=== PATIENT | female | born 1930 | race Caucasian/White ===

== ENCOUNTER 2017-08-16 17:51 | Inpatient (IN) | payer OTHER, MEDICARE ==
--- NOTE | 2017-08-16 18:45 | PDOC ---
History of Present Illness <Guilherme Keating - Last Filed: 08/16/17 18:47> - General History Source: Patient Exam Limitations: No Limitations - History of Present Illness Initial Comments: 08/16/17 19:30 The patient is a 87 year old female resident from [address] [place] [address], with a significant past medical history of HLD, Dementia, HLD who presents to the emergency department with s/p witnessed mechanical fall. Patient reports L hip pain radiating to her L thigh. Patient does not recall the event. Patient denies any head trauma, nausea or vomiting. She denies chest pain, headache or dizziness. Allergies: NKA PCP: Kwame <Tammy Bellamy - Last Filed: 08/16/17 22:33> <Godwin Resendiz - Last Filed: 08/20/17 19:31> - General Chief Complaint: Bone Injury Stated Complaint: FAll Time Seen by Provider: 08/16/17 18:38 Past History - Past Medical History Dementia: Yes Hypercholesterolemia: Yes Other medical history: tremmors - Immunization History Immunization Up to Date: Yes - Suicide/Smoking/Psychosocial Hx Smoking History: Former smoker Have you smoked in the past 12 months: No Information on smoking cessation initiated: No Hx Alcohol Use: No Drug/Substance Use Hx: No Substance Use Type: None <Guilherme Keating - Last Filed: 08/16/17 18:47> <Tammy Bellamy - Last Filed: 08/16/17 22:33> <Godwin Resendiz - Last Filed: 08/20/17 19:31> - Past Medical History Allergies/Adverse Reactions: Allergies Allergy/AdvReac Type Severity Reaction Status Date / Time No Known Allergies Allergy Verified 08/17/17 16:49 Home Medications: Ambulatory Orders Cholecalciferol (Vitamin D3) [Vitamin D3] 2,000 unit PO DAILY 10/14/16 Cyanocobalamin [Vitamin B12 -] 1,000 mcg PO DAILY 10/14/16 Escitalopram Oxalate [Lexapro -] 10 mg PO DAILY 10/14/16 Esomeprazole Magnesium [Nexium 24Hr] 20 mg PO DAILY 10/14/16 Folic Acid 1 mg PO DAILY 10/14/16 Primidone 50 mg PO DAILY 10/14/16 Propranolol HCl [Inderal LA -] 120 mg PO DAILY 10/14/16 Simvastatin 20 mg PO DAILY 10/14/16 Docusate Sodium [Colace -] 200 mg PO HS 08/16/17 Sennosides [Senna] 8.6 mg PO HS 08/16/17 Acetaminophen [Tylenol .Regular Strength -] 650 mg PO Q6H #30 tablet 08/20/17 Polyethylene Glycol 3350 [Miralax 119 gm Btl -] 17 gm PO DAILY #1 bottle Review of Systems - Review of Systems Able to Perform ROS?: Yes Comments:: 08/16/17 19:30 GENERAL/CONSTITUTIONAL: No fever or chills. No weakness. HEAD, EYES, EARS, NOSE AND THROAT: No change in vision. No ear pain or discharge. No sore throat. CARDIOVASCULAR: No chest pain or shortness of breath. RESPIRATORY: No cough, wheezing, or hemoptysis. GASTROINTESTINAL: No nausea, vomiting, diarrhea or constipation. GENITOURINARY: No dysuria, frequency, or change in urination. MUSCULOSKELETAL: No joint or muscle swelling or pain. No neck or back pain. + L hip pain. SKIN: No rash NEUROLOGIC: No headache, vertigo, loss of consciousness, or change in strength/ sensation. ENDOCRINE: No increased thirst. No abnormal weight change. HEMATOLOGIC/LYMPHATIC: No anemia, easy bleeding, or history of blood clots. ALLERGIC/IMMUNOLOGIC: No hives or skin allergy. <Tammy Bellamy - Last Filed: 08/16/17 22:33> *Physical Exam - Vital Signs Last Vital Signs Temp Pulse Resp BP Pulse Ox 98.7 F 54 L 20 147/80 97 08/16/17 18:05 08/16/17 18:05 08/16/17 18:05 08/16/17 18:05 08/16/17 18:05 <Guilherme Keating - Last Filed: 08/16/17 18:47> - Vital Signs Last Vital Signs Temp Pulse Resp BP Pulse Ox 98.7 F 54 L 20 147/80 97 08/16/17 18:05 08/16/17 18:05 08/16/17 18:05 08/16/17 18:05 08/16/17 18:05 - Physical Exam Comments: 08/16/17 19:31 GENERAL: Awake, alert, and fully oriented, in no acute distress HEAD: No signs of trauma EYES: PERRLA, EOMI, sclera anicteric, conjunctiva clear ENT: Auricles normal inspection, hearing grossly normal, nares patent, oropharynx clear without exudates. Moist mucosa NECK: Normal ROM, supple, no lymphadenopathy, JVD, or masses LUNGS: Breath sounds equal, clear to auscultation bilaterally. No wheezes, and no crackles HEART: Regular rate and rhythm, normal S1 and S2, no murmurs, rubs or gallops ABDOMEN: Soft, nontender, normoactive bowel sounds. No guarding, no rebound. No masses EXTREMITIES: Normal range of motion, no edema. No clubbing or cyanosis. No cords, erythema, or tenderness NEUROLOGICAL: Cranial nerves II through XII grossly intact. Normal speech, normal gait SKIN: Warm, Dry, normal turgor, no rashes or lesions noted. <Tammy Bellamy - Last Filed: 08/16/17 22:33> - Vital Signs Last Vital Signs Temp Pulse Resp BP Pulse Ox 98.7 F 54 L 20 147/80 97 08/16/17 18:05 08/16/17 18:05 08/16/17 18:05 08/16/17 18:05 08/16/17 18:05 <AstridGodwin - Last Filed: 08/20/17 19:31> ED Treatment Course - LABORATORY CBC & Chemistry Diagram: 08/16/17 21:30 08/16/17 21:30 <Tammy Bellamy - Last Filed: 08/16/17 22:33> - LABORATORY CBC & Chemistry Diagram: 08/20/17 06:10 08/20/17 06:10 - ADDITIONAL ORDERS Additional order review: Laboratory Results 08/17/17 08/16/17 08/16/17 06:14 21:30 21:30 PT with INR INR Sodium 141 Potassium 4.2 Chloride 106 Carbon Dioxide 28 Anion Gap 7 L BUN 25 H Creatinine 0.9 Creat Clearance w eGFR 59.09 Random Glucose 141 H Calcium 8.4 L Total Bilirubin 0.3 AST 25 ALT 26 Alkaline Phosphatase 93 Total Protein 6.5 Albumin 3.6 Urine Color Yellow Urine Appearance Clear Urine pH 6.0 Urine Protein Negative Urine Glucose (UA) Negative Urine Ketones Negative Urine Blood Negative Urine Nitrite Negative Urine Bilirubin Negative Urine Urobilinogen Negative Blood Type O POSITIVE Antibody Screen Negative 08/16/17 21:30 PT with INR 10.90 INR 0.96 Sodium Potassium Chloride Carbon Dioxide Anion Gap BUN Creatinine Creat Clearance w eGFR Random Glucose Calcium Total Bilirubin AST ALT Alkaline Phosphatase Total Protein Albumin Urine Color Urine Appearance Urine pH Urine Protein Urine Glucose (UA) Urine Ketones Urine Blood Urine Nitrite Urine Bilirubin Urine Urobilinogen Blood Type Antibody Screen 08/16/17 21:30 RBC 3.98 MCV 86.8 MCHC 32.8 RDW 15.7 H MPV 7.6 Neutrophils % No Result Required. Lymphocytes % No Result Required. - Medications Given in the ED: ED Medications Discontinued Medications Generic Name Dose Route Start Last Admin Trade Name Aleksandra PRN Reason Stop Dose Admin Acetaminophen 1,000 mg 08/16/17 21:40 08/16/17 22:02 Ofirmev Injection - IVPB 08/16/17 21:41 1,000 mg ONCE ONE Administration <Godwin Resendiz - Last Filed: 08/20/17 19:31> Medical Decision Making - Medical Decision Making 08/16/17 22:06 Dr. Malone paged via phone answering service. Awaiting call back. <Tammy Bellamy - Last Filed: 08/16/17 22:33> - Medical Decision Making 08/20/17 19:27 I did not evaluate this patient. I entered this chart to place admission order as it was not done originally <Godwin Resendiz - Last Filed: 08/20/17 19:31> *DC/Admit/Observation/Transfer - Attestations Physician Attestion: 08/16/17 18:39 I, Dr. Guilherme Keating, attest that this document has been prepared under my direction and personally reviewed by me in its entirety. I further attest, that it accurately reflects all work, treatment, procedures and medical decision -making performed by me. <Guilherme Keating - Last Filed: 08/16/17 18:47> - Attestations Scribe Attestion: 08/16/17 19:31 Documentation prepared by Tammy Bellamy, acting as medical aide for Guilherme Keating DO. <Tammy Bellamy - Last Filed: 08/16/17 22:33> <Godwin Resendiz - Last Filed: 08/20/17 19:31> Diagnosis at time of Disposition: Fall Qualifiers: Encounter type: initial encounter Qualified Code(s): W19.XXXA - Unspecified fall, initial encounter; W19.XXXA - Unspecified fall, initial encounter Pelvic fracture Qualifiers: Encounter type: initial encounter Pelvic bone location: unspecified part of pelvis Fracture type: closed Fracture alignment: displaced Qualified Code(s): S32.9XXA - Fracture of unspecified parts of lumbosacral spine and pelvis, initial encounter for closed fracture; S32.9XXA - Fracture of unspecified parts of lumbosacral spine and pelvis, initial encounter for closed fracture; S32.9XXA - Fracture of unspecified parts of lumbosacral spine and pelvis, initial encounter for closed fracture - Discharge Dispostion Disposition: [facility] - Prescriptions - Referrals
[2017-08-16] MEDS ORDERED: ACETAMINOPHEN 1000 MG/100 ML VIAL (NON FORMULARY) IVPB ONE (21:40)
[2017-08-16] MEDS ORDERED: ACETAMINOPHEN INJECTION 100 ML IVPB ONE (21:46)
[2017-08-16 22:05] LABS: MCH 28.5 pg (25.7-33.7); MCHC 32.8 g/dl (32.0-36.0); MEAN CELL VOLUME 86.8 fl (80-96); MEAN PLT VOLUME 7.6 fl (7.5-11.1); PLATELET COUNT 207 K/MM3 (134-434); RDW 15.7 % (11.6-15.6); WHITE BLOOD COUNT 26.3 K/mm3 (4.0-10.0)
[2017-08-16 22:21] LABS: INR 0.96 (0.82-1.09); PROTHROMBIN TIME (PATIENT) 10.9 SEC (9.98-11.88)
[2017-08-16 22:32] LABS: ALBUMIN 3.6 g/dl (3.4-5.0); ALK PHOS 93 U/L (45-117); ANION GAP 7 (8-16); BILIRUBIN,TOTAL 0.3 mg/dL (0.2-1.0); CALCIUM 8.4 mg/dL (8.5-10.1); CO2 28 mmol/L (21-32); CREATININE 0.9 mg/dL (0.55-1.02); GLUCOSE,RANDOM 141 mg/dL (74-106); SGOT/AST 25 U/L (15-37); SGPT/ALT 26 U/L (12-78); TOT PROT 6.5 g/dl (6.4-8.2)
[2017-08-16 22:47] LABS: PLATELET ESTIMATE ADEQUATE (NORMAL); REACTIVE LYMPHOCYTES 2 % (0-80); SMUDGE CELLS 1; TOTAL CELLS COUNTED 100
--- NOTE | 2017-08-16 23:32 | HP ---
Admitting History and Physical - Admission Chief Complaint: s/p fall - pain to hip History of Present Illness: The patient is a 87 year old female resident from [address] [place] [address], with a significant past medical history of HLD, Dementia, HLD who presents to the emergency department with s/p witnessed mechanical fall. Patient reports L hip pain radiating to her L thigh. Patient does not recall the event. Patient denies any head trauma, nausea or vomiting. She denies chest pain, headache or dizziness. History Source: Patient, Medical Record, Transfer Record - Past Medical History Musculoskeletal: Yes: Osteoarthritis - Smoking History Smoking history: Former smoker Have you smoked in the past 12 months: No - Alcohol/Substance Use Hx Alcohol Use: No - Social History Usual Living Arrangement: Yes: Assisted Living ADL: Support Services Home Medications - Allergies Allergies/Adverse Reactions: Allergies Allergy/AdvReac Type Severity Reaction Status Date / Time No Known Allergies Allergy Verified 08/17/17 16:49 - Home Medications Home Medications: Ambulatory Orders Cholecalciferol (Vitamin D3) [Vitamin D3] 2,000 unit PO DAILY 10/14/16 Chromium Picolinate 200 mcg PO DAILY 10/14/16 Cyanocobalamin [Vitamin B12 -] 1,000 mcg PO DAILY 10/14/16 Escitalopram Oxalate [Lexapro -] 10 mg PO DAILY 10/14/16 Esomeprazole Magnesium [Nexium 24Hr] 20 mg PO DAILY 10/14/16 Folic Acid 1 mg PO DAILY 10/14/16 Folic Acid/Mv,Fe,Min/Lutein [Certa Plus Tablet] 1 each PO DAILY 10/14/16 Primidone 50 mg PO DAILY 10/14/16 Propranolol HCl [Inderal *LA*] 120 mg PO DAILY 10/14/16 Simvastatin 20 mg PO DAILY 10/14/16 Docusate Sodium [Colace -] 200 mg PO HS 08/16/17 Sennosides [Senna] 8.6 mg PO HS 08/16/17 Review of Systems - Review of Systems Constitutional: reports: No Symptoms Eyes: reports: No Symptoms HENT: reports: No Symptoms Neck: reports: No Symptoms Cardiovascular: denies: Chest Pain, Palpitations, Shortness of Breath Respiratory: denies: SOB on Exertion Gastrointestinal: reports: No Symptoms Genitourinary: reports: No Symptoms Breasts: reports: No Symptoms Reported Musculoskeletal: reports: No Symptoms Neurological: reports: Pre-Existing Deficit Endocrine: reports: No Symptoms Psychiatric: reports: No Symptoms Physical Examination Vital Signs: Vital Signs Temperature 98.7 F 08/16/17 18:05 Pulse Rate 54 L 08/16/17 18:05 Respiratory Rate 20 08/16/17 18:05 Blood Pressure 147/80 08/16/17 18:05 O2 Sat by Pulse Oximetry (%) 97 08/16/17 18:05 Findings/Remarks: patient sedated / no history obtained calm / comfortable / + pain with exam Constitutional: Yes: No Distress, Calm Eyes: Yes: Conjunctiva Clear, EOM Intact HENT: Yes: Atraumatic, Normocephalic Neck: Yes: Supple, Trachea Midline Cardiovascular: Yes: Regular Rate and Rhythm Respiratory: Yes: CTA Bilaterally Gastrointestinal: Yes: Normal Bowel Sounds, Soft ...Rectal Exam: Yes: Deferred Musculoskeletal: Yes: WNL, Other (discomfort with pelvis movement /). No: Joint Stiffness, Joint Swelling, Muscle Pain Extremities: Yes: Delayed Capillary Refill. No: Deformity, External Rotation, Shortened Peripheral Pulses WNL: Yes Peripheral Pulses: Left Radial: 2+ Neurological: Yes: Confusion (sedated) Labs: CBC, BMP 08/16/17 21:30 08/16/17 21:30 Problem List - Problems (1) Fall Code(s): W19.XXXA - UNSPECIFIED FALL, INITIAL ENCOUNTER (2) Pelvic fracture Code(s): S32.9XXA - FRACTURE OF UNSP PARTS OF LUMBOSACRAL SPINE AND PELVIS, INIT Qualifiers: Fracture morphology: associated transverse-posterior (3) Contusion, back Code(s): S20.229A - CONTUSION OF UNSPECIFIED BACK WALL OF THORAX, INIT ENCNTR (4) Contusion, hip Code(s): S70.00XA - CONTUSION OF UNSPECIFIED HIP, INITIAL ENCOUNTER (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
[2017-08-17] MEDS ORDERED: ACETAMINOPHEN 325 MG TABLET (FP) ONE ×3 (00:02→11:56)
[2017-08-17] MEDS: ACETAMINOPHEN 325 MG TABLET (FP) PO SCH ×5 (00:02→23:19)
[2017-08-17] MEDS ORDERED: HYDROmorphone HCL CARPU-JECT 1 MG/1 ML DISP.SYRIN ONE (05:52)
[2017-08-17] MEDS: HYDROmorphone HCL CARPU-JECT 1 MG/1 ML DISP.SYRIN IVPUSH PRN ×2 (06:06→20:21)
[2017-08-17 06:30] LABS: URINE APPEARANCE CLEAR; URINE BILIRUBIN NEGATIVE (NEGATIVE); URINE BLOOD NEGATIVE (NEGATIVE); URINE COLOR YELLOW; URINE GLUCOSE (UA) NEGATIVE (NEGATIVE); URINE KETONE NEGATIVE (NEGATIVE); URINE NITRITE NEGATIVE (NEGATIVE); URINE PROTEIN NEGATIVE (NEGATIVE); URINE UROBILINOGEN NEGATIVE mg/dL (0.2-1.0)
[2017-08-17 10:41] LABS: MCHC 33.7 g/dl (32.0-36.0); MEAN CELL VOLUME 86.1 fl (80-96); MEAN PLT VOLUME 7.7 fl (7.5-11.1); PLATELET COUNT 189 K/MM3 (134-434); RDW 15.5 % (11.6-15.6); WHITE BLOOD COUNT 18.1 K/mm3 (4.0-10.0)
[2017-08-17 10:55] LABS: ANION GAP 5 (8-16); CO2 31 mmol/L (21-32); GLUCOSE,RANDOM 114 mg/dL (74-106)
[2017-08-17] MEDS: FOLIC ACID 1 MG TABLET (FP) PO SCH (11:56)
[2017-08-17] MEDS: ESCITALOPRAM OXALATE 10 MG TABLET (FP) PO SCH (11:58)
[2017-08-17] MEDS: PANTOPRAZOLE 20 MG TABLET (FP) PO SCH (11:59)
[2017-08-17] MEDS: CHOLECALCIFEROL (VITAMIN D3) 1,000 UNIT TABLET (FP) PO SCH (11:59)
[2017-08-17 13:45] LABS: BASOPHIL %. 1 % (0-2.0); PLATELET ESTIMATE ADEQUATE (NORMAL); TOTAL CELLS COUNTED 100
--- NOTE | 2017-08-17 14:35 | CON.ORTH ---
Consult Reason for Consultation:: left pelvic fx - Past Medical History Musculoskeletal: Yes: Osteoarthritis - Alcohol/Substance Use Hx Alcohol Use: No - Smoking History Smoking history: Former smoker Have you smoked in the past 12 months: No - Social History ADL: Support Services Home Medications - Allergies Allergies/Adverse Reactions: Allergies Allergy/AdvReac Type Severity Reaction Status Date / Time No Known Allergies Allergy Verified 07/03/16 14:15 - Home Medications Home Medications: Ambulatory Orders Cholecalciferol (Vitamin D3) [Vitamin D3] 2,000 unit PO DAILY 10/14/16 Chromium Picolinate 200 mcg PO DAILY 10/14/16 Cyanocobalamin [Vitamin B12 -] 1,000 mcg PO DAILY 10/14/16 Escitalopram Oxalate [Lexapro -] 10 mg PO DAILY 10/14/16 Esomeprazole Magnesium [Nexium 24Hr] 20 mg PO DAILY 10/14/16 Folic Acid 1 mg PO DAILY 10/14/16 Folic Acid/Mv,Fe,Min/Lutein [Certa Plus Tablet] 1 each PO DAILY 10/14/16 Primidone 50 mg PO DAILY 10/14/16 Propranolol HCl [Inderal *LA*] 120 mg PO DAILY 10/14/16 Simvastatin 20 mg PO DAILY 10/14/16 Docusate Sodium [Colace -] 200 mg PO HS 08/16/17 Sennosides [Senna] 8.6 mg PO HS 08/16/17 Physical Exam for Ortho Vital Signs: Vital Signs Temperature 97.9 F 08/17/17 14:27 Pulse Rate 56 L 08/17/17 14:27 Respiratory Rate 18 08/17/17 14:27 Blood Pressure 138/56 08/17/17 14:27 O2 Sat by Pulse Oximetry (%) 98 08/17/17 14:27 Labs: CBC, BMP 08/17/17 09:50 08/17/17 09:50 INR, PTT INR 0.96 (0.82-1.09) 08/16/17 21:30 - Lower Extremity Hip: Yes: Left, Decreased ROM, Pain, Swelling, Other (nvi) Imaging - Results X-ray: Report Reviewed, Image Reviewed Assessment/Plan 87 year old female resident from [address] [place] [address], with a significant past medical history of HLD, Dementia, HLD who presents to the emergency department with s/p witnessed mechanical fall. Patient reports L hip pain radiating to her L thigh. Patient does not recall the event. Patient denies any head trauma, nausea or vomiting. She denies chest pain, headache or dizziness. a/p- left superior and inferior pubic rami fx, chronic T 11 compression fx PT eval wbat pain control dvt ppx medical f/u for ?lymphoma on CT d/w Dr. Burton
[2017-08-17 16:37] LABS: URINE LEUK ESTERASE Negative (NEGATIVE)
[2017-08-17 18:05] VITALS: BMI 24.8
[2017-08-17] MEDS ORDERED: FLU VACCINE QUAD 60 MCG/0.5 ML (MDV 17-18) IM ONE (19:54)
[2017-08-17] MEDS: POLYETHYLENE GLYCOL 3350 119 GM BTL PO SCH (20:24)
[2017-08-17] MEDS ORDERED: PT OWN MED DRAWER 7, Y5N ONE (21:12)
[2017-08-17] MEDS: ATORVASTATIN CA 40 MG TABLET (FP) PO SCH (21:34)
[2017-08-17] MEDS: DOCUSATE SODIUM 100 MG CAPSULE (FP) PO SCH (21:34)
[2017-08-17] MEDS: PRIMIDONE 50 MG TABLET PO SCH (21:36)
[2017-08-18] MEDS: ACETAMINOPHEN 325 MG TABLET (FP) PO SCH ×5 (01:16→23:47)
[2017-08-18] MEDS ORDERED: PT OWN MED DRAWER 7, Y5N ONE ×2 (10:34→22:00)
[2017-08-18] MEDS: POLYETHYLENE GLYCOL 3350 119 GM BTL PO SCH (10:41)
[2017-08-18] MEDS: FOLIC ACID 1 MG TABLET (FP) PO SCH (10:42)
[2017-08-18] MEDS: ESCITALOPRAM OXALATE 10 MG TABLET (FP) PO SCH (10:42)
[2017-08-18] MEDS: PANTOPRAZOLE 20 MG TABLET (FP) PO SCH (10:42)
[2017-08-18] MEDS: CHOLECALCIFEROL (VITAMIN D3) 1,000 UNIT TABLET (FP) PO SCH (10:42)
--- NOTE | 2017-08-18 15:53 | PN ---
Progress Note (short form) - Note Progress Note: patient seen in ER awaiting room was just sedated with dilaudid appears comfortable except for movement of left LE patient unable to provide hx of event however fall was witness / documented as a mechanical fall Vital Signs Period Temp Pulse Resp BP Sys/Chapman Pulse Ox Last 24 Hr 97.2 F-100.0 F 56-71 18-20 116-147/54-66 97-99 neck supple heart S1/S2 lungs clear bilat abd soft non tender + pain with hip movement Ext no deformity / edema / + pulses CBC, BMP 08/17/17 09:50 08/17/17 09:50 Active Medications Acetaminophen (Tylenol -) 650 mg PO Q6H [facility] Last Admin: 08/18/17 11:58 Dose: 650 mg Atorvastatin Calcium (Lipitor -) 40 mg PO HS [facility] Last Admin: 08/17/17 21:34 Dose: 40 mg Cholecalciferol (Vitamin D3 -) 1,000 unit PO DAILY [facility] Last Admin: 08/18/17 10:42 Dose: 1,000 unit Docusate Sodium (Colace -) 200 mg PO HS [facility] Last Admin: 08/17/17 21:34 Dose: 200 mg Escitalopram Oxalate (Lexapro -) 10 mg PO DAILY [facility] Last Admin: 08/18/17 10:42 Dose: 10 mg Folic Acid (Folic Acid -) 1 mg PO DAILY [facility] Last Admin: 08/18/17 10:42 Dose: 1 mg Hydromorphone HCl (Dilaudid Injection -) 1 mg IVPUSH Q4H PRN PRN Reason: PAIN Last Admin: 08/17/17 20:21 Dose: 1 mg Pantoprazole Sodium (Protonix -) 20 mg PO DAILY [facility] Last Admin: 08/18/17 10:42 Dose: 20 mg Polyethylene Glycol (Miralax (For Daily Use) -) 17 gm PO DAILY [facility] Last Admin: 08/18/17 10:41 Dose: 17 grams Primidone (Mysoline -) 50 mg PO HS [facility] Last Admin: 08/17/17 21:36 Dose: 50 mg Propranolol HCl (Inderal La -) 120 mg PO DAILY [facility] Last Admin: 08/18/17 10:42 Dose: 120 mg assmt # mechanical fall / fx pelvis ortho opinion bedrest while sedated will need STR DVT prophylaxis # 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 [facility] elevated wbc # HLD continue statins # depression continue antidepressant Problem List - Problems (1) Fall Code(s): W19.XXXA - UNSPECIFIED FALL, INITIAL ENCOUNTER (2) Pelvic fracture Code(s): S32.9XXA - FRACTURE OF UNSP PARTS OF LUMBOSACRAL SPINE AND PELVIS, INIT Qualifiers: Fracture morphology: associated transverse-posterior (3) Contusion, back Code(s): S20.229A - CONTUSION OF UNSPECIFIED BACK WALL OF THORAX, INIT ENCNTR (4) Contusion, hip Code(s): S70.00XA - CONTUSION OF UNSPECIFIED HIP, INITIAL ENCOUNTER (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
--- NOTE | 2017-08-18 20:22 | PN ---
Progress Note (short form) - Note Progress Note: ORTHOPEDICALLY STABLE PLAN: ANALGESICS, PT - WBAT, DC PLANNING
[2017-08-18] MEDS: DOCUSATE SODIUM 100 MG CAPSULE (FP) PO SCH (22:04)
[2017-08-18] MEDS: PRIMIDONE 50 MG TABLET PO SCH (22:04)
[2017-08-18] MEDS: ATORVASTATIN CA 40 MG TABLET (FP) PO SCH (22:04)
[2017-08-19] MEDS: HYDROmorphone HCL CARPU-JECT 1 MG/1 ML DISP.SYRIN IVPUSH PRN (00:53)
[2017-08-19] MEDS: ACETAMINOPHEN 325 MG TABLET (FP) PO SCH ×4 (06:16→23:28)
[2017-08-19] MEDS ORDERED: HYDROmorphone HCL CARPU-JECT 1 MG/1 ML DISP.SYRIN IVPB PRN (08:00)
[2017-08-19] MEDS ORDERED: PT OWN MED DRAWER 7, Y5N ONE ×2 (10:23→21:14)
[2017-08-19] MEDS: ESCITALOPRAM OXALATE 10 MG TABLET (FP) PO SCH (10:24)
[2017-08-19] MEDS: CHOLECALCIFEROL (VITAMIN D3) 1,000 UNIT TABLET (FP) PO SCH (10:24)
[2017-08-19] MEDS: FOLIC ACID 1 MG TABLET (FP) PO SCH (10:24)
[2017-08-19] MEDS: PANTOPRAZOLE 20 MG TABLET (FP) PO SCH (10:24)
[2017-08-19] MEDS: POLYETHYLENE GLYCOL 3350 119 GM BTL PO SCH (10:24)
--- NOTE | 2017-08-19 12:18 | PN ---
Progress Note (short form) - Note Progress Note: attending note patient sitting in bed awake alert "I don't want to be here !!" unclear if she actually understands she has sustained Fx discussed STR -- seems to be agreeable Vital Signs Period Temp Pulse Resp BP Sys/Chapman Pulse Ox Last 24 Hr 97.2 F-100.0 F 56-71 18-20 116-147/54-66 97-99 neck supple heart S1/S2 lungs clear bilat abd soft non tender + pain with hip movement Ext no deformity / edema / + pulses CBC, BMP 08/17/17 09:50 08/17/17 09:50 Active Medications Acetaminophen (Tylenol -) 650 mg PO Q6H [facility] Last Admin: 08/19/17 06:16 Dose: 650 mg Atorvastatin Calcium (Lipitor -) 40 mg PO HS [facility] Last Admin: 08/18/17 22:04 Dose: 40 mg Cholecalciferol (Vitamin D3 -) 1,000 unit PO DAILY [facility] Last Admin: 08/19/17 10:24 Dose: 1,000 unit Docusate Sodium (Colace -) 200 mg PO HS [facility] Last Admin: 08/18/17 22:04 Dose: 200 mg Escitalopram Oxalate (Lexapro -) 10 mg PO DAILY [facility] Last Admin: 08/19/17 10:24 Dose: 10 mg Folic Acid (Folic Acid -) 1 mg PO DAILY [facility] Last Admin: 08/19/17 10:24 Dose: 1 mg Hydromorphone HCl (Dilaudid Injection -) 1 mg IVPB Q4H PRN PRN Reason: PAIN Pantoprazole Sodium (Protonix -) 20 mg PO DAILY [facility] Last Admin: 08/19/17 10:24 Dose: 20 mg Polyethylene Glycol (Miralax (For Daily Use) -) 17 gm PO DAILY [facility] Last Admin: 08/19/17 10:24 Dose: 17 grams Primidone (Mysoline -) 50 mg PO HS [facility] Last Admin: 08/18/17 22:04 Dose: 50 mg Propranolol HCl (Inderal La -) 120 mg PO DAILY [facility] Last Admin: 08/19/17 10:24 Dose: 120 mg assmt # mechanical fall / fx pelvis ortho follow up appresicated will need STR -- prefer [facility] she is agreeable DVT prophylaxis # 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 [facility] elevated wbc # HLD continue statins # depression continue antidepressant Problem List - Problems (1) Fall Code(s): W19.XXXA - UNSPECIFIED FALL, INITIAL ENCOUNTER (2) Pelvic fracture Code(s): S32.9XXA - FRACTURE OF UNSP PARTS OF LUMBOSACRAL SPINE AND PELVIS, INIT Qualifiers: Fracture morphology: associated transverse-posterior (3) Contusion, back Code(s): S20.229A - CONTUSION OF UNSPECIFIED BACK WALL OF THORAX, INIT ENCNTR (4) Contusion, hip Code(s): S70.00XA - CONTUSION OF UNSPECIFIED HIP, INITIAL ENCOUNTER (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
--- NOTE | 2017-08-19 12:20 | PN ---
Progress Note (short form) - Note Progress Note: attending note drowsy / recently sedated / comfortable -- ortho consult appreciated Vital Signs Period Temp Pulse Resp BP Sys/Chapman Pulse Ox Last 24 Hr 97.2 F-100.0 F 56-71 18-20 116-147/54-66 97-99 neck supple heart S1/S2 lungs clear bilat abd soft non tender + pain with hip movement Ext no deformity / edema / + pulses CBC, BMP 08/17/17 09:50 08/17/17 09:50 Active Medications Acetaminophen (Tylenol -) 650 mg PO Q6H [facility] Last Admin: 08/19/17 06:16 Dose: 650 mg Atorvastatin Calcium (Lipitor -) 40 mg PO HS [facility] Last Admin: 08/18/17 22:04 Dose: 40 mg Cholecalciferol (Vitamin D3 -) 1,000 unit PO DAILY [facility] Last Admin: 08/19/17 10:24 Dose: 1,000 unit Docusate Sodium (Colace -) 200 mg PO HS [facility] Last Admin: 08/18/17 22:04 Dose: 200 mg Escitalopram Oxalate (Lexapro -) 10 mg PO DAILY [facility] Last Admin: 08/19/17 10:24 Dose: 10 mg Folic Acid (Folic Acid -) 1 mg PO DAILY [facility] Last Admin: 08/19/17 10:24 Dose: 1 mg Hydromorphone HCl (Dilaudid Injection -) 1 mg IVPB Q4H PRN PRN Reason: PAIN Pantoprazole Sodium (Protonix -) 20 mg PO DAILY [facility] Last Admin: 08/19/17 10:24 Dose: 20 mg Polyethylene Glycol (Miralax (For Daily Use) -) 17 gm PO DAILY [facility] Last Admin: 08/19/17 10:24 Dose: 17 grams Primidone (Mysoline -) 50 mg PO HS [facility] Last Admin: 08/18/17 22:04 Dose: 50 mg Propranolol HCl (Inderal La -) 120 mg PO DAILY [facility] Last Admin: 08/19/17 10:24 Dose: 120 mg assmt # mechanical fall / fx pelvis ortho follow up appresicated will need STR - DVT prophylaxis # 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 [facility] elevated wbc # HLD continue statins # depression continue antidepressant Problem List - Problems (1) Fall Code(s): W19.XXXA - UNSPECIFIED FALL, INITIAL ENCOUNTER (2) Pelvic fracture Code(s): S32.9XXA - FRACTURE OF UNSP PARTS OF LUMBOSACRAL SPINE AND PELVIS, INIT Qualifiers: Fracture morphology: associated transverse-posterior (3) Contusion, back Code(s): S20.229A - CONTUSION OF UNSPECIFIED BACK WALL OF THORAX, INIT ENCNTR (4) Contusion, hip Code(s): S70.00XA - CONTUSION OF UNSPECIFIED HIP, INITIAL ENCOUNTER (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
[2017-08-19] MEDS: PRIMIDONE 50 MG TABLET PO SCH (21:16)
[2017-08-19] MEDS: ATORVASTATIN CA 40 MG TABLET (FP) PO SCH (21:16)
[2017-08-19] MEDS: DOCUSATE SODIUM 100 MG CAPSULE (FP) PO SCH (21:16)
[2017-08-20] MEDS: ACETAMINOPHEN 325 MG TABLET (FP) PO SCH ×3 (06:05→17:43)
[2017-08-20 07:09] LABS: MCH 28.9 pg (25.7-33.7); MCHC 33.5 g/dl (32.0-36.0); MEAN CELL VOLUME 86.4 fl (80-96); MEAN PLT VOLUME 7.7 fl (7.5-11.1); PLATELET COUNT 216 K/MM3 (134-434); RDW 15.7 % (11.6-15.6); WHITE BLOOD COUNT 19.1 K/mm3 (4.0-10.0)
[2017-08-20 07:13] LABS: ANION GAP 8 (8-16); CALCIUM 8.6 mg/dL (8.5-10.1); CO2 31 mmol/L (21-32); CREATININE 0.9 mg/dL (0.55-1.02); GLUCOSE,RANDOM 102 mg/dL (74-106)
[2017-08-20] MEDS ORDERED: PT OWN MED DRAWER 7, Y5N ONE (09:51)
--- NOTE | 2017-08-20 09:57 | PN ---
Progress Note (short form) - Note Progress Note: Ortho Pt seen and examined s/p left pelvic fx +ttp, decr rom secondary to pain, calf soft nt, nvi a/p PT wbat oob dvt ppx d/c planning d/w Dr. jiménez
[2017-08-20] MEDS: FOLIC ACID 1 MG TABLET (FP) PO SCH (09:58)
[2017-08-20] MEDS: CHOLECALCIFEROL (VITAMIN D3) 1,000 UNIT TABLET (FP) PO SCH (09:58)
[2017-08-20] MEDS: PANTOPRAZOLE 20 MG TABLET (FP) PO SCH (09:58)
[2017-08-20] MEDS: ESCITALOPRAM OXALATE 10 MG TABLET (FP) PO SCH (09:58)
[2017-08-20] MEDS: POLYETHYLENE GLYCOL 3350 119 GM BTL PO SCH (09:59)
--- NOTE | 2017-08-20 14:02 | PN ---
Progress Note (short form) - Note Progress Note: attending note sitting in chair - ? confised unclear if she understands injury / is able to discuss fall and knows her surrounding was ambulated by rehab this am family requesting [facility] patient will be evaluated today for BR She is comfortable and pain free except with exam / ROM Vital Signs Period Temp Pulse Resp BP Sys/Chapman Pulse Ox Last 24 Hr 97.2 F-100.0 F 56-71 18-20 116-147/54-66 97-99 neck supple heart S1/S2 lungs clear bilat abd soft non tender + pain with hip movement Ext no deformity / edema / + pulses CBC, BMP 08/17/17 09:50 08/17/17 09:50 CBC, BMP 08/20/17 06:10 08/20/17 06:10 Active Medications Acetaminophen (Tylenol -) 650 mg PO Q6H [facility] Last Admin: 08/20/17 11:51 Dose: 650 mg Atorvastatin Calcium (Lipitor -) 40 mg PO [facility] Last Admin: 08/19/17 21:16 Dose: 40 mg Cholecalciferol (Vitamin D3 -) 1,000 unit PO DAILY [facility] Last Admin: 08/20/17 09:58 Dose: 1,000 unit Docusate Sodium (Colace -) 200 mg PO [facility] Last Admin: 08/19/17 21:16 Dose: 200 mg Escitalopram Oxalate (Lexapro -) 10 mg PO DAILY [facility] Last Admin: 08/20/17 09:58 Dose: 10 mg Folic Acid (Folic Acid -) 1 mg PO DAILY [facility] Last Admin: 08/20/17 09:58 Dose: 1 mg Hydromorphone HCl (Dilaudid Injection -) 1 mg IVPB Q4H PRN PRN Reason: PAIN Pantoprazole Sodium (Protonix -) 20 mg PO DAILY [facility] Last Admin: 08/20/17 09:58 Dose: 20 mg Polyethylene Glycol (Miralax (For Daily Use) -) 17 gm PO DAILY [facility] Last Admin: 08/20/17 09:59 Dose: 17 grams Primidone (Mysoline -) 50 mg PO HS [facility] Last Admin: 08/19/17 21:16 Dose: 50 mg Propranolol HCl (Inderal La -) 120 mg PO DAILY [facility] Last Admin: 08/20/17 09:59 Dose: 120 mg assmt # mechanical fall / fx pelvis ortho follow up appresicated will need STR - DVT prophylaxis # 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 [facility] elevated wbc # HLD continue statins # depression continue antidepressant arrangements for D/C per family request appreciate discharge planning assist Problem List - Problems (1) Fall Code(s): W19.XXXA - UNSPECIFIED FALL, INITIAL ENCOUNTER (2) Pelvic fracture Code(s): S32.9XXA - FRACTURE OF UNSP PARTS OF LUMBOSACRAL SPINE AND PELVIS, INIT Qualifiers: Fracture morphology: associated transverse-posterior (3) Contusion, back Code(s): S20.229A - CONTUSION OF UNSPECIFIED BACK WALL OF THORAX, INIT ENCNTR (4) Contusion, hip Code(s): S70.00XA - CONTUSION OF UNSPECIFIED HIP, INITIAL ENCOUNTER (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
[2017-08-20 14:26] VITALS: BP 137/64; PULSE 59; TEMP 98.3
--- NOTE | 2017-08-20 19:15 | DS ---
Physical Examination Vital Signs: Vital Signs Temperature 98.3 F 08/20/17 14:24 Pulse Rate 59 L 08/20/17 14:24 Respiratory Rate 20 08/20/17 09:00 Blood Pressure 137/64 08/20/17 14:24 O2 Sat by Pulse Oximetry (%) 98 08/20/17 09:00 Findings/Remarks: The patient is a 87 year old female resident from [address] [place] [address], with a significant PMH of HLD, Dementia, HLD who presents to the emergency department s/p witnessed mechanical fall. Patient reported L hip pain radiating to her L thigh. Patient did not recall the event details however does remember falling. Patient denied any CP / Palpitation / dizzines / or lightheadedness at time of event. Per witnesses no documented head trauma. Patient was admitted, evaluated by ortho and physical therapy, and cleared for weight bearing. She was initially given dilaudid for pain management but has been comfortable over last 24 hr and has been managed well on tylenol ( standing order ) alone. She has been evaluated and accepted to out patient Short term rehab Constitutional: Yes: Well Nourished, No Distress Eyes: Yes: Conjunctiva Clear, EOM Intact HENT: Yes: Atraumatic, Normocephalic Neck: Yes: Supple, Trachea Midline Cardiovascular: Yes: Regular Rate and Rhythm Respiratory: Yes: Regular, CTA Bilaterally Gastrointestinal: Yes: Normal Bowel Sounds, Soft ...Rectal Exam: Yes: Deferred Renal/: Yes: WNL Extremities: Yes: Delayed Capillary Refill, Other (pain elicited on exam when evaluating ROM). No: Cold, Cyanosis, Deformity, External Rotation, Shortened Edema: No Peripheral Pulses WNL: Yes Peripheral Pulses: Left Radial: 2+, Right Radial: 2+, Left Doralis Pedis: 2+, Right Dorsalis Pedis: 2+, Left Femoral: 2+, Right Femoral: 2+ Integumentary: Yes: WNL Neurological: Yes: Alert, Confusion Psychiatric: Yes: Alert Labs: CBC, BMP 08/20/17 06:10 08/20/17 06:10 Discharge Summary Reason For Visit: FALL/ FX OF PELVIS Condition: Fair - Instructions Diet, Activity, Other Instructions: Fracture of pelvis weight bearing / PT safety in ADLs Referrals: Shyanne Puente [Primary Care Provider] - Disposition: SNF FACILITY - Home Medications Comprehensive Discharge Medication List: Ambulatory Orders Cholecalciferol (Vitamin D3) [Vitamin D3] 2,000 unit PO DAILY 10/14/16 Cyanocobalamin [Vitamin B12 -] 1,000 mcg PO DAILY 10/14/16 Escitalopram Oxalate [Lexapro -] 10 mg PO DAILY 10/14/16 Esomeprazole Magnesium [Nexium 24Hr] 20 mg PO DAILY 10/14/16 Folic Acid 1 mg PO DAILY 10/14/16 Primidone 50 mg PO DAILY 10/14/16 Propranolol HCl [Inderal LA -] 120 mg PO DAILY 10/14/16 Simvastatin 20 mg PO DAILY 10/14/16 Docusate Sodium [Colace -] 200 mg PO HS 08/16/17 Sennosides [Senna] 8.6 mg PO HS 08/16/17 Acetaminophen [Tylenol .Regular Strength -] 650 mg PO Q6H #30 tablet 08/20/17 Polyethylene Glycol 3350 [Miralax 119 gm Btl -] 17 gm PO DAILY #1 bottle
== END 2017-08-20 18:41 | DRG 536 ==
LOC: JER 17:51 → JERBED 23:00 → J6S 08-17 17:27
PROVIDERS: ADMIT Family Medicine; ATTEND Family Medicine
DX: S32.512A Fracture of superior rim of left pubis, initial encounter for closed fracture (principal); C92.11 Chronic myeloid leukemia, BCR/ABL-positive, in remission; F03.90 Unspecified dementia, unspecified severity, without behavioral disturbance, psychotic disturbance, mood disturbance, and anxiety; E78.5 Hyperlipidemia, unspecified; F32.9 Major depressive disorder, single episode, unspecified; W19.XXXA Unspecified fall, initial encounter; Y93.9 Activity, unspecified; Y92.89 Other specified places as the place of occurrence of the external cause
CPT/HCPCS: 36415; 71010-TC; 73523-TC; 74176-TC; 80048; 80053; 81003; 85025; 85027; 85610; 86850; 86900; 86901; 90688; 97116-GP; 97161-GP; 99283-25; G0008

== ENCOUNTER 2017-12-07 19:08 | Inpatient (IN) | payer OTHER, MEDICARE ==
[2017-12-07 19:55] VITALS: BMI 21.9
--- NOTE | 2017-12-07 20:54 | PDOC ---
History of Present Illness <Jerson Marie - Last Filed: 12/08/17 00:32> - General History Source: [facility] Records - History of Present Illness Initial Comments: 12/07/17 20:54 The patient is a 87 year old female resident from [address] [place] [address], with a significant PMH of CLL in remission, HLD, Dementia, and Deep Brain Surgery for her seizure who presents to the emergency department with altered mental status and fever T100.8. Patient has a history of left pelvic fracture back in July. patient left leg is externally rotated. <Cam Valle - Last Filed: 12/08/17 05:29> - General Chief Complaint: Altered Mental Status Stated Complaint: Altered Mental Status Time Seen by Provider: 12/07/17 20:41 Past History <Jerson Marie - Last Filed: 12/08/17 00:32> - Past Medical History Anemia: No Asthma: No Cancer: No Cardiac Disorders: No CVA: No COPD: No CHF: No Dementia: Yes GI Disorders: No HTN: No Hypercholesterolemia: Yes Liver Disease: No Seizures: No Thyroid Disease: No - Surgical History Abdominal Surgery: No Appendectomy: No Cardiac Surgery: No Lung Surgery: No Neurologic Surgery: No Orthopedic Surgery: No - Immunization History Immunization Up to Date: Yes - Suicide/Smoking/Psychosocial Hx Smoking History: Unknown if ever smoked Have you smoked in the past 12 months: No Information on smoking cessation initiated: No Hx Alcohol Use: No Drug/Substance Use Hx: No Substance Use Type: None Hx Substance Use Treatment: No <Cam Valle - Last Filed: 12/08/17 05:29> - Past Medical History Allergies/Adverse Reactions: Allergies Allergy/AdvReac Type Severity Reaction Status Date / Time No Known Allergies Allergy Verified 12/07/17 19:31 Home Medications: Ambulatory Orders Cholecalciferol (Vitamin D3) [Vitamin D3] 2,000 unit PO DAILY 10/14/16 Cyanocobalamin [Vitamin B12 -] 1,000 mcg PO DAILY 10/14/16 Folic Acid 1 mg PO DAILY 10/14/16 Primidone 50 mg PO DAILY 10/14/16 Simvastatin 20 mg PO DAILY 10/14/16 propRANOLol HCL [Inderal LA -] 120 mg PO DAILY 10/14/16 Sennosides [Senna] 8.6 mg PO HS 08/16/17 Acetaminophen [Tylenol .Regular Strength -] 650 mg PO Q6H #30 tablet 08/20/17 Polyethylene Glycol 3350 [Miralax 119 gm Btl -] 17 gm PO DAILY #1 bottle Bupropion HCl [Bupropion Xl] 150 mg PO DAILY 12/08/17 Review of Systems - Review of Systems Able to Perform ROS?: No (ams) <Cam Valle - Last Filed: 12/08/17 05:29> *Physical Exam - Vital Signs Last Vital Signs Temp Pulse Resp BP Pulse Ox 98.0 F 66 14 146/61 92 L 12/07/17 19:31 12/07/17 19:31 12/07/17 19:31 12/07/17 19:31 12/07/17 19:31 <Jerson Marie - Last Filed: 12/08/17 00:32> - Vital Signs Last Vital Signs Temp Pulse Resp BP Pulse Ox 98.0 F 66 14 146/61 92 L 12/07/17 19:31 12/07/17 19:31 12/07/17 19:31 12/07/17 19:31 12/07/17 19:31 - Physical Exam General Appearance: Yes: Nourished, Appropriately Dressed HEENT: positive: EOMI, NICK, Normal ENT Inspection Respiratory/Chest: positive: Lungs Clear, Normal Breath Sounds. negative: Chest Tender, Respiratory Distress Cardiovascular: positive: Regular Rhythm, Regular Rate, S1, S2 Gastrointestinal/Abdominal: positive: Normal Bowel Sounds, Tender (patient glimacing), Flat, Soft <Cam Valle - Last Filed: 12/08/17 05:29> Heart Score/ECG Review #1 12/08/17 00:32 Vent rate 68 bpm Anterior flipped T's Inferior Q's Normal sinus rhythm with sinus arrhythmia Left axis deviation Right bundle branch block Minimal voltage criteria for LVH, may be normal variant Abnormal ECG <Jerson Marie - Last Filed: 12/08/17 00:32> ED Treatment Course - LABORATORY CBC & Chemistry Diagram: 12/07/17 21:48 12/07/17 21:48 - ADDITIONAL ORDERS Additional order review: Laboratory Results 12/07/17 12/07/17 12/07/17 23:15 23:15 23:15 PT with INR INR PTT (Actin FS) Sodium Potassium Chloride Carbon Dioxide Anion Gap BUN Creatinine Creat Clearance w eGFR Random Glucose Lactic Acid 1.0 Calcium Total Bilirubin AST ALT Alkaline Phosphatase Creatine Kinase 11 L Troponin I < 0.02 Total Protein Albumin Blood Type O POSITIVE Antibody Screen Negative 12/07/17 12/07/17 23:15 21:48 PT with INR 13.40 H INR 1.19 H PTT (Actin FS) 23.4 L Sodium 140 Potassium 4.2 Chloride 101 Carbon Dioxide 32 Anion Gap 7 L BUN 24 H Creatinine 1.5 H Creat Clearance w eGFR 32.77 Random Glucose 111 H Lactic Acid Calcium 8.7 Total Bilirubin 0.4 D AST 14 L ALT 20 Alkaline Phosphatase 135 H Creatine Kinase Troponin I Total Protein 6.2 L Albumin 2.8 L Blood Type Antibody Screen 12/07/17 21:48 RBC 3.82 MCV 88.5 MCHC 30.8 L RDW 16.2 H MPV 6.5 L D Neutrophils % No Result Required. Lymphocytes % No Result Required. - Medications Given in the ED: ED Medications Discontinued Medications Generic Name Dose Route Start Last Admin Trade Name Rexq PRN Reason Stop Dose Admin Sodium Chloride 1,000 mls @ 1,000 mls/hr 12/07/17 21:06 12/07/17 21:57 Normal Saline - IV 12/07/17 22:05 1,000 mls/hr ASDIR STA Administration <Jerson Marie - Last Filed: 12/08/17 00:32> - LABORATORY CBC & Chemistry Diagram: 12/07/17 21:48 12/07/17 21:48 - RADIOLOGY Radiology Studies Ordered: Category Date Time Status CHEST X-RAY PORTABLE* [RAD] Stat Radiology 12/07/17 20:46 Ordered <Cam Valle - Last Filed: 12/08/17 05:29> Medical Decision Making - Medical Decision Making 12/08/17 00:21 The leukocytosis on 59 is probably a recurrence of the patient's CML. Ct Head pending, negative. Spoke to Dr. Martin who accepted the patient to be admitted. Spoke to Daughter who doesn't know who the hem/onc doctor was who treated her for CML 12/08/17 04:30 <Cam Valle - Last Filed: 12/08/17 05:29> *DC/Admit/Observation/Transfer <Jerson Marie - Last Filed: 12/08/17 00:32> - Discharge Dispostion Admit: Yes <Cam Valle - Last Filed: 12/08/17 05:29> Diagnosis at time of Disposition: Altered mental status
[2017-12-07] MEDS ORDERED: SODIUM CHLORIDE 1,000 ML IV STA (21:06)
[2017-12-07 21:59] LABS: HEMATOCRIT 33.8 % (32.4-45.2); HEMOGLOBIN 10.4 GM/dL (10.7-15.3); MCH 27.3 pg (25.7-33.7); MCHC 30.8 g/dl (32.0-36.0); MEAN CELL VOLUME 88.5 fl (80-96); MEAN PLT VOLUME 6.5 fl (7.5-11.1); PLATELET COUNT 404 K/MM3 (134-434); RBC 3.82 M/mm3 (3.60-5.2); RDW 16.2 % (11.6-15.6)
[2017-12-07 22:01] LABS: WHITE BLOOD COUNT 58.9 K/mm3 (4.0-10.0)
[2017-12-07 22:27] LABS: ALBUMIN 2.8 g/dl (3.4-5.0); ALK PHOS 135 U/L (45-117); ANION GAP 7 (8-16); BILIRUBIN,TOTAL 0.4 mg/dL (0.2-1.0); BLOOD UREA NITROGEN 24 mg/dL (7-18); CALCIUM 8.7 mg/dL (8.5-10.1); CHLORIDE 101 mmol/L (98-107); CO2 32 mmol/L (21-32); CREATININE 1.5 mg/dL (0.55-1.02); GLUCOSE,RANDOM 111 mg/dL (74-106); POTASSIUM 4.2 mmol/L (3.5-5.1); SGOT/AST 14 U/L (15-37); SGPT/ALT 20 U/L (12-78); SODIUM 140 mmol/L (136-145); TOT PROT 6.2 g/dl (6.4-8.2)
[2017-12-07 22:28] LABS: PLATELET ESTIMATE ADEQUATE
[2017-12-07 22:29] LABS: SMUDGE CELLS FEW
[2017-12-07 23:40] LABS: INR 1.19 (0.82-1.09); PROTHROMBIN TIME (PATIENT) 13.4 SEC (9.98-11.88)
[2017-12-07 23:42] LABS: ACTIVATED PTT 23.4 SECONDS (26.9-34.4)
--- NOTE | 2017-12-08 02:20 | PDOC ---
Attending Attestation - Resident Resident Name: Cam Valle - ED Attending Attestation I have performed the following: I have examined & evaluated the patient, The case was reviewed & discussed with the resident, I agree w/resident's findings & plan - HPI HPI: 12/08/17 04:37 Pt comes from assisted living today with AMS and fever. Pt has baseline dementia and she is unable to add to her history. - Physicial Exam PE: 12/08/17 04:41 Agree with resident exam. - Medical Decision Making 12/08/17 04:42 Admit to PMR[facility] Malone.
[2017-12-08 03:33] LABS: URINE APPEARANCE CLOUDY; URINE BILIRUBIN NEGATIVE (NEGATIVE); URINE BLOOD 1+ (NEGATIVE); URINE COLOR YELLOW; URINE GLUCOSE (UA) NEGATIVE (NEGATIVE); URINE KETONE NEGATIVE (NEGATIVE); URINE NITRITE NEGATIVE (NEGATIVE); URINE UROBILINOGEN NEGATIVE mg/dL (0.2-1.0)
[2017-12-08 03:36] LABS: URINE LEUK ESTERASE 3+ (NEGATIVE); URINE PROTEIN 1+ (NEGATIVE)
[2017-12-08 03:38] LABS: EPI CELLS RARE /HPF (FEW); URINE BACTERIA MANY /hpf (NONE SEEN); URINE MUCUS RARE
[2017-12-08] MEDS ORDERED: PIPERACILLIN/TAZOB 3.375 GM/50 ML PRE-DOCKED IVPB ONE (04:45)
[2017-12-08] MEDS ORDERED: PIPERACILLIN/TAZOB 3.375 GM 3.375 GM/50 ML BAG IVPB ONE (04:52)
[2017-12-08 06:32] LABS: VENOUS PC02 42.7 mmHg (38-52); VENOUS PH 7.43 (7.32-7.42)
[2017-12-08] MEDS: DEXTROSE 5%-0.45% SALINE 1,000 ML IV SCH ×2 (10:55→22:41)
[2017-12-08] MEDS: FOLIC ACID 1 MG TABLET (FP) PO SCH (11:25)
[2017-12-08] MEDS: POLYETHYLENE GLYCOL 3350 119 GM BTL PO SCH (11:25)
[2017-12-08] MEDS ORDERED: PT OWN MED DRAWER 7, Y5N ONE (12:11)
--- NOTE | 2017-12-08 12:13 | EKG ---
Test Reason : Blood Pressure : / mmHG Vent. Rate : 068 BPM Atrial Rate : 068 BPM P-R Int : 166 ms QRS Dur : 124 ms QT Int : 450 ms P-R-T Axes : 064 -38 047 degrees QTc Int : 478 ms NORMAL SINUS RHYTHM WITH SINUS ARRHYTHMIA LEFT AXIS DEVIATION RIGHT BUNDLE BRANCH BLOCK MINIMAL VOLTAGE CRITERIA FOR LVH, MAY BE NORMAL VARIANT ABNORMAL ECG NO PREVIOUS ECGS AVAILABLE Confirmed by GERMANIA FRITZ, LIZETH ([id number]) on 12/08/2017 12:13:07 PM Referred By: Confirmed By:LIZETH SOLO MD
--- NOTE | 2017-12-08 12:31 | CONSULT ---
Consult Consult Specialty:: Hematology/Oncology Reason for Consultation:: Leukocytosis - History of Present Illness Chief Complaint: High WBC count , fever , weakness History of Present Illness: is an 87 y/o [facility] resident with advanced dementia, HLD, Hx of seizure disorder s/p deep brain stimulation, Hx of CLL in the past that was untreated and left pelvic fracture in July 2017 due to which patient has an externally rotated left foot. Primary team would like us to evaluate patient for her leukocytosis in the setting of fever and AMS. On visiting patient, she was lying in bed and completely non-verbal. I was able to speak with her son who was at bedside and get more collateral history from him. Per history obtained from the son, patient has a history of CLL that was diagnosed about 12 years ago. He does not remember the name of the doctor that diagnosed CLL but he does remember that the family at the time went back and forth about treatment/no-treatment for 6 months and finally decision was made not to treat the patient for her CLL. - History Source History Provided By: Family Member, Medical Record Limitations to Obtaining History: Dementia - Past Medical History Musculoskeletal: Yes: Osteoarthritis - Alcohol/Substance Use Hx Alcohol Use: No - Smoking History Smoking history: Unknown if ever smoked Have you smoked in the past 12 months: No - Social History ADL: Support Services Home Medications - Allergies Allergies/Adverse Reactions: Allergies Allergy/AdvReac Type Severity Reaction Status Date / Time No Known Allergies Allergy Verified 12/07/17 19:31 - Home Medications Home Medications: Ambulatory Orders Cholecalciferol (Vitamin D3) [Vitamin D3] 2,000 unit PO DAILY 10/14/16 Cyanocobalamin [Vitamin B12 -] 1,000 mcg PO DAILY 10/14/16 Folic Acid 1 mg PO DAILY 10/14/16 Primidone 50 mg PO DAILY 10/14/16 Simvastatin 20 mg PO DAILY 10/14/16 propRANOLol HCL [Inderal LA -] 120 mg PO DAILY 10/14/16 Sennosides [Senna] 8.6 mg PO HS 08/16/17 Acetaminophen [Tylenol .Regular Strength -] 650 mg PO Q6H #30 tablet 08/20/17 Polyethylene Glycol 3350 [Miralax 119 gm Btl -] 17 gm PO DAILY #1 bottle Bupropion HCl [Bupropion Xl] 150 mg PO DAILY 12/08/17 Review of Systems Unable to obtain ROS, reason: advanced dementia Physical Exam Vital Signs: Vital Signs Temperature 97.4 F L 12/08/17 09:50 Pulse Rate 73 12/08/17 09:50 Respiratory Rate 20 12/08/17 09:50 Blood Pressure 124/60 12/08/17 09:50 O2 Sat by Pulse Oximetry (%) 95 12/08/17 05:11 Constitutional: Yes: No Distress Eyes: Yes: WNL HENT: Yes: WNL Neck: Yes: WNL Cardiovascular: Yes: Tachycardia Respiratory: Yes: WNL Gastrointestinal: Yes: WNL Renal/: Yes: WNL Musculoskeletal: Yes: WNL Extremities: Yes: WNL Neurological: Yes: Weakness, Other (very somnolent and not talkative) Labs: CBC, BMP 12/07/17 21:48 12/07/17 21:48 Assessment/Plan is an 87 y/o [facility] resident with advanced dementia, HLD, Hx of seizure disorder s/p deep brain stimulation, Hx of untreated CLL in the past and left pelvic fracture. She is now admitted after she spiked a fever of 100.8.Pt was shirley-cultured and received broad spectrum antibiotics (Zosyn) and has been admitted to Medicine service. She has a history of CLL diagnosed 12 years ago that was not treated per information obtained from the son. -I reviewed patients peripheral smear which shows several monomorphic lymphocytes with scanty cytoplasm, one smudge cell/hpf , normal appearing neutrophils, platelets and RBCS. This is consistent with a diagnosis of chronic CLL. Her differential count is also consistent with a diagnosis of CLL. She has a total WBC count of 58k which maybe mildly elevated from her baseline due to an infection that she is being worked up for. Awaiting Blood cultures, urine Cx, chest x ray appears wnl. At this time her CLL appears to be stable and treating it will not improve patients quality of life. She has advanced dementia and is bed-bound and is a good candidate for supportive care from Oncology standpoint. This was discussed with her son at bedside who is agreeable with this plan of care.
--- NOTE | 2017-12-08 13:11 | PN ---
Progress Note (short form) - Note Progress Note: ID Consult dictated UTI/ Possible sepsis secondary to UTI CLL OBS Pending c/s empiric ceftriaxone 1gm IVPB daily
--- NOTE | 2017-12-08 13:41 | HP ---
Admitting History and Physical - Admission Chief Complaint: fever / altered MS History of Present Illness: is an 87 y/o [facility] resident with advanced dementia, HLD, Hx of seizure disorder s/p deep brain stimulation, Hx of CLL in the past that was untreated and left pelvic fracture in July 2017 due to which patient has an externally rotated left foot. Presents with leukocytosis in the setting of fever and AMS. Medical information obtained from Dr Puente. recent labs WBC 18 (74% Lymphs) 10/02/17 h/h 10.8 / 32.7 WBC 16.2 (70% Lympph) 11/21/17 h/h Resident was transferred from [facility] facility due to fever and altered mental status , she is non verbal and cannot provide hx. She has had swallow eval recently with video flouroscopy indicating no aspiration, however staff reports she frequently coughs with meals. 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 Reproductive: Yes: Postmenopausal Heme/Onc: Yes: Other (CLL for about 12 ys) Musculoskeletal: Yes: Osteoarthritis - Smoking History Smoking history: Unknown if ever smoked Have you smoked in the past 12 months: No - Alcohol/Substance Use Hx Alcohol Use: No - Social History Usual Living Arrangement: Yes: Assisted Living ADL: Support Services History of Recent Travel: No Home Medications - Allergies Allergies/Adverse Reactions: Allergies Allergy/AdvReac Type Severity Reaction Status Date / Time No Known Allergies Allergy Verified 12/07/17 19:31 - Home Medications Home Medications: Ambulatory Orders Cholecalciferol (Vitamin D3) [Vitamin D3] 2,000 unit PO DAILY 10/14/16 Cyanocobalamin [Vitamin B12 -] 1,000 mcg PO DAILY 10/14/16 Folic Acid 1 mg PO DAILY 10/14/16 Primidone 50 mg PO DAILY 10/14/16 Simvastatin 20 mg PO DAILY 10/14/16 propRANOLol HCL [Inderal LA -] 120 mg PO DAILY 10/14/16 Sennosides [Senna] 8.6 mg PO HS 08/16/17 Acetaminophen [Tylenol .Regular Strength -] 650 mg PO Q6H #30 tablet 08/20/17 Polyethylene Glycol 3350 [Miralax 119 gm Btl -] 17 gm PO DAILY #1 bottle Bupropion HCl [Bupropion Xl] 150 mg PO DAILY 12/08/17 Review of Systems Findings/Remarks: unable to elicit any hx Patient is non verbal with dense dementia - Review of Systems Constitutional: reports: Fever (as per staff 100.8 at time of transfer) Physical Examination Vital Signs: Vital Signs Temperature 97.4 F L 12/08/17 09:50 Pulse Rate 73 12/08/17 09:50 Respiratory Rate 20 12/08/17 09:50 Blood Pressure 124/60 12/08/17 09:50 O2 Sat by Pulse Oximetry (%) 95 12/08/17 05:11 Constitutional: Yes: Well Nourished, No Distress, Calm Eyes: Yes: WNL, Conjunctiva Clear HENT: Yes: Atraumatic, Normocephalic Neck: Yes: Supple, Trachea Midline Cardiovascular: Yes: Regular Rate and Rhythm Respiratory: Yes: CTA Bilaterally, Diminished Gastrointestinal: Yes: Normal Bowel Sounds, Soft ...Rectal Exam: Yes: Deferred Renal/: Yes: WNL Musculoskeletal: Yes: Joint Stiffness Edema: No Peripheral Pulses WNL: Yes Integumentary: Yes: WNL Neurological: Yes: Pre-Existing Deficit, Other (non verbal) Labs: CBC, BMP 12/07/17 21:48 12/07/17 21:48 Problem List - Problems (1) Fever Assessment/Plan: shirley culture U/A with inc WBC +Leuk CXR no evidence of infiltrate blood c/s done urine c/s pending plan emperic tx for UTI ID counsult Code(s): R50.9 - FEVER, UNSPECIFIED (2) UTI (urinary tract infection) Assessment/Plan: c/s pending Code(s): N39.0 - URINARY TRACT INFECTION, SITE NOT SPECIFIED Qualifiers: Encounter type: initial encounter (3) Altered mental status Assessment/Plan: MS deterioration due to infection baseline dementia Code(s): R41.82 - ALTERED MENTAL STATUS, UNSPECIFIED (4) Dementia Code(s): F03.90 - UNSPECIFIED DEMENTIA WITHOUT BEHAVIORAL DISTURBANCE (5) CML in remission Assessment/Plan: review of recent blood work baseline WBC 16-18 with 70%Lymphs today WBC 58 ( 70% Lymph) component of infection and CLL will request Heme /onc opinion has declined treatment in the past and has been in remission for many yrs Code(s): C92.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
[2017-12-08] MEDS: CEFTRIAXONE 1 G/50 ML PREMIX 50 ML IVPB SCH (14:22)
[2017-12-08] MEDS ORDERED: PNEUMOC 13-VAL CONJ-DIP CRM/PF 0.5 ML DISP.SYRIN IM ONE (15:30)
[2017-12-08] MEDS: ACETAMINOPHEN 325 MG TABLET (FP) PO PRN (21:44)
[2017-12-08] MEDS: SENNOSIDES 8.6MG TABLET (FP) PO SCH (21:44)
[2017-12-08] MEDS: ATORVASTATIN CA 20 MG TABLET (FP) PO SCH (21:44)
[2017-12-08] MEDS: PRIMIDONE 50 MG TABLET PO SCH (22:23)
[2017-12-09] MEDS ORDERED: PT OWN MED DRAWER 7, Y5N ONE ×2 (08:57→23:14)
[2017-12-09 09:08] LABS: HEMATOCRIT 25.5 % (32.4-45.2); HEMOGLOBIN 7.9 GM/dL (10.7-15.3); MCH 27.6 pg (25.7-33.7); MCHC 31.1 g/dl (32.0-36.0); MEAN CELL VOLUME 88.6 fl (80-96); MEAN PLT VOLUME 6.6 fl (7.5-11.1); PLATELET COUNT 261 K/MM3 (134-434); RBC 2.88 M/mm3 (3.60-5.2); RDW 16.9 % (11.6-15.6)
[2017-12-09 09:20] LABS: WHITE BLOOD COUNT 42.7 K/mm3 (4.0-10.0)
[2017-12-09] MEDS: CEFTRIAXONE 1 G/50 ML PREMIX 50 ML IVPB SCH (09:23)
[2017-12-09] MEDS: FOLIC ACID 1 MG TABLET (FP) PO SCH (09:23)
[2017-12-09] MEDS: POLYETHYLENE GLYCOL 3350 119 GM BTL PO SCH (09:26)
[2017-12-09 09:34] LABS: ALBUMIN 2.1 g/dl (3.4-5.0); ANION GAP 8 (8-16); BLOOD UREA NITROGEN 18 mg/dL (7-18); CALCIUM 7.9 mg/dL (8.5-10.1); CHLORIDE 102 mmol/L (98-107); CO2 30 mmol/L (21-32); GLUCOSE,RANDOM 126 mg/dL (74-106); MAGNESIUM 2.4 mg/dL (1.8-2.4); PHOSPHOROUS 2.6 mg/dL (2.5-4.9); POTASSIUM 3.6 mmol/L (3.5-5.1); SGOT/AST 12 U/L (15-37); SGPT/ALT 14 U/L (12-78); SODIUM 140 mmol/L (136-145)
[2017-12-09 09:37] LABS: ALK PHOS 107 U/L (45-117); BILIRUBIN,TOTAL 0.5 mg/dL (0.2-1.0); CREATININE 1.4 mg/dL (0.55-1.02)
[2017-12-09 10:58] LABS: ANISOCYTOSIS 1+; PLATELET ESTIMATE NORMAL
--- NOTE | 2017-12-09 13:48 | PN ---
Progress Note (short form) - Note Progress Note: sitting in bed no distress ans questions more alert than yesterday Vital Signs Period Temp Pulse Resp BP Sys/Chapman Pulse Ox Last 24 Hr 97.6 F-103 F 60-70 18-22 114-177/42-65 94-98 neck supple heart S1/S2 Lungs clear bilat abd soft no tenderness elicited ext no edema CBC, BMP 12/09/17 08:06 12/09/17 08:06 Microbiology 12/07/17 23:20 Blood - Peripheral Venous Blood Culture - Preliminary Lactose Fermenting Neg Bacilli 12/08/17 03:20 Urine - Urine - Catheterized Urine Culture - Preliminary Lactose Fermenting Neg Bacilli 12/07/17 23:15 Blood - Peripheral Venous Blood Culture - Preliminary NO GROWTH OBTAINED AFTER 24 HOURS, INCUBATION TO CONTINUE FOR 4 DAYS. Active Medications Acetaminophen (Tylenol -) 650 mg PO Q6H PRN PRN Reason: fever pain Last Admin: 12/08/17 21:44 Dose: 650 mg Atorvastatin Calcium (Lipitor -) 20 mg PO [facility] Last Admin: 12/08/17 21:44 Dose: 20 mg Bupropion HCl (Wellbutrin Xl -) 150 mg PO DAILY [facility] Last Admin: 12/09/17 09:25 Dose: 150 mg Folic Acid (Folic Acid -) 1 mg PO DAILY [facility] Last Admin: 12/09/17 09:23 Dose: 1 mg Dextrose/Sodium Chloride (D5-1/2ns -) 1,000 mls @ 75 mls/hr IV ASDIR [facility] Last Admin: 12/08/17 22:41 Dose: 75 mls/hr CEFTRIAXONE 1 G/50 ML PREMIX (Ceftriaxone 1 Gm-D5w Bag) 50 mls @ 100 mls/hr IVPB DAILY [facility] Last Admin: 12/09/17 09:23 Dose: 100 mls/hr Polyethylene Glycol (Miralax (For Daily Use) -) 17 gm PO DAILY [facility] Last Admin: 12/09/17 09:26 Dose: 17 grams Primidone (Mysoline -) 50 mg PO [facility] Last Admin: 12/08/17 22:23 Dose: 50 mg Propranolol HCl (Inderal La -) 120 mg PO DAILY [facility] Last Admin: 12/09/17 09:25 Dose: 120 mg Senna (Senna -) 1 tab PO [facility] Last Admin: 02/17/18 21:44 Dose: 1 tab # Altered Mental status metabolic encephalopathy 2/2/ to UTI c/s pending ID appreciated # UTI abx --await c/s # CLL Inc WBC 74% Lymph --chronic anemia -- will discuss with Heme # dementia more alert today improved mentation Problem List - Problems (1) Fever Code(s): R50.9 - FEVER, UNSPECIFIED (2) UTI (urinary tract infection) Code(s): N39.0 - URINARY TRACT INFECTION, SITE NOT SPECIFIED Qualifiers: Encounter type: initial encounter (3) Altered mental status Code(s): R41.82 - ALTERED MENTAL STATUS, UNSPECIFIED (4) Dementia Code(s): F03.90 - UNSPECIFIED DEMENTIA WITHOUT BEHAVIORAL DISTURBANCE (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
[2017-12-09] MEDS: DEXTROSE 5%-0.45% SALINE 1,000 ML IV SCH (15:08)
--- NOTE | 2017-12-09 15:31 | PN ---
Progress Note, Physician History of Present Illness: Awake, confused NHo acute distress Non- toxic appearing Febrile overnight - Current Medication List Current Medications: Active Medications Acetaminophen (Tylenol -) 650 mg PO Q6H PRN PRN Reason: fever pain Last Admin: 12/08/17 21:44 Dose: 650 mg Atorvastatin Calcium (Lipitor -) 20 mg PO HS [facility] Last Admin: 12/08/17 21:44 Dose: 20 mg Bupropion HCl (Wellbutrin Xl -) 150 mg PO DAILY [facility] Last Admin: 12/09/17 09:25 Dose: 150 mg Folic Acid (Folic Acid -) 1 mg PO DAILY [facility] Last Admin: 12/09/17 09:23 Dose: 1 mg Dextrose/Sodium Chloride (D5-1/2ns -) 1,000 mls @ 75 mls/hr IV ASDIR [facility] Last Admin: 12/09/17 15:08 Dose: 75 mls/hr CEFTRIAXONE 1 G/50 ML PREMIX (Ceftriaxone 1 Gm-D5w Bag) 50 mls @ 100 mls/hr IVPB DAILY [facility] Last Admin: 12/09/17 09:23 Dose: 100 mls/hr Polyethylene Glycol (Miralax (For Daily Use) -) 17 gm PO DAILY [facility] Last Admin: 12/09/17 09:26 Dose: 17 grams Primidone (Mysoline -) 50 mg PO [facility] Last Admin: 12/08/17 22:23 Dose: 50 mg Propranolol HCl (Inderal La -) 120 mg PO DAILY [facility] Last Admin: 12/09/17 09:25 Dose: 120 mg Senna (Senna -) 1 tab PO HS [facility] Last Admin: 12/08/17 21:44 Dose: 1 tab - Objective Vital Signs: Vital Signs Temperature 98.7 F 12/09/17 09:40 Pulse Rate 60 12/09/17 09:40 Respiratory Rate 18 12/09/17 09:40 Blood Pressure 118/42 12/09/17 09:40 O2 Sat by Pulse Oximetry (%) 98 12/09/17 09:00 Constitutional: Yes: No Distress Eyes: Yes: Conjunctiva Clear Cardiovascular: Yes: Regular Rate and Rhythm, S1, S2 Respiratory: Yes: CTA Bilaterally Gastrointestinal: Yes: Normal Bowel Sounds, Soft. No: Tenderness Edema: No Labs: CBC, BMP 12/09/17 08:06 12/09/17 08:06 INR, PTT INR 1.19 (0.82-1.09) H 12/07/17 23:15 Assessment/Plan UTI Gram Negative bacteremia/ sepsis secondary to UTI CLL OBS Await final blood c/s Continue ceftriaxone
--- NOTE | 2017-12-09 15:51 | CONS ---
DATE OF CONSULTATION: 12/08/2017 The patient is an 87-year-old female evaluated for leukocytosis. History was obtained from the chart, as she suffers from profound dementia. She is a resident of an assisted living complex. She was noted to have worsening confusion and elevated temperature. She was evaluated in the emergency room, where white blood cell count was 58,000, lymphocytes 71%. 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 Her present white count is considerably higher than her baseline white blood cell count elevation. She offers no complaints. No reports of high-grade fever, shaking chills, labored breathing, cough, sputum production, vomiting, diarrhea, grossly purulent urine, or infected decubitus ulcers. Past medical history positive for dementia, CLL, hyperlipidemia, seizure disorder. PAST SURGICAL HISTORY: Status post left pelvic fracture in July 2017. No known allergies. MEDICATIONS: Folic acid, simvastatin, Inderal, Tylenol. SOCIAL HISTORY: She is a resident of an assisted-living complex, is dependent in activities of daily living. No active tobacco or alcohol use. SYSTEMS REVIEW: Neurologic: Positive for dementia. No loss of consciousness, seizure activity, or focal weakness. Cardiac: Negative chest pain or palpitations. Respiratory: Negative labored breathing or cough. Gastrointestinal: Negative vomiting or diarrhea. Genitourinary: Positive for urinary tract infection. LABORATORY DATA: White count 58,000, neutrophils 24, bands 2, lymphocytes 71. Hematocrit 33.8, platelet count 100. BUN 24, creatinine 1.5, total bilirubin 0.4, alkaline phosphatase 135, AST 14. Urinalysis: 485 white cells. Blood and urine cultures are pending. Chest x-ray negative for acute infiltrate. PHYSICAL EXAMINATION: General: She is awake, she is profoundly demented, in no acute distress, not acutely toxic appearing. Vital Signs: Temperature 97.4. Blood pressure 124/60. Pulse 73, regular. Respirations 20 per minute. ENT: Sclerae anicteric. Dry mucous membranes. Heart Sounds: S1, S2. Lungs: Poor inspiratory effort, grossly clear. Abdomen: Distended, soft. No tenderness elicited. No suprapubic or flank tenderness. Extremities: Negative for edema. IMPRESSION: 1. Urinary tract infection/possible sepsis secondary to urinary tract infection. 2. CLL. 3. Dementia. Suspect marked leukocytosis with lymphocyte predominance reflects her CLL. Cannot rule out component of infection. Patient has evidence of urinary tract infection. Await culture results. Empiric antibiotic coverage with ceftriaxone 1 g IV piggyback daily. Treatment of CLL as per hematology. Will follow. Thank you for the kind referral. ZACK MINER M.D. [id number]
[2017-12-09] MEDS: ACETAMINOPHEN 325 MG TABLET (FP) PO PRN (16:28)
[2017-12-09] MEDS: SENNOSIDES 8.6MG TABLET (FP) PO SCH (22:30)
[2017-12-09] MEDS: PRIMIDONE 50 MG TABLET PO SCH (22:30)
[2017-12-09] MEDS: ATORVASTATIN CA 20 MG TABLET (FP) PO SCH (22:30)
[2017-12-10] MEDS: DEXTROSE 5%-0.45% SALINE 1,000 ML IV SCH ×3 (06:28→20:32)
[2017-12-10 07:46] LABS: HEMATOCRIT 24.8 % (32.4-45.2); HEMOGLOBIN 7.8 GM/dL (10.7-15.3); MCH 27.9 pg (25.7-33.7); MCHC 31.6 g/dl (32.0-36.0); MEAN CELL VOLUME 88.3 fl (80-96); PLATELET COUNT 241 K/MM3 (134-434); RBC 2.81 M/mm3 (3.60-5.2); RDW 16.5 % (11.6-15.6)
[2017-12-10 07:55] LABS: ANION GAP 6 (8-16); BLOOD UREA NITROGEN 12 mg/dL (7-18); CALCIUM 7.4 mg/dL (8.5-10.1); CHLORIDE 102 mmol/L (98-107); CO2 29 mmol/L (21-32); CREATININE 1.2 mg/dL (0.55-1.02); GLUCOSE,RANDOM 122 mg/dL (74-106); POTASSIUM 3.5 mmol/L (3.5-5.1); SODIUM 137 mmol/L (136-145)
[2017-12-10 08:34] LABS: WHITE BLOOD COUNT 33.3 K/mm3 (4.0-10.0)
[2017-12-10 10:29] LABS: PLATELET ESTIMATE NORMAL
[2017-12-10] MEDS: FOLIC ACID 1 MG TABLET (FP) PO SCH (11:10)
[2017-12-10] MEDS: CEFTRIAXONE 1 G/50 ML PREMIX 50 ML IVPB SCH (11:11)
[2017-12-10] MEDS: POLYETHYLENE GLYCOL 3350 119 GM BTL PO SCH (11:12)
--- NOTE | 2017-12-10 11:15 | PN ---
Progress Note (short form) - Note Progress Note: Patient seen and examined Pleasantly confused Lying in bed in no distress Last Vital Signs Temp Pulse Resp BP Pulse Ox 99 F 66 18 138/59 98 12/10/17 06:00 12/10/17 06:00 12/10/17 06:00 12/10/17 06:00 12/09/17 09:00 No icterus No significant cervical or axillary adeno;athy Lungs - clear Cor -RSR Abdomen- soft Ext- no significant edema CBC, BMP 12/10/17 07:00 12/10/17 07:00 Current Medications Generic Name Dose Route Start Last Admin Trade Name Freq PRN Reason Stop Dose Admin Acetaminophen 650 mg 12/08/17 09:58 12/09/17 16:28 Tylenol - PO 650 mg Q6H PRN Administration fever pain Atorvastatin Calcium 20 mg 12/08/17 22:00 12/09/17 22:30 Lipitor - PO 20 mg HS [facility] Administration Bupropion HCl 150 mg 12/08/17 10:00 12/09/17 09:25 Wellbutrin Xl - PO 150 mg DAILY [facility] Administration Folic Acid 1 mg 12/08/17 10:00 12/09/17 09:23 Folic Acid - PO 1 mg DAILY [facility] Administration Dextrose/Sodium Chloride 1,000 mls @ 75 mls/hr 12/08/17 10:00 12/10/17 06:28 D5-1/2ns - IV 75 mls/hr ASDIR [facility] Administration CEFTRIAXONE 1 G/50 ML PREMIX 50 mls @ 100 mls/hr 12/08/17 14:15 12/09/17 09: 23 Ceftriaxone 1 Gm-D5w Bag IVPB 100 mls/hr DAILY [facility] Administration Polyethylene Glycol 17 gm 12/08/17 10:00 12/09/17 09:26 Miralax (For Daily Use) - PO 17 grams DAILY [facility] Administration Primidone 50 mg 12/08/17 22:00 12/09/17 22:30 Mysoline - PO 50 mg HS [facility] Administration Propranolol HCl 120 mg 12/08/17 10:00 12/09/17 09:25 Inderal La - PO 120 mg DAILY [facility] Administration Senna 1 tab 12/08/17 22:00 12/09/17 22:30 Senna - PO 1 tab HS [facility] Administration Impression: UTI Gram negative bacteremia CLL Anemia OBS Plan : Check immunoglobulins Screening for anemia
--- NOTE | 2017-12-10 11:45 | PN ---
Progress Note (short form) - Note Progress Note: verbal / does not want to eat some interaction Vital Signs Period Temp Pulse Resp BP Sys/Chapman Pulse Ox Last 24 Hr 97.6 F-103 F 60-70 18-22 114-177/42-65 94-98 neck supple heart S1/S2 Lungs clear bilat abd soft no tenderness elicited ext no edema CBC, BMP 12/10/17 07:00 12/10/17 07:00 12/07/17 23:20 Blood - Peripheral Venous Blood Culture - Final Escherichia Coli 12/08/17 03:20 Urine - Urine - Catheterized Urine Culture - Final Escherichia Coli 12/07/17 23:15 Blood - Peripheral Venous Blood Culture - Preliminary NO GROWTH OBTAINED AFTER 48 HOURS, INCUBATION TO CONTINUE FOR 3 DAYS. Active Medications Acetaminophen (Tylenol -) 650 mg PO Q6H PRN PRN Reason: fever pain Last Admin: 12/09/17 16:28 Dose: 650 mg Atorvastatin Calcium (Lipitor -) 20 mg PO [facility] Last Admin: 12/09/17 22:30 Dose: 20 mg Bupropion HCl (Wellbutrin Xl -) 150 mg PO DAILY [facility] Last Admin: 12/10/17 11:10 Dose: 150 mg Folic Acid (Folic Acid -) 1 mg PO DAILY [facility] Last Admin: 12/10/17 11:10 Dose: 1 mg Dextrose/Sodium Chloride (D5-1/2ns -) 1,000 mls @ 75 mls/hr IV ASDIR [facility] Last Admin: 12/10/17 11:11 Dose: Not Given CEFTRIAXONE 1 G/50 ML PREMIX (Ceftriaxone 1 Gm-D5w Bag) 50 mls @ 100 mls/hr IVPB DAILY [facility] Last Admin: 12/10/17 11:11 Dose: 100 mls/hr Polyethylene Glycol (Miralax (For Daily Use) -) 17 gm PO DAILY [facility] Last Admin: 12/10/17 11:12 Dose: 17 grams Primidone (Mysoline -) 50 mg PO [facility] Last Admin: 12/09/17 22:30 Dose: 50 mg Propranolol HCl (Inderal La -) 120 mg PO DAILY [facility] Last Admin: 12/10/17 11:16 Dose: 120 mg Senna (Senna -) 1 tab PO HS [facility] Last Admin: 12/09/17 22:30 Dose: 1 tab # Altered Mental status metabolic encephalopathy 2/2/ to UTI c/s+ E.Coli ID appreciated # UTI abx - # CLL Inc WBC 74% Lymph --chronic anemia -- appreciate heme follow up will follow up on work up discussed with son agrees to blood transfusion if needed # dementia more alert today improved mentation Problem List - Problems (1) Fever Code(s): R50.9 - FEVER, UNSPECIFIED (2) UTI (urinary tract infection) Code(s): N39.0 - URINARY TRACT INFECTION, SITE NOT SPECIFIED Qualifiers: Encounter type: initial encounter (3) Altered mental status Code(s): R41.82 - ALTERED MENTAL STATUS, UNSPECIFIED (4) Dementia Code(s): F03.90 - UNSPECIFIED DEMENTIA WITHOUT BEHAVIORAL DISTURBANCE (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
--- NOTE | 2017-12-10 12:06 | PN ---
Progress Note, Physician History of Present Illness: Lethargic but arousable No acute distress Non- toxic appearing Low grade temps BC, Urine c/s E. coli WBC down 33K - Current Medication List Current Medications: Active Medications Acetaminophen (Tylenol -) 650 mg PO Q6H PRN PRN Reason: fever pain Last Admin: 12/09/17 16:28 Dose: 650 mg Atorvastatin Calcium (Lipitor -) 20 mg PO HS [facility] Last Admin: 12/09/17 22:30 Dose: 20 mg Bupropion HCl (Wellbutrin Xl -) 150 mg PO DAILY [facility] Last Admin: 12/10/17 11:10 Dose: 150 mg Folic Acid (Folic Acid -) 1 mg PO DAILY [facility] Last Admin: 12/10/17 11:10 Dose: 1 mg Dextrose/Sodium Chloride (D5-1/2ns -) 1,000 mls @ 75 mls/hr IV ASDIR [facility] Last Admin: 12/10/17 11:11 Dose: Not Given CEFTRIAXONE 1 G/50 ML PREMIX (Ceftriaxone 1 Gm-D5w Bag) 50 mls @ 100 mls/hr IVPB DAILY [facility] Last Admin: 12/10/17 11:11 Dose: 100 mls/hr Polyethylene Glycol (Miralax (For Daily Use) -) 17 gm PO DAILY [facility] Last Admin: 12/10/17 11:12 Dose: 17 grams Primidone (Mysoline -) 50 mg PO [facility] Last Admin: 12/09/17 22:30 Dose: 50 mg Propranolol HCl (Inderal La -) 120 mg PO DAILY [facility] Last Admin: 12/10/17 11:16 Dose: 120 mg Senna (Senna -) 1 tab PO [facility] Last Admin: 12/09/17 22:30 Dose: 1 tab - Objective Vital Signs: Vital Signs Temperature 99 F 12/10/17 06:00 Pulse Rate 66 12/10/17 06:00 Respiratory Rate 18 12/10/17 06:00 Blood Pressure 138/59 12/10/17 06:00 O2 Sat by Pulse Oximetry (%) 98 12/09/17 09:00 Constitutional: Yes: No Distress Eyes: Yes: Conjunctiva Clear Cardiovascular: Yes: Regular Rate and Rhythm, S1, S2 Respiratory: Yes: CTA Bilaterally Gastrointestinal: Yes: Normal Bowel Sounds, Soft. No: Tenderness Edema: No Labs: CBC, BMP 12/10/17 07:00 12/10/17 07:00 INR, PTT INR 1.19 (0.82-1.09) H 12/07/17 23:15 Assessment/Plan UTI E coli Gram Negative bacteremia/ sepsis secondary to UTI CLL OBS Substitute cefazolin 1gn q8h Renal sonogram R/O hydronephrosis/ perinephric abscess
[2017-12-10] MEDS: CEFAZOLIN 1 GM PUSH 1 GM/10 ML DISP.SYRIN IVPUSH SCH (17:27)
[2017-12-10] MEDS ORDERED: CEFAZOLIN 1 GM in DEXTROSE 5%-WATER - 50 ML IVPB SCH (18:00)
[2017-12-10] MEDS: PRIMIDONE 50 MG TABLET PO SCH (21:09)
[2017-12-10] MEDS: SENNOSIDES 8.6MG TABLET (FP) PO SCH (21:09)
[2017-12-10] MEDS: ATORVASTATIN CA 20 MG TABLET (FP) PO SCH (21:09)
[2017-12-11] MEDS: CEFAZOLIN 1 GM PUSH 1 GM/10 ML DISP.SYRIN IVPUSH SCH ×3 (01:59→17:35)
[2017-12-11 08:15] LABS: ALBUMIN 2.2 g/dl (3.4-5.0); ANION GAP 9 (8-16); BLOOD UREA NITROGEN 8 mg/dL (7-18); CHLORIDE 101 mmol/L (98-107); CO2 30 mmol/L (21-32); GLUCOSE,RANDOM 111 mg/dL (74-106); SGOT/AST 36 U/L (15-37); SODIUM 140 mmol/L (136-145)
[2017-12-11 08:28] LABS: ALK PHOS 147 U/L (45-117); BILIRUBIN,TOTAL 0.3 mg/dL (0.2-1.0); CREATININE 1.1 mg/dL (0.55-1.02); LDH 167 U/L (84-246); SGPT/ALT 42 U/L (12-78); TOT PROT 5.2 g/dl (6.4-8.2)
[2017-12-11 09:34] LABS: ADD RBC MORPHOLOGY YES
[2017-12-11 10:31] LABS: HEMATOCRIT 26.6 % (32.4-45.2); HEMOGLOBIN 8.4 GM/dL (10.7-15.3); MCH 27.5 pg (25.7-33.7); MCHC 31.5 g/dl (32.0-36.0); MEAN CELL VOLUME 87.4 fl (80-96); MEAN PLT VOLUME 7.3 fl (7.5-11.1); PLATELET COUNT 262 K/MM3 (134-434); RBC 3.04 M/mm3 (3.60-5.2); RDW 16.2 % (11.6-15.6); WHITE BLOOD COUNT 28.9 K/mm3 (4.0-10.0)
[2017-12-11] MEDS: DEXTROSE 5%-0.45% SALINE 1,000 ML IV SCH (10:33)
[2017-12-11] MEDS: FOLIC ACID 1 MG TABLET (FP) PO SCH (10:34)
[2017-12-11] MEDS: POLYETHYLENE GLYCOL 3350 119 GM BTL PO SCH (10:35)
[2017-12-11 10:37] LABS: HEMOGLOBIN 10.8 GM/dL (10.7-15.3); RBC 4.06 M/mm3 (3.60-5.2); WHITE BLOOD COUNT 9.1 K/mm3 (4.0-10.0)
[2017-12-11 10:38] LABS: HEMATOCRIT 33.9 % (32.4-45.2); MCH 26.5 pg (25.7-33.7); MCHC 31.8 g/dl (32.0-36.0); MEAN CELL VOLUME 83.5 fl (80-96); RDW 20.9 % (11.6-15.6)
[2017-12-11 10:39] LABS: LYMPH % 19.1 % (8-40); MEAN PLT VOLUME 9.6 fl (7.5-11.1); NEUT % 66.7 % (42.8-82.8); PLATELET COUNT 105 K/MM3 (134-434)
[2017-12-11 10:40] LABS: BASO % 0.5 % (0-2.0); EOS % 1.2 % (0-4.5); MONO % 12.5 % (3.8-10.2)
--- NOTE | 2017-12-11 10:45 | PN ---
Progress Note (short form) - Note Progress Note: verbal / does not want to eat some interaction Vital Signs Period Temp Pulse Resp BP Sys/Chapman Pulse Ox Last 24 Hr 97.6 F-103 F 60-70 18-22 114-177/42-65 94-98 neck supple heart S1/S2 Lungs clear bilat abd soft no tenderness elicited ext no edema CBC, BMP 12/11/17 09:15 12/11/17 06:00 THESE LABS ARE INCORRECT -- REPEAT ORDERED Microbiology 12/07/17 23:15 Blood - Peripheral Venous Blood Culture - Preliminary NO GROWTH OBTAINED AFTER 72 HOURS, INCUBATION TO CONTINUE FOR 2 DAYS. 12/07/17 23:20 Blood - Peripheral Venous Blood Culture - Final Escherichia Coli 12/08/17 03:20 Urine - Urine - Catheterized Urine Culture - Final Escherichia Coli Active Medications Acetaminophen (Tylenol -) 650 mg PO Q6H PRN PRN Reason: fever pain Last Admin: 12/09/17 16:28 Dose: 650 mg Atorvastatin Calcium (Lipitor -) 20 mg PO HS [facility] Last Admin: 12/10/17 21:09 Dose: 20 mg Bupropion HCl (Wellbutrin Xl -) 150 mg PO DAILY [facility] Last Admin: 12/11/17 10:35 Dose: 150 mg Folic Acid (Folic Acid -) 1 mg PO DAILY [facility] Last Admin: 12/11/17 10:34 Dose: 1 mg Dextrose/Sodium Chloride (D5-1/2ns -) 1,000 mls @ 75 mls/hr IV ASDIR [facility] Last Admin: 12/11/17 10:33 Dose: 75 mls/hr Cefazolin Sodium (Ancef -) 1 gm in 10 mls @ 120 mls/hr IVPUSH Q8H-IV [facility] Last Admin: 12/11/17 10:34 Dose: 120 mls/hr Polyethylene Glycol (Miralax (For Daily Use) -) 17 gm PO DAILY [facility] Last Admin: 12/11/17 10:35 Dose: 17 grams Primidone (Mysoline -) 50 mg PO HS [facility] Last Admin: 12/10/17 21:09 Dose: 50 mg Propranolol HCl (Inderal La -) 120 mg PO DAILY [facility] Last Admin: 12/11/17 10:35 Dose: 120 mg Senna (Senna -) 1 tab PO HS [facility] Last Admin: 12/10/17 21:09 Dose: 1 tab # Altered Mental status metabolic encephalopathy 2// to UTI c/s+ E.Coli ID appreciated # UTI abx - # CLL Inc WBC 74% Lymph --chronic anemia -- appreciate heme follow up will follow up on work up discussed with son agrees to blood transfusion if needed # dementia more alert today improved mentation poor appetite REPEAT LABS PENDING Problem List - Problems (1) Fever Code(s): R50.9 - FEVER, UNSPECIFIED (2) UTI (urinary tract infection) Code(s): N39.0 - URINARY TRACT INFECTION, SITE NOT SPECIFIED Qualifiers: Encounter type: initial encounter (3) Altered mental status Code(s): R41.82 - ALTERED MENTAL STATUS, UNSPECIFIED (4) Dementia Code(s): F03.90 - UNSPECIFIED DEMENTIA WITHOUT BEHAVIORAL DISTURBANCE (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
[2017-12-11 11:39] LABS: HEMATOCRIT 29.4 % (32.4-45.2); HEMOGLOBIN 9.3 GM/dL (10.7-15.3); MCH 27.7 pg (25.7-33.7); MCHC 31.6 g/dl (32.0-36.0); MEAN CELL VOLUME 87.7 fl (80-96); MEAN PLT VOLUME 6.7 fl (7.5-11.1); PLATELET COUNT 283 K/MM3 (134-434); RBC 3.35 M/mm3 (3.60-5.2); RDW 16.6 % (11.6-15.6); WHITE BLOOD COUNT 33.3 K/mm3 (4.0-10.0)
[2017-12-11 12:02] LABS: ANION GAP 8 (8-16); BLOOD UREA NITROGEN 8 mg/dL (7-18); CHLORIDE 102 mmol/L (98-107); CO2 30 mmol/L (21-32); CREATININE 1.1 mg/dL (0.55-1.02); GLUCOSE,RANDOM 106 mg/dL (74-106); SODIUM 140 mmol/L (136-145)
--- NOTE | 2017-12-11 12:38 | PN ---
Progress Note, Physician History of Present Illness: More awake and responsive Pleasantly confused No acute distress Temps down Afebrile BC, Urine c/s E. coli WBC down 33K Renal sonogram no hydronephrosis - Current Medication List Current Medications: Active Medications Acetaminophen (Tylenol -) 650 mg PO Q6H PRN PRN Reason: fever pain Last Admin: 12/09/17 16:28 Dose: 650 mg Atorvastatin Calcium (Lipitor -) 20 mg PO HS [facility] Last Admin: 12/10/17 21:09 Dose: 20 mg Bupropion HCl (Wellbutrin Xl -) 150 mg PO DAILY [facility] Last Admin: 12/11/17 10:35 Dose: 150 mg Folic Acid (Folic Acid -) 1 mg PO DAILY [facility] Last Admin: 12/11/17 10:34 Dose: 1 mg Dextrose/Sodium Chloride (D5-1/2ns -) 1,000 mls @ 75 mls/hr IV ASDIR [facility] Last Admin: 12/11/17 10:33 Dose: 75 mls/hr Cefazolin Sodium (Ancef -) 1 gm in 10 mls @ 120 mls/hr IVPUSH Q8H-IV [facility] Last Admin: 12/11/17 10:34 Dose: 120 mls/hr Polyethylene Glycol (Miralax (For Daily Use) -) 17 gm PO DAILY [facility] Last Admin: 12/11/17 10:35 Dose: 17 grams Primidone (Mysoline -) 50 mg PO HS [facility] Last Admin: 12/10/17 21:09 Dose: 50 mg Propranolol HCl (Inderal La -) 120 mg PO DAILY [facility] Last Admin: 12/11/17 10:35 Dose: 120 mg Senna (Senna -) 1 tab PO HS [facility] Last Admin: 12/10/17 21:09 Dose: 1 tab - Objective Vital Signs: Vital Signs Temperature 97.9 F 12/11/17 08:56 Pulse Rate 65 12/11/17 08:56 Respiratory Rate 18 12/11/17 10:00 Blood Pressure 143/59 12/11/17 08:56 O2 Sat by Pulse Oximetry (%) 98 12/11/17 10:00 Constitutional: Yes: No Distress Eyes: Yes: Conjunctiva Clear Cardiovascular: Yes: Regular Rate and Rhythm, S1, S2 Respiratory: Yes: CTA Bilaterally Gastrointestinal: Yes: Normal Bowel Sounds, Soft. No: Tenderness Edema: No Labs: CBC, BMP 12/11/17 11:16 12/11/17 11:16 INR, PTT INR 1.19 (0.82-1.09) H 12/07/17 23:15 Assessment/Plan UTI E coli Gram Negative bacteremia/ sepsis secondary to UTI CLL OBS Continue cefazolin 1gn q8h
[2017-12-11 16:05] LABS: EOS % 0.6 % (0-4.5); MONO % 2.7 % (3.8-10.2); NEUT % 18.6 % (42.8-82.8)
[2017-12-11 16:06] LABS: BASO % 0.1 % (0-2.0)
[2017-12-11] MEDS ORDERED: POTASSIUM CHLORIDE TABS 20 MEQ TABLET.ER (FP) PO ONE ×2 (16:30→20:30)
--- NOTE | 2017-12-11 21:20 | PN ---
Progress Note (short form) - Note Progress Note: Last Vital Signs Temp Pulse Resp BP Pulse Ox 99.8 F H 67 18 154/71 98 12/11/17 20:38 12/11/17 20:38 12/11/17 20:38 12/11/17 20:38 12/11/17 10:00 CBC, BMP 12/11/17 11:16 12/11/17 11:16 Current Medications Generic Name Dose Route Start Last Admin Trade Name Freq PRN Reason Stop Dose Admin Acetaminophen 650 mg 12/08/17 09:58 12/09/17 16:28 Tylenol - PO 650 mg Q6H PRN Administration fever pain Atorvastatin Calcium 20 mg 12/08/17 22:00 12/10/17 21:09 Lipitor - PO 20 mg HS [facility] Administration Bupropion HCl 150 mg 12/08/17 10:00 12/11/17 10:35 Wellbutrin Xl - PO 150 mg DAILY [facility] Administration Folic Acid 1 mg 12/08/17 10:00 12/11/17 10:34 Folic Acid - PO 1 mg DAILY [facility] Administration Dextrose/Sodium Chloride 1,000 mls @ 75 mls/hr 12/08/17 10:00 12/11/17 10:33 D5-1/2ns - IV 75 mls/hr ASDIR [facility] Administration Cefazolin Sodium 1 gm in 10 mls @ 120 mls/hr 12/10/17 18:00 12/11/17 17:35 Ancef - IVPUSH 120 mls/hr Q8H-IV [facility] Administration Polyethylene Glycol 17 gm 12/08/17 10:00 12/11/17 10:35 Miralax (For Daily Use) - PO 17 grams DAILY [facility] Administration Primidone 50 mg 12/08/17 22:00 12/10/17 21:09 Mysoline - PO 50 mg HS [facility] Administration Propranolol HCl 120 mg 12/08/17 10:00 12/11/17 10:35 Inderal La - PO 120 mg DAILY [facility] Administration Senna 1 tab 12/08/17 22:00 12/10/17 21:09 Senna - PO 1 tab HS [facility] Administration Patient seen and examined Pleasantly confused Lying in bed in no distress No icterus No significant cervical or axillary adeno;athy Lungs - clear Cor -RSR Abdomen- soft Ext- no significant edema Impression: UTI Gram negative bacteremia CLL Anemia Plan : f/u immunoglobulins likely ACD/ACI, for monitoring
[2017-12-11] MEDS: SENNOSIDES 8.6MG TABLET (FP) PO SCH (21:29)
[2017-12-11] MEDS: ATORVASTATIN CA 20 MG TABLET (FP) PO SCH (21:29)
[2017-12-11] MEDS: PRIMIDONE 50 MG TABLET PO SCH (21:29)
[2017-12-12] MEDS: CEFAZOLIN 1 GM PUSH 1 GM/10 ML DISP.SYRIN IVPUSH SCH ×2 (01:21→10:05)
[2017-12-12 06:08] LABS: IGA IMMUNOGLOBULIN 66 mg/dL (64-422); IGM IMMUNOGLOBULIN 15 mg/dL (26-217); SERUM IRON SATURATION 12 (15-55); TOTAL IRON BINDING CAPACITY 171 (250-450); UIBC 151 ug/dL (118-369)
[2017-12-12] MEDS ORDERED: PT OWN MED DRAWER 7, Y5N ONE (10:01)
[2017-12-12] MEDS: FOLIC ACID 1 MG TABLET (FP) PO SCH (10:04)
[2017-12-12] MEDS: POLYETHYLENE GLYCOL 3350 119 GM BTL PO SCH (10:05)
--- NOTE | 2017-12-12 12:00 | PN ---
Progress Note, Physician History of Present Illness: Pleasantly confused No acute distress Temps down Afebrile BC, Urine c/s E. coli WBC down 33K Renal sonogram no hydronephrosis - Current Medication List Current Medications: Active Medications Acetaminophen (Tylenol -) 650 mg PO Q6H PRN PRN Reason: fever pain Last Admin: 12/09/17 16:28 Dose: 650 mg Atorvastatin Calcium (Lipitor -) 20 mg PO HS [facility] Last Admin: 12/11/17 21:29 Dose: 20 mg Bupropion HCl (Wellbutrin Xl -) 150 mg PO DAILY [facility] Last Admin: 12/12/17 10:05 Dose: 150 mg Folic Acid (Folic Acid -) 1 mg PO DAILY [facility] Last Admin: 12/12/17 10:04 Dose: 1 mg Cefazolin Sodium (Ancef -) 1 gm in 10 mls @ 120 mls/hr IVPUSH Q8H-IV [facility] Last Admin: 12/12/17 10:05 Dose: 120 mls/hr Polyethylene Glycol (Miralax (For Daily Use) -) 17 gm PO DAILY [facility] Last Admin: 12/12/17 10:05 Dose: 17 grams Primidone (Mysoline -) 50 mg PO [facility] Last Admin: 12/11/17 21:29 Dose: 50 mg Propranolol HCl (Inderal La -) 120 mg PO DAILY [facility] Last Admin: 12/12/17 10:08 Dose: 120 mg Senna (Senna -) 1 tab PO [facility] Last Admin: 12/11/17 21:29 Dose: 1 tab - Objective Vital Signs: Vital Signs Temperature 98.8 F 12/12/17 10:00 Pulse Rate 60 12/12/17 10:00 Respiratory Rate 19 12/12/17 10:00 Blood Pressure 114/60 12/12/17 10:00 O2 Sat by Pulse Oximetry (%) 98 12/11/17 21:00 Constitutional: Yes: No Distress Eyes: Yes: Conjunctiva Clear Cardiovascular: Yes: Regular Rate and Rhythm, S1, S2 Respiratory: Yes: CTA Bilaterally Gastrointestinal: Yes: Normal Bowel Sounds, Soft. No: Tenderness Edema: No Labs: CBC, BMP 12/11/17 11:16 12/11/17 11:16 INR, PTT INR 1.19 (0.82-1.09) H 12/07/17 23:15 Assessment/Plan UTI E coli E. coli bacteremia/ sepsis secondary to UTI CLL OBS May substitute Keflex 500g po q8h x 9 days
--- NOTE | 2017-12-12 13:53 | DS ---
Physical Examination Vital Signs: Vital Signs Temperature 98.8 F 12/12/17 10:00 Pulse Rate 60 12/12/17 10:00 Respiratory Rate 19 12/12/17 10:00 Blood Pressure 114/60 12/12/17 10:00 O2 Sat by Pulse Oximetry (%) 98 12/11/17 21:00 Findings/Remarks: is an 87 y/[facility] resident with advanced dementia, HLD, Hx of seizure disorder s/p deep brain stimulation, Hx of CLL in the past that was untreated and left pelvic fracture in July 2017 due to which patient has an externally rotated left foot. Presents with leukocytosis in the setting of fever and AMS. Medical information obtained from Dr Puente. recent labs WBC 18 (74% Lymphs) 10/02/17 h/h 10.8 / 32.7 WBC 16.2 (70% Lympph) 11/21/17 h/h Resident was transferred from [facility] facility due to fever and altered mental status , she is non verbal and cannot provide hx. She has had swallow eval recently with video flouroscopy indicating no aspiration, however staff reports she frequently coughs with meals. No Urinary Sx as per staff at time of transfer to ER History Source: Medical Record, Caregiver Limitations to Obtaining History: Dementia hospital stay on admission patient non verbal / combative - panculture + e.coli blood and urine IV abx and IV fluids began with marked improvement in mental status 5 days of ABX completed -- will d/c home with keflex 500 TID for 9 days patient has dementia and is back to baseline Son Addy has been contacted and aware of POC Constitutional: Yes: Well Nourished, No Distress Eyes: Yes: Conjunctiva Clear HENT: Yes: Atraumatic, Normocephalic Neck: Yes: Supple Cardiovascular: Yes: Regular Rate and Rhythm Respiratory: Yes: Regular Gastrointestinal: Yes: Normal Bowel Sounds, Soft ...Rectal Exam: Yes: Deferred Renal/: Yes: WNL Breast(s): Yes: WNL Musculoskeletal: Yes: WNL Extremities: Yes: WNL Edema: No Peripheral Pulses WNL: Yes Integumentary: Yes: WNL Neurological: Yes: Pre-Existing Deficit Psychiatric: Yes: Alert Labs: CBC, BMP 12/11/17 11:16 12/11/17 11:16 Discharge Summary Reason For Visit: Altered Mental Status Current Active Problems Altered mental status (Acute) Dementia (Acute) Fever (Acute) Seizure (Acute) UTI (urinary tract infection) (Acute) E Coli bacteremia E.Coli Condition: Improved - Instructions Referrals: Shyanne Puente [Non Staff, Medical] - Tony Ralph [Primary Care Provider] - - Home Medications Comprehensive Discharge Medication List: Ambulatory Orders Cholecalciferol (Vitamin D3) [Vitamin D3] 2,000 unit PO DAILY 10/14/16 Cyanocobalamin [Vitamin B12 -] 1,000 mcg PO DAILY 10/14/16 Folic Acid 1 mg PO DAILY 10/14/16 Primidone 50 mg PO DAILY 10/14/16 Simvastatin 20 mg PO DAILY 10/14/16 propRANOLol HCL [Inderal LA -] 120 mg PO DAILY 10/14/16 Sennosides [Senna] 8.6 mg PO HS 08/16/17 Acetaminophen [Tylenol .Regular Strength -] 650 mg PO Q6H #30 tablet 08/20/17 Polyethylene Glycol 3350 [Miralax 119 gm Btl -] 17 gm PO DAILY #1 bottle Bupropion HCl [Bupropion Xl] 150 mg PO DAILY 12/08/17
[2017-12-12] MEDS ORDERED: CEPHALEXIN MONOHYDRATE 500 MG CAPSULE (UD) PO SCH (14:00)
[2017-12-12 14:51] VITALS: BP 159/56; PULSE 66; TEMP 98.3
== END 2017-12-12 17:23 | disposition home or self-care (01) | DRG 871 ==
LOC: JER 19:08 → JERBED 12-08 00:20 → J5S 12-08 07:07
PROVIDERS: ADMIT Family Medicine; ATTEND Family Medicine
DX: A41.9 Sepsis, unspecified organism (principal); G93.41 Metabolic encephalopathy; N39.0 Urinary tract infection, site not specified; B96.29 Other Escherichia coli [E. coli] as the cause of diseases classified elsewhere; C91.11 Chronic lymphocytic leukemia of B-cell type in remission; G40.89 Other seizures; F03.90 Unspecified dementia, unspecified severity, without behavioral disturbance, psychotic disturbance, mood disturbance, and anxiety; E78.5 Hyperlipidemia, unspecified; I45.10 Unspecified right bundle-branch block; M84.454D Pathological fracture, pelvis, subsequent encounter for fracture with routine healing; Z74.01 Bed confinement status; D64.9 Anemia, unspecified
CPT/HCPCS: 36415; 70450-TC; 71045-TC-FY; 73523-TC-FY; 73552-TC-LT-FY; 73552-TC-RT-FY; 76775-TC; 80048; 80053; 81003; 81015; 82272; 82550; 82607; 82728; 82784; 82803; 83540; 83550; 83605; 83615; 83735; 84100; 84443; 84484; 85025; 85044; 85610; 85730; 86850; 86900; 86901; 87040; 87086; 87186; 90670; 93005; 93010; 97116-GP; 97161-GP; 99282-25

== ENCOUNTER 2018-03-20 06:04 | Emergency (ER) | payer OTHER, MEDICARE ==
[2018-03-20 06:33] VITALS: TEMP 98.2; BMI 25.7
--- NOTE | 2018-03-20 07:53 | PDOC ---
History of Present Illness <Humaira Nguyen - Last Filed: 03/20/18 10:51> - History of Present Illness Initial Comments: 03/20/18 08:41 The patient is a 88 year old female, with a significant past medical history of dementia and hyperlipidemia, who presents to the emergency department from [address] [place] [address] s/p mechanical fall earlier this morning. Per EMS, nursing staff sent the patient for evaluation s/p fall. Per Liam, patients nurse today at [address] [place] [address], patient was left in her bed at approximately 04:00 this morning. Nurse reports several minutes later, patient attempted to get out of her bed on her own, and they heard her fall. Staff ran in quickly and noted patient had slid of the bed, but did not lose consciousness. Unclear whether patient hit her head. Patient ambulates with a wheelchair at baseline and occasionally uses a walker, but needs assistance to get to her walker. She reports some tremors, but denies any headache, dizziness, lightheadedness, changes in vision, nausea, vomiting, neck/back/hip/leg pain, CP/SOB. Patient has no other complaints at this time. Allergies: NKDA Surgical History: None reported Social History: Non smoker. No ETOH or recreational drug use. PCP: Dr. Puente <Irineo Coronado - Last Filed: 03/20/18 12:49> - General Chief Complaint: Injury Stated Complaint: FALL/DEMENTIA Time Seen by Provider: 03/20/18 07:40 Past History <Humaira Nguyen - Last Filed: 03/20/18 10:51> - Past Medical History Anemia: No Asthma: No Cancer: No Cardiac Disorders: No CVA: No COPD: No CHF: No Dementia: Yes GI Disorders: No HTN: No Hypercholesterolemia: Yes Liver Disease: No Seizures: No Thyroid Disease: No - Surgical History Abdominal Surgery: No Appendectomy: No Cardiac Surgery: No Lung Surgery: No Neurologic Surgery: No Orthopedic Surgery: No - Immunization History Immunization Up to Date: Yes - Suicide/Smoking/Psychosocial Hx Smoking History: Never smoked Have you smoked in the past 12 months: No Information on smoking cessation initiated: No Hx Alcohol Use: No Drug/Substance Use Hx: No Substance Use Type: None Hx Substance Use Treatment: No <Irineo Coronado - Last Filed: 03/20/18 12:49> - Past Medical History Allergies/Adverse Reactions: Allergies Allergy/AdvReac Type Severity Reaction Status Date / Time No Known Allergies Allergy Verified 03/20/18 06:32 Home Medications: Ambulatory Orders Cholecalciferol (Vitamin D3) [Vitamin D3] 2,000 unit PO DAILY 10/14/16 Cyanocobalamin [Vitamin B12 -] 1,000 mcg PO DAILY 10/14/16 Folic Acid 1 mg PO DAILY 10/14/16 Primidone 50 mg PO DAILY 10/14/16 Simvastatin 20 mg PO DAILY 10/14/16 propRANOLol HCL [Inderal LA -] 120 mg PO DAILY 10/14/16 Sennosides [Senna] 8.6 mg PO HS 08/16/17 Acetaminophen [Tylenol .Regular Strength -] 650 mg PO Q6H #30 tablet 08/20/17 Polyethylene Glycol 3350 [Miralax 119 gm Btl -] 17 gm PO DAILY #1 bottle Bupropion HCl [Bupropion Xl] 150 mg PO DAILY 12/08/17 Acetaminophen [Tylenol .Regular Strength -] 650 mg PO Q6H PRN tablet 12/12/17 Atorvastatin Ca [Lipitor] 20 mg PO HS tablet 12/12/17 Bupropion HCl [Wellbutrin Xl -] 150 mg PO DAILY tab.sr.24h 12/12/17 Cephalexin Monohydrate [Keflex -] 500 mg PO Q8H 9 Days #27 capsule 12/12/17 Folic Acid - 1 mg PO DAILY tablet 12/12/17 Polyethylene Glycol 3350 [Miralax 119 gm Btl -] 17 gm PO DAILY bottle 12/12/17 Primidone [Mysoline -] 50 mg PO HS tablet 12/12/17 Sennosides [Senna -] 1 tab PO HS tablet 12/12/17 propRANOLol HCL [Inderal LA -] 120 mg PO DAILY capsule.er 12/12/17 Review of Systems - Review of Systems Comments:: 03/20/18 08:42 GENERAL/CONSTITUTIONAL: No fever or chills. No weakness. HEAD, EYES, EARS, NOSE AND THROAT: No change in vision. No ear pain or discharge. No sore throat. GASTROINTESTINAL: No nausea, vomiting, diarrhea or constipation. GENITOURINARY: No dysuria, frequency, or change in urination. CARDIOVASCULAR: No chest pain or shortness of breath. RESPIRATORY: No cough, wheezing, or hemoptysis. MUSCULOSKELETAL: No joint or muscle swelling or pain. No neck or back pain. SKIN: No rash NEUROLOGIC: +Tremors. No headache, vertigo, loss of consciousness, or change in strength/sensation. ENDOCRINE: No increased thirst. No abnormal weight change. HEMATOLOGIC/LYMPHATIC: No anemia, easy bleeding, or history of blood clots. ALLERGIC/IMMUNOLOGIC: No hives or skin allergy. <Nassef,Yomna - Last Filed: 03/20/18 12:49> *Physical Exam - Vital Signs Last Vital Signs Temp Pulse Resp BP Pulse Ox 98.2 F 51 L 18 172/58 96 03/20/18 06:28 03/20/18 06:28 03/20/18 06:28 03/20/18 06:28 03/20/18 06:28 <Nguyen,Giomilsy - Last Filed: 03/20/18 10:51> - Vital Signs Last Vital Signs Temp Pulse Resp BP Pulse Ox 98.2 F 51 L 18 172/58 96 03/20/18 06:28 03/20/18 06:28 03/20/18 06:28 03/20/18 06:28 03/20/18 06:28 - Physical Exam Comments: 03/20/18 08:42 GENERAL: Awake, alert, oriented to name and place, in no acute distress HEAD: No signs of trauma EYES: PERRLA, EOMI, sclera anicteric, conjunctiva clear ENT: Auricles normal inspection, hearing grossly normal, nares patent, oropharynx clear without exudates. Moist mucosa NECK: Normal ROM, supple, no lymphadenopathy, JVD, or masses LUNGS: Breath sounds equal, clear to auscultation bilaterally. No wheezes, and no crackles HEART: Regular rate and rhythm, normal S1 and S2, no murmurs, rubs or gallops ABDOMEN: Soft, nontender, normoactive bowel sounds. No guarding, no rebound. No masses EXTREMITIES: Normal range of motion, no edema. No clubbing or cyanosis. No cords, erythema, or tenderness BACK: No midline spinal tenderness in cervical/thoracic/lumbar region NEUROLOGICAL: Normal speech, cranial nerves intact, negative pronator drift, 5/ 5 strength in all 4 extremities, normal sensation to light touch in all 4 extremities, normal cerebellar exam, normal reflexes and tone. SKIN: Warm, Dry, normal turgor, no rashes or lesions noted. <Irineo Coronado - Last Filed: 03/20/18 12:49> Heart Score/ECG Review #1 03/20/18 10:56 Twelve-lead EKG was performed and reviewed by me. Normal sinus rhythm, rate 65. Left axis deviation with right bundle branch block. No significant change compared to EKG from 12/07/2017. <Irineo Coronado - Last Filed: 03/20/18 12:49> ED Treatment Course - LABORATORY CBC & Chemistry Diagram: 03/20/18 09:00 03/20/18 09:00 - ADDITIONAL ORDERS Additional order review: Laboratory Results 03/20/18 03/20/18 03/20/18 09:00 09:00 09:00 PT with INR INR PTT (Actin FS) Sodium 142 Potassium 3.9 Chloride 104 Carbon Dioxide 31 Anion Gap 7 L BUN 20 H Creatinine 1.1 H Creat Clearance w eGFR 46.77 POC Glucometer Random Glucose 89 Calcium 9.0 Total Bilirubin 0.3 AST 25 ALT 23 Alkaline Phosphatase 146 H Troponin I Cancelled 0.02 Total Protein 6.9 Albumin 3.7 Blood Type O POSITIVE Antibody Screen Negative 03/20/18 03/20/18 09:00 07:09 PT with INR 11.30 INR 1.00 PTT (Actin FS) 25.4 L Sodium Potassium Chloride Carbon Dioxide Anion Gap BUN Creatinine Creat Clearance w eGFR POC Glucometer 91.52526 Random Glucose Calcium Total Bilirubin AST ALT Alkaline Phosphatase Troponin I Total Protein Albumin Blood Type Antibody Screen 03/20/18 03/20/18 09:00 07:09 RBC 3.96 MCV 89.2 MCHC 33.2 RDW 15.9 H MPV 7.2 L Neutrophils % 29.4 L D Lymphocytes % 63.3 H Monocytes % 5.5 D Eosinophils % 1.7 D Basophils % 0.1 POC Glucometer 91.41309 - RADIOLOGY Radiograph Interpretation: 03/20/18 10:51 EXAM: Head CT/ CT Cervical Spine INTERPRETED BY: Dr. Andrade REVIEWED BY: Dr. Coronado IMPRESSION: No significant interval change A metallic wire/lead is extending from the left anterior frontal high convexity down to the left thalamus likely a nerve stimulating lead. Moderate atrophy and chronic microvascular no gross acute intracranial pathology is identified. CT scan of the cervical spine without intravenous contrast Coronal and sagittal reconstruction images were obtained. There is straightening of the cervical spine No gross fracture, subluxation or prevertebral soft tissue swelling is seen. No jumped facets are identified. C4-C5 mild mainly central disc bulge and bilateral uncovertebral hypertrophy slightly narrowing the right foramen. C5-C6 mild degenerative disc disease and mild posterior spur formation with mild uncovertebral hypertrophy slightly narrowing the right foramen. Moderate to marked right facet hypertrophy at C3-C4 and moderate bilateral facet hypertrophy at C4- C5 and C5- C6 level. Note is made of a bridging osteophyte/of fusion of the left paramedian aspect of C2 and C3 posterior arch. Visualized portion of the airway appears unremarkable. No gross enlarged lymph nodes are identified. Lung windows at the thoracic inlet appear unremarkable. IMPRESSION: See discussion above. The alignment is satisfactory. No gross acute fracture or subluxation are identified. <Humaira Nguyen - Last Filed: 03/20/18 10:51> - LABORATORY CBC & Chemistry Diagram: 03/20/18 09:00 03/20/18 09:00 <Irineo Coronado - Last Filed: 03/20/18 12:49> Medical Decision Making - Medical Decision Making 03/20/18 08:42 88-year-old female with a history of hyperlipidemia and dementia presents emergency Department with a fall out of bed. Vitals are unremarkable. At baseline, patient requires assistance to get to wheelchair or walker. The staff denies any loss of consciousness. They state the patient was found sitting by her bed. Likely a fall from attempting to get out of bed unassisted, however we will check labs, EKG, urinalysis to evaluate for any other causes. Will also get CTH/c-spine, and cxr/pelvis xr 03/20/18 12:45 Labs at baseline. UA, XR, CT all wnl. Pt remains asymptomatic. Will DC to [place]. I discussed the physical exam findings, ancillary test results and final diagnoses with the patient. I answered all of the patient's questions. The patient was satisfied with the care received and felt comfortable with the discharge plan and treatment plan. The patient will call their primary care physician within 24 hours to arrange follow-up and will return to the Emergency Department with any new, persistent or worsening symptoms. <Irineo Coronado - Last Filed: 03/20/18 12:49> *DC/Admit/Observation/Transfer - Attestations Scribe Attestion: 03/20/18 10:53 Documentation prepared by Humaira Nguyen, acting as medical practice manager for Irineo Coronado MD. <Humaira Nguyen - Last Filed: 03/20/18 10:51> - Discharge Dispostion Decision to Admit order: No - Attestations Physician Attestion: 03/20/18 12:49 I, Dr. Irineo oCronado MD, attest that this document has been prepared under my direction and personally reviewed by me in its entirety. I further attest, that it accurately reflects all work, treatment, procedures and medical decision -making performed by me. <Irineo Coronado - Last Filed: 03/20/18 12:49> Diagnosis at time of Disposition: Fall - Discharge Dispostion Disposition: HOME Condition at time of disposition: Fair - Referrals Referrals: Shyanne Puente [Primary Care Provider] - - Patient Instructions Printed Discharge Instructions: How to Prevent Falls Additional Instructions: Follow up with your doctor in the residential within 1-2 days. Return to the emergency department if you have any new, worsening or concerning symptoms. - Post Discharge Activity
[2018-03-20 09:28] LABS: BASO % 0.1 % (0-2.0); EOS % 1.7 % (0-4.5); HEMATOCRIT 35.3 % (32.4-45.2); HEMOGLOBIN 11.7 GM/dL (10.7-15.3); LYMPH % 63.3 % (8-40); MCH 29.6 pg (25.7-33.7); MCHC 33.2 g/dl (32.0-36.0); MEAN CELL VOLUME 89.2 fl (80-96); MEAN PLT VOLUME 7.2 fl (7.5-11.1); MONO % 5.5 % (3.8-10.2); NEUT % 29.4 % (42.8-82.8); PLATELET COUNT 222 K/MM3 (134-434); RBC 3.96 M/mm3 (3.60-5.2); RDW 15.9 % (11.6-15.6); WHITE BLOOD COUNT 13.6 K/mm3 (4.0-10.0)
[2018-03-20 09:35] LABS: ALBUMIN 3.7 g/dl (3.4-5.0); ANION GAP 7 (8-16); BLOOD UREA NITROGEN 20 mg/dL (7-18); CHLORIDE 104 mmol/L (98-107); CO2 31 mmol/L (21-32); GLUCOSE,RANDOM 89 mg/dL (74-106); POTASSIUM 3.9 mmol/L (3.5-5.1); SODIUM 142 mmol/L (136-145)
[2018-03-20 09:42] LABS: ALK PHOS 146 U/L (45-117); BILIRUBIN,TOTAL 0.3 mg/dL (0.2-1.0); CREATININE 1.1 mg/dL (0.55-1.02); PROTHROMBIN TIME (PATIENT) 11.3 SEC (9.7-13.0); SGOT/AST 25 U/L (15-37); SGPT/ALT 23 U/L (12-78); TOT PROT 6.9 g/dl (6.4-8.2)
[2018-03-20 09:45] LABS: ACTIVATED PTT 25.4 SECONDS (26.9-34.4)
[2018-03-20 12:05] LABS: URINE APPEARANCE CLEAR; URINE BILIRUBIN NEGATIVE (<2.0 mg/dL); URINE COLOR STRAW; URINE GLUCOSE (UA) NEGATIVE (NEGATIVE); URINE KETONE NEGATIVE (NEGATIVE); URINE LEUK ESTERASE NEGATIVE (NEGATIVE); URINE NITRITE NEGATIVE (NEGATIVE); URINE PROTEIN NEGATIVE (NEGATIVE); URINE UROBILINOGEN NEGATIVE mg/dL (0.2-1.0)
[2018-03-20 12:54] LABS: PLATELET ESTIMATE ADEQUATE; SMUDGE CELLS FEW
--- NOTE | 2018-03-20 13:23 | EKG ---
Test Reason : Blood Pressure : / mmHG Vent. Rate : 065 BPM Atrial Rate : 065 BPM P-R Int : 156 ms QRS Dur : 122 ms QT Int : 468 ms P-R-T Axes : 053 -41 073 degrees QTc Int : 486 ms NORMAL SINUS RHYTHM LEFT AXIS DEVIATION RIGHT BUNDLE BRANCH BLOCK MINIMAL VOLTAGE CRITERIA FOR LVH, MAY BE NORMAL VARIANT ABNORMAL ECG WHEN COMPARED WITH ECG OF 07-DEC-2017 22:38, NO SIGNIFICANT CHANGE WAS FOUND Confirmed by ARNOLDO ESTRADA MD ([id number]) on 03/20/2018 1:22:47 PM Referred By: Confirmed By:ARNOLDO ESTRADA MD
[2018-03-20 14:22] VITALS: BP 153/90; PULSE 63
== END 2018-03-20 14:26 | disposition home or self-care (01) ==
LOC: JER 06:04 → SUPCPDRO 06:04 → JER 14:26
DX: Z04.3 Encounter for examination and observation following other accident (principal); W18.39XA Other fall on same level, initial encounter; Y93.9 Activity, unspecified; Y92.129 Unspecified place in nursing home as the place of occurrence of the external cause; E78.5 Hyperlipidemia, unspecified; F03.90 Unspecified dementia, unspecified severity, without behavioral disturbance, psychotic disturbance, mood disturbance, and anxiety; Z99.89 Dependence on other enabling machines and devices
CPT/HCPCS: 36415; 70450-TC; 71045-TC-FY; 72125-TC; 72170-TC-FY; 80053; 81003; 82962; 84484; 85025; 85610; 85730; 86850; 86900; 86901; 87086; 93005; 93010; 99282-25

== ENCOUNTER 2018-09-28 09:47 | Inpatient (IN) | payer OTHER, MEDICARE ==
[2018-09-28] MEDS ORDERED: ACETAMINOPHEN 1000 MG/100 ML VIAL (NON FORMULARY) IVPB ONE (10:08)
--- NOTE | 2018-09-28 10:13 | PDOC ---
History of Present Illness - General Chief Complaint: Blood Pressure Problem Stated Complaint: HYPERTENSION Time Seen by Provider: 09/28/18 10:00 - History of Present Illness Initial Comments: Hx from chart review, patient's son, and some from [facility] Per the son, the patient was sent over this morning for being hypertensive to SBP in the 170s and being febrile to 102F. Per [facility], patient was not at her baseline mentation. They state that she is generally oriented x1 and will respond to yes/no questions intermittently. This morning they report that they she was a-verbal. They also report that the patient was febrile to 102 and ' spitting up white mucous-like material.' 09/28/18 10:05 [facility] Attending Physician: Dr. Shyanne Puente [phone] Neurologist: Dr. Tony Ralph [phone] 09/28/18 10:13 Past History - Past Medical History Allergies/Adverse Reactions: Allergies Allergy/AdvReac Type Severity Reaction Status Date / Time No Known Allergies Allergy Verified 09/28/18 10:00 Home Medications: Ambulatory Orders Acetaminophen 500 mg PO TID 09/28/18 Bupropion HCl [Wellbutrin -] 75 mg PO BID 09/28/18 Cholecalciferol (Vitamin D3) [Vitamin D] 2,000 unit PO DAILY 09/28/18 Cyanocobalamin [Vitamin B12 -] 1,000 mcg PO DAILY 09/28/18 Folic Acid 1 mg PO DAILY 09/28/18 Folic Acid/Mv,Iron,Min/Lutein [Certa Plus Tablet] 1 each PO DAILY 09/28/18 Gabapentin 600 mg PO HS 09/28/18 Mirtazapine 3.75 mg PO HS 09/28/18 Mupirocin Calcium [Mupirocin] 30 gm TP PRN PRN 09/28/18 Primidone [Mysoline -] 100 mg PO BID 09/28/18 Simvastatin 20 mg PO HS 09/28/18 propRANOLol HCL [Inderal LA -] 120 mg PO DAILY 09/28/18 Anemia: No Asthma: No Cancer: No Cardiac Disorders: No CVA: No COPD: No CHF: No Dementia: Yes GI Disorders: No HTN: No Hypercholesterolemia: Yes Liver Disease: No Seizures: No Thyroid Disease: No - Surgical History Abdominal Surgery: No Appendectomy: No Cardiac Surgery: No Lung Surgery: No Neurologic Surgery: No Orthopedic Surgery: No - Immunization History Immunization Up to Date: Yes - Suicide/Smoking/Psychosocial Hx Smoking History: Never smoked Have you smoked in the past 12 months: No Information on smoking cessation initiated: No Hx Alcohol Use: No Drug/Substance Use Hx: No Substance Use Type: None Hx Substance Use Treatment: No Review of Systems - Review of Systems Able to Perform ROS?: No (medical condition) *Physical Exam - Vital Signs Last Vital Signs Temp Pulse Resp BP Pulse Ox 98 F 77 16 149/47 L 96 09/28/18 09:47 09/28/18 09:47 09/28/18 09:47 09/28/18 09:47 09/28/18 09:47 - Physical Exam Comments: GENERAL: Awake, not oriented or verbal, in no acute distress HEAD: No signs of trauma, normocephalic, atraumatic EYES: PERRLA, EOMI, sclera anicteric, conjunctiva clear ENT: Hearing grossly normal, nares patent, oropharynx clear without exudates. Moist mucosa LUNGS: No distress, speaks full sentences, clear to auscultation bilaterally HEART: Regular rate and rhythm, normal S1 and S2, no murmurs appreciated, peripheral pulses normal and equal bilaterally ABDOMEN: Soft, nontender, normoactive bowel sounds. No guarding, no rebound EXTREMITIES : No open wounds, no edema. No clubbing or cyanosis NEUROLOGICAL: No oriented, withdraws to pain; GCS 8 SKIN: Warm, Dry, normal turgor, no rashes or lesions noted 09/28/18 10:05 Moderate Sedation - Procedure Monitoring Vital Signs: Procedure Monitoring Vital Signs Temperature 98 F 09/28/18 09:47 Pulse Rate 77 09/28/18 09:47 Respiratory Rate 16 09/28/18 09:47 Blood Pressure 149/47 L 09/28/18 09:47 O2 Sat by Pulse Oximetry (%) 96 09/28/18 09:47 ED Treatment Course - LABORATORY CBC & Chemistry Diagram: 09/28/18 10:36 09/28/18 10:36 Medical Decision Making - Medical Decision Making Patient is an 88F w/ a history of advanced dementia, CLL, and tremor who presents from [facility] with fever and AMS concerning for sepsis ED Course ED Sepsis w/u Ofirmev 1g IV once Straight cath for urine 1L NS 09/28/18 10:21 UA w/ evidence of UTI Leukocytosis to 19.2, in setting of hx of CLL Mild anemia to 10.4, no need for transfusion at this time Lytes wnl Cr 1.7, baseline 1.1 Lactate 1.3 Trop I neg LFTs wnl Plan for admission for UTI 09/28/18 12:09 Plan to give second L of fluid if patient does not have clinical signs of fluid overload Dispo: Admit 09/28/18 12:30 *DC/Admit/Observation/Transfer Diagnosis at time of Disposition: Sepsis Qualifiers: Sepsis type: sepsis due to unspecified organism Qualified Code(s): A41.9 - Sepsis, unspecified organism - Discharge Dispostion Condition at time of disposition: Guarded Decision to Admit order: Yes - Referrals Referrals: Shyanne Puente [Primary Care Provider] - - Patient Instructions - Post Discharge Activity
[2018-09-28] MEDS ORDERED: ACETAMINOPHEN INJECTION 100 ML IVPB ONE (10:30)
[2018-09-28] MEDS ORDERED: SODIUM CHLORIDE 0.9% 500 ML INFUS.BAG IV ONE (10:32)
[2018-09-28] MEDS ORDERED: PIPERACILLIN/TAZOB 3.375 GM 3.375 GM in DEXTROSE 5%-WATER - 50 ML IVPB ONE (10:33)
[2018-09-28] MEDS ORDERED: VANCOMYCIN 1,250 MG in DEXTROSE 5%-WATER - 250 ML IVPB ONE (10:34)
[2018-09-28] MEDS ORDERED: PIPERACILLIN/TAZOB 3.375 GM 3.375 GM/50 ML BAG IVPB ONE (10:34)
[2018-09-28 11:13] LABS: VENOUS PC02 48.1 mmHg (38-52); VENOUS PH 7.39 (7.32-7.42); VENOUS PO2 37.2 mmHg (28-48)
[2018-09-28 11:20] LABS: BASO % 0.3 % (0-2.0); EOS % 0.1 % (0-4.5); HEMATOCRIT 32.1 % (32.4-45.2); HEMOGLOBIN 10.4 GM/dL (10.7-15.3); LYMPH % 52.6 % (8-40); MCH 29.8 pg (25.7-33.7); MCHC 32.5 g/dl (32.0-36.0); MEAN CELL VOLUME 91.7 fl (80-96); MEAN PLT VOLUME 7.9 fl (7.5-11.1); MONO % 6.6 % (3.8-10.2); NEUT % 40.4 % (42.8-82.8); PLATELET COUNT 187 K/MM3 (134-434); RDW 14.7 % (11.6-15.6); WHITE BLOOD COUNT 19.2 K/mm3 (4.0-10.0)
[2018-09-28 11:26] LABS: URINE APPEARANCE CLOUDY; URINE BILIRUBIN NEGATIVE (<2.0 mg/dL); URINE COLOR YELLOW; URINE GLUCOSE (UA) NEGATIVE (NEGATIVE); URINE KETONE TRACE (NEGATIVE); URINE LEUK ESTERASE 3+ (NEGATIVE); URINE NITRITE NEGATIVE (NEGATIVE); URINE PROTEIN 2+ (NEGATIVE); URINE UROBILINOGEN NEGATIVE mg/dL (0.2-1.0)
[2018-09-28 11:33] LABS: INR 1.15 (0.83-1.09); PROTHROMBIN TIME (PATIENT) 13.6 SEC (9.7-13.0)
[2018-09-28 11:33] LABS: URINE BACTERIA MANY /hpf (NONE SEEN); URINE MUCUS RARE; YEAST MANY
[2018-09-28 11:35] LABS: ACTIVATED PTT 22.1 SECONDS (25.2-36.5)
[2018-09-28 11:57] LABS: ALBUMIN 3.3 g/dl (3.4-5.0); ALK PHOS 95 U/L (45-117); ANION GAP 10 MMOL/L (8-16); BILIRUBIN,TOTAL 0.7 mg/dL (0.2-1); BLOOD UREA NITROGEN 30 mg/dL (7-18); CALCIUM 8.3 mg/dL (8.5-10.1); CHLORIDE 105 mmol/L (98-107); CO2 28 mmol/L (21-32); CREATININE 1.7 mg/dL (0.55-1.3); GLUCOSE,RANDOM 147 mg/dL (74-106); POTASSIUM 3.9 mmol/L (3.5-5.1); SGOT/AST 22 U/L (15-37); SGPT/ALT 21 U/L (13-61); SODIUM 143 mmol/L (136-145); TOT PROT 6.2 g/dl (6.4-8.2)
--- NOTE | 2018-09-28 12:13 | PDOC ---
Attending Attestation - Resident Resident Name: Eber Maldonado - ED Attending Attestation I have performed the following: I have examined & evaluated the patient, The case was reviewed & discussed with the resident, I agree w/resident's findings & plan, Exceptions are as noted - HPI HPI: 09/28/18 11:56 88yo F hx dementia (AOx1 at baseline, mostly non verbal but can say yest or no) , seizure disorder s/p deep brain stimulation, HL, untreated CLL, left pelvic fracture in July 2017 due to which patient has an externally rotated left foot presents to the ED with AMS. Pt has been increasingly lethargic per [facility] staff, no longer answering yes or no to questions. Pt also febrile to 102. History limited due to patients clinical condition. - Physicial Exam PE: 09/28/18 11:57 agree with resident exam - Medical Decision Making 09/28/18 12:00 88yo F hx dementia, seizure d/o, CLL presents to the ED with AMS, fever. Found to be febrile here to 103.5. Septic w/u initiated, pt found to have UTI. Was already covered with Zosyn, then Vanc empirically. Previous UCx sensitivities reviewed, pt pansensitive. BP was reported high in NH, found to be 140/50 initially here, now down trending to 100/43 with wide pulse pressure. Concern for sepsis. 1L NS going at this time, will reassess. Anticipate admission. Heart Score/ECG Review #1 09/28/18 12:13 Twelve-lead EKG was performed and reviewed by me. Normal sinus rhythm, rate 79. Left axis deviation. Left axis deviation. Right bundle block. When compared to EKG from 03/20/2018, no significant change.
[2018-09-28 13:02] LABS: MACROCYTOSIS 0; OVALOCYTE 1+; PLATELET ESTIMATE NORMAL
[2018-09-28] MEDS ORDERED: SODIUM CHLORIDE 1,000 ML IV STA (14:26)
--- NOTE | 2018-09-28 14:59 | CON.NEURO ---
Consult Consult Specialty:: NEUROLOGY-RODRICK FRITZ Reason for Consultation:: Encephalopathy - History of Present Illness History of Present Illness: 88yo F hx dementia (AOx1 at baseline, mostly non verbal but can say yest or no) , seizure disorder s/p deep brain stimulation, HL, untreated CLL, left pelvic fracture in July 2017 due to which patient has an externally rotated left foot presents to the ED with AMS. Pt has been increasingly lethargic per [facility] staff, no longer answering yes or no to questions. Pt also febrile to 102. History limited due to patients clinical condition. 09/28/18 12:00 88yo F hx dementia, seizure d/o, CLL presents to the ED with AMS, fever. Found to be febrile here to 103.5. Septic w/u initiated, pt found to have UTI. Was already covered with Zosyn, then Vanc empirically. Previous UCx sensitivities reviewed, pt pansensitive. BP was reported high in NH, found to be 140/50 initially here, now down trending to 100/43 with wide pulse pressure. 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 Musculoskeletal: Yes: Osteoarthritis - Alcohol/Substance Use Hx Alcohol Use: No - Smoking History Smoking history: Never smoked Have you smoked in the past 12 months: No - Social History ADL: Support Services History of Recent Travel: No Home Medications - Allergies Allergies/Adverse Reactions: Allergies Allergy/AdvReac Type Severity Reaction Status Date / Time No Known Allergies Allergy Verified 09/28/18 10:00 - Home Medications Home Medications: Ambulatory Orders Acetaminophen 500 mg PO TID 09/28/18 Bupropion HCl [Wellbutrin -] 75 mg PO BID 09/28/18 Cholecalciferol (Vitamin D3) [Vitamin D] 2,000 unit PO DAILY 09/28/18 Cyanocobalamin [Vitamin B12 -] 1,000 mcg PO DAILY 09/28/18 Folic Acid 1 mg PO DAILY 09/28/18 Folic Acid/Mv,Iron,Min/Lutein [Certa Plus Tablet] 1 each PO DAILY 09/28/18 Gabapentin 600 mg PO HS 09/28/18 Mirtazapine 3.75 mg PO HS 09/28/18 Mupirocin Calcium [Mupirocin] 30 gm TP PRN PRN 09/28/18 Primidone [Mysoline -] 100 mg PO BID 09/28/18 Simvastatin 20 mg PO HS 09/28/18 propRANOLol HCL [Inderal LA -] 120 mg PO DAILY 09/28/18 Physical Exam-Neuro Vital Signs: Vital Signs Temperature 99.7 F H 09/28/18 12:40 Pulse Rate 78 09/28/18 13:04 Respiratory Rate 20 09/28/18 13:04 Blood Pressure 107/39 L 09/28/18 13:04 O2 Sat by Pulse Oximetry (%) 99 09/28/18 13:04 Labs: CBC, BMP 09/28/18 10:36 09/28/18 10:36 INR, PTT INR 1.15 (0.83-1.09) H 09/28/18 10:36 - Neuro Exam Level Of Consciousness: Yes: Stuporous (Nods"yes/no" answers only, moans to pain , does not converse, only says her name to [facility].) Eyes: Yes: PERRL Speech: Incomprehensible Mini Mental Exam: As above. Eyes closed, opens eyes to command, DTR's: 0 Left Achilles, 0 Right Achilles, 1+ Left Bicep, 1+ Right Bicep, 1+ Left Tricep, 1+ Right Tricep, 1+ Left Brachioradialis, 1+ Right Brachioradialis Babinski: Present (bilat upgoing toes) Response to pain prick: Normal (withdraws all 4 ext. to pain) Coordination: Normal: Finger to Nose (unable to test) Motor Strength: 2/5: Left Arm, Right Arm, Left Leg, Right Leg (withdrawl to pain only) Gait: Other (unable to test) Imaging - Results Cat Scan: Report Reviewed (Mod. volume loss, microvasc. isch. changes) Assessment/Plan Pt. with dementia, now with altered ms likely secondary to sepsis?/ from UTI. No evid of focality except ?? 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 Rx. for sepsis/ hydration at this time, if does not improve by Sunday would image brain with MRI. Thank you, Brooke Palomo MD
[2018-09-28] MEDS: FOLIC ACID 1 MG TABLET (FP) PO SCH (15:51)
[2018-09-28] MEDS: ACETAMINOPHEN 500 MG TABLET (FP) PO SCH (15:52)
[2018-09-28] MEDS ORDERED: PT OWN MED DRAWER 7, Y5N ONE ×2 (16:00→21:23)
[2018-09-28] MEDS: buPROPion HCL 75 MG TABLET PO SCH (17:17)
[2018-09-28] MEDS: PRIMIDONE 50 MG TABLET PO SCH (17:18)
--- NOTE | 2018-09-28 20:09 | PN ---
Progress Note (short form) - Note Progress Note: ID consult dictated UTI/ possible sepsis secondary to UTI CLL OBS Await c/s Empiric ceftriaxone + stat dose vancomycin
[2018-09-28] MEDS ORDERED: VANCOMYCIN 1,000 MG in DEXTROSE 5%-WATER - 250 ML IVPB ONE (20:10)
[2018-09-28] MEDS ORDERED: VANCOMYCIN 1 GRAM (PRE-DOCKED) 1,000 MG/250 ML BAG IVPB ONE (20:15)
--- NOTE | 2018-09-28 20:48 | HP ---
Admitting History and Physical - Admission History of Present Illness: 88 y/o female with hx of dementia / CLL/ seizure disorder s/p deep brain stimulation, HLD / untreated CLL/ left pelvic fracture 07/2017 Pt has been increasingly lethargic per [facility] staff, no longer answering yes or no to questions. Pt also febrile to 102. History limited due to patients clinical condition. 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: Dementia Reproductive: Yes: Postmenopausal Heme/Onc: Yes: Other (CLL for about 12 ys) Musculoskeletal: Yes: Osteoarthritis - Advance Directives Advance Directives: Yes: Living Will, Health Care Proxy - Smoking History Smoking history: Never smoked Have you smoked in the past 12 months: No - Alcohol/Substance Use Hx Alcohol Use: No - Social History ADL: Support Services History of Recent Travel: No Home Medications - Allergies Allergies/Adverse Reactions: Allergies Allergy/AdvReac Type Severity Reaction Status Date / Time No Known Allergies Allergy Verified 09/28/18 10:00 - Home Medications Home Medications: Ambulatory Orders Acetaminophen 500 mg PO TID 09/28/18 Bupropion HCl [Wellbutrin -] 75 mg PO BID 09/28/18 Cholecalciferol (Vitamin D3) [Vitamin D] 2,000 unit PO DAILY 09/28/18 Cyanocobalamin [Vitamin B12 -] 1,000 mcg PO DAILY 09/28/18 Folic Acid 1 mg PO DAILY 09/28/18 Folic Acid/Mv,Iron,Min/Lutein [Certa Plus Tablet] 1 each PO DAILY 09/28/18 Gabapentin 600 mg PO HS 09/28/18 Mirtazapine 3.75 mg PO HS 09/28/18 Mupirocin Calcium [Mupirocin] 30 gm TP PRN PRN 09/28/18 Primidone [Mysoline -] 100 mg PO BID 09/28/18 Simvastatin 20 mg PO HS 09/28/18 propRANOLol HCL [Inderal LA -] 120 mg PO DAILY 09/28/18 Review of Systems Unable to obtain ROS, reason: dementia Physical Examination Vital Signs: Vital Signs Temperature 103.0 F H 09/28/18 18:30 Pulse Rate 72 09/28/18 18:30 Respiratory Rate 18 09/28/18 18:30 Blood Pressure 150/52 L 09/28/18 18:30 O2 Sat by Pulse Oximetry (%) 100 09/28/18 15:15 Constitutional: Yes: Well Nourished, No Distress, Calm, Other (patient withdrawn / not interactive) Eyes: Yes: EOM Intact HENT: Yes: Atraumatic, Normocephalic Neck: Yes: Supple, Trachea Midline Cardiovascular: Yes: Regular Rate and Rhythm Respiratory: Yes: CTA Bilaterally Gastrointestinal: Yes: Normal Bowel Sounds, Soft ...Rectal Exam: Yes: Deferred Breast(s): Yes: WNL Musculoskeletal: Yes: WNL Edema: Yes Edema: LLE: Trace, RLE: Trace Peripheral Pulses WNL: Yes Integumentary: Yes: WNL Neurological: Yes: Pre-Existing Deficit Labs: CBC, BMP 09/28/18 10:36 09/28/18 10:36 Problem List - Problems (1) Altered mental status Code(s): R41.82 - ALTERED MENTAL STATUS, UNSPECIFIED (2) UTI (urinary tract infection) Code(s): N39.0 - URINARY TRACT INFECTION, SITE NOT SPECIFIED Qualifiers: Encounter type: initial encounter (3) Fever Code(s): R50.9 - FEVER, UNSPECIFIED (4) Dementia Code(s): F03.90 - UNSPECIFIED DEMENTIA WITHOUT BEHAVIORAL DISTURBANCE (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 Assessment/Plan assment / plan # dementia with alteration to baseline treat infection neuro eval PT eval aspiration precautions for feeding # UTI empiric tx pending c/s ID appreciated # Lactic acidosis trend LA IV fluids labs in am # CLL untreated / in remission
--- NOTE | 2018-09-28 21:18 | EKG ---
Test Reason : Blood Pressure : / mmHG Vent. Rate : 079 BPM Atrial Rate : 079 BPM P-R Int : 160 ms QRS Dur : 124 ms QT Int : 398 ms P-R-T Axes : 093 -34 038 degrees QTc Int : 456 ms POOR DATA QUALITY, INTERPRETATION MAY BE ADVERSELY AFFECTED NORMAL SINUS RHYTHM LEFT AXIS DEVIATION RIGHT BUNDLE BRANCH BLOCK ABNORMAL ECG WHEN COMPARED WITH ECG OF 20-MAR-2018 06:17, NO SIGNIFICANT CHANGE WAS FOUND Confirmed by ARNOLDO ESTRADA MD ([id number]) on 09/28/2018 9:17:48 PM Referred By: Confirmed By:ARNOLDO ESTRADA MD
[2018-09-28] MEDS ORDERED: cefTRIAXone SODIUM 1 GM VIAL ONE (21:23)
[2018-09-28] MEDS ORDERED: DEXTROSE 5%-WATER - 50 ML IVPB ONE (21:24)
[2018-09-28] MEDS: CEFTRIAXONE 1 GM in DEXTROSE 5%-WATER - 50 ML IVPB SCH (21:34)
[2018-09-28] MEDS: DEXTROSE 5%-0.45% SALINE 1,000 ML IV SCH (21:35)
[2018-09-29] MEDS: PRIMIDONE 50 MG TABLET PO SCH ×3 (02:18→23:28)
[2018-09-29] MEDS: MIRTAZAPINE 15 MG TABLET (FP) PO SCH ×2 (02:18→23:28)
[2018-09-29] MEDS: GABAPENTIN 300 MG CAPSULE (FP) PO SCH ×2 (02:18→23:28)
[2018-09-29] MEDS: ATORVASTATIN CA 40 MG TABLET (FP) PO SCH ×2 (02:18→23:27)
[2018-09-29] MEDS: buPROPion HCL 75 MG TABLET PO SCH ×4 (02:18→23:28)
[2018-09-29] MEDS: ACETAMINOPHEN 500 MG TABLET (FP) PO SCH ×4 (02:19→23:28)
[2018-09-29] MEDS: ACETAMINOPHEN 1000 MG/100 ML VIAL (NON FORMULARY) IVPB PRN ×2 (06:28→14:40)
[2018-09-29 07:57] LABS: BASO % 0.1 % (0-2.0); HEMATOCRIT 31.5 % (32.4-45.2); HEMOGLOBIN 10.7 GM/dL (10.7-15.3); LYMPH % 58.1 % (8-40); MCH 31.1 pg (25.7-33.7); MCHC 33.8 g/dl (32.0-36.0); MEAN CELL VOLUME 92.1 fl (80-96); MEAN PLT VOLUME 8.6 fl (7.5-11.1); MONO % 4.7 % (3.8-10.2); NEUT % 37.1 % (42.8-82.8); PLATELET COUNT 191 K/MM3 (134-434); RBC 3.42 M/mm3 (3.60-5.2); RDW 14.8 % (11.6-15.6); WHITE BLOOD COUNT 25.7 K/mm3 (4.0-10.0)
[2018-09-29 08:30] LABS: ANION GAP 11 MMOL/L (8-16); BLOOD UREA NITROGEN 30 mg/dL (7-18); CALCIUM 7.7 mg/dL (8.5-10.1); CHLORIDE 108 mmol/L (98-107); CO2 26 mmol/L (21-32); CREATININE 1.6 mg/dL (0.55-1.3); GLUCOSE,RANDOM 122 mg/dL (74-106); POTASSIUM 3.6 mmol/L (3.5-5.1); SODIUM 144 mmol/L (136-145)
--- NOTE | 2018-09-29 09:08 | CONS ---
DATE OF CONSULTATION: 09/28/2018 The patient is an 88-year-old female who is evaluated for sepsis. She was admitted to the hospital on September 28, 2018, from her assisted living facility with altered mental status, fever, and hypertension. She was noted to have altered mentation with decreased responsiveness and nonverbal state for the past 1 day. She was noted to be febrile to 102 and have elevated blood pressure. According to the notes, she was also spitting up phlegm. She was evaluated in the emergency room, where she was given IV fluids. She was noted to have fever to 103 and elevated white blood cell count in the setting of CLL. Cultures were obtained and she was empirically treated with Zosyn and vancomycin. At the present time, she is awake; however, she is not conversant. She denies any pain when questioned. No reports or labored breathing, cough, vomiting, diarrhea, or grossly purulent urine. PAST MEDICAL HISTORY: Positive for dementia, CLL, seizure disorder, hyperlipidemia. PAST SURGICAL HISTORY: Status post pelvic fracture. No known allergies. MEDICATIONS: Tylenol; Wellbutrin; folic acid; Neurontin; simvastatin; propranolol. SOCIAL HISTORY: She resides in an assisted living complex. Nonsmoker, nondrinker. SYSTEM REVIEW: Neurologic: Positive for dementia and seizure disorder. Cardiac: Negative chest pain or palpitations. Respiratory: As per HPI. Gastrointestinal: Negative vomiting or diarrhea. Genitourinary: Positive for urinary tract infection. LABORATORY DATA: White count 19.2 with 19 neutrophils, 52 lymphocytes, 6 bands; hematocrit 32.1; platelet count 187. Creatinine 1.7. Urinalysis with 286 white cells. Urine and blood cultures are pending. Chest x-ray negative for acute infiltrate. PHYSICAL EXAMINATION: General: She is awake; however, she is lethargic. She answers simple yes or no questions. Vital Signs: Temperature maximum 103, blood pressure 150/52, pulse 72 and regular, respirations 18/min. HEENT: Sclerae anicteric. Heart Sounds: S1, S2. Lungs: Grossly clear, poor inspiratory effort. Abdomen: Soft and nontender. No suprapubic or flank tenderness. Extremities: One-plus edema. IMPRESSION: 1. Urinary tract infection/possible sepsis secondary to urinary tract infection. 2. High-grade fever. 3. Chronic lymphocytic leukemia. 4. Dementia. Await cultures, empiric antibiotic coverage with ceftriaxone plus STAT dose of vancomycin, influenza swab, supportive measures. Will follow. Thank you for the kind referral. ZACK MINER M.D. DAVID/[id number]
[2018-09-29] MEDS ORDERED: PT OWN MED DRAWER 7, Y5N ONE (10:32)
[2018-09-29] MEDS ORDERED: cefTRIAXone SODIUM 1 GM VIAL ONE (10:32)
[2018-09-29] MEDS ORDERED: DEXTROSE 5%-WATER - 50 ML IVPB ONE ×3 (10:33→17:25)
[2018-09-29] MEDS: CEFTRIAXONE 1 GM in DEXTROSE 5%-WATER - 50 ML IVPB SCH (10:54)
[2018-09-29] MEDS: FOLIC ACID 1 MG TABLET (FP) PO SCH ×2 (10:55→11:06)
[2018-09-29] MEDS: MULTIVITAMINS (DAILY MVI) TABLET (FP) PO SCH ×2 (10:55→11:07)
[2018-09-29] MEDS ORDERED: PIPERACILLIN/TAZOBACTAM 3.375 GM VIAL IVPB ONE ×2 (11:11→17:25)
[2018-09-29] MEDS: PIPERACILLIN/TAZOB 3.375 GM 3.375 GM in DEXTROSE 5%-WATER - 50 ML IVPB SCH ×2 (11:20→17:26)
[2018-09-29 13:06] LABS: ANISOCYTOSIS 0; MACROCYTOSIS 0; PLATELET ESTIMATE NORMAL
--- NOTE | 2018-09-29 15:53 | PN ---
Progress Note (short form) - Note Progress Note: More alert than yesterday responds to verbal stimuli patient verbal - ans with one or 2 words follow only simple commands intermittently No in distress Vital Signs Period Temp Pulse Resp BP Sys/Chapman Pulse Ox Last 24 Hr 98.1 F-103.0 F 64-86 18-20 106-154/47-61 98 moves all extremities neck supple heart s1/s2 lungs clear bilat abd soft non tender ext no mike a CBC, BMP 09/29/18 05:30 09/29/18 05:30 Microbiology 09/28/18 10:20 Blood - Peripheral Venous Blood Culture - Preliminary Lactose Fermenting Neg Bacilli 09/28/18 10:36 Blood - Peripheral Venous Blood Culture - Preliminary Lactose Fermenting Neg Bacilli 09/28/18 10:48 Urine - Urine - Catheterized Urine Culture - Preliminary Lactose Fermenting Neg Bacilli Active Medications Acetaminophen (Tylenol -) 500 mg PO TID [facility] Last Admin: 09/29/18 13:50 Dose: Not Given Acetaminophen (Ofirmev Injection -) 1,000 mg IVPB Q6H PRN PRN Reason: FEVER Last Admin: 09/29/18 14:40 Dose: 1,000 mg Atorvastatin Calcium (Lipitor -) 40 mg PO HS [facility] Last Admin: 09/29/18 02:18 Dose: Not Given Bupropion HCl (Wellbutrin -) 75 mg PO BID [facility] Last Admin: 09/29/18 02:18 Dose: Not Given Folic Acid (Folic Acid -) 1 mg PO DAILY [facility] Last Admin: 09/28/18 15:51 Dose: Not Given Gabapentin (Neurontin -) 600 mg PO HS [facility] Last Admin: 09/29/18 02:18 Dose: Not Given Dextrose/Sodium Chloride (D5-1/2ns -) 1,000 mls @ 100 mls/hr IV ASDIR [facility] Last Admin: 09/28/18 21:35 Dose: 100 mls/hr Piperacillin Sod/Tazobactam (Sod 3.375 gm/ Dextrose) 50 mls @ 100 mls/hr IVPB Q8H-IV [facility]; Protocol Last Admin: 09/29/18 11:20 Dose: 100 mls/hr Mirtazapine (Remeron -) 7.5 mg PO HS [facility] Last Admin: 09/29/18 02:18 Dose: Not Given Multivitamins/Minerals/Vitamin C (Tab-A-Vit -) 1 tab PO DAILY [facility] Primidone (Mysoline -) 100 mg PO BID [facility] Last Admin: 09/29/18 02:18 Dose: Not Given Propranolol HCl (Inderal La -) 120 mg PO DAILY [facility] Last Admin: 09/28/18 17:17 Dose: Not Given assment / plan # dementia with alteration to baseline treat infection neuro eval PT eval aspiration precautions for feeding # UTI empiric tx pending c/s ID appreciated # Lactic acidosis trend LA IV fluids labs in am # CLL untreated / in remission Problem List - Problems (1) Altered mental status Code(s): R41.82 - ALTERED MENTAL STATUS, UNSPECIFIED (2) UTI (urinary tract infection) Code(s): N39.0 - URINARY TRACT INFECTION, SITE NOT SPECIFIED Qualifiers: Encounter type: initial encounter (3) Fever Code(s): R50.9 - FEVER, UNSPECIFIED (4) Dementia Code(s): F03.90 - UNSPECIFIED DEMENTIA WITHOUT BEHAVIORAL DISTURBANCE (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
[2018-09-29] MEDS: DEXTROSE 5%-0.45% SALINE 1,000 ML IV SCH (17:22)
[2018-09-30] MEDS ORDERED: PIPERACILLIN/TAZOBACTAM 3.375 GM VIAL IVPB ONE ×2 (00:12→10:27)
[2018-09-30] MEDS ORDERED: DEXTROSE 5%-WATER - 50 ML IVPB ONE ×2 (00:13→10:27)
[2018-09-30] MEDS: ACETAMINOPHEN 1000 MG/100 ML VIAL (NON FORMULARY) IVPB PRN ×2 (02:02→15:06)
[2018-09-30] MEDS: PIPERACILLIN/TAZOB 3.375 GM 3.375 GM in DEXTROSE 5%-WATER - 50 ML IVPB SCH ×2 (02:03→11:16)
[2018-09-30] MEDS: DEXTROSE 5%-0.45% SALINE 1,000 ML IV SCH ×3 (03:38→22:25)
[2018-09-30] MEDS: ACETAMINOPHEN 500 MG TABLET (FP) PO SCH ×3 (05:13→22:25)
[2018-09-30] MEDS ORDERED: PT OWN MED DRAWER 7, Y5N ONE ×2 (05:58→12:28)
[2018-09-30 07:42] LABS: BASO % 0.1 % (0-2.0); EOS % 0.3 % (0-4.5); HEMATOCRIT 29.1 % (32.4-45.2); HEMOGLOBIN 9.9 GM/dL (10.7-15.3); MCHC 33.9 g/dl (32.0-36.0); MEAN CELL VOLUME 91.4 fl (80-96); MEAN PLT VOLUME 8.5 fl (7.5-11.1); MONO % 4.2 % (3.8-10.2); NEUT % 34.4 % (42.8-82.8); PLATELET COUNT 203 K/MM3 (134-434); RBC 3.18 M/mm3 (3.60-5.2); RDW 14.7 % (11.6-15.6); WHITE BLOOD COUNT 28.7 K/mm3 (4.0-10.0)
[2018-09-30 08:17] LABS: ANION GAP 9 MMOL/L (8-16); BLOOD UREA NITROGEN 26 mg/dL (7-18); CALCIUM 7.5 mg/dL (8.5-10.1); CHLORIDE 105 mmol/L (98-107); CO2 25 mmol/L (21-32); CREATININE 1.7 mg/dL (0.55-1.3); GLUCOSE,RANDOM 141 mg/dL (74-106); SODIUM 140 mmol/L (136-145)
--- NOTE | 2018-09-30 10:11 | PN ---
Progress Note, Physician History of Present Illness: More awake and responsive No focal complaint Denies pain Low grade temp BC, Urine c/s GNR WBC remains elevated in setting of CLL - Current Medication List Current Medications: Active Medications Acetaminophen (Tylenol -) 500 mg PO TID [facility] Last Admin: 09/30/18 05:13 Dose: Not Given Acetaminophen (Ofirmev Injection -) 1,000 mg IVPB Q6H PRN PRN Reason: FEVER Last Admin: 09/30/18 02:02 Dose: 1,000 mg Atorvastatin Calcium (Lipitor -) 40 mg PO HS [facility] Last Admin: 09/29/18 23:27 Dose: Not Given Bupropion HCl (Wellbutrin -) 75 mg PO BID [facility] Last Admin: 09/29/18 23:28 Dose: Not Given Folic Acid (Folic Acid -) 1 mg PO DAILY [facility] Last Admin: 09/28/18 15:51 Dose: Not Given Gabapentin (Neurontin -) 600 mg PO HS [facility] Last Admin: 09/29/18 23:28 Dose: Not Given Dextrose/Sodium Chloride (D5-1/2ns -) 1,000 mls @ 100 mls/hr IV ASDIR [facility] Last Admin: 09/30/18 03:38 Dose: 100 mls/hr Piperacillin Sod/Tazobactam (Sod 3.375 gm/ Dextrose) 50 mls @ 100 mls/hr IVPB Q8H-IV [facility]; Protocol Last Admin: 09/30/18 02:03 Dose: 100 mls/hr Mirtazapine (Remeron -) 7.5 mg PO HS [facility] Last Admin: 09/29/18 23:28 Dose: Not Given Multivitamins/Minerals/Vitamin C (Tab-A-Vit -) 1 tab PO DAILY [facility] Primidone (Mysoline -) 100 mg PO BID [facility] Last Admin: 09/29/18 23:28 Dose: Not Given Propranolol HCl (Inderal La -) 120 mg PO DAILY [facility] Last Admin: 09/28/18 17:17 Dose: Not Given - Objective Vital Signs: Vital Signs Temperature 98.9 F 09/30/18 05:00 Pulse Rate 78 09/30/18 05:00 Respiratory Rate 18 09/30/18 05:00 Blood Pressure 146/67 09/30/18 05:00 O2 Sat by Pulse Oximetry (%) 98 09/29/18 00:05 Constitutional: Yes: No Distress Eyes: Yes: Conjunctiva Clear Cardiovascular: Yes: Regular Rate and Rhythm, S1, S2 Respiratory: Yes: Other (+ crepitations, bases bilaterally) Gastrointestinal: Yes: Normal Bowel Sounds, Soft. No: Tenderness Edema: Yes Labs: CBC, BMP 09/30/18 06:30 09/30/18 06:30 INR, PTT INR 1.15 (0.83-1.09) H 09/28/18 10:36 Assessment/Plan Gram Negative bacteremia/ sepsis secondary to source Toxic metabolic encephalopathy CLL Await c/s Continue zosyn
--- NOTE | 2018-09-30 11:43 | PN ---
Progress Note (short form) - Note Progress Note: More alert than yesterday responds to verbal stimuli patient verbal - follow only simple commands intermittently No in distress Vital Signs Period Temp Pulse Resp BP Sys/Chapman Pulse Ox Last 24 Hr 98.6 F-100.7 F 74-78 18-20 115-163/51-67 moves all extremities neck supple heart s1/s2 lungs clear bilat abd soft non tender ext no edema CBC, BMP 09/30/18 06:30 09/30/18 06:30 Microbiology 09/28/18 10:36 Blood - Peripheral Venous Blood Culture - Final Escherichia Coli Esbl Rehabilitation Tech 09/28/18 10:48 Urine - Urine - Catheterized Urine Culture - Final Escherichia Coli Esbl Rehabilitation Tech 09/28/18 10:20 Blood - Peripheral Venous Blood Culture - Preliminary Lactose Fermenting Neg Bacilli Active Medications Acetaminophen (Tylenol -) 500 mg PO TID [facility] Last Admin: 09/30/18 05:13 Dose: Not Given Acetaminophen (Ofirmev Injection -) 1,000 mg IVPB Q6H PRN PRN Reason: FEVER Last Admin: 09/30/18 02:02 Dose: 1,000 mg Atorvastatin Calcium (Lipitor -) 40 mg PO [facility] Last Admin: 09/29/18 23:27 Dose: Not Given Bupropion HCl (Wellbutrin -) 75 mg PO BID [facility] Last Admin: 09/29/18 23:28 Dose: Not Given Folic Acid (Folic Acid -) 1 mg PO DAILY [facility] Last Admin: 09/28/18 15:51 Dose: Not Given Gabapentin (Neurontin -) 600 mg PO [facility] Last Admin: 09/29/18 23:28 Dose: Not Given Dextrose/Sodium Chloride (D5-1/2ns -) 1,000 mls @ 100 mls/hr IV ASDIR [facility] Last Admin: 09/30/18 03:38 Dose: 100 mls/hr Meropenem 500 mg/ Dextrose 100 mls @ 200 mls/hr IVPB BID [facility] Mirtazapine (Remeron -) 7.5 mg PO [facility] Last Admin: 09/29/18 23:28 Dose: Not Given Multivitamins/Minerals/Vitamin C (Tab-A-Vit -) 1 tab PO DAILY [facility] Primidone (Mysoline -) 100 mg PO BID [facility] Last Admin: 09/29/18 23:28 Dose: Not Given Propranolol HCl (Inderal La -) 120 mg PO DAILY [facility] Last Admin: 09/28/18 17:17 Dose: Not Given assment / plan # dementia with alteration to baseline closer to baseline at this point treat infection neuro eval PT eval -- will need STR aspiration precautions for feeding # UTI ID appreciated # Lactic acidosis resolved # CLL untreated / in remission Problem List - Problems (1) Altered mental status Code(s): R41.82 - ALTERED MENTAL STATUS, UNSPECIFIED (2) UTI (urinary tract infection) Code(s): N39.0 - URINARY TRACT INFECTION, SITE NOT SPECIFIED Qualifiers: Encounter type: initial encounter (3) Fever Code(s): R50.9 - FEVER, UNSPECIFIED (4) Dementia Code(s): F03.90 - UNSPECIFIED DEMENTIA WITHOUT BEHAVIORAL DISTURBANCE (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
[2018-09-30] MEDS: FOLIC ACID 1 MG TABLET (FP) PO SCH (11:44)
[2018-09-30] MEDS: buPROPion HCL 75 MG TABLET PO SCH ×2 (11:44→22:49)
[2018-09-30] MEDS: MULTIVITAMINS (DAILY MVI) TABLET (FP) PO SCH (11:44)
[2018-09-30] MEDS: PRIMIDONE 50 MG TABLET PO SCH ×2 (11:44→22:49)
[2018-09-30 12:26] LABS: ANISOCYTOSIS 0; MACROCYTOSIS 0; PLATELET ESTIMATE NORMAL
[2018-09-30] MEDS: MEROPENEM 500 MG in DEXTROSE 5%-WATER 100 ML IVPB SCH ×2 (12:45→22:49)
[2018-09-30] MEDS ORDERED: POTASSIUM CHLORIDE TABS 20 MEQ TABLET.ER (FP) PO ONE (16:18)
[2018-09-30] MEDS: GABAPENTIN 300 MG CAPSULE (FP) PO SCH (22:23)
[2018-09-30] MEDS: ATORVASTATIN CA 40 MG TABLET (FP) PO SCH (22:23)
[2018-09-30] MEDS: MIRTAZAPINE 15 MG TABLET (FP) PO SCH (22:24)
[2018-10-01] MEDS: DEXTROSE 5%-0.45% SALINE 1,000 ML IV SCH (02:19)
[2018-10-01] MEDS: ACETAMINOPHEN 500 MG TABLET (FP) PO SCH ×2 (06:53→14:02)
[2018-10-01 07:00] LABS: BASO % 0.2 % (0-2.0); EOS % 0.8 % (0-4.5); HEMATOCRIT 27.7 % (32.4-45.2); HEMOGLOBIN 8.8 GM/dL (10.7-15.3); LYMPH % 67.7 % (8-40); MCH 29.4 pg (25.7-33.7); MCHC 31.7 g/dl (32.0-36.0); MEAN CELL VOLUME 92.7 fl (80-96); MONO % 3.3 % (3.8-10.2); PLATELET COUNT 182 K/MM3 (134-434); RBC 2.99 M/mm3 (3.60-5.2); RDW 15.1 % (11.6-15.6); WHITE BLOOD COUNT 25.5 K/mm3 (4.0-10.0)
[2018-10-01 07:31] LABS: ANION GAP 8 MMOL/L (8-16); BLOOD UREA NITROGEN 20 mg/dL (7-18); CALCIUM 7.3 mg/dL (8.5-10.1); CHLORIDE 106 mmol/L (98-107); CO2 26 mmol/L (21-32); CREATININE 1.4 mg/dL (0.55-1.3); GLUCOSE,RANDOM 105 mg/dL (74-106); MAGNESIUM 2.2 mg/dL (1.8-2.4); SODIUM 140 mmol/L (136-145)
[2018-10-01 07:43] LABS: POTASSIUM 2.8 mmol/L (3.5-5.1)
[2018-10-01] MEDS ORDERED: PT OWN MED DRAWER 7, Y5N ONE ×2 (10:00→21:19)
[2018-10-01 10:25] LABS: ANISOCYTOSIS 1+; MACROCYTOSIS 1+; OVALOCYTE 1+; PLATELET ESTIMATE NORMAL
[2018-10-01] MEDS: POTASSIUM CHLORIDE TABS 20 MEQ TABLET.ER (FP) PO SCH ×2 (10:46→21:48)
[2018-10-01] MEDS: buPROPion HCL 75 MG TABLET PO SCH ×2 (10:47→21:50)
[2018-10-01] MEDS: MULTIVITAMINS (DAILY MVI) TABLET (FP) PO SCH (10:47)
[2018-10-01] MEDS: PRIMIDONE 50 MG TABLET PO SCH ×2 (10:47→21:49)
[2018-10-01] MEDS: FOLIC ACID 1 MG TABLET (FP) PO SCH (10:47)
--- NOTE | 2018-10-01 11:08 | PN ---
Progress Note, Physician History of Present Illness: More awake and responsive No complaints Denies pain Low grade temp noted BC, Urine ESBL WBC remains elevated in setting of CLL - Current Medication List Current Medications: Active Medications Acetaminophen (Tylenol -) 500 mg PO TID [facility] Last Admin: 10/01/18 06:53 Dose: 500 mg Atorvastatin Calcium (Lipitor -) 40 mg PO HS [facility] Last Admin: 09/30/18 22:23 Dose: 40 mg Bupropion HCl (Wellbutrin -) 75 mg PO BID [facility] Last Admin: 10/01/18 10:47 Dose: 75 mg Folic Acid (Folic Acid -) 1 mg PO DAILY [facility] Last Admin: 10/01/18 10:47 Dose: 1 mg Gabapentin (Neurontin -) 600 mg PO HS [facility] Last Admin: 09/30/18 22:23 Dose: 600 mg Dextrose/Sodium Chloride (D5-1/2ns -) 1,000 mls @ 100 mls/hr IV ASDIR [facility] Last Admin: 10/01/18 02:19 Dose: 100 mls/hr Meropenem 500 mg/ Dextrose 100 mls @ 200 mls/hr IVPB BID [facility] Last Admin: 09/30/18 22:49 Dose: 200 mls/hr Mirtazapine (Remeron -) 7.5 mg PO HS [facility] Last Admin: 09/30/18 22:24 Dose: 7.5 mg Multivitamins/Minerals/Vitamin C (Tab-A-Vit -) 1 tab PO DAILY [facility] Last Admin: 10/01/18 10:47 Dose: 1 tab Potassium Chloride (K-Dur -) 40 meq PO BID [facility] Stop: 10/01/18 22:01 Last Admin: 10/01/18 10:46 Dose: 40 meq Primidone (Mysoline -) 100 mg PO BID [facility] Last Admin: 10/01/18 10:47 Dose: 100 mg Propranolol HCl (Inderal La -) 120 mg PO DAILY [facility] Last Admin: 10/01/18 10:48 Dose: 120 mg - Objective Vital Signs: Vital Signs Temperature 97.5 F L 10/01/18 06:00 Pulse Rate 61 10/01/18 06:00 Respiratory Rate 18 10/01/18 06:00 Blood Pressure 139/59 L 10/01/18 06:00 O2 Sat by Pulse Oximetry (%) 97 09/30/18 20:00 Constitutional: Yes: No Distress Eyes: Yes: Conjunctiva Clear Cardiovascular: Yes: Regular Rate and Rhythm, S1, S2 Respiratory: Yes: CTA Bilaterally Gastrointestinal: Yes: Normal Bowel Sounds, Soft. No: Tenderness Labs: CBC, BMP 10/01/18 06:00 10/01/18 06:00 INR, PTT INR 1.15 (0.83-1.09) H 09/28/18 10:36 Assessment/Plan Gram Negative bacteremia/ sepsis secondary to source ESBL Toxic metabolic encephalopathy CLL Continue meropenem
[2018-10-01] MEDS: MEROPENEM 500 MG in DEXTROSE 5%-WATER 100 ML IVPB SCH ×2 (11:22→21:49)
[2018-10-01 21:36] LABS: ANION GAP 8 MMOL/L (8-16); BLOOD UREA NITROGEN 19 mg/dL (7-18); CALCIUM 7.8 mg/dL (8.5-10.1); CHLORIDE 105 mmol/L (98-107); CO2 26 mmol/L (21-32); CREATININE 1.4 mg/dL (0.55-1.3); GLUCOSE,RANDOM 129 mg/dL (74-106); POTASSIUM 3.5 mmol/L (3.5-5.1); SODIUM 139 mmol/L (136-145)
[2018-10-01] MEDS: ATORVASTATIN CA 40 MG TABLET (FP) PO SCH (21:48)
[2018-10-01] MEDS: GABAPENTIN 300 MG CAPSULE (FP) PO SCH (21:48)
[2018-10-01] MEDS: ACETAMINOPHEN 650 MG/20.3 ML ORAL SOLUTION (CUPS) PO SCH (21:49)
[2018-10-01] MEDS: MIRTAZAPINE 15 MG TABLET (FP) PO SCH (21:49)
--- NOTE | 2018-10-01 21:49 | PN ---
Progress Note (short form) - Note Progress Note: More alert than yesterday responds to verbal stimuli patient verbal - follow only simple commands intermittently No in distress Vital Signs Period Temp Pulse Resp BP Sys/Chapman Pulse Ox Last 24 Hr 98.6 F-100.7 F 74-78 18-20 115-163/51-67 moves all extremities neck supple heart s1/s2 lungs clear bilat abd soft non tender ext no edema CBC, BMP 10/01/18 06:00 10/01/18 20:15 CBC, BMP 09/30/18 06:30 09/30/18 06:30 Microbiology Microbiology 09/28/18 10:20 Blood - Peripheral Venous Blood Culture - Final Lactose Fermenting Neg Bacilli 09/28/18 10:36 Blood - Peripheral Venous Blood Culture - Final Escherichia Coli Esbl [employer] Crew Chief 09/28/18 10:48 Urine - Urine - Catheterized Urine Culture - Final Escherichia Coli Esbl [employer] Crew Chief Active Medications Acetaminophen (Tylenol Oral Solution -) 500 mg PO TID [facility] Atorvastatin Calcium (Lipitor -) 40 mg PO [facility] Last Admin: 09/30/18 22:23 Dose: 40 mg Bupropion HCl (Wellbutrin -) 75 mg PO BID [facility] Last Admin: 10/01/18 10:47 Dose: 75 mg Folic Acid (Folic Acid -) 1 mg PO DAILY [facility] Last Admin: 10/01/18 10:47 Dose: 1 mg Gabapentin (Neurontin -) 600 mg PO [facility] Last Admin: 09/30/18 22:23 Dose: 600 mg Meropenem 500 mg/ Dextrose 100 mls @ 200 mls/hr IVPB BID [facility] Last Admin: 10/01/18 11:22 Dose: 200 mls/hr Mirtazapine (Remeron -) 7.5 mg PO [facility] Last Admin: 09/30/18 22:24 Dose: 7.5 mg Multivitamins/Minerals/Vitamin C (Tab-A-Vit -) 1 tab PO DAILY [facility] Last Admin: 10/01/18 10:47 Dose: 1 tab Potassium Chloride (K-Dur -) 40 meq PO BID [facility] Stop: 10/01/18 22:01 Last Admin: 10/01/18 10:46 Dose: 40 meq Primidone (Mysoline -) 100 mg PO BID [facility] Last Admin: 10/01/18 10:47 Dose: 100 mg Propranolol HCl (Inderal La -) 120 mg PO DAILY [facility] Last Admin: 10/01/18 10:48 Dose: 120 mg assment / plan # dementia with alteration to baseline closer to baseline at this point treat infection neuro eval PT eval -- will need STR aspiration precautions for feeding # ESBL in b/c and urine continue meropenem ID follow up appreciated # Lactic acidosis resolved # CLL untreated / in remission Problem List - Problems (1) Altered mental status Code(s): R41.82 - ALTERED MENTAL STATUS, UNSPECIFIED (2) UTI (urinary tract infection) Code(s): N39.0 - URINARY TRACT INFECTION, SITE NOT SPECIFIED Qualifiers: Encounter type: initial encounter (3) Fever Code(s): R50.9 - FEVER, UNSPECIFIED (4) Dementia Code(s): F03.90 - UNSPECIFIED DEMENTIA WITHOUT BEHAVIORAL DISTURBANCE (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
[2018-10-02] MEDS: ACETAMINOPHEN 650 MG/20.3 ML ORAL SOLUTION (CUPS) PO SCH ×3 (05:52→22:23)
[2018-10-02 07:33] LABS: BASO % 0.1 % (0-2.0); EOS % 0.9 % (0-4.5); HEMATOCRIT 28.4 % (32.4-45.2); HEMOGLOBIN 9.5 GM/dL (10.7-15.3); LYMPH % 69.1 % (8-40); MCH 30.8 pg (25.7-33.7); MCHC 33.5 g/dl (32.0-36.0); MEAN CELL VOLUME 91.9 fl (80-96); MEAN PLT VOLUME 8.1 fl (7.5-11.1); MONO % 3.5 % (3.8-10.2); NEUT % 26.4 % (42.8-82.8); PLATELET COUNT 242 K/MM3 (134-434); RBC 3.09 M/mm3 (3.60-5.2); RDW 15.3 % (11.6-15.6)
[2018-10-02 07:38] LABS: WHITE BLOOD COUNT 40.6 K/mm3 (4.0-10.0)
[2018-10-02 08:07] LABS: ANION GAP 7 MMOL/L (8-16); BLOOD UREA NITROGEN 19 mg/dL (7-18); CALCIUM 7.4 mg/dL (8.5-10.1); CHLORIDE 109 mmol/L (98-107); CO2 25 mmol/L (21-32); CREATININE 1.3 mg/dL (0.55-1.3); GLUCOSE,RANDOM 120 mg/dL (74-106); POTASSIUM 3.8 mmol/L (3.5-5.1); SODIUM 142 mmol/L (136-145)
[2018-10-02 09:14] LABS: ACANTHOCYTES 0; ANISOCYTOSIS 0; HELMET CELLS 0; HOWELL-JOLLY BODIES 0; MACROCYTOSIS 0; OVALOCYTE 0; PLATELET ESTIMATE NORMAL; ROULEAU 0; SICKELED CELLS 0; TARGET CELLS 0; TEAR DROP CELLS 0; TOXIC GRANULATION 0
[2018-10-02] MEDS ORDERED: PT OWN MED DRAWER 7, Y5N ONE (09:32)
[2018-10-02] MEDS: MULTIVITAMINS (DAILY MVI) TABLET (FP) PO SCH (09:35)
[2018-10-02] MEDS: PRIMIDONE 50 MG TABLET PO SCH ×2 (09:35→22:24)
[2018-10-02] MEDS: buPROPion HCL 75 MG TABLET PO SCH ×2 (09:35→22:25)
[2018-10-02] MEDS: FOLIC ACID 1 MG TABLET (FP) PO SCH (09:35)
[2018-10-02] MEDS: MEROPENEM 500 MG in DEXTROSE 5%-WATER 100 ML IVPB SCH ×2 (09:49→22:25)
--- NOTE | 2018-10-02 11:33 | PN ---
Progress Note, Physician History of Present Illness: Awake but confused No complaints offerred Denies pain Low grade temp noted BC, Urine ESBL WBC more elevated in setting of CLL 40K - Current Medication List Current Medications: Active Medications Acetaminophen (Tylenol Oral Solution -) 500 mg PO TID [facility] Last Admin: 10/02/18 05:52 Dose: 500 mg Atorvastatin Calcium (Lipitor -) 40 mg PO HS [facility] Last Admin: 10/01/18 21:48 Dose: 40 mg Bupropion HCl (Wellbutrin -) 75 mg PO BID [facility] Last Admin: 10/02/18 09:35 Dose: 75 mg Folic Acid (Folic Acid -) 1 mg PO DAILY [facility] Last Admin: 10/02/18 09:35 Dose: 1 mg Gabapentin (Neurontin -) 600 mg PO HS [facility] Last Admin: 10/01/18 21:48 Dose: 600 mg Meropenem 500 mg/ Dextrose 100 mls @ 200 mls/hr IVPB BID [facility] Last Admin: 10/02/18 09:49 Dose: 200 mls/hr Mirtazapine (Remeron -) 7.5 mg PO HS [facility] Last Admin: 10/01/18 21:49 Dose: 7.5 mg Multivitamins/Minerals/Vitamin C (Tab-A-Vit -) 1 tab PO DAILY [facility] Last Admin: 10/02/18 09:35 Dose: 1 tab Primidone (Mysoline -) 100 mg PO BID [facility] Last Admin: 10/02/18 09:35 Dose: 100 mg Propranolol HCl (Inderal La -) 120 mg PO DAILY [facility] Last Admin: 10/02/18 09:36 Dose: 120 mg - Objective Vital Signs: Vital Signs Temperature 98.4 F 10/02/18 09:00 Pulse Rate 64 10/02/18 09:00 Respiratory Rate 18 10/02/18 09:00 Blood Pressure 150/59 L 10/02/18 09:00 O2 Sat by Pulse Oximetry (%) 96 10/02/18 09:00 Constitutional: Yes: No Distress Cardiovascular: Yes: Regular Rate and Rhythm, S1, S2 Respiratory: Yes: CTA Bilaterally Gastrointestinal: Yes: Normal Bowel Sounds, Soft. No: Tenderness Edema: No Labs: CBC, BMP 10/02/18 06:15 10/02/18 06:15 INR, PTT INR 1.15 (0.83-1.09) H 09/28/18 10:36 Assessment/Plan Gram Negative bacteremia/ sepsis secondary to source ESBL Toxic metabolic encephalopathy CLL Continue meropenem Repeat BC, CBC am
--- NOTE | 2018-10-02 13:57 | PN ---
Progress Note (short form) - Note Progress Note: More alert than yesterday responds to verbal stimuli patient verbal - audible wheezing / sitting up in bed Vital Signs Period Temp Pulse Resp BP Sys/Chapman Pulse Ox Last 24 Hr 98.3 F-100.2 F 64-71 18-20 121-162/50-68 96-96 moves all extremities neck supple heart s1/s2 lungs BS / exp wheezing / shallow breathing abd soft mildly distended / ? tender ext no edema CBC, BMP 10/02/18 06:15 10/02/18 06:15 Microbiology 09/28/18 10:20 Blood - Peripheral Venous Blood Culture - Final Lactose Fermenting Neg Bacilli 09/28/18 10:36 Blood - Peripheral Venous Blood Culture - Final Escherichia Coli Esbl Back Joiner 09/28/18 10:48 Urine - Urine - Catheterized Urine Culture - Final Escherichia Coli Esbl Back Joiner Active Medications Acetaminophen (Tylenol Oral Solution -) 500 mg PO TID [facility] Last Admin: 10/02/18 05:52 Dose: 500 mg Albuterol/Ipratropium (Duoneb -) 1 amp NEB RQID [facility] Atorvastatin Calcium (Lipitor -) 40 mg PO [facility] Last Admin: 10/01/18 21:48 Dose: 40 mg Bupropion HCl (Wellbutrin -) 75 mg PO BID [facility] Last Admin: 10/02/18 09:35 Dose: 75 mg Folic Acid (Folic Acid -) 1 mg PO DAILY [facility] Last Admin: 10/02/18 09:35 Dose: 1 mg Furosemide (Lasix Injection -) 20 mg IVPUSH ONCE ONE Stop: 10/02/18 14:06 Gabapentin (Neurontin -) 600 mg PO [facility] Last Admin: 10/01/18 21:48 Dose: 600 mg Meropenem 500 mg/ Dextrose 100 mls @ 200 mls/hr IVPB BID [facility] Last Admin: 10/02/18 09:49 Dose: 200 mls/hr Mirtazapine (Remeron -) 7.5 mg PO [facility] Last Admin: 10/01/18 21:49 Dose: 7.5 mg Multivitamins/Minerals/Vitamin C (Tab-A-Vit -) 1 tab PO DAILY [facility] Last Admin: 10/02/18 09:35 Dose: 1 tab Primidone (Mysoline -) 100 mg PO BID [facility] Last Admin: 10/02/18 09:35 Dose: 100 mg Propranolol HCl (Inderal La -) 120 mg PO DAILY [facility] Last Admin: 10/02/18 09:36 Dose: 120 mg assment / plan # wheezing r/o fluid overload - as patient was treated for sepsis with IV fluid bolus and may not have mobilzed fluids -- trial of Lasix IV nebulizer tx # dementia with alteration to baseline closer to baseline at this point treat infection neuro eval PT eval -- will need STR aspiration precautions for feeding # ESBL in b/c and urine continue meropenem ID follow up appreciated # Lactic acidosis resolved # CLL untreated / in remission Problem List - Problems (1) Altered mental status Code(s): R41.82 - ALTERED MENTAL STATUS, UNSPECIFIED (2) UTI (urinary tract infection) Code(s): N39.0 - URINARY TRACT INFECTION, SITE NOT SPECIFIED Qualifiers: Encounter type: initial encounter (3) Fever Code(s): R50.9 - FEVER, UNSPECIFIED (4) Dementia Code(s): F03.90 - UNSPECIFIED DEMENTIA WITHOUT BEHAVIORAL DISTURBANCE (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
[2018-10-02] MEDS ORDERED: FUROSEMIDE 40 MG/4 ML INJECTABLE VIAL IVPUSH ONE (14:15)
[2018-10-02] MEDS: ALBUTEROL SO4 2.5/IPRATROPIUM 0.5 INH SOL 3 ML VIAL.NEB. NEB SCH ×2 (14:29→20:43)
[2018-10-02] MEDS: GABAPENTIN 300 MG CAPSULE (FP) PO SCH (22:24)
[2018-10-02] MEDS: MIRTAZAPINE 15 MG TABLET (FP) PO SCH (22:24)
[2018-10-02] MEDS: ATORVASTATIN CA 40 MG TABLET (FP) PO SCH (22:25)
[2018-10-03] MEDS: ACETAMINOPHEN 650 MG/20.3 ML ORAL SOLUTION (CUPS) PO SCH ×3 (06:40→21:12)
[2018-10-03 07:44] LABS: BASO % 0.1 % (0-2.0); EOS % 1.5 % (0-4.5); HEMATOCRIT 29.5 % (32.4-45.2); HEMOGLOBIN 9.2 GM/dL (10.7-15.3); LYMPH % 68.9 % (8-40); MCH 29.2 pg (25.7-33.7); MCHC 31.3 g/dl (32.0-36.0); MEAN CELL VOLUME 93.4 fl (80-96); MEAN PLT VOLUME 7.9 fl (7.5-11.1); MONO % 3.5 % (3.8-10.2); PLATELET COUNT 272 K/MM3 (134-434); RBC 3.16 M/mm3 (3.60-5.2); RDW 14.8 % (11.6-15.6)
[2018-10-03 07:59] LABS: WHITE BLOOD COUNT 40.2 K/mm3 (4.0-10.0)
[2018-10-03] MEDS: ALBUTEROL SO4 2.5/IPRATROPIUM 0.5 INH SOL 3 ML VIAL.NEB. NEB SCH ×4 (08:38→19:53)
[2018-10-03 08:55] LABS: ANION GAP 13 MMOL/L (8-16); BLOOD UREA NITROGEN 22 mg/dL (7-18); CHLORIDE 109 mmol/L (98-107); CO2 23 mmol/L (21-32); CREATININE 1.3 mg/dL (0.55-1.3); GLUCOSE,RANDOM 73 mg/dL (74-106); POTASSIUM 3.5 mmol/L (3.5-5.1); SODIUM 145 mmol/L (136-145)
--- NOTE | 2018-10-03 09:40 | PN ---
Progress Note (short form) - Note Progress Note: 88 y/o old female in bed, O2 in place. Arousable and opened eyes. No reports of pain. Vital Signs Period Temp Pulse Resp BP Sys/Chapman Pulse Ox Last 24 Hr 97.2 F-99.4 F 67-75 18-22 132-155/54-62 96 CBC, BMP 10/03/18 06:15 10/03/18 06:15 HEENT-Normocephalic Neck-supple Lungs-CTAB Heart-S1/S2 Abd-soft, nt Ext-No LE edema Active Medications Acetaminophen (Tylenol Oral Solution -) 500 mg PO TID [facility] Last Admin: 10/03/18 06:40 Dose: 500 mg Albuterol/Ipratropium (Duoneb -) 1 amp NEB RQID [facility] Last Admin: 10/03/18 08:38 Dose: 1 amp Atorvastatin Calcium (Lipitor -) 40 mg PO HS [facility] Last Admin: 10/02/18 22:25 Dose: 40 mg Bupropion HCl (Wellbutrin -) 75 mg PO BID [facility] Last Admin: 10/02/18 22:25 Dose: 75 mg Folic Acid (Folic Acid -) 1 mg PO DAILY [facility] Last Admin: 10/02/18 09:35 Dose: 1 mg Gabapentin (Neurontin -) 600 mg PO [facility] Last Admin: 10/02/18 22:24 Dose: 600 mg Meropenem 500 mg/ Dextrose 100 mls @ 200 mls/hr IVPB BID [facility] Last Admin: 10/02/18 22:25 Dose: 200 mls/hr Mirtazapine (Remeron -) 7.5 mg PO [facility] Last Admin: 10/02/18 22:24 Dose: 7.5 mg Multivitamins/Minerals/Vitamin C (Tab-A-Vit -) 1 tab PO DAILY [facility] Last Admin: 10/02/18 09:35 Dose: 1 tab Primidone (Mysoline -) 100 mg PO BID [facility] Last Admin: 10/02/18 22:24 Dose: 100 mg Propranolol HCl (Inderal La -) 120 mg PO DAILY [facility] Last Admin: 10/02/18 09:36 Dose: 120 mg assessment / plan # dementia with alteration to baseline due to infection neuro eval pending PT eval -- will need STR maintain aspiration precautions for feeding # ESBL in b/c and urine continue meropenem, per ID # CLL untreated / in remission #Sz D/O continue Primidone Problem List - Problems (1) Altered mental status Code(s): R41.82 - ALTERED MENTAL STATUS, UNSPECIFIED (2) UTI (urinary tract infection) Code(s): N39.0 - URINARY TRACT INFECTION, SITE NOT SPECIFIED Qualifiers: Encounter type: initial encounter (3) Fever Code(s): R50.9 - FEVER, UNSPECIFIED (4) Dementia Code(s): F03.90 - UNSPECIFIED DEMENTIA WITHOUT BEHAVIORAL DISTURBANCE (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
[2018-10-03] MEDS ORDERED: PT OWN MED DRAWER 7, Y5N ONE ×3 (11:19→20:50)
[2018-10-03 11:45] LABS: ACANTHOCYTES 0; ANISOCYTOSIS 0; HELMET CELLS 0; HOWELL-JOLLY BODIES 0; MACROCYTOSIS 0; OVALOCYTE 0; PLATELET ESTIMATE NORMAL; ROULEAU 0; SICKELED CELLS 0; TARGET CELLS 0; TEAR DROP CELLS 0; TOXIC GRANULATION 0
--- NOTE | 2018-10-03 12:18 | PN ---
Progress Note, Physician History of Present Illness: Lethargic today Afebrile BC, Urine ESBL WBC more elevated in setting of CLL 40K - Current Medication List Current Medications: Active Medications Acetaminophen (Tylenol Oral Solution -) 500 mg PO TID [facility] Last Admin: 10/03/18 06:40 Dose: 500 mg Albuterol/Ipratropium (Duoneb -) 1 amp NEB RQID [facility] Last Admin: 10/03/18 08:38 Dose: 1 amp Atorvastatin Calcium (Lipitor -) 40 mg PO HS [facility] Last Admin: 10/02/18 22:25 Dose: 40 mg Bupropion HCl (Wellbutrin -) 75 mg PO BID [facility] Last Admin: 10/02/18 22:25 Dose: 75 mg Folic Acid (Folic Acid -) 1 mg PO DAILY [facility] Last Admin: 10/02/18 09:35 Dose: 1 mg Gabapentin (Neurontin -) 600 mg PO HS [facility] Last Admin: 10/02/18 22:24 Dose: 600 mg Meropenem 500 mg/ Dextrose 100 mls @ 200 mls/hr IVPB BID [facility] Last Admin: 10/02/18 22:25 Dose: 200 mls/hr Mirtazapine (Remeron -) 7.5 mg PO HS [facility] Last Admin: 10/02/18 22:24 Dose: 7.5 mg Multivitamins/Minerals/Vitamin C (Tab-A-Vit -) 1 tab PO DAILY [facility] Last Admin: 10/02/18 09:35 Dose: 1 tab Primidone (Mysoline -) 100 mg PO BID [facility] Last Admin: 10/02/18 22:24 Dose: 100 mg Propranolol HCl (Inderal La -) 120 mg PO DAILY [facility] Last Admin: 10/02/18 09:36 Dose: 120 mg - Objective Vital Signs: Vital Signs Temperature 97.2 F L 10/03/18 05:00 Pulse Rate 69 10/03/18 08:37 Respiratory Rate 22 H 10/03/18 08:37 Blood Pressure 143/54 L 10/03/18 08:37 O2 Sat by Pulse Oximetry (%) 96 10/02/18 21:00 Constitutional: Yes: No Distress Eyes: Yes: Conjunctiva Clear Cardiovascular: Yes: Regular Rate and Rhythm, S1, S2 Respiratory: Yes: Diminished Gastrointestinal: Yes: Normal Bowel Sounds, Other (distended, non tender). No: Tenderness Labs: CBC, BMP 10/03/18 06:15 10/03/18 06:15 INR, PTT INR 1.15 (0.83-1.09) H 09/28/18 10:36 Assessment/Plan Gram Negative bacteremia/ sepsis secondary to source ESBL Toxic metabolic encephalopathy CLL Continue meropenem Repeat BC pending
[2018-10-03] MEDS: MULTIVITAMINS (DAILY MVI) TABLET (FP) PO SCH (12:31)
[2018-10-03] MEDS: FOLIC ACID 1 MG TABLET (FP) PO SCH (12:31)
[2018-10-03] MEDS: PRIMIDONE 50 MG TABLET PO SCH ×2 (12:33→21:27)
[2018-10-03] MEDS: buPROPion HCL 75 MG TABLET PO SCH ×2 (12:33→21:17)
[2018-10-03] MEDS: MEROPENEM 500 MG in DEXTROSE 5%-WATER 100 ML IVPB SCH ×2 (13:05→21:16)
[2018-10-03] MEDS ORDERED: ACETAMINOPHEN 1000 MG/100 ML VIAL (NON FORMULARY) IVPB ONE (16:15)
[2018-10-03 16:23] LABS: BASO % 0.1 % (0-2.0); EOS % 1.4 % (0-4.5); HEMATOCRIT 26.3 % (32.4-45.2); HEMOGLOBIN 8.8 GM/dL (10.7-15.3); LYMPH % 67.9 % (8-40); MCH 30.7 pg (25.7-33.7); MCHC 33.6 g/dl (32.0-36.0); MEAN CELL VOLUME 91.4 fl (80-96); MEAN PLT VOLUME 7.8 fl (7.5-11.1); MONO % 3.8 % (3.8-10.2); NEUT % 26.8 % (42.8-82.8); PLATELET COUNT 290 K/MM3 (134-434); RBC 2.88 M/mm3 (3.60-5.2); RDW 15.1 % (11.6-15.6)
[2018-10-03 16:28] LABS: WHITE BLOOD COUNT 34.9 K/mm3 (4.0-10.0)
[2018-10-03 16:50] LABS: ANION GAP 9 MMOL/L (8-16); BLOOD UREA NITROGEN 21 mg/dL (7-18); CHLORIDE 106 mmol/L (98-107); CO2 28 mmol/L (21-32); CREATININE 1.3 mg/dL (0.55-1.3); GLUCOSE,RANDOM 88 mg/dL (74-106); POTASSIUM 3.7 mmol/L (3.5-5.1); SODIUM 143 mmol/L (136-145)
[2018-10-03 17:44] LABS: PLATELET ESTIMATE ADEQUATE
[2018-10-03] MEDS ORDERED: SODIUM CHLORIDE 1,000 ML IV ONE (18:00)
[2018-10-03 18:40] LABS: ARTERIAL BLOOD GAS PO2 85.6 mmHg (68-100); ARTERIAL BLOOD GAS pH 7.44 (7.35-7.45)
[2018-10-03 18:41] LABS: ALLENS TEST POSITIVE
[2018-10-03] MEDS: ATORVASTATIN CA 40 MG TABLET (FP) PO SCH (21:13)
[2018-10-03] MEDS: GABAPENTIN 300 MG CAPSULE (FP) PO SCH (21:14)
[2018-10-03] MEDS: MIRTAZAPINE 15 MG TABLET (FP) PO SCH (21:17)
[2018-10-04] MEDS: ACETAMINOPHEN 650 MG/20.3 ML ORAL SOLUTION (CUPS) PO SCH ×3 (05:08→21:44)
[2018-10-04 07:07] LABS: BASO % 0.2 % (0-2.0); EOS % 1.6 % (0-4.5); HEMATOCRIT 27.3 % (32.4-45.2); HEMOGLOBIN 8.5 GM/dL (10.7-15.3); LYMPH % 71.1 % (8-40); MCH 28.9 pg (25.7-33.7); MCHC 31.2 g/dl (32.0-36.0); MEAN CELL VOLUME 92.5 fl (80-96); MEAN PLT VOLUME 7.6 fl (7.5-11.1); MONO % 2.9 % (3.8-10.2); NEUT % 24.2 % (42.8-82.8); PLATELET COUNT 316 K/MM3 (134-434); RBC 2.95 M/mm3 (3.60-5.2); RDW 14.6 % (11.6-15.6)
[2018-10-04 07:30] LABS: WHITE BLOOD COUNT 37.1 K/mm3 (4.0-10.0)
[2018-10-04 07:48] LABS: ALBUMIN 2.2 g/dl (3.4-5.0); ALK PHOS 152 U/L (45-117); ANION GAP 9 MMOL/L (8-16); BILIRUBIN,TOTAL 0.3 mg/dL (0.2-1); BLOOD UREA NITROGEN 20 mg/dL (7-18); CALCIUM 7.8 mg/dL (8.5-10.1); CHLORIDE 108 mmol/L (98-107); CO2 26 mmol/L (21-32); CREATININE 1.2 mg/dL (0.55-1.3); GLUCOSE,RANDOM 96 mg/dL (74-106); POTASSIUM 3.5 mmol/L (3.5-5.1); SGOT/AST 27 U/L (15-37); SGPT/ALT 47 U/L (13-61); SODIUM 142 mmol/L (136-145); TOT PROT 4.9 g/dl (6.4-8.2)
[2018-10-04] MEDS: ALBUTEROL SO4 2.5/IPRATROPIUM 0.5 INH SOL 3 ML VIAL.NEB. NEB SCH ×4 (08:01→19:40)
[2018-10-04 10:04] LABS: ACANTHOCYTES 0; ANISOCYTOSIS 0; HELMET CELLS 0; HOWELL-JOLLY BODIES 0; MACROCYTOSIS 0; OVALOCYTE 0; PLATELET ESTIMATE NORMAL; ROULEAU 0; SICKELED CELLS 0; TARGET CELLS 0; TEAR DROP CELLS 0; TOXIC GRANULATION 0
[2018-10-04] MEDS: FOLIC ACID 1 MG TABLET (FP) PO SCH (10:36)
[2018-10-04] MEDS: MULTIVITAMINS (DAILY MVI) TABLET (FP) PO SCH (10:36)
[2018-10-04] MEDS: buPROPion HCL 75 MG TABLET PO SCH ×2 (10:36→21:43)
[2018-10-04] MEDS ORDERED: PT OWN MED DRAWER 7, Y5N ONE (10:56)
[2018-10-04] MEDS: MEROPENEM 500 MG in DEXTROSE 5%-WATER 100 ML IVPB SCH ×2 (11:01→21:42)
[2018-10-04] MEDS: PRIMIDONE 50 MG TABLET PO SCH ×2 (11:01→21:43)
--- NOTE | 2018-10-04 12:03 | PN ---
Progress Note (short form) - Note Progress Note: 88 y/o female found lying in bed. Alert and talkative today. Nurse reports BM this am. Vital Signs Period Temp Pulse Resp BP Sys/Chapman Pulse Ox Last 24 Hr 97.8 F-101 F 68-71 18-18 116-154/48-85 98 CBC, BMP 10/04/18 06:15 10/04/18 06:15 HEENT- Normocephalic Neck- Supple Lungs- CTAB Heart- S1/S2 Abd- soft, NT Ext- No LE edema Active Medications Acetaminophen (Tylenol Oral Solution -) 500 mg PO TID [facility] Last Admin: 10/04/18 05:08 Dose: 500 mg Albuterol/Ipratropium (Duoneb -) 1 amp NEB RQID [facility] Last Admin: 10/04/18 11:31 Dose: 1 amp Atorvastatin Calcium (Lipitor -) 40 mg PO HS [facility] Last Admin: 10/03/18 21:13 Dose: 40 mg Bupropion HCl (Wellbutrin -) 75 mg PO BID [facility] Last Admin: 10/04/18 10:36 Dose: Not Given Folic Acid (Folic Acid -) 1 mg PO DAILY [facility] Last Admin: 10/04/18 10:36 Dose: Not Given Gabapentin (Neurontin -) 600 mg PO HS [facility] Last Admin: 10/03/18 21:14 Dose: 600 mg Meropenem 500 mg/ Dextrose 100 mls @ 200 mls/hr IVPB BID [facility] Last Admin: 10/04/18 11:01 Dose: 200 mls/hr Mirtazapine (Remeron -) 7.5 mg PO HS [facility] Last Admin: 10/03/18 21:17 Dose: 7.5 mg Multivitamins/Minerals/Vitamin C (Tab-A-Vit -) 1 tab PO DAILY [facility] Last Admin: 10/04/18 10:36 Dose: Not Given Primidone (Mysoline -) 100 mg PO BID [facility] Last Admin: 10/04/18 11:01 Dose: 100 mg Propranolol HCl (Inderal La -) 120 mg PO DAILY [facility] Last Admin: 10/04/18 11:01 Dose: 120 mg assessment/ plan # dementia- returned to baseline PT eval -- will need STR maintain aspiration precautions # ESBL in b/c and urine continue meropenem, per ID # CLL untreated / in remission WBC decreased to 37.1 #Sz D/O continue Primidone Problem List - Problems (1) Altered mental status Code(s): R41.82 - ALTERED MENTAL STATUS, UNSPECIFIED (2) UTI (urinary tract infection) Code(s): N39.0 - URINARY TRACT INFECTION, SITE NOT SPECIFIED Qualifiers: Encounter type: initial encounter (3) Fever Code(s): R50.9 - FEVER, UNSPECIFIED (4) Dementia Code(s): F03.90 - UNSPECIFIED DEMENTIA WITHOUT BEHAVIORAL DISTURBANCE (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
[2018-10-04 14:32] VITALS: BMI 25.9
--- NOTE | 2018-10-04 14:55 | PN ---
Progress Note, Physician History of Present Illness: Lethargic but arousable Temp elevation noted BC, Urine ESBL - Current Medication List Current Medications: Active Medications Acetaminophen (Tylenol Oral Solution -) 500 mg PO TID [facility] Last Admin: 10/04/18 14:00 Dose: Not Given Albuterol/Ipratropium (Duoneb -) 1 amp NEB RQID [facility] Last Admin: 10/04/18 11:31 Dose: 1 amp Atorvastatin Calcium (Lipitor -) 40 mg PO HS [facility] Last Admin: 10/03/18 21:13 Dose: 40 mg Bupropion HCl (Wellbutrin -) 75 mg PO BID [facility] Last Admin: 10/04/18 10:36 Dose: Not Given Folic Acid (Folic Acid -) 1 mg PO DAILY [facility] Last Admin: 10/04/18 10:36 Dose: Not Given Gabapentin (Neurontin -) 600 mg PO HS [facility] Last Admin: 10/03/18 21:14 Dose: 600 mg Meropenem 500 mg/ Dextrose 100 mls @ 200 mls/hr IVPB BID [facility] Last Admin: 10/04/18 11:01 Dose: 200 mls/hr Mirtazapine (Remeron -) 7.5 mg PO [facility] Last Admin: 10/03/18 21:17 Dose: 7.5 mg Multivitamins/Minerals/Vitamin C (Tab-A-Vit -) 1 tab PO DAILY [facility] Last Admin: 10/04/18 10:36 Dose: Not Given Primidone (Mysoline -) 100 mg PO BID [facility] Last Admin: 10/04/18 11:01 Dose: 100 mg Propranolol HCl (Inderal La -) 120 mg PO DAILY [facility] Last Admin: 10/04/18 12:21 Dose: Not Given - Objective Vital Signs: Vital Signs Temperature 98 F 10/04/18 10:00 Pulse Rate 71 10/04/18 10:00 Respiratory Rate 18 10/04/18 10:00 Blood Pressure 140/98 10/04/18 10:00 O2 Sat by Pulse Oximetry (%) 98 10/03/18 21:00 Constitutional: Yes: No Distress Eyes: Yes: Conjunctiva Clear Cardiovascular: Yes: Regular Rate and Rhythm, S1, S2 Respiratory: Yes: Diminished Gastrointestinal: Yes: Normal Bowel Sounds, Soft, Other (distended). No: Tenderness Labs: CBC, BMP 10/04/18 06:15 10/04/18 06:15 INR, PTT INR 1.15 (0.83-1.09) H 09/28/18 10:36 Assessment/Plan Gram Negative bacteremia/ sepsis secondary to source ESBL Toxic metabolic encephalopathy CLL Continue meropenem day #5 Repeat BC no growth
[2018-10-04] MEDS: ATORVASTATIN CA 40 MG TABLET (FP) PO SCH (21:44)
[2018-10-04] MEDS: GABAPENTIN 300 MG CAPSULE (FP) PO SCH (21:44)
[2018-10-04] MEDS: MIRTAZAPINE 15 MG TABLET (FP) PO SCH (22:04)
[2018-10-05] MEDS: ACETAMINOPHEN 650 MG/20.3 ML ORAL SOLUTION (CUPS) PO SCH ×3 (05:35→21:30)
[2018-10-05 07:05] LABS: BASO % 0.3 % (0-2.0); EOS % 1.3 % (0-4.5); HEMATOCRIT 27.9 % (32.4-45.2); HEMOGLOBIN 9.1 GM/dL (10.7-15.3); LYMPH % 76.1 % (8-40); MCH 29.8 pg (25.7-33.7); MCHC 32.6 g/dl (32.0-36.0); MEAN CELL VOLUME 91.4 fl (80-96); MEAN PLT VOLUME 7.8 fl (7.5-11.1); MONO % 2.5 % (3.8-10.2); NEUT % 19.8 % (42.8-82.8); PLATELET COUNT 425 K/MM3 (134-434); RBC 3.05 M/mm3 (3.60-5.2); RDW 14.6 % (11.6-15.6)
[2018-10-05 07:30] LABS: WHITE BLOOD COUNT 36.6 K/mm3 (4.0-10.0)
[2018-10-05 08:08] LABS: ALBUMIN 2.2 g/dl (3.4-5.0); ALK PHOS 140 U/L (45-117); ANION GAP 7 MMOL/L (8-16); BILIRUBIN,TOTAL 0.4 mg/dL (0.2-1); BLOOD UREA NITROGEN 19 mg/dL (7-18); CALCIUM 8.2 mg/dL (8.5-10.1); CHLORIDE 105 mmol/L (98-107); CO2 30 mmol/L (21-32); CREATININE 1.1 mg/dL (0.55-1.3); GLUCOSE,RANDOM 81 mg/dL (74-106); POTASSIUM 3.5 mmol/L (3.5-5.1); SGOT/AST 23 U/L (15-37); SGPT/ALT 38 U/L (13-61); SODIUM 142 mmol/L (136-145); TOT PROT 5.2 g/dl (6.4-8.2)
[2018-10-05] MEDS: ALBUTEROL SO4 2.5/IPRATROPIUM 0.5 INH SOL 3 ML VIAL.NEB. NEB SCH ×4 (08:21→19:50)
[2018-10-05] MEDS: MEROPENEM 500 MG in DEXTROSE 5%-WATER 100 ML IVPB SCH (10:15)
[2018-10-05] MEDS: PRIMIDONE 50 MG TABLET PO SCH ×2 (10:16→21:29)
[2018-10-05] MEDS: FOLIC ACID 1 MG TABLET (FP) PO SCH (10:16)
[2018-10-05] MEDS: buPROPion HCL 75 MG TABLET PO SCH ×2 (10:16→21:29)
[2018-10-05] MEDS: MULTIVITAMINS (DAILY MVI) TABLET (FP) PO SCH (10:16)
--- NOTE | 2018-10-05 11:44 | PN ---
Progress Note (short form) - Note Progress Note: NAD Vital Signs Period Temp Pulse Resp BP Sys/Chapman Pulse Ox Last 24 Hr 98.3 F-99.7 F 66-81 18-20 143-174/57-94 98 cor-rrr lungs clear, decresed bs at bases abd soft,nt ext no edema CBC, BMP 10/05/18 06:00 10/05/18 06:00 Microbiology 10/03/18 06:30 Blood - Peripheral Venous Blood Culture - Preliminary NO GROWTH OBTAINED AFTER 48 HOURS, INCUBATION TO CONTINUE FOR 3 DAYS. 10/03/18 06:15 Blood - Peripheral Venous Blood Culture - Preliminary NO GROWTH OBTAINED AFTER 48 HOURS, INCUBATION TO CONTINUE FOR 3 DAYS. 09/28/18 10:20 Blood - Peripheral Venous Blood Culture - Final Lactose Fermenting Neg Bacilli 09/28/18 10:36 Blood - Peripheral Venous Blood Culture - Final Escherichia Coli Esbl Time Cycle Operator 09/28/18 10:48 Urine - Urine - Catheterized Urine Culture - Final Escherichia Coli Esbl Time Cycle Operator Current Medications Acetaminophen (Tylenol Oral Solution -) 500 mg PO TID [facility] Last Admin: 10/05/18 05:35 Dose: Not Given Albuterol/Ipratropium (Duoneb -) 1 amp NEB RQID [facility] Last Admin: 10/05/18 08:21 Dose: 1 amp Atorvastatin Calcium (Lipitor -) 40 mg PO [facility] Last Admin: 10/04/18 21:44 Dose: 40 mg Bupropion HCl (Wellbutrin -) 75 mg PO BID [facility] Last Admin: 10/05/18 10:16 Dose: 75 mg Folic Acid (Folic Acid -) 1 mg PO DAILY [facility] Last Admin: 10/05/18 10:16 Dose: 1 mg Gabapentin (Neurontin -) 600 mg PO [facility] Last Admin: 10/04/18 21:44 Dose: 600 mg Meropenem 500 mg/ Dextrose 100 mls @ 200 mls/hr IVPB BID [facility] Last Admin: 10/05/18 10:15 Dose: 200 mls/hr Mirtazapine (Remeron -) 7.5 mg PO HS [facility] Last Admin: 10/04/18 22:04 Dose: 7.5 mg Multivitamins/Minerals/Vitamin C (Tab-A-Vit -) 1 tab PO DAILY [facility] Last Admin: 10/05/18 10:16 Dose: 1 tab Primidone (Mysoline -) 100 mg PO BID [facility] Last Admin: 10/05/18 10:16 Dose: 100 mg Propranolol HCl (Inderal La -) 120 mg PO DAILY [facility] Last Admin: 10/05/18 10:17 Dose: 120 mg a/p ecoli esbl bacteremia/uti can switch to ertapenem daily day #6 antibiotics history of CLL
[2018-10-05 12:19] LABS: ACANTHOCYTES 0; ANISOCYTOSIS 0; HELMET CELLS 0; HOWELL-JOLLY BODIES 0; MACROCYTOSIS 0; OVALOCYTE 0; PLATELET ESTIMATE NORMAL; ROULEAU 0; SICKELED CELLS 0; TARGET CELLS 0; TEAR DROP CELLS 0; TOXIC GRANULATION 0
[2018-10-05] MEDS: ERTAPENEM SODIUM 1 GM in SODIUM CHLORIDE 50 ML IVPB SCH (13:00)
[2018-10-05] MEDS ORDERED: PT OWN MED DRAWER 7, Y5N ONE ×2 (13:05→20:58)
--- NOTE | 2018-10-05 15:12 | PN ---
Progress Note (short form) - Note Progress Note: More lethargic responds to verbal stimuli does not follow commands Not in distress Vital Signs Period Temp Pulse Resp BP Sys/Chapman Pulse Ox Last 24 Hr 98.3 F-99.2 F 66-81 18-20 143-174/57-80 98 neck supple heart s1/s2 lungs clear bilat abd soft non tender ext no edema CBC, BMP 10/05/18 06:00 10/05/18 06:00 CBC, BMP 10/01/18 06:00 10/01/18 20:15 Microbiology 10/03/18 06:30 Blood - Peripheral Venous Blood Culture - Preliminary NO GROWTH OBTAINED AFTER 48 HOURS, INCUBATION TO CONTINUE FOR 3 DAYS. 10/03/18 06:15 Blood - Peripheral Venous Blood Culture - Preliminary NO GROWTH OBTAINED AFTER 48 HOURS, INCUBATION TO CONTINUE FOR 3 DAYS. 09/28/18 10:20 Blood - Peripheral Venous Blood Culture - Final Lactose Fermenting Neg Bacilli 09/28/18 10:36 Blood - Peripheral Venous Blood Culture - Final Escherichia Coli Esbl Outside Production Inspector 09/28/18 10:48 Urine - Urine - Catheterized Urine Culture - Final Escherichia Coli Esbl Outside Production Inspector Active Medications Acetaminophen (Tylenol Oral Solution -) 500 mg PO TID [facility] Last Admin: 10/05/18 13:51 Dose: 500 mg Albuterol/Ipratropium (Duoneb -) 1 amp NEB RQID [facility] Last Admin: 10/05/18 12:57 Dose: 1 amp Atorvastatin Calcium (Lipitor -) 40 mg PO HS [facility] Last Admin: 10/04/18 21:44 Dose: 40 mg Bupropion HCl (Wellbutrin -) 75 mg PO BID [facility] Last Admin: 10/05/18 10:16 Dose: 75 mg Folic Acid (Folic Acid -) 1 mg PO DAILY [facility] Last Admin: 10/05/18 10:16 Dose: 1 mg Gabapentin (Neurontin -) 600 mg PO [facility] Last Admin: 10/04/18 21:44 Dose: 600 mg Ertapenem 1 gm/ Sodium (Chloride) 50 mls @ 100 mls/hr IVPB DAILY [facility] Last Admin: 10/05/18 13:00 Dose: 100 mls/hr Mirtazapine (Remeron -) 7.5 mg PO HS [facility] Last Admin: 10/04/18 22:04 Dose: 7.5 mg Multivitamins/Minerals/Vitamin C (Tab-A-Vit -) 1 tab PO DAILY [facility] Last Admin: 10/05/18 10:16 Dose: 1 tab Primidone (Mysoline -) 100 mg PO BID [facility] Last Admin: 10/05/18 10:16 Dose: 100 mg Propranolol HCl (Inderal La -) 120 mg PO DAILY [facility] Last Admin: 10/05/18 10:17 Dose: 120 mg assment / plan # dementia with alteration to baseline treat infection neuro eval PT eval -- will need STR aspiration precautions for feeding # ESBL in b/c and urine continue meropenem ID follow up appreciated # Lactic acidosis resolved # CLL untreated / in remission Problem List - Problems (1) Altered mental status Code(s): R41.82 - ALTERED MENTAL STATUS, UNSPECIFIED (2) UTI (urinary tract infection) Code(s): N39.0 - URINARY TRACT INFECTION, SITE NOT SPECIFIED Qualifiers: Encounter type: initial encounter (3) Fever Code(s): R50.9 - FEVER, UNSPECIFIED (4) Dementia Code(s): F03.90 - UNSPECIFIED DEMENTIA WITHOUT BEHAVIORAL DISTURBANCE (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
[2018-10-05] MEDS ORDERED: ERTAPENEM SODIUM 1 GM/50 ML PRE-DOCKED IVPB SCH (18:00)
[2018-10-05] MEDS: ATORVASTATIN CA 40 MG TABLET (FP) PO SCH (21:28)
[2018-10-05] MEDS: GABAPENTIN 300 MG CAPSULE (FP) PO SCH (21:29)
[2018-10-05] MEDS: MIRTAZAPINE 15 MG TABLET (FP) PO SCH (21:29)
[2018-10-06] MEDS: ACETAMINOPHEN 650 MG/20.3 ML ORAL SOLUTION (CUPS) PO SCH ×3 (06:17→22:56)
[2018-10-06] MEDS ORDERED: PT OWN MED DRAWER 7, Y5N ONE (06:54)
[2018-10-06 07:33] LABS: BASO % 0.5 % (0-2.0); EOS % 0.7 % (0-4.5); HEMATOCRIT 31.3 % (32.4-45.2); HEMOGLOBIN 9.7 GM/dL (10.7-15.3); LYMPH % 72.8 % (8-40); MCH 28.5 pg (25.7-33.7); MCHC 30.9 g/dl (32.0-36.0); MEAN CELL VOLUME 92.1 fl (80-96); MEAN PLT VOLUME 7.5 fl (7.5-11.1); MONO % 1.9 % (3.8-10.2); NEUT % 24.1 % (42.8-82.8); PLATELET COUNT 464 K/MM3 (134-434); RBC 3.39 M/mm3 (3.60-5.2); RDW 14.4 % (11.6-15.6)
[2018-10-06 07:54] LABS: WHITE BLOOD COUNT 43.6 K/mm3 (4.0-10.0)
[2018-10-06] MEDS: ALBUTEROL SO4 2.5/IPRATROPIUM 0.5 INH SOL 3 ML VIAL.NEB. NEB SCH ×4 (08:00→20:33)
[2018-10-06 08:02] LABS: ANION GAP 7 MMOL/L (8-16); BLOOD UREA NITROGEN 20 mg/dL (7-18); CALCIUM 8.1 mg/dL (8.5-10.1); CHLORIDE 104 mmol/L (98-107); CO2 31 mmol/L (21-32); CREATININE 1.2 mg/dL (0.55-1.3); GLUCOSE,RANDOM 82 mg/dL (74-106); MAGNESIUM 2.1 mg/dL (1.8-2.4); SODIUM 141 mmol/L (136-145)
[2018-10-06] MEDS: buPROPion HCL 75 MG TABLET PO SCH ×2 (09:35→22:55)
[2018-10-06] MEDS: PRIMIDONE 50 MG TABLET PO SCH ×2 (09:35→22:55)
[2018-10-06] MEDS: FOLIC ACID 1 MG TABLET (FP) PO SCH (09:36)
[2018-10-06] MEDS: MULTIVITAMINS (DAILY MVI) TABLET (FP) PO SCH (09:36)
[2018-10-06 10:00] LABS: ACANTHOCYTES 0; ANISOCYTOSIS 0; HELMET CELLS 0; HOWELL-JOLLY BODIES 0; MACROCYTOSIS 0; OVALOCYTE 0; PLATELET ESTIMATE NORMAL; ROULEAU 0; SICKELED CELLS 0; TARGET CELLS 0; TEAR DROP CELLS 0; TOXIC GRANULATION 0
[2018-10-06] MEDS: ERTAPENEM SODIUM 1 GM in SODIUM CHLORIDE 50 ML IVPB SCH (10:15)
--- NOTE | 2018-10-06 13:15 | PN ---
Progress Note (short form) - Note Progress Note: More alert than yesterday responds to verbal stimuli patient non verbal Not in distress Vital Signs Period Temp Pulse Resp BP Sys/Chapman Pulse Ox Last 24 Hr 98.3 F-100.1 F 64-85 20-20 122-161/47-66 96 neck supple heart s1/s2 lungs clear bilat / poor ins effort / does not follow commands abd soft / mildly distended / non tender ext no edema CBC, BMP 10/06/18 06:15 10/06/18 06:15 CBC, BMP 10/05/18 06:00 10/05/18 06:00 Microbiology 10/03/18 06:30 Blood - Peripheral Venous Blood Culture - Preliminary NO GROWTH OBTAINED AFTER 72 HOURS, INCUBATION TO CONTINUE FOR 2 DAYS. 10/03/18 06:15 Blood - Peripheral Venous Blood Culture - Preliminary NO GROWTH OBTAINED AFTER 72 HOURS, INCUBATION TO CONTINUE FOR 2 DAYS. 09/28/18 10:20 Blood - Peripheral Venous Blood Culture - Final Lactose Fermenting Neg Bacilli 09/28/18 10:36 Blood - Peripheral Venous Blood Culture - Final Escherichia Coli Esbl Concrete Mixer Loader Truck Mounted 09/28/18 10:48 Urine - Urine - Catheterized Urine Culture - Final Escherichia Coli Esbl Concrete Mixer Loader Truck Mounted Active Medications Acetaminophen (Tylenol Oral Solution -) 500 mg PO TID [facility] Last Admin: 10/06/18 06:17 Dose: 500 mg Albuterol/Ipratropium (Duoneb -) 1 amp NEB RQID [facility] Last Admin: 10/06/18 11:36 Dose: 1 amp Atorvastatin Calcium (Lipitor -) 40 mg PO HS [facility] Last Admin: 10/05/18 21:28 Dose: 40 mg Bupropion HCl (Wellbutrin -) 75 mg PO BID [facility] Last Admin: 10/06/18 09:35 Dose: 75 mg Folic Acid (Folic Acid -) 1 mg PO DAILY [facility] Last Admin: 10/06/18 09:36 Dose: 1 mg Gabapentin (Neurontin -) 600 mg PO HS [facility] Last Admin: 10/05/18 21:29 Dose: 600 mg Ertapenem 1 gm/ Sodium (Chloride) 50 mls @ 100 mls/hr IVPB DAILY [facility] Last Admin: 10/06/18 10:15 Dose: 100 mls/hr Mirtazapine (Remeron -) 7.5 mg PO HS [facility] Last Admin: 10/05/18 21:29 Dose: 7.5 mg Multivitamins/Minerals/Vitamin C (Tab-A-Vit -) 1 tab PO DAILY [facility] Last Admin: 10/06/18 09:36 Dose: 1 tab Primidone (Mysoline -) 100 mg PO BID [facility] Last Admin: 10/06/18 09:35 Dose: 100 mg Propranolol HCl (Inderal La -) 120 mg PO DAILY [facility] Last Admin: 10/06/18 09:36 Dose: 120 mg assment / plan # dementia with alteration to baseline treat infection neuro eval PT eval -- will need STR aspiration precautions for feeding # ESBL in b/c and urine continue meropenem as per ID ID follow up appreciated # Lactic acidosis resolved # CLL untreated / in remission elevated WBC is her baseline Problem List - Problems (1) Altered mental status Code(s): R41.82 - ALTERED MENTAL STATUS, UNSPECIFIED (2) UTI (urinary tract infection) Code(s): N39.0 - URINARY TRACT INFECTION, SITE NOT SPECIFIED Qualifiers: Encounter type: initial encounter (3) Fever Code(s): R50.9 - FEVER, UNSPECIFIED (4) Dementia Code(s): F03.90 - UNSPECIFIED DEMENTIA WITHOUT BEHAVIORAL DISTURBANCE (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
[2018-10-06] MEDS: MIRTAZAPINE 15 MG TABLET (FP) PO SCH (22:55)
[2018-10-06] MEDS: GABAPENTIN 300 MG CAPSULE (FP) PO SCH (22:56)
[2018-10-06] MEDS: ATORVASTATIN CA 40 MG TABLET (FP) PO SCH (22:58)
[2018-10-07] MEDS: ACETAMINOPHEN 650 MG/20.3 ML ORAL SOLUTION (CUPS) PO SCH ×3 (06:16→22:38)
[2018-10-07 07:15] LABS: BASO % 0.1 % (0-2.0); EOS % 0.9 % (0-4.5); HEMATOCRIT 26.2 % (32.4-45.2); HEMOGLOBIN 8.3 GM/dL (10.7-15.3); LYMPH % 74.1 % (8-40); MCHC 31.7 g/dl (32.0-36.0); MEAN CELL VOLUME 91.5 fl (80-96); MEAN PLT VOLUME 6.9 fl (7.5-11.1); MONO % 2.6 % (3.8-10.2); NEUT % 22.3 % (42.8-82.8); PLATELET COUNT 455 K/MM3 (134-434); RBC 2.86 M/mm3 (3.60-5.2); RDW 14.5 % (11.6-15.6)
[2018-10-07] MEDS: ALBUTEROL SO4 2.5/IPRATROPIUM 0.5 INH SOL 3 ML VIAL.NEB. NEB SCH ×2 (07:25→20:10)
[2018-10-07 07:46] LABS: ALBUMIN 2.1 g/dl (3.4-5.0); ALK PHOS 116 U/L (45-117); ANION GAP 6 MMOL/L (8-16); BILIRUBIN,TOTAL 0.3 mg/dL (0.2-1); BLOOD UREA NITROGEN 19 mg/dL (7-18); CALCIUM 8.2 mg/dL (8.5-10.1); CHLORIDE 103 mmol/L (98-107); CO2 32 mmol/L (21-32); CREATININE 1.1 mg/dL (0.55-1.3); GLUCOSE,RANDOM 79 mg/dL (74-106); POTASSIUM 3.8 mmol/L (3.5-5.1); SGOT/AST 19 U/L (15-37); SGPT/ALT 30 U/L (13-61); SODIUM 142 mmol/L (136-145); TOT PROT 4.9 g/dl (6.4-8.2)
[2018-10-07 08:03] LABS: WHITE BLOOD COUNT 36.4 K/mm3 (4.0-10.0)
[2018-10-07] MEDS ORDERED: PT OWN MED DRAWER 7, Y5N ONE (09:05)
[2018-10-07] MEDS: FOLIC ACID 1 MG TABLET (FP) PO SCH (09:51)
[2018-10-07] MEDS: buPROPion HCL 75 MG TABLET PO SCH ×2 (09:51→22:40)
[2018-10-07] MEDS: MULTIVITAMINS (DAILY MVI) TABLET (FP) PO SCH (09:51)
[2018-10-07] MEDS: PRIMIDONE 50 MG TABLET PO SCH (09:51)
[2018-10-07] MEDS: ERTAPENEM SODIUM 1 GM in SODIUM CHLORIDE 50 ML IVPB SCH (11:22)
--- NOTE | 2018-10-07 11:33 | PN ---
Progress Note, Physician History of Present Illness: Lethargic Offers no complaints Afebrile BC, Urine ESBL - Current Medication List Current Medications: Active Medications Acetaminophen (Tylenol Oral Solution -) 500 mg PO TID [facility] Last Admin: 10/07/18 06:16 Dose: 500 mg Albuterol/Ipratropium (Duoneb -) 1 amp NEB RQID [facility] Last Admin: 10/07/18 07:25 Dose: 1 amp Atorvastatin Calcium (Lipitor -) 40 mg PO HS [facility] Last Admin: 10/06/18 22:58 Dose: 40 mg Bupropion HCl (Wellbutrin -) 75 mg PO BID [facility] Last Admin: 10/07/18 09:51 Dose: 75 mg Folic Acid (Folic Acid -) 1 mg PO DAILY [facility] Last Admin: 10/07/18 09:51 Dose: 1 mg Gabapentin (Neurontin -) 600 mg PO HS [facility] Last Admin: 10/06/18 22:56 Dose: 600 mg Ertapenem 1 gm/ Sodium (Chloride) 50 mls @ 100 mls/hr IVPB DAILY [facility] Last Admin: 10/07/18 11:22 Dose: 100 mls/hr Mirtazapine (Remeron -) 7.5 mg PO HS [facility] Last Admin: 10/06/18 22:55 Dose: 7.5 mg Multivitamins/Minerals/Vitamin C (Tab-A-Vit -) 1 tab PO DAILY [facility] Last Admin: 10/07/18 09:51 Dose: 1 tab Primidone (Mysoline -) 100 mg PO BID [facility] Last Admin: 10/07/18 09:51 Dose: 100 mg Propranolol HCl (Inderal La -) 120 mg PO DAILY [facility] Last Admin: 10/07/18 09:51 Dose: 120 mg - Objective Vital Signs: Vital Signs Temperature 99 F 10/07/18 09:00 Pulse Rate 65 10/07/18 09:00 Respiratory Rate 20 10/07/18 09:00 Blood Pressure 125/50 L 10/07/18 09:00 O2 Sat by Pulse Oximetry (%) 98 10/07/18 09:00 Constitutional: Yes: No Distress Eyes: Yes: Conjunctiva Clear Cardiovascular: Yes: Regular Rate and Rhythm, S1, S2 Respiratory: Yes: Diminished Gastrointestinal: Yes: Normal Bowel Sounds, Soft. No: Tenderness Labs: CBC, BMP 10/07/18 06:00 10/07/18 06:00 INR, PTT INR 1.15 (0.83-1.09) H 09/28/18 10:36 Assessment/Plan Gram Negative bacteremia/ sepsis secondary to source ESBL Toxic metabolic encephalopathy CLL Continue meropenem day #8 Repeat BC no growth Needs additional 6d IV ertapenem ?PICC for outpatient therapy
[2018-10-07 12:37] LABS: ANISOCYTOSIS 1+; MACROCYTOSIS 1+; PLATELET ESTIMATE NORMAL
--- NOTE | 2018-10-07 12:43 | CONSULT ---
Admitting History and Physical - Primary Care Physician PCP: Keri Malone I - Admission History of Present Illness: 88 y/o female with hx of dementia / CLL/ seizure disorder s/p deep brain stimulation, HLD / untreated CLL/ left pelvic fracture 07/2017 admitted with increasing lethargy febrile . ID IMP:Gram Negative bacteremia/ sepsis secondary to source ESBL Toxic metabolic encephalopathy CLL Pt on Puree/honey thick liquid, inconsistent upper airway gurgly sounds reported by nursing. Known to me from November 2017 out pt MBS, with normal swallowing function. Pt was at risk of aspiration sec to Dementia and distractibility. Selected Entries 10/06/18 10/06/18 10/06/18 01:00 05:00 09:54 Breakfast 75% Lunch Temperature 99 F 98.3 F 10/06/18 10/06/18 10/06/18 13:22 17:08 21:00 Breakfast Lunch 50% Temperature 98.1 F 99.7 F H 98.4 F 10/07/18 10/07/18 10/07/18 01:00 05:00 09:00 Breakfast Lunch Temperature 98.5 F 98.4 F 99 F 10/07/18 10/07/18 09:33 13:30 Breakfast 50% Lunch 25% Temperature 97.9 F Laboratory Tests 10/07/18 06:00 WBC 36.4 H* - Past Medical History SUPPORT SPECIALIST: Yes: Dementia Heme/Onc: Yes: Other (CLL for about 12 ys) Musculoskeletal: Yes: Osteoarthritis - Advance Directives Advance Directives: Yes: Living Will, Health Care Proxy - Smoking History Smoking history: Never smoked Have you smoked in the past 12 months: No - Alcohol/Substance Use Hx Alcohol Use: No - Social History ADL: Support Services History of Recent Travel: No History - Admission Reason For Visit: SEPSIS - Diagnostics X-ray: Report Reviewed CT Scan: Report Reviewed - General Mental Status: Forgetful, Vague, Confused, Lethargic Attention: Moderate Impairment Ability to Follow Directions: Fair (simple whole body commands) Head/Neck Control: Needs Assist - Hearing Hearing: Functional Speech Evaluation - Communication Primary Language: SPANISH Communication: Yes: Simple Responses, Dysarthria Oral Expression Ability: Yes: Mild Impairment, Moderate Impairment - Speech Production Able to Make Needs Known: Yes: Mildly Impaired, Moderately Impaired Intelligibility: Yes: Mildly Impaired, Moderately Impaired - Speech Characteristics Voice Loudness: Mildly Soft/Quiet Voice Pitch: Yes: Normal Voice Phonatory-based Quality: Yes: Dysphonia Speech Pattern: Impaired Speech Clarity: < 75% Articulation: Yes: Imprecise Rate of Speech: Too Slow Voice, Other Observations: Yes: Inadequate Breath Support - Language/Auditory Comprehension Observation: Able to respond to yes/no queries: No, Comprehends Conversational Speech: Yes (simple social speech), Benefits from Slow Speech: Yes, Benefits from Repetiton: Yes - Language/Verbal Expression Able to Communicate Wants and Needs: Yes: Moderately Impaired Functional Communication Status: Yes: Moderately Impaired - Swallow Evaluation/Bedside Assessment Facial Symmetry at Rest: Symmetrical Against Resistance Opening: Weak Against Resistance Closing: Weak Pucker Lips: Weak Smile: Weak Lingual Movement: Symmetric Lingual Speed of Movement: Reduced Lingual Movement Strgth Against Opposition: Reduced Laryngeal Elevation: Impaired Laryngeal Movement: Labored,delay initiation, Reduced Velocity Needs Assistance: Yes Rate of Intake: Slow/Holding Bolus Size: Small Labial Seal: WFL Oral Prep Time: Increased A-P Transit: Impaired Timing of Swallow: Delayed Coughing/Throat Clear: No (puree/honey thick on tsp only) Change in Voice: No Recommendations - Speech Evaluation, Impression/Plan Impression: Pt lethargic but arousable. Slow to respond, confused, dysarthric, Dysphagia. Swallow onset is quite delayed, with reduced laryngeal excursion and rate. Overtly pt seems to be tolerating puree/and honey thick liquid on a tsp, when fully alert, chin tucked down to better protect her airway. - Disposition Discharge to: To be Determined - Dysphagia Impressions/Plan Swallowing Skills: Impaired Dysphagia Impressions: Moderate Impairment, Risk of Aspiration *Silent aspiration: cannot be R/O at bedside Dysphagia Treatment Plan: Small Bites, Chin Tuck/Down, Safe Rate, 1/2 tsp. at a time, Elevate HOB during feed, Other (Tell pt to swallow and watch for reflex with each trial) Recommendations: Modified Barium Swallow (if cough, congestion, fever) - Recommendations Diet Consistency: Dysphagia Pureed Medication Administration: Crushed with applesauce Liquids: Honey Thick (on tsp only) Supplement: Magic Cup (L and Dinner), Ensure Pudding
--- NOTE | 2018-10-07 20:51 | PN ---
Progress Note (short form) - Note Progress Note: lethargic responds to verbal stimuli follow simple commands Not in distress Vital Signs Period Temp Pulse Resp BP Sys/Chapman Pulse Ox Last 24 Hr 97.8 F-99 F 65-73 18-20 103-149/38-88 98-98 neck supple heart s1/s2 lungs clear bilat abd soft non tender ext no edema CBC, BMP 10/07/18 06:00 10/07/18 06:00 CBC, BMP 10/05/18 06:00 10/05/18 06:00 Microbiology 10/03/18 06:30 Blood - Peripheral Venous Blood Culture - Preliminary NO GROWTH OBTAINED AFTER 96 HOURS, INCUBATION TO CONTINUE FOR 1 DAYS. 10/03/18 06:15 Blood - Peripheral Venous Blood Culture - Preliminary NO GROWTH OBTAINED AFTER 96 HOURS, INCUBATION TO CONTINUE FOR 1 DAYS. 09/28/18 10:20 Blood - Peripheral Venous Blood Culture - Final Lactose Fermenting Neg Bacilli 09/28/18 10:36 Blood - Peripheral Venous Blood Culture - Final Escherichia Coli Esbl Consulting Application Engineer 09/28/18 10:48 Urine - Urine - Catheterized Urine Culture - Final Escherichia Coli Esbl Consulting Application Engineer Active Medications Acetaminophen (Tylenol Oral Solution -) 500 mg PO TID [facility] Last Admin: 10/07/18 15:23 Dose: Not Given Albuterol/Ipratropium (Duoneb -) 1 amp NEB RQID [facility] Last Admin: 10/07/18 20:10 Dose: 1 amp Atorvastatin Calcium (Lipitor -) 40 mg PO HS [facility] Last Admin: 10/06/18 22:58 Dose: 40 mg Bupropion HCl (Wellbutrin -) 75 mg PO BID [facility] Last Admin: 10/07/18 09:51 Dose: 75 mg Folic Acid (Folic Acid -) 1 mg PO DAILY [facility] Last Admin: 10/07/18 09:51 Dose: 1 mg Gabapentin (Neurontin -) 600 mg PO [facility] Last Admin: 10/06/18 22:56 Dose: 600 mg Ertapenem 1 gm/ Sodium (Chloride) 50 mls @ 100 mls/hr IVPB DAILY [facility] Last Admin: 10/07/18 11:22 Dose: 100 mls/hr Mirtazapine (Remeron -) 7.5 mg PO [facility] Last Admin: 10/06/18 22:55 Dose: 7.5 mg Multivitamins/Minerals/Vitamin C (Tab-A-Vit -) 1 tab PO DAILY [facility] Last Admin: 10/07/18 09:51 Dose: 1 tab Primidone (Mysoline -) 100 mg PO BID [facility] Last Admin: 10/07/18 09:51 Dose: 100 mg Propranolol HCl (Inderal La -) 120 mg PO DAILY [facility] Last Admin: 10/07/18 09:51 Dose: 120 mg assment / plan # dementia with alteration to baseline treat infection neuro eval PT eval -- will need STR aspiration precautions for feeding swallow eval reviewed # ESBL in b/c and urine continue Abx per ID ID follow up appreciated # Lactic acidosis resolved # CLL untreated / in remission Problem List - Problems (1) Altered mental status Code(s): R41.82 - ALTERED MENTAL STATUS, UNSPECIFIED (2) UTI (urinary tract infection) Code(s): N39.0 - URINARY TRACT INFECTION, SITE NOT SPECIFIED Qualifiers: Encounter type: initial encounter (3) Fever Code(s): R50.9 - FEVER, UNSPECIFIED (4) Dementia Code(s): F03.90 - UNSPECIFIED DEMENTIA WITHOUT BEHAVIORAL DISTURBANCE (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
[2018-10-07] MEDS: GABAPENTIN 300 MG CAPSULE (FP) PO SCH (22:39)
[2018-10-07] MEDS: MIRTAZAPINE 15 MG TABLET (FP) PO SCH (22:39)
[2018-10-07] MEDS: ATORVASTATIN CA 40 MG TABLET (FP) PO SCH (22:40)
[2018-10-08] MEDS: PRIMIDONE 50 MG TABLET PO SCH ×3 (00:04→22:25)
[2018-10-08] MEDS: ACETAMINOPHEN 650 MG/20.3 ML ORAL SOLUTION (CUPS) PO SCH ×3 (06:51→22:26)
[2018-10-08] MEDS: ALBUTEROL SO4 2.5/IPRATROPIUM 0.5 INH SOL 3 ML VIAL.NEB. NEB SCH ×4 (08:24→20:00)
[2018-10-08] MEDS ORDERED: PT OWN MED DRAWER 7, Y5N ONE ×3 (08:48→17:52)
[2018-10-08] MEDS: buPROPion HCL 75 MG TABLET PO SCH ×2 (10:24→22:26)
[2018-10-08] MEDS: FOLIC ACID 1 MG TABLET (FP) PO SCH (10:24)
[2018-10-08] MEDS: MULTIVITAMINS (DAILY MVI) TABLET (FP) PO SCH (10:24)
[2018-10-08] MEDS: ERTAPENEM SODIUM 1 GM in SODIUM CHLORIDE 50 ML IVPB SCH (10:25)
[2018-10-08] MEDS: SODIUM CHLORIDE 1,000 ML IV SCH (13:50)
--- NOTE | 2018-10-08 14:21 | PN ---
Progress Note, ROAD MIXER OPERATOR - Note Progress Note: Selected Entries 10/07/18 10/07/18 10/07/18 01:00 05:00 09:00 Breakfast Lunch Supper Temperature 98.5 F 98.4 F 99 F 10/07/18 10/07/18 10/07/18 09:33 13:30 13:47 Breakfast 50% Lunch 25% Supper Temperature 97.9 F 97.8 F 10/07/18 10/07/18 10/07/18 17:00 22:00 23:00 Breakfast Lunch Supper 25% Temperature 97.2 F L 101.9 F H 99.6 F 10/08/18 10/08/18 10/08/18 01:00 05:00 09:00 Breakfast Lunch Supper Temperature 98.5 F 98.4 F 98.2 F Performance unchanged. Sleepy, tolerating small amounts when arousable.
--- NOTE | 2018-10-08 17:33 | PN ---
Progress Note (short form) - Note Progress Note: fever to 102 today alert occasional cough no diarrhea Vital Signs Period Temp Pulse Resp BP Sys/Chapman Pulse Ox Last 24 Hr 98.2 F-102 F 68-75 18-20 114-157/48-61 99-99 cor-rrr lungs decreased bs at bases abd soft, +pallpable bladder ext no edema no skin breakdown CBC, BMP 10/07/18 06:00 10/07/18 06:00 Microbiology 10/03/18 06:30 Blood - Peripheral Venous Blood Culture - Final NO GROWTH AFTER 5 DAYS INCUBATION 10/03/18 06:15 Blood - Peripheral Venous Blood Culture - Final NO GROWTH AFTER 5 DAYS INCUBATION 09/28/18 10:20 Blood - Peripheral Venous Blood Culture - Final Lactose Fermenting Neg Bacilli 09/28/18 10:36 Blood - Peripheral Venous Blood Culture - Final Escherichia Coli Esbl Operations Architect 09/28/18 10:48 Urine - Urine - Catheterized Urine Culture - Final Escherichia Coli Esbl Operations Architect a/p fevers-repeat cultures, blood and urine check bladder scan, if retaining place emery check cxray if no pneumonia, will get ct scan abd/pelvis ecoli esbl bacteremia/uti day #8 antibiotics currently ertapenem history of CLL d/w daughterin law at bedside d/w son via phone will d/w PMD as well
[2018-10-08] MEDS: ZINC OXIDE 20% TOPICAL OINTMENT 30 GM TUBE TP SCH ×2 (19:32→23:07)
[2018-10-08] MEDS: ATORVASTATIN CA 40 MG TABLET (FP) PO SCH (22:25)
[2018-10-08] MEDS: MIRTAZAPINE 15 MG TABLET (FP) PO SCH (22:26)
[2018-10-08] MEDS: GABAPENTIN 300 MG CAPSULE (FP) PO SCH (22:26)
[2018-10-08] MEDS: ACETAMINOPHEN 650 MG SUPP.RECT PR PRN (23:08)
--- NOTE | 2018-10-09 00:18 | PN ---
Progress Note (short form) - Note Progress Note: lethargic / febrile responds to verbal stimuli daughter at bed side / findings discussed / POC discussed all questions answered CT of abd / pelvis to be done tonight remains febrile Vital Signs Period Temp Pulse Resp BP Sys/Chapman Pulse Ox Last 24 Hr 97.6 F-102.9 F 68-84 18-24 123-155/43-58 98-98 neck supple heart s1/s2 lungs clear bilat abd soft / mildly distended /non tender ext no edema CBC, BMP 10/07/18 06:00 10/07/18 06:00 CBC, BMP 10/05/18 06:00 10/05/18 06:00 Microbiology 10/08/18 18:30 Blood - Peripheral Venous Blood Culture - Preliminary NO GROWTH OBTAINED AFTER 24 HOURS, INCUBATION TO CONTINUE FOR 4 DAYS. 10/08/18 16:20 Blood - Peripheral Venous Blood Culture - Preliminary NO GROWTH OBTAINED AFTER 24 HOURS, INCUBATION TO CONTINUE FOR 4 DAYS. 10/03/18 06:30 Blood - Peripheral Venous Blood Culture - Final NO GROWTH AFTER 5 DAYS INCUBATION 10/03/18 06:15 Blood - Peripheral Venous Blood Culture - Final NO GROWTH AFTER 5 DAYS INCUBATION 09/28/18 10:20 Blood - Peripheral Venous Blood Culture - Final Lactose Fermenting Neg Bacilli 09/28/18 10:36 Blood - Peripheral Venous Blood Culture - Final Escherichia Coli Esbl Art Therapy Specialist 09/28/18 10:48 Urine - Urine - Catheterized Urine Culture - Final Escherichia Coli Esbl Art Therapy Specialist assment / plan # febrile CT abd / pelvis - to be done today reculture discuss with ID # dementia with alteration to baseline treat infection neuro eval PT eval -- will need STR aspiration precautions for feeding swallow eval reviewed # ESBL in b/c and urine continue Abx per ID ID follow up appreciated # Lactic acidosis resolved # CLL untreated decreasing H/H Heme /onc consult Problem List - Problems (1) Altered mental status Code(s): R41.82 - ALTERED MENTAL STATUS, UNSPECIFIED (2) UTI (urinary tract infection) Code(s): N39.0 - URINARY TRACT INFECTION, SITE NOT SPECIFIED Qualifiers: Encounter type: initial encounter (3) Fever Code(s): R50.9 - FEVER, UNSPECIFIED (4) Dementia Code(s): F03.90 - UNSPECIFIED DEMENTIA WITHOUT BEHAVIORAL DISTURBANCE (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
[2018-10-09] MEDS: SODIUM CHLORIDE 1,000 ML IV SCH (06:42)
[2018-10-09 06:48] LABS: BASO % 0.1 % (0-2.0); EOS % 0.4 % (0-4.5); HEMATOCRIT 24.8 % (32.4-45.2); HEMOGLOBIN 7.9 GM/dL (10.7-15.3); LYMPH % 73.4 % (8-40); MCHC 31.8 g/dl (32.0-36.0); MEAN CELL VOLUME 91.1 fl (80-96); MEAN PLT VOLUME 7.2 fl (7.5-11.1); MONO % 3.1 % (3.8-10.2); PLATELET COUNT 502 K/MM3 (134-434); RBC 2.73 M/mm3 (3.60-5.2); RDW 14.8 % (11.6-15.6)
[2018-10-09 06:50] LABS: ANION GAP 6 MMOL/L (8-16); BLOOD UREA NITROGEN 22 mg/dL (7-18); CHLORIDE 104 mmol/L (98-107); CO2 33 mmol/L (21-32); CREATININE 1.1 mg/dL (0.55-1.3); GLUCOSE,RANDOM 80 mg/dL (74-106); SODIUM 143 mmol/L (136-145)
[2018-10-09] MEDS: ALBUTEROL SO4 2.5/IPRATROPIUM 0.5 INH SOL 3 ML VIAL.NEB. NEB SCH ×5 (07:30→20:18)
[2018-10-09 07:49] LABS: WHITE BLOOD COUNT 31.7 K/mm3 (4.0-10.0)
[2018-10-09] MEDS ORDERED: PT OWN MED DRAWER 7, Y5N ONE ×2 (08:56→20:55)
[2018-10-09] MEDS: ERTAPENEM SODIUM 1 GM in SODIUM CHLORIDE 50 ML IVPB SCH (10:23)
[2018-10-09] MEDS: FOLIC ACID 1 MG TABLET (FP) PO SCH (10:24)
[2018-10-09] MEDS: PRIMIDONE 50 MG TABLET PO SCH ×2 (10:24→23:08)
[2018-10-09] MEDS: ZINC OXIDE 20% TOPICAL OINTMENT 30 GM TUBE TP SCH ×2 (10:25→22:42)
[2018-10-09] MEDS: buPROPion HCL 75 MG TABLET PO SCH ×2 (10:25→23:07)
[2018-10-09] MEDS: MULTIVITAMINS (DAILY MVI) TABLET (FP) PO SCH (10:25)
[2018-10-09 12:18] LABS: ACANTHOCYTES 0; ANISOCYTOSIS 0; HELMET CELLS 0; HOWELL-JOLLY BODIES 0; MACROCYTOSIS 0; OVALOCYTE 0; PLATELET ESTIMATE INCREASED; ROULEAU 0; SICKELED CELLS 0; TARGET CELLS 0; TEAR DROP CELLS 0; TOXIC GRANULATION 0
[2018-10-09] MEDS: ACETAMINOPHEN 650 MG SUPP.RECT PR PRN (18:09)
--- NOTE | 2018-10-09 19:36 | PN ---
Progress Note, Physician History of Present Illness: Lethargic Offers no complaints Afebrile BC, Urine ESBL - Current Medication List Current Medications: Active Medications Acetaminophen (Tylenol Suppository -) 650 mg [place] Q4H PRN PRN Reason: TEMP. OVER 101.5 Last Admin: 10/09/18 18:09 Dose: 650 mg Albuterol/Ipratropium (Duoneb -) 1 amp NEB RQID [facility] Last Admin: 10/09/18 16:36 Dose: 1 amp Atorvastatin Calcium (Lipitor -) 40 mg PO HS [facility] Last Admin: 10/08/18 22:25 Dose: Not Given Bupropion HCl (Wellbutrin -) 75 mg PO BID [facility] Last Admin: 10/09/18 10:25 Dose: 75 mg Folic Acid (Folic Acid -) 1 mg PO DAILY [facility] Last Admin: 10/09/18 10:24 Dose: 1 mg Gabapentin (Neurontin -) 600 mg PO HS [facility] Last Admin: 10/08/18 22:26 Dose: Not Given Ertapenem 1 gm/ Sodium (Chloride) 50 mls @ 100 mls/hr IVPB DAILY [facility] Last Admin: 10/09/18 10:23 Dose: 100 mls/hr Sodium Chloride (Normal Saline -) 1,000 mls @ 50 mls/hr IV ASDIR [facility] Last Admin: 10/09/18 06:42 Dose: 50 mls/hr Mirtazapine (Remeron -) 7.5 mg PO HS [facility] Last Admin: 10/08/18 22:26 Dose: Not Given Multi-Ingredient Ointment (Zinc Oxide) 1 applic TP BID [facility] Last Admin: 10/09/18 10:25 Dose: 1 applic Multivitamins/Minerals/Vitamin C (Tab-A-Vit -) 1 tab PO DAILY [facility] Last Admin: 10/09/18 10:25 Dose: 1 tab Primidone (Mysoline -) 100 mg PO BID [facility] Last Admin: 10/09/18 10:24 Dose: 100 mg Propranolol HCl (Inderal La -) 120 mg PO DAILY [facility] Last Admin: 10/09/18 10:24 Dose: 120 mg - Objective Vital Signs: Vital Signs Temperature 102.9 F H 10/09/18 18:54 Pulse Rate 68 10/09/18 18:54 Respiratory Rate 20 10/09/18 18:54 Blood Pressure 144/52 L 10/09/18 18:54 O2 Sat by Pulse Oximetry (%) 98 10/09/18 09:00 Constitutional: Yes: No Distress Cardiovascular: Yes: Regular Rate and Rhythm, S1, S2 Respiratory: Yes: Diminished Gastrointestinal: Yes: Normal Bowel Sounds, Soft Edema: No Labs: CBC, BMP 10/09/18 06:00 10/09/18 06:00 INR, PTT INR 1.15 (0.83-1.09) H 09/28/18 10:36 Assessment/Plan Gram Negative bacteremia/ sepsis secondary to source ESBL Toxic metabolic encephalopathy CLL CT, sonogram noted Continue ertapenem Repeat BC no growth Discussed with family at bedside
--- NOTE | 2018-10-09 20:03 | PN ---
Progress Note (short form) - Note Progress Note: lethargic / febrile responds to verbal stimuli CT of abd / pelvis done remains febrile Vital Signs Period Temp Pulse Resp BP Sys/Chapman Pulse Ox Last 24 Hr 97.6 F-102.9 F 68-84 18-24 123-155/43-58 98-98 neck supple heart s1/s2 lungs clear bilat abd soft / mildly distended /non tender ext no edema CBC, BMP 10/09/18 06:00 10/09/18 06:00 CBC, BMP 10/07/18 06:00 10/07/18 06:00 CBC, BMP 10/05/18 06:00 10/05/18 06:00 Microbiology 10/08/18 18:30 Blood - Peripheral Venous Blood Culture - Preliminary NO GROWTH OBTAINED AFTER 24 HOURS, INCUBATION TO CONTINUE FOR 4 DAYS. 10/08/18 16:20 Blood - Peripheral Venous Blood Culture - Preliminary NO GROWTH OBTAINED AFTER 24 HOURS, INCUBATION TO CONTINUE FOR 4 DAYS. 10/03/18 06:30 Blood - Peripheral Venous Blood Culture - Final NO GROWTH AFTER 5 DAYS INCUBATION 10/03/18 06:15 Blood - Peripheral Venous Blood Culture - Final NO GROWTH AFTER 5 DAYS INCUBATION 09/28/18 10:20 Blood - Peripheral Venous Blood Culture - Final Lactose Fermenting Neg Bacilli 09/28/18 10:36 Blood - Peripheral Venous Blood Culture - Final Escherichia Coli Esbl Glost Placer 09/28/18 10:48 Urine - Urine - Catheterized Urine Culture - Final Escherichia Coli Esbl Glost Placer Active Medications Acetaminophen (Tylenol Suppository -) 650 mg [place] Q4H PRN PRN Reason: TEMP. OVER 101.5 Last Admin: 10/09/18 18:09 Dose: 650 mg Albuterol/Ipratropium (Duoneb -) 1 amp NEB RQID [facility] Last Admin: 10/09/18 16:36 Dose: 1 amp Atorvastatin Calcium (Lipitor -) 40 mg PO HS [facility] Last Admin: 10/08/18 22:25 Dose: Not Given Bupropion HCl (Wellbutrin -) 75 mg PO BID [facility] Last Admin: 10/09/18 10:25 Dose: 75 mg Folic Acid (Folic Acid -) 1 mg PO DAILY [facility] Last Admin: 10/09/18 10:24 Dose: 1 mg Gabapentin (Neurontin -) 600 mg PO HS [facility] Last Admin: 12/18/18 22:26 Dose: Not Given Ertapenem 1 gm/ Sodium (Chloride) 50 mls @ 100 mls/hr IVPB DAILY [facility] Last Admin: 10/09/18 10:23 Dose: 100 mls/hr Sodium Chloride (Normal Saline -) 1,000 mls @ 50 mls/hr IV ASDIR [facility] Last Admin: 10/09/18 06:42 Dose: 50 mls/hr Mirtazapine (Remeron -) 7.5 mg PO HS [facility] Last Admin: 10/08/18 22:26 Dose: Not Given Multi-Ingredient Ointment (Zinc Oxide) 1 applic TP BID [facility] Last Admin: 10/09/18 10:25 Dose: 1 applic Multivitamins/Minerals/Vitamin C (Tab-A-Vit -) 1 tab PO DAILY [facility] Last Admin: 10/09/18 10:25 Dose: 1 tab Primidone (Mysoline -) 100 mg PO BID [facility] Last Admin: 10/09/18 10:24 Dose: 100 mg Propranolol HCl (Inderal La -) 120 mg PO DAILY [facility] Last Admin: 10/09/18 10:24 Dose: 120 mg assment / plan # febrile CT abd / pelvis - + lymphadenopathy unchanged since previous CT reculture discuss with ID # dementia with alteration to baseline treat infection neuro eval PT eval -- will need STR aspiration precautions for feeding swallow eval reviewed # ESBL in b/c and urine continue Abx per ID ID follow up appreciated # Lactic acidosis resolved # CLL untreated decreasing H/H Heme /onc consult Problem List - Problems (1) Altered mental status Code(s): R41.82 - ALTERED MENTAL STATUS, UNSPECIFIED (2) UTI (urinary tract infection) Code(s): N39.0 - URINARY TRACT INFECTION, SITE NOT SPECIFIED Qualifiers: Encounter type: initial encounter (3) Fever Code(s): R50.9 - FEVER, UNSPECIFIED (4) Dementia Code(s): F03.90 - UNSPECIFIED DEMENTIA WITHOUT BEHAVIORAL DISTURBANCE (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
[2018-10-09] MEDS: GABAPENTIN 300 MG CAPSULE (FP) PO SCH (22:42)
[2018-10-09] MEDS: VANCOMYCIN 1 GRAM (PRE-DOCKED) 1,000 MG/250 ML BAG IVPB SCH (22:50)
[2018-10-09] MEDS: MEROPENEM 500 MG in DEXTROSE 5%-WATER 100 ML IVPB SCH (22:50)
[2018-10-09] MEDS: MIRTAZAPINE 15 MG TABLET (FP) PO SCH (23:08)
[2018-10-09] MEDS: ATORVASTATIN CA 40 MG TABLET (FP) PO SCH (23:08)
[2018-10-10] MEDS: SODIUM CHLORIDE 1,000 ML IV SCH ×2 (04:59→15:30)
[2018-10-10] MEDS: MEROPENEM 500 MG in DEXTROSE 5%-WATER 100 ML IVPB SCH ×3 (05:04→23:13)
[2018-10-10] MEDS ORDERED: PT OWN MED DRAWER 7, Y5N ONE ×2 (06:57→22:05)
[2018-10-10 07:07] LABS: BASO % 0.5 % (0-2.0); EOS % 0.8 % (0-4.5); HEMATOCRIT 24.2 % (32.4-45.2); HEMOGLOBIN 8.1 GM/dL (10.7-15.3); LYMPH % 69.4 % (8-40); MCHC 33.3 g/dl (32.0-36.0); MEAN CELL VOLUME 90.1 fl (80-96); MEAN PLT VOLUME 7.5 fl (7.5-11.1); MONO % 3.5 % (3.8-10.2); NEUT % 25.8 % (42.8-82.8); PLATELET COUNT 576 K/MM3 (134-434); RBC 2.69 M/mm3 (3.60-5.2); RDW 14.4 % (11.6-15.6)
[2018-10-10 07:20] LABS: ANION GAP 4 MMOL/L (8-16); BLOOD UREA NITROGEN 20 mg/dL (7-18); CALCIUM 7.8 mg/dL (8.5-10.1); CHLORIDE 107 mmol/L (98-107); CO2 32 mmol/L (21-32); GLUCOSE,RANDOM 120 mg/dL (74-106); SODIUM 143 mmol/L (136-145)
[2018-10-10] MEDS: ALBUTEROL SO4 2.5/IPRATROPIUM 0.5 INH SOL 3 ML VIAL.NEB. NEB SCH ×4 (07:30→20:08)
[2018-10-10] MEDS: ACETAMINOPHEN 650 MG SUPP.RECT PR PRN (08:40)
[2018-10-10 08:59] LABS: WHITE BLOOD COUNT 33.7 K/mm3 (4.0-10.0)
[2018-10-10] MEDS: VANCOMYCIN 1 GRAM (PRE-DOCKED) 1,000 MG/250 ML BAG IVPB SCH ×2 (10:27→21:45)
[2018-10-10] MEDS: FOLIC ACID 1 MG TABLET (FP) PO SCH (10:31)
[2018-10-10] MEDS: PRIMIDONE 50 MG TABLET PO SCH ×2 (10:32→23:12)
[2018-10-10] MEDS: MULTIVITAMINS (DAILY MVI) TABLET (FP) PO SCH (10:33)
[2018-10-10] MEDS: buPROPion HCL 75 MG TABLET PO SCH ×2 (10:33→23:13)
[2018-10-10] MEDS: ZINC OXIDE 20% TOPICAL OINTMENT 30 GM TUBE TP SCH ×2 (10:35→23:14)
[2018-10-10 11:47] LABS: ACANTHOCYTES 0; ANISOCYTOSIS 0; HELMET CELLS 0; HOWELL-JOLLY BODIES 0; MACROCYTOSIS 0; OVALOCYTE 0; PLATELET ESTIMATE INCREASED; ROULEAU 0; SICKELED CELLS 0; TARGET CELLS 0; TEAR DROP CELLS 0; TOXIC GRANULATION 0
--- NOTE | 2018-10-10 12:15 | PN ---
Progress Note, Physician History of Present Illness: Awake and responsive today Offers no complaints No acute distress Febrile overnight 102.9 Repeat cultures obtained CXR no new infiltrate - Current Medication List Current Medications: Active Medications Acetaminophen (Tylenol Suppository -) 650 mg [place] Q4H PRN PRN Reason: TEMP. OVER 101.5 Last Admin: 10/10/18 08:40 Dose: 650 mg Albuterol/Ipratropium (Duoneb -) 1 amp NEB RQID [facility] Last Admin: 10/10/18 11:24 Dose: 1 amp Atorvastatin Calcium (Lipitor -) 40 mg PO HS [facility] Last Admin: 10/09/18 23:08 Dose: Not Given Bupropion HCl (Wellbutrin -) 75 mg PO BID [facility] Last Admin: 10/10/18 10:33 Dose: 75 mg Folic Acid (Folic Acid -) 1 mg PO DAILY [facility] Last Admin: 10/10/18 10:31 Dose: 1 mg Gabapentin (Neurontin -) 600 mg PO HS [facility] Last Admin: 10/09/18 22:42 Dose: Not Given Sodium Chloride (Normal Saline -) 1,000 mls @ 50 mls/hr IV ASDIR [facility] Last Admin: 10/10/18 04:59 Dose: 50 mls/hr Meropenem 500 mg/ Dextrose 100 mls @ 200 mls/hr IVPB TID [facility] Last Admin: 10/10/18 05:04 Dose: 200 mls/hr Vancomycin HCl (Vancomycin (Pre-Docked)) 1,000 mg in 250 mls @ 166.667 mls/hr IVPB BID [facility]; Protocol Last Admin: 10/10/18 10:27 Dose: 166.667 mls/hr Mirtazapine (Remeron -) 7.5 mg PO HS [facility] Last Admin: 10/09/18 23:08 Dose: Not Given Multi-Ingredient Ointment (Zinc Oxide) 1 applic TP BID [facility] Last Admin: 10/10/18 10:35 Dose: 1 applic Multivitamins/Minerals/Vitamin C (Tab-A-Vit -) 1 tab PO DAILY [facility] Last Admin: 10/10/18 10:33 Dose: 1 tab Primidone (Mysoline -) 100 mg PO BID [facility] Last Admin: 10/10/18 10:32 Dose: 100 mg Propranolol HCl (Inderal La -) 120 mg PO DAILY [facility] Last Admin: 10/10/18 10:32 Dose: 120 mg - Objective Vital Signs: Vital Signs Temperature 99.8 F H 10/10/18 10:26 Pulse Rate 66 10/10/18 08:41 Respiratory Rate 20 10/10/18 08:41 Blood Pressure 124/42 L 10/10/18 08:41 O2 Sat by Pulse Oximetry (%) 97 10/09/18 21:00 Constitutional: Yes: No Distress Eyes: Yes: Conjunctiva Clear Cardiovascular: Yes: Regular Rate and Rhythm, S1 Respiratory: Yes: Diminished Gastrointestinal: Yes: Normal Bowel Sounds, Soft. No: Tenderness Edema: No Labs: CBC, BMP 10/10/18 06:00 10/10/18 06:00 INR, PTT INR 1.15 (0.83-1.09) H 09/28/18 10:36 Assessment/Plan Gram Negative bacteremia/ sepsis secondary to source ESBL Recurrent fever ? aspiration Toxic metabolic encephalopathy improved CLL Repeat BC, urine c/s ordered Will obtain CT chest R/O infiltrate Continue meropenem/ vancomycin
--- NOTE | 2018-10-10 12:53 | PN ---
Progress Note (short form) - Note Progress Note: lethargic / febrile responds to verbal stimuli CT of abd / pelvis done -- no significant new findings remains febrile, Source ? Vital Signs Period Temp Pulse Resp BP Sys/Chapman Pulse Ox Last 24 Hr 97.6 F-102.9 F 59-73 18-20 124-144/42-57 96-97 neck supple heart s1/s2 lungs clear bilat abd soft / mildly distended /non tender ext no edema CBC, BMP 10/10/18 06:00 10/10/18 06:00 CBC, BMP 10/09/18 06:00 10/09/18 06:00 CBC, BMP 10/07/18 06:00 10/07/18 06:00 CBC, BMP 10/05/18 06:00 10/05/18 06:00 Microbiology 10/08/18 18:30 Blood - Peripheral Venous Blood Culture - Preliminary NO GROWTH OBTAINED AFTER 24 HOURS, INCUBATION TO CONTINUE FOR 4 DAYS. 10/08/18 16:20 Blood - Peripheral Venous Blood Culture - Preliminary NO GROWTH OBTAINED AFTER 24 HOURS, INCUBATION TO CONTINUE FOR 4 DAYS. 10/03/18 06:30 Blood - Peripheral Venous Blood Culture - Final NO GROWTH AFTER 5 DAYS INCUBATION 10/03/18 06:15 Blood - Peripheral Venous Blood Culture - Final NO GROWTH AFTER 5 DAYS INCUBATION 09/28/18 10:20 Blood - Peripheral Venous Blood Culture - Final Lactose Fermenting Neg Bacilli 09/28/18 10:36 Blood - Peripheral Venous Blood Culture - Final Escherichia Coli Esbl Archeologist Classical 09/28/18 10:48 Urine - Urine - Catheterized Urine Culture - Final Escherichia Coli Esbl Archeologist Classical Active Medications Acetaminophen (Tylenol Suppository -) 650 mg MT Q4H PRN PRN Reason: TEMP. OVER 101.5 Last Admin: 10/10/18 08:40 Dose: 650 mg Albuterol/Ipratropium (Duoneb -) 1 amp NEB RQID [facility] Last Admin: 10/10/18 11:24 Dose: 1 amp Atorvastatin Calcium (Lipitor -) 40 mg PO HS [facility] Last Admin: 10/09/18 23:08 Dose: Not Given Bupropion HCl (Wellbutrin -) 75 mg PO BID [facility] Last Admin: 10/10/18 10:33 Dose: 75 mg Folic Acid (Folic Acid -) 1 mg PO DAILY [facility] Last Admin: 10/10/18 10:31 Dose: 1 mg Gabapentin (Neurontin -) 600 mg PO HS [facility] Last Admin: 10/09/18 22:42 Dose: Not Given Sodium Chloride (Normal Saline -) 1,000 mls @ 50 mls/hr IV ASDIR [facility] Last Admin: 10/10/18 04:59 Dose: 50 mls/hr Meropenem 500 mg/ Dextrose 100 mls @ 200 mls/hr IVPB TID [facility] Last Admin: 10/10/18 05:04 Dose: 200 mls/hr Vancomycin HCl (Vancomycin (Pre-Docked)) 1,000 mg in 250 mls @ 166.667 mls/hr IVPB BID [facility]; Protocol Last Admin: 10/10/18 10:27 Dose: 166.667 mls/hr Mirtazapine (Remeron -) 7.5 mg PO HS [facility] Last Admin: 10/09/18 23:08 Dose: Not Given Multi-Ingredient Ointment (Zinc Oxide) 1 applic TP BID [facility] Last Admin: 10/10/18 10:35 Dose: 1 applic Multivitamins/Minerals/Vitamin C (Tab-A-Vit -) 1 tab PO DAILY [facility] Last Admin: 10/10/18 10:33 Dose: 1 tab Primidone (Mysoline -) 100 mg PO BID [facility] Last Admin: 10/10/18 10:32 Dose: 100 mg Propranolol HCl (Inderal La -) 120 mg PO DAILY [facility] Last Admin: 10/10/18 10:32 Dose: 120 mg assment / plan # febrile CT abd / pelvis - + lymphadenopathy unchanged since previous CT fever origin -- CLL ?vs Infection reculture as needed discuss with ID -- complete tx for ESBL # dementia with alteration to baseline treat infection neuro eval PT eval -- will need STR aspiration precautions for feeding swallow eval reviewed # ESBL in b/c and urine continue Abx per ID ID follow up appreciated # Lactic acidosis resolved # CLL untreated decreasing H/H / lymphadenopathy /fever Heme /onc consult son Addy called left voice message at [phone] Problem List - Problems (1) Altered mental status Code(s): R41.82 - ALTERED MENTAL STATUS, UNSPECIFIED (2) UTI (urinary tract infection) Code(s): N39.0 - URINARY TRACT INFECTION, SITE NOT SPECIFIED Qualifiers: Encounter type: initial encounter (3) Fever Code(s): R50.9 - FEVER, UNSPECIFIED (4) Dementia Code(s): F03.90 - UNSPECIFIED DEMENTIA WITHOUT BEHAVIORAL DISTURBANCE (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
--- NOTE | 2018-10-10 15:05 | CONSULT ---
Consult Consult Specialty:: Hematology-Oncology Referred by:: Dr. Malone Reason for Consultation:: CLL, continuous fevers - History of Present Illness Chief Complaint: Fever History of Present Illness: History obtained from chart review as pt nonverbal. 88 yr non-communicative [facility] resident with hx of untreated CLL(dx'd 2005 ), advanced dementia, seizure disorder s/p deep brain stimulation, HLD and hx of left pelvic fracture 07/2017 admitted for AMS from baseline and fever. She is being treated for gram negative bacteremia, sepsis secondary to ESBL source with ertapenem and vancomycin. Imaging and repeat BC culture unrevealing as source of continued fevers. 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 Musculoskeletal: Yes: Osteoarthritis - Alcohol/Substance Use Hx Alcohol Use: No - Smoking History Smoking history: Never smoked Have you smoked in the past 12 months: No - Social History ADL: Support Services History of Recent Travel: No Home Medications - Allergies Allergies/Adverse Reactions: Allergies Allergy/AdvReac Type Severity Reaction Status Date / Time No Known Allergies Allergy Verified 09/28/18 10:00 - Home Medications Home Medications: Ambulatory Orders Acetaminophen 500 mg PO TID 09/28/18 Bupropion HCl [Wellbutrin -] 75 mg PO BID 09/28/18 Cholecalciferol (Vitamin D3) [Vitamin D] 2,000 unit PO DAILY 09/28/18 Cyanocobalamin [Vitamin B12 -] 1,000 mcg PO DAILY 09/28/18 Folic Acid 1 mg PO DAILY 09/28/18 Folic Acid/Mv,Iron,Min/Lutein [Certa Plus Tablet] 1 each PO DAILY 09/28/18 Gabapentin 600 mg PO HS 09/28/18 Mirtazapine 3.75 mg PO HS 09/28/18 Mupirocin Calcium [Mupirocin] 30 gm TP PRN PRN 09/28/18 Primidone [Mysoline -] 100 mg PO BID 09/28/18 Simvastatin 20 mg PO HS 09/28/18 propRANOLol HCL [Inderal LA -] 120 mg PO DAILY 09/28/18 Review of Systems Unable to obtain ROS, reason: advanced dementia Physical Exam Vital Signs: Vital Signs Temperature 99.8 F H 10/10/18 10:26 Pulse Rate 66 10/10/18 08:41 Respiratory Rate 20 10/10/18 09:00 Blood Pressure 124/42 L 10/10/18 08:41 O2 Sat by Pulse Oximetry (%) 96 10/10/18 09:00 Constitutional: Yes: No Distress, Calm Eyes: Yes: Conjunctiva Clear HENT: Yes: Other (dry mucous membranes(pt breaths with her mouth open)) Neck: Yes: Supple, Trachea Midline Cardiovascular: Yes: Regular Rate and Rhythm Respiratory: Yes: Poor Air Entry Gastrointestinal: Yes: Normal Bowel Sounds, Soft Musculoskeletal: No: Joint Stiffness Edema: No Peripheral Pulses WNL: Yes Neurological: Yes: Pre-Existing Deficit. No: Alert, Oriented Labs: CBC, BMP 10/10/18 06:00 10/10/18 06:00 Assessment/Plan 88 yr old woman noncommunicative woman bedbound with advanced dementia and untreated CLL admitted for AMS from baseline and fevers. Problem List: untreated CLL fevers Gram negative bacteremia/ESBL advanced dementia A/P: chest ct with possible aspiration pna as cause of fevers continue abx as per ID As per chart review, CLL appears to be stable and treatment would not improve QOL
--- NOTE | 2018-10-10 18:35 | PN ---
Teaching Attending Note Name of Resident: Kavon Fowler ATTENDING PHYSICIAN STATEMENT I saw and evaluated the patient. I reviewed the resident's note and discussed the case with the resident. I agree with the resident's findings and plan as documented. ASSESSMENT AND PLAN: PAtient seen and examined with resident Kavon Fowler 88 yr old woman noncommunicative woman bed bound with advanced dementia and untreated CLL admitted for AMS from baseline and fevers. Now with ESBL bacteremia ? aspiration pneumonia continue supportive care /goals of care discussions CLL --stable
[2018-10-10] MEDS: ATORVASTATIN CA 40 MG TABLET (FP) PO SCH (23:12)
[2018-10-10] MEDS: MIRTAZAPINE 15 MG TABLET (FP) PO SCH (23:12)
[2018-10-10] MEDS: GABAPENTIN 300 MG CAPSULE (FP) PO SCH (23:12)
[2018-10-11] MEDS: ACETAMINOPHEN 650 MG SUPP.RECT PR PRN (01:49)
[2018-10-11] MEDS: MEROPENEM 500 MG in DEXTROSE 5%-WATER 100 ML IVPB SCH (05:37)
[2018-10-11] MEDS: SODIUM CHLORIDE 1,000 ML IV SCH ×2 (05:38→14:56)
[2018-10-11] MEDS: ALBUTEROL SO4 2.5/IPRATROPIUM 0.5 INH SOL 3 ML VIAL.NEB. NEB SCH ×4 (07:27→20:22)
[2018-10-11] MEDS: FOLIC ACID 1 MG TABLET (FP) PO SCH (09:30)
[2018-10-11] MEDS: MULTIVITAMINS (DAILY MVI) TABLET (FP) PO SCH (09:30)
[2018-10-11] MEDS: VANCOMYCIN 1 GRAM (PRE-DOCKED) 1,000 MG/250 ML BAG IVPB SCH ×2 (09:30→22:48)
[2018-10-11] MEDS: buPROPion HCL 75 MG TABLET PO SCH ×2 (09:32→22:49)
[2018-10-11] MEDS: PRIMIDONE 50 MG TABLET PO SCH ×2 (09:32→22:47)
[2018-10-11] MEDS: ZINC OXIDE 20% TOPICAL OINTMENT 30 GM TUBE TP SCH ×2 (09:34→22:49)
--- NOTE | 2018-10-11 12:08 | PN ---
Progress Note (short form) - Note Progress Note: 88 y/o female found sleeping comfortably. Had difficulty taking meds. Vital Signs Period Temp Pulse Resp BP Sys/Chapman Pulse Ox Last 24 Hr 97.9 F-102.6 F 58-66 20-20 114-142/42-53 96 CBC, BMP 10/10/18 06:00 10/10/18 06:00 HEENT- Normocephalic Neck-Supple Lungs- CTAB Heart- S1/S2 Abd- soft, NT Ext- No LE edema Active Medications Acetaminophen (Tylenol Suppository -) 650 mg [place] Q4H PRN PRN Reason: TEMP. OVER 101.5 Last Admin: 10/11/18 01:49 Dose: 650 mg Albuterol/Ipratropium (Duoneb -) 1 amp NEB RQID [facility] Last Admin: 10/11/18 07:27 Dose: Not Given Atorvastatin Calcium (Lipitor -) 40 mg PO HS [facility] Last Admin: 10/10/18 23:12 Dose: 40 mg Bupropion HCl (Wellbutrin -) 75 mg PO BID [facility] Last Admin: 10/11/18 09:32 Dose: 75 mg Folic Acid (Folic Acid -) 1 mg PO DAILY [facility] Last Admin: 10/11/18 09:30 Dose: 1 mg Gabapentin (Neurontin -) 600 mg PO HS [facility] Last Admin: 10/10/18 23:12 Dose: 600 mg Sodium Chloride (Normal Saline -) 1,000 mls @ 50 mls/hr IV ASDIR [facility] Last Admin: 10/11/18 05:38 Dose: 50 mls/hr Meropenem 500 mg/ Dextrose 100 mls @ 200 mls/hr IVPB TID [facility] Last Admin: 10/11/18 05:37 Dose: 200 mls/hr Vancomycin HCl (Vancomycin (Pre-Docked)) 1,000 mg in 250 mls @ 166.667 mls/hr IVPB BID [facility]; Protocol Last Admin: 10/11/18 09:30 Dose: 166.667 mls/hr Mirtazapine (Remeron -) 7.5 mg PO HS [facility] Last Admin: 10/10/18 23:12 Dose: 7.5 mg Multi-Ingredient Ointment (Zinc Oxide) 1 applic TP BID [facility] Last Admin: 10/11/18 09:34 Dose: 1 applic Multivitamins/Minerals/Vitamin C (Tab-A-Vit -) 1 tab PO DAILY [facility] Last Admin: 10/11/18 09:30 Dose: 1 tab Primidone (Mysoline -) 100 mg PO BID [facility] Last Admin: 10/11/18 09:32 Dose: 100 mg Propranolol HCl (Inderal La -) 120 mg PO DAILY [facility] Last Admin: 10/11/18 09:32 Dose: 120 mg assment / plan # febrile Continue Tylenol suppository CT abd / pelvis - + lymphadenopathy unchanged since previous CT fever origin -- CLL ?vs Infection complete tx for ESBL # dementia with alteration to baseline treat infection will need STR aspiration precautions for feeding Req speech re-assess due to diff swallowing meds # ESBL in b/c and urine continue Abx per ID # CLL untreated decreasing H/H / lymphadenopathy /fever Heme /onc consult appreciated Problem List - Problems (1) Altered mental status Code(s): R41.82 - ALTERED MENTAL STATUS, UNSPECIFIED (2) UTI (urinary tract infection) Code(s): N39.0 - URINARY TRACT INFECTION, SITE NOT SPECIFIED Qualifiers: Encounter type: initial encounter (3) Fever Code(s): R50.9 - FEVER, UNSPECIFIED (4) Dementia Code(s): F03.90 - UNSPECIFIED DEMENTIA WITHOUT BEHAVIORAL DISTURBANCE (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
--- NOTE | 2018-10-11 14:34 | PN ---
Progress Note, Physician History of Present Illness: Awake, eyes open. Answers no when asked about pain No acute distress Braething non labored on nasal cannula Febrile overnight 102.6 Repeat cultures no growth CT chest +pleural effusions, compressive atelectasis - Current Medication List Current Medications: Active Medications Acetaminophen (Tylenol Suppository -) 650 mg [place] Q4H PRN PRN Reason: TEMP. OVER 101.5 Last Admin: 10/11/18 01:49 Dose: 650 mg Albuterol/Ipratropium (Duoneb -) 1 amp NEB RQID [facility] Last Admin: 10/11/18 12:09 Dose: 1 amp Atorvastatin Calcium (Lipitor -) 40 mg PO HS [facility] Last Admin: 10/10/18 23:12 Dose: 40 mg Bupropion HCl (Wellbutrin -) 75 mg PO BID [facility] Last Admin: 10/11/18 09:32 Dose: 75 mg Folic Acid (Folic Acid -) 1 mg PO DAILY [facility] Last Admin: 10/11/18 09:30 Dose: 1 mg Gabapentin (Neurontin -) 600 mg PO HS [facility] Last Admin: 10/10/18 23:12 Dose: 600 mg Sodium Chloride (Normal Saline -) 1,000 mls @ 50 mls/hr IV ASDIR [facility] Last Admin: 10/11/18 05:38 Dose: 50 mls/hr Meropenem 500 mg/ Dextrose 100 mls @ 200 mls/hr IVPB TID [facility] Last Admin: 10/11/18 05:37 Dose: 200 mls/hr Vancomycin HCl (Vancomycin (Pre-Docked)) 1,000 mg in 250 mls @ 166.667 mls/hr IVPB BID [facility]; Protocol Last Admin: 10/11/18 09:30 Dose: 166.667 mls/hr Mirtazapine (Remeron -) 7.5 mg PO HS [facility] Last Admin: 10/10/18 23:12 Dose: 7.5 mg Multi-Ingredient Ointment (Zinc Oxide) 1 applic TP BID [facility] Last Admin: 10/11/18 09:34 Dose: 1 applic Multivitamins/Minerals/Vitamin C (Tab-A-Vit -) 1 tab PO DAILY [facility] Last Admin: 10/11/18 09:30 Dose: 1 tab Primidone (Mysoline -) 100 mg PO BID [facility] Last Admin: 10/11/18 09:32 Dose: 100 mg Propranolol HCl (Inderal La -) 120 mg PO DAILY [facility] Last Admin: 10/11/18 09:32 Dose: 120 mg - Objective Vital Signs: Vital Signs Temperature 98.9 F 10/11/18 09:00 Pulse Rate 56 L 10/11/18 09:00 Respiratory Rate 20 10/11/18 09:00 Blood Pressure 104/50 L 10/11/18 09:00 O2 Sat by Pulse Oximetry (%) 98 10/11/18 09:00 Constitutional: Yes: No Distress, Obese Cardiovascular: Yes: Regular Rate and Rhythm, S2, S3 Respiratory: Yes: Diminished Gastrointestinal: Yes: Normal Bowel Sounds, Soft. No: Tenderness Edema: No Labs: CBC, BMP 10/10/18 06:00 10/10/18 06:00 INR, PTT INR 1.15 (0.83-1.09) H 09/28/18 10:36 Assessment/Plan Gram Negative bacteremia/ sepsis secondary to source ESBL S/P course of meropenem/ ertapenem Recurrent fever ? aspiration ? atelectasis ? Drug fever Toxic metabolic encephalopathy CLL Repeat BC pending D/C meropenem Substitute zosyn for possible aspiration If continued fever reculture off antibiotics Discussed with family member Dr [place] by phone - updated
--- NOTE | 2018-10-11 14:46 | PN ---
Progress Note, MANAGER LAW - Note Progress Note: Selected Entries 10/07/18 10/07/18 10/07/18 01:00 05:00 09:00 Breakfast Lunch Supper Temperature 98.5 F 98.4 F 99 F 10/07/18 10/07/18 10/07/18 09:33 13:30 13:47 Breakfast 50% Lunch 25% Supper Temperature 97.9 F 97.8 F 10/07/18 10/07/18 10/07/18 17:00 22:00 23:00 Breakfast Lunch Supper 25% Temperature 97.2 F L 101.9 F H 99.6 F 10/08/18 10/08/18 10/08/18 01:00 05:00 09:00 Breakfast Lunch Supper Temperature 98.5 F 98.4 F 98.2 F Selected Entries 10/08/18 10/08/18 10/08/18 01:00 05:00 09:00 Breakfast Lunch Temperature 98.5 F 98.4 F 98.2 F Pulse Rate 10/08/18 10/08/18 10/08/18 14:26 15:15 17:34 Breakfast Lunch Temperature 102 F H 100.1 F H 99.7 F H Pulse Rate 10/08/18 10/09/18 10/09/18 22:00 01:33 06:00 Breakfast Lunch Temperature 101.4 F H 100.7 F H 99.2 F Pulse Rate 10/09/18 10/09/18 10/09/18 09:31 10:00 14:04 Breakfast 25% Lunch 25% Temperature 99.6 F 97.6 F Pulse Rate 10/09/18 10/09/18 10/09/18 18:54 21:00 22:00 Breakfast Lunch Temperature 102.9 F H 98.9 F 98.6 F Pulse Rate 10/10/18 10/10/18 10/10/18 02:00 06:00 08:41 Breakfast Lunch Temperature 97.8 F 98.3 F 101.6 F H Pulse Rate 10/10/18 10/10/18 10/10/18 10:12 10:26 15:06 Breakfast 0 Lunch 0 Temperature 99.8 F H 98.4 F Pulse Rate 10/10/18 10/10/18 10/11/18 17:28 21:00 01:00 Breakfast Lunch Temperature 97.9 F 98 F Pulse Rate 64 10/11/18 10/11/18 05:00 09:00 Breakfast Lunch Temperature Pulse Rate 60 56 L Laboratory Tests 10/07/18 10/09/18 10/10/18 06:00 06:00 06:00 WBC 36.4 H* 31.7 H* 33.7 H* [address] noted. Performance unchanged. Lethargic, tolerating very small amounts mainly when taking medication. Pt is a full code. Palliative care regarding pt's end of life wishes. TF?
[2018-10-11] MEDS ORDERED: PIPERACILLIN/TAZOBACTAM 3.375 GM VIAL IVPB ONE (14:57)
[2018-10-11] MEDS ORDERED: DEXTROSE 5%-WATER - 50 ML IVPB ONE (14:58)
[2018-10-11] MEDS: PIPERACILLIN/TAZOB 3.375 GM 3.375 GM in DEXTROSE 5%-WATER - 50 ML IVPB SCH (15:00)
[2018-10-11] MEDS ORDERED: AMINO ACIDS 4.25%/D5W 1,000 ML IV SCH (18:45)
[2018-10-11] MEDS: ATORVASTATIN CA 40 MG TABLET (FP) PO SCH (22:47)
[2018-10-11] MEDS: MIRTAZAPINE 15 MG TABLET (FP) PO SCH (22:48)
[2018-10-11] MEDS: GABAPENTIN 300 MG CAPSULE (FP) PO SCH (22:48)
[2018-10-12] MEDS ORDERED: DEXTROSE 5%-WATER - 50 ML IVPB ONE ×3 (00:45→18:06)
[2018-10-12] MEDS ORDERED: PIPERACILLIN/TAZOBACTAM 3.375 GM VIAL IVPB ONE ×3 (00:45→18:05)
[2018-10-12] MEDS: PIPERACILLIN/TAZOB 3.375 GM 3.375 GM in DEXTROSE 5%-WATER - 50 ML IVPB SCH ×3 (01:16→18:16)
[2018-10-12 07:50] LABS: BASO % 0.6 % (0-2.0); EOS % 0.9 % (0-4.5); HEMATOCRIT 23.3 % (32.4-45.2); HEMOGLOBIN 7.3 GM/dL (10.7-15.3); LYMPH % 75.6 % (8-40); MCH 28.6 pg (25.7-33.7); MCHC 31.5 g/dl (32.0-36.0); MEAN CELL VOLUME 90.7 fl (80-96); MEAN PLT VOLUME 7.8 fl (7.5-11.1); MONO % 2.9 % (3.8-10.2); PLATELET COUNT 496 K/MM3 (134-434); RBC 2.56 M/mm3 (3.60-5.2); RDW 14.3 % (11.6-15.6)
[2018-10-12 08:05] LABS: WHITE BLOOD COUNT 31.2 K/mm3 (4.0-10.0)
[2018-10-12 08:15] LABS: ANION GAP 7 MMOL/L (8-16); BLOOD UREA NITROGEN 21 mg/dL (7-18); CALCIUM 7.7 mg/dL (8.5-10.1); CHLORIDE 104 mmol/L (98-107); CO2 29 mmol/L (21-32); CREATININE 1.1 mg/dL (0.55-1.3); GLUCOSE,RANDOM 92 mg/dL (74-106); POTASSIUM 3.5 mmol/L (3.5-5.1); SODIUM 140 mmol/L (136-145)
[2018-10-12] MEDS: ALBUTEROL SO4 2.5/IPRATROPIUM 0.5 INH SOL 3 ML VIAL.NEB. NEB SCH ×4 (08:58→20:45)
[2018-10-12] MEDS: MULTIVITAMINS (DAILY MVI) TABLET (FP) PO SCH (11:18)
[2018-10-12] MEDS: FOLIC ACID 1 MG TABLET (FP) PO SCH (11:18)
[2018-10-12] MEDS: PRIMIDONE 50 MG TABLET PO SCH ×2 (11:19→23:38)
[2018-10-12] MEDS: buPROPion HCL 75 MG TABLET PO SCH ×2 (11:20→23:39)
[2018-10-12] MEDS: VANCOMYCIN 1 GRAM (PRE-DOCKED) 1,000 MG/250 ML BAG IVPB SCH ×2 (11:22→23:39)
[2018-10-12] MEDS: ZINC OXIDE 20% TOPICAL OINTMENT 30 GM TUBE TP SCH ×2 (11:43→23:39)
[2018-10-12 12:20] LABS: ANISOCYTOSIS 1+; MACROCYTOSIS 0; PLATELET ESTIMATE INCREASED
--- NOTE | 2018-10-12 13:14 | PN ---
Progress Note, Physician History of Present Illness: Awake, eyes open. Smiles Indicates no when asked about pain No acute distress Braething non labored on nasal cannula Febrile overnight 101 Repeat cultures no growth CT chest +pleural effusions, compressive atelectasis - Current Medication List Current Medications: Active Medications Acetaminophen (Tylenol Suppository -) 650 mg VT Q4H PRN PRN Reason: TEMP. OVER 101.5 Last Admin: 10/11/18 01:49 Dose: 650 mg Albuterol/Ipratropium (Duoneb -) 1 amp NEB RQID [facility] Last Admin: 10/12/18 12:29 Dose: 1 amp Atorvastatin Calcium (Lipitor -) 40 mg PO HS [facility] Last Admin: 10/11/18 22:47 Dose: Not Given Bupropion HCl (Wellbutrin -) 75 mg PO BID [facility] Last Admin: 10/12/18 11:20 Dose: 75 mg Folic Acid (Folic Acid -) 1 mg PO DAILY [facility] Last Admin: 10/12/18 11:18 Dose: 1 mg Gabapentin (Neurontin -) 600 mg PO HS [facility] Last Admin: 10/11/18 22:48 Dose: Not Given Vancomycin HCl (Vancomycin (Pre-Docked)) 1,000 mg in 250 mls @ 166.667 mls/hr IVPB BID [facility]; Protocol Last Admin: 10/12/18 11:22 Dose: 166.667 mls/hr Piperacillin Sod/Tazobactam (Sod 3.375 gm/ Dextrose) 50 mls @ 100 mls/hr IVPB Q8H-IV [facility]; Protocol Last Admin: 10/12/18 11:21 Dose: 100 mls/hr Amino Acids (Clinimix -) 1,000 mls @ 42 mls/hr IV Q24H [facility] Mirtazapine (Remeron -) 7.5 mg PO HS [facility] Last Admin: 10/11/18 22:48 Dose: Not Given Multi-Ingredient Ointment (Zinc Oxide) 1 applic TP BID [facility] Last Admin: 10/11/18 22:49 Dose: 1 applic Multivitamins/Minerals/Vitamin C (Tab-A-Vit -) 1 tab PO DAILY [facility] Last Admin: 10/12/18 11:18 Dose: 1 tab Primidone (Mysoline -) 100 mg PO BID [facility] Last Admin: 10/12/18 11:19 Dose: 100 mg Propranolol HCl (Inderal La -) 120 mg PO DAILY [facility] Last Admin: 10/12/18 11:19 Dose: 120 mg - Objective Vital Signs: Vital Signs Temperature 98.9 F 10/12/18 07:00 Pulse Rate 62 10/12/18 07:00 Respiratory Rate 20 10/12/18 07:00 Blood Pressure 107/44 L 10/12/18 07:00 O2 Sat by Pulse Oximetry (%) 98 10/11/18 09:00 Constitutional: Yes: No Distress Eyes: Yes: Conjunctiva Clear Cardiovascular: Yes: Regular Rate and Rhythm Respiratory: Yes: Other (few crepitations at bases) Gastrointestinal: Yes: Normal Bowel Sounds, Soft. No: Tenderness Edema: Yes Labs: CBC, BMP 10/12/18 06:15 10/12/18 06:15 INR, PTT INR 1.15 (0.83-1.09) H 09/28/18 10:36 Assessment/Plan Gram Negative bacteremia/ sepsis secondary to source ESBL S/P course of meropenem/ ertapenem Recurrent fever ? aspiration ? atelectasis ? Drug fever Toxic metabolic encephalopathy CLL Repeat BC no growth Continue zosyn for possible aspiration If continued fever reculture off antibiotics Discussed with family member Dr Montana by phone - updated yesterday
[2018-10-12] MEDS: ACETAMINOPHEN 650 MG SUPP.RECT PR PRN (17:43)
[2018-10-12] MEDS: GABAPENTIN 300 MG CAPSULE (FP) PO SCH (23:38)
[2018-10-12] MEDS: MIRTAZAPINE 15 MG TABLET (FP) PO SCH (23:38)
[2018-10-12] MEDS: ATORVASTATIN CA 40 MG TABLET (FP) PO SCH (23:39)
[2018-10-12] MEDS: NYSTATIN 100000 UNIT/GM TOPICAL OINTMENT 15 GM TUBE TP SCH (23:39)
[2018-10-13] MEDS ORDERED: PIPERACILLIN/TAZOBACTAM 3.375 GM VIAL IVPB ONE ×2 (01:03→08:42)
[2018-10-13] MEDS ORDERED: DEXTROSE 5%-WATER - 50 ML IVPB ONE ×2 (01:04→08:42)
--- NOTE | 2018-10-13 01:08 | PN ---
Progress Note (short form) - Note Progress Note: lethargic / febrile responds to verbal stimuli more alert today now on IV nutrition CT of abd / pelvis done -- no significant new findings remains febrile, Source ? Vital Signs Period Temp Pulse Resp BP Sys/Chapman Pulse Ox Last 24 Hr 97.6 F-102.9 F 59-73 18-20 124-144/42-57 96-97 neck supple heart s1/s2 lungs clear bilat abd soft / mildly distended /non tender ext no edema CBC, BMP 10/10/18 06:00 10/10/18 06:00 CBC, BMP 10/09/18 06:00 10/09/18 06:00 CBC, BMP 10/07/18 06:00 10/07/18 06:00 CBC, BMP 10/05/18 06:00 10/05/18 06:00 Microbiology 10/08/18 18:30 Blood - Peripheral Venous Blood Culture - Preliminary NO GROWTH OBTAINED AFTER 24 HOURS, INCUBATION TO CONTINUE FOR 4 DAYS. 10/08/18 16:20 Blood - Peripheral Venous Blood Culture - Preliminary NO GROWTH OBTAINED AFTER 24 HOURS, INCUBATION TO CONTINUE FOR 4 DAYS. 10/03/18 06:30 Blood - Peripheral Venous Blood Culture - Final NO GROWTH AFTER 5 DAYS INCUBATION 10/03/18 06:15 Blood - Peripheral Venous Blood Culture - Final NO GROWTH AFTER 5 DAYS INCUBATION 09/28/18 10:20 Blood - Peripheral Venous Blood Culture - Final Lactose Fermenting Neg Bacilli 09/28/18 10:36 Blood - Peripheral Venous Blood Culture - Final Escherichia Coli Esbl Electrification Adviser 09/28/18 10:48 Urine - Urine - Catheterized Urine Culture - Final Escherichia Coli Esbl Electrification Adviser Active Medications Acetaminophen (Tylenol Suppository -) 650 mg SC Q4H PRN PRN Reason: TEMP. OVER 101.5 Last Admin: 10/10/18 08:40 Dose: 650 mg Albuterol/Ipratropium (Duoneb -) 1 amp NEB RQID [facility] Last Admin: 10/10/18 11:24 Dose: 1 amp Atorvastatin Calcium (Lipitor -) 40 mg PO HS [facility] Last Admin: 10/09/18 23:08 Dose: Not Given Bupropion HCl (Wellbutrin -) 75 mg PO BID [facility] Last Admin: 10/10/18 10:33 Dose: 75 mg Folic Acid (Folic Acid -) 1 mg PO DAILY [facility] Last Admin: 10/10/18 10:31 Dose: 1 mg Gabapentin (Neurontin -) 600 mg PO HS [facility] Last Admin: 10/09/18 22:42 Dose: Not Given Sodium Chloride (Normal Saline -) 1,000 mls @ 50 mls/hr IV ASDIR [facility] Last Admin: 10/10/18 04:59 Dose: 50 mls/hr Meropenem 500 mg/ Dextrose 100 mls @ 200 mls/hr IVPB TID [facility] Last Admin: 10/10/18 05:04 Dose: 200 mls/hr Vancomycin HCl (Vancomycin (Pre-Docked)) 1,000 mg in 250 mls @ 166.667 mls/hr IVPB BID [facility]; Protocol Last Admin: 10/10/18 10:27 Dose: 166.667 mls/hr Mirtazapine (Remeron -) 7.5 mg PO HS [facility] Last Admin: 10/09/18 23:08 Dose: Not Given Multi-Ingredient Ointment (Zinc Oxide) 1 applic TP BID [facility] Last Admin: 10/10/18 10:35 Dose: 1 applic Multivitamins/Minerals/Vitamin C (Tab-A-Vit -) 1 tab PO DAILY [facility] Last Admin: 10/10/18 10:33 Dose: 1 tab Primidone (Mysoline -) 100 mg PO BID [facility] Last Admin: 10/10/18 10:32 Dose: 100 mg Propranolol HCl (Inderal La -) 120 mg PO DAILY [facility] Last Admin: 10/10/18 10:32 Dose: 120 mg assment / plan # febrile CT abd / pelvis - + lymphadenopathy unchanged since previous CT fever origin -- CLL ?vs Infection reculture as needed discuss with ID -- complete tx for ESBL # dementia with alteration to baseline treat infection neuro eval PT eval -- will need STR aspiration precautions for feeding swallow eval reviewed # ESBL in b/c and urine continue Abx per ID ID follow up appreciated # Lactic acidosis resolved # CLL untreated decreasing H/H / lymphadenopathy /fever Heme /onc consult son Addy called left voice message at [phone] case discussed with son considerations for DNR DNI status Problem List - Problems (1) Altered mental status Code(s): R41.82 - ALTERED MENTAL STATUS, UNSPECIFIED (2) UTI (urinary tract infection) Code(s): N39.0 - URINARY TRACT INFECTION, SITE NOT SPECIFIED Qualifiers: Encounter type: initial encounter (3) Fever Code(s): R50.9 - FEVER, UNSPECIFIED (4) Dementia Code(s): F03.90 - UNSPECIFIED DEMENTIA WITHOUT BEHAVIORAL DISTURBANCE (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
[2018-10-13] MEDS: PIPERACILLIN/TAZOB 3.375 GM 3.375 GM in DEXTROSE 5%-WATER - 50 ML IVPB SCH ×2 (02:18→10:33)
[2018-10-13] MEDS: AMINO ACIDS 4.25%/D5W 1,000 ML IV SCH (02:49)
[2018-10-13] MEDS: ACETAMINOPHEN 650 MG SUPP.RECT PR PRN ×2 (06:56→18:00)
[2018-10-13] MEDS: ALBUTEROL SO4 2.5/IPRATROPIUM 0.5 INH SOL 3 ML VIAL.NEB. NEB SCH ×4 (08:14→19:42)
[2018-10-13] MEDS: VANCOMYCIN 1 GRAM (PRE-DOCKED) 1,000 MG/250 ML BAG IVPB SCH ×2 (10:35→22:45)
[2018-10-13] MEDS: PRIMIDONE 50 MG TABLET PO SCH ×2 (10:37→22:54)
[2018-10-13] MEDS: NYSTATIN 100000 UNIT/GM TOPICAL OINTMENT 15 GM TUBE TP SCH (10:38)
[2018-10-13] MEDS: buPROPion HCL 75 MG TABLET PO SCH ×2 (10:38→22:54)
[2018-10-13] MEDS: MULTIVITAMINS (DAILY MVI) TABLET (FP) PO SCH (10:38)
[2018-10-13] MEDS: FOLIC ACID 1 MG TABLET (FP) PO SCH (10:38)
[2018-10-13] MEDS: ZINC OXIDE 20% TOPICAL OINTMENT 30 GM TUBE TP SCH ×2 (10:39→22:54)
--- NOTE | 2018-10-13 14:18 | PN ---
Progress Note, Physician History of Present Illness: Recurrent high grade fever More lethargic today Indicates no when asked about pain No acute distress Breathing non labored Repeat cultures no growth CT chest +pleural effusions, compressive atelectasis/ consolidations - Current Medication List Current Medications: Active Medications Acetaminophen (Tylenol Suppository -) 650 mg SD Q4H PRN PRN Reason: TEMP. OVER 101.5 Last Admin: 10/13/18 06:56 Dose: 650 mg Albuterol/Ipratropium (Duoneb -) 1 amp NEB RQID [facility] Last Admin: 10/13/18 12:24 Dose: 1 amp Atorvastatin Calcium (Lipitor -) 40 mg PO HS [facility] Last Admin: 10/12/18 23:39 Dose: Not Given Bupropion HCl (Wellbutrin -) 75 mg PO BID [facility] Last Admin: 10/13/18 10:38 Dose: 75 mg Folic Acid (Folic Acid -) 1 mg PO DAILY [facility] Last Admin: 10/13/18 10:38 Dose: 1 mg Gabapentin (Neurontin -) 600 mg PO HS [facility] Last Admin: 10/12/18 23:38 Dose: Not Given Vancomycin HCl (Vancomycin (Pre-Docked)) 1,000 mg in 250 mls @ 166.667 mls/hr IVPB BID [facility]; Protocol Last Admin: 10/13/18 10:35 Dose: 166.667 mls/hr Piperacillin Sod/Tazobactam (Sod 3.375 gm/ Dextrose) 50 mls @ 100 mls/hr IVPB Q8H-IV [facility]; Protocol Last Admin: 10/13/18 10:33 Dose: 100 mls/hr Amino Acids (Clinimix -) 1,000 mls @ 42 mls/hr IV Q24H [facility] Last Admin: 10/13/18 02:49 Dose: 42 mls/hr Mirtazapine (Remeron -) 7.5 mg PO HS [facility] Last Admin: 10/12/18 23:38 Dose: Not Given Multi-Ingredient Ointment (Zinc Oxide) 1 applic TP BID [facility] Last Admin: 10/13/18 10:39 Dose: Not Given Multivitamins/Minerals/Vitamin C (Tab-A-Vit -) 1 tab PO DAILY [facility] Last Admin: 10/13/18 10:38 Dose: 1 tab Nystatin (Mycostatin Ointment -) 1 applic TP DAILY [facility] Last Admin: 10/13/18 10:38 Dose: 1 applic Primidone (Mysoline -) 100 mg PO BID [facility] Last Admin: 10/13/18 10:37 Dose: 100 mg Propranolol HCl (Inderal La -) 120 mg PO DAILY [facility] Last Admin: 10/13/18 10:43 Dose: 120 mg - Objective Vital Signs: Vital Signs Temperature 99.8 F H 10/12/18 22:00 Pulse Rate 56 L 10/13/18 06:00 Respiratory Rate 20 10/13/18 06:00 Blood Pressure 141/49 L 10/13/18 06:00 O2 Sat by Pulse Oximetry (%) 96 10/12/18 21:00 Constitutional: Yes: No Distress, Obese Eyes: Yes: Conjunctiva Clear Cardiovascular: Yes: Regular Rate and Rhythm, S1, S2 Respiratory: Yes: Diminished Gastrointestinal: Yes: Normal Bowel Sounds, Soft, Abdomen, Obese. No: Tenderness Edema: Yes Labs: CBC, BMP 10/12/18 06:15 10/12/18 06:15 INR, PTT INR 1.15 (0.83-1.09) H 09/28/18 10:36 Assessment/Plan Gram Negative bacteremia/ sepsis secondary to source ESBL S/P course of meropenem/ ertapenem Recurrent fever ? aspiration ? atelectasis ? Drug fever Toxic metabolic encephalopathy CLL Repeat BC no growth In light of persistant fever will D/C antibiotics reculture off Obtain ESR CRP
--- NOTE | 2018-10-13 15:55 | PN ---
Progress Note (short form) - Note Progress Note: awake / interactive / febrile responds to verbal stimuli more alert today now on IV nutrition Vital Signs Period Temp Pulse Resp BP Sys/Chapman Pulse Ox Last 24 Hr 99.8 F-103 F 56-66 20-20 121-141/44-59 96 Vital Signs Period Temp Pulse Resp BP Sys/Chapman Pulse Ox Last 24 Hr 97.6 F-102.9 F 59-73 18-20 124-144/42-57 96-97 neck supple heart s1/s2 lungs clear bilat abd soft / mildly distended /non tender ext no edema CBC, BMP 10/12/18 06:15 10/12/18 06:15 CBC, BMP 10/10/18 06:00 10/10/18 06:00 CBC, BMP 10/09/18 06:00 10/09/18 06:00 Microbiology 10/09/18 06:00 Blood - Peripheral Venous Blood Culture - Preliminary NO GROWTH OBTAINED AFTER 72 HOURS, INCUBATION TO CONTINUE FOR 2 DAYS. 10/09/18 06:15 Blood - Peripheral Venous Blood Culture - Preliminary NO GROWTH OBTAINED AFTER 72 HOURS, INCUBATION TO CONTINUE FOR 2 DAYS. 10/08/18 18:30 Blood - Peripheral Venous Blood Culture - Preliminary NO GROWTH OBTAINED AFTER 96 HOURS, INCUBATION TO CONTINUE FOR 1 DAYS. 10/08/18 16:20 Blood - Peripheral Venous Blood Culture - Preliminary NO GROWTH OBTAINED AFTER 96 HOURS, INCUBATION TO CONTINUE FOR 1 DAYS. 10/03/18 06:30 Blood - Peripheral Venous Blood Culture - Final NO GROWTH AFTER 5 DAYS INCUBATION 10/03/18 06:15 Blood - Peripheral Venous Blood Culture - Final NO GROWTH AFTER 5 DAYS INCUBATION 09/28/18 10:20 Blood - Peripheral Venous Blood Culture - Final Lactose Fermenting Neg Bacilli 09/28/18 10:36 Blood - Peripheral Venous Blood Culture - Final Escherichia Coli Esbl [employer] 09/28/18 10:48 Urine - Urine - Catheterized Urine Culture - Final Escherichia Coli Esbl [employer] Active Medications Acetaminophen (Tylenol Suppository -) 650 mg VT Q4H PRN PRN Reason: TEMP. OVER 101.5 Last Admin: 10/13/18 06:56 Dose: 650 mg Albuterol/Ipratropium (Duoneb -) 1 amp NEB RQID [facility] Last Admin: 10/13/18 12:24 Dose: 1 amp Atorvastatin Calcium (Lipitor -) 40 mg PO HS [facility] Last Admin: 10/12/18 23:39 Dose: Not Given Bupropion HCl (Wellbutrin -) 75 mg PO BID [facility] Last Admin: 10/13/18 10:38 Dose: 75 mg Folic Acid (Folic Acid -) 1 mg PO DAILY [facility] Last Admin: 10/13/18 10:38 Dose: 1 mg Gabapentin (Neurontin -) 600 mg PO [facility] Last Admin: 10/12/18 23:38 Dose: Not Given Vancomycin HCl (Vancomycin (Pre-Docked)) 1,000 mg in 250 mls @ 166.667 mls/hr IVPB BID [facility]; Protocol Last Admin: 10/13/18 10:35 Dose: 166.667 mls/hr Amino Acids (Clinimix -) 1,000 mls @ 42 mls/hr IV Q24H [facility] Last Admin: 10/13/18 02:49 Dose: 42 mls/hr Mirtazapine (Remeron -) 7.5 mg PO [facility] Last Admin: 10/12/18 23:38 Dose: Not Given Multi-Ingredient Ointment (Zinc Oxide) 1 applic TP BID [facility] Last Admin: 10/13/18 10:39 Dose: Not Given Multivitamins/Minerals/Vitamin C (Tab-A-Vit -) 1 tab PO DAILY [facility] Last Admin: 10/13/18 10:38 Dose: 1 tab Nystatin (Mycostatin Ointment -) 1 applic TP DAILY [facility] Last Admin: 10/13/18 10:38 Dose: 1 applic Primidone (Mysoline -) 100 mg PO BID [facility] Last Admin: 10/13/18 10:37 Dose: 100 mg Propranolol HCl (Inderal La -) 120 mg PO DAILY [facility] Last Admin: 10/13/18 10:43 Dose: 120 mg assment / plan # febrile CT abd / pelvis - + lymphadenopathy unchanged since previous CT fever origin -- CLL ?vs Infection reculture as needed discuss with ID -- will d/c all abx drug fever # dementia with alteration to baseline neuro eval PT eval -- will need STR aspiration precautions for feeding swallow eval reviewed # ESBL in b/c and urine continue Abx per ID ID follow up appreciated # CLL untreated decreasing H/H / lymphadenopathy /fever Heme /onc consult family informed nursing staff request for Do Not resuscitate and DO not intubate orders signed and placed on EMR Problem List - Problems (1) Altered mental status Code(s): R41.82 - ALTERED MENTAL STATUS, UNSPECIFIED (2) UTI (urinary tract infection) Code(s): N39.0 - URINARY TRACT INFECTION, SITE NOT SPECIFIED Qualifiers: Encounter type: initial encounter (3) Fever Code(s): R50.9 - FEVER, UNSPECIFIED (4) Dementia Code(s): F03.90 - UNSPECIFIED DEMENTIA WITHOUT BEHAVIORAL DISTURBANCE (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
[2018-10-13] MEDS: NYSTATIN POWDER 100,000 UNITS/GM - 15 GM TOPICAL POWDER TP SCH ×2 (22:52→22:58)
[2018-10-13] MEDS: GABAPENTIN 300 MG CAPSULE (FP) PO SCH (22:54)
[2018-10-13] MEDS: MIRTAZAPINE 15 MG TABLET (FP) PO SCH (22:54)
[2018-10-13] MEDS: ATORVASTATIN CA 40 MG TABLET (FP) PO SCH (22:55)
[2018-10-14] MEDS: AMINO ACIDS 4.25%/D5W 1,000 ML IV SCH ×2 (02:49→22:56)
[2018-10-14 08:32] LABS: BASO % 0.4 % (0-2.0); EOS % 1.3 % (0-4.5); HEMATOCRIT 28.5 % (32.4-45.2); LYMPH % 76.3 % (8-40); MCH 28.3 pg (25.7-33.7); MCHC 31.6 g/dl (32.0-36.0); MEAN CELL VOLUME 89.6 fl (80-96); MEAN PLT VOLUME 7.6 fl (7.5-11.1); MONO % 2.8 % (3.8-10.2); NEUT % 19.2 % (42.8-82.8); PLATELET COUNT 566 K/MM3 (134-434); RBC 3.18 M/mm3 (3.60-5.2); RDW 14.8 % (11.6-15.6)
[2018-10-14 08:43] LABS: WHITE BLOOD COUNT 38.8 K/mm3 (4.0-10.0)
[2018-10-14 09:13] LABS: ANION GAP 9 MMOL/L (8-16); BLOOD UREA NITROGEN 27 mg/dL (7-18); CALCIUM 8.2 mg/dL (8.5-10.1); CHLORIDE 103 mmol/L (98-107); CO2 27 mmol/L (21-32); CREATININE 1.2 mg/dL (0.55-1.3); GLUCOSE,RANDOM 109 mg/dL (74-106); POTASSIUM 3.3 mmol/L (3.5-5.1); SODIUM 139 mmol/L (136-145)
[2018-10-14] MEDS: MULTIVITAMINS (DAILY MVI) TABLET (FP) PO SCH (10:04)
[2018-10-14] MEDS: FOLIC ACID 1 MG TABLET (FP) PO SCH (10:04)
[2018-10-14] MEDS: PRIMIDONE 50 MG TABLET PO SCH ×2 (10:04→22:55)
[2018-10-14] MEDS: buPROPion HCL 75 MG TABLET PO SCH ×2 (10:05→22:56)
[2018-10-14] MEDS: VANCOMYCIN 1 GRAM (PRE-DOCKED) 1,000 MG/250 ML BAG IVPB SCH (10:05)
[2018-10-14] MEDS: ZINC OXIDE 20% TOPICAL OINTMENT 30 GM TUBE TP SCH ×2 (10:05→23:04)
[2018-10-14] MEDS: NYSTATIN POWDER 100,000 UNITS/GM - 15 GM TOPICAL POWDER TP SCH ×2 (10:05→23:00)
--- NOTE | 2018-10-14 10:05 | PN ---
Progress Note (short form) - Note Progress Note: awake / interactive / afebrile this am last fever last night T max 102 responding to verbal stimuli and following simple commands more alert today now on IV nutrition Vital Signs Period Temp Pulse Resp BP Sys/Chapman Pulse Ox Last 24 Hr 98.8 F-101.9 F 60-68 20-24 121-143/44-58 96 Vital Signs Period Temp Pulse Resp BP Sys/Chapman Pulse Ox Last 24 Hr 99.8 F-103 F 56-66 20-20 121-141/44-59 96 2 Vital Signs Period Temp Pulse Resp BP Sys/Chapman Pulse Ox Last 24 Hr 97.6 F-102.9 F 59-73 18-20 124-144/42-57 96-97 neck supple heart s1/s2 lungs clear bilat abd soft / mildly distended /non tender excoriation gluteal area ext no edema CBC, BMP 10/14/18 07:00 10/14/18 07:00 CBC, BMP 10/12/18 06:15 10/12/18 06:15 Microbiology 10/09/18 06:00 Blood - Peripheral Venous Blood Culture - Preliminary NO GROWTH OBTAINED AFTER 96 HOURS, INCUBATION TO CONTINUE FOR 1 DAYS. 10/09/18 06:15 Blood - Peripheral Venous Blood Culture - Preliminary NO GROWTH OBTAINED AFTER 96 HOURS, INCUBATION TO CONTINUE FOR 1 DAYS. 10/08/18 18:30 Blood - Peripheral Venous Blood Culture - Final NO GROWTH AFTER 5 DAYS INCUBATION 10/08/18 16:20 Blood - Peripheral Venous Blood Culture - Final NO GROWTH AFTER 5 DAYS INCUBATION 10/03/18 06:30 Blood - Peripheral Venous Blood Culture - Final NO GROWTH AFTER 5 DAYS INCUBATION 10/03/18 06:15 Blood - Peripheral Venous Blood Culture - Final NO GROWTH AFTER 5 DAYS INCUBATION 09/28/18 10:20 Blood - Peripheral Venous Blood Culture - Final Lactose Fermenting Neg Bacilli 09/28/18 10:36 Blood - Peripheral Venous Blood Culture - Final Escherichia Coli Esbl [employer] 09/28/18 10:48 Urine - Urine - Catheterized Urine Culture - Final Escherichia Coli Esbl [employer] Active Medications Acetaminophen (Tylenol Suppository -) 650 mg SD Q4H PRN PRN Reason: TEMP. OVER 101.5 Last Admin: 10/13/18 18:00 Dose: 650 mg Atorvastatin Calcium (Lipitor -) 40 mg PO HS [facility] Last Admin: 10/13/18 22:55 Dose: 40 mg Bupropion HCl (Wellbutrin -) 75 mg PO BID [facility] Last Admin: 10/13/18 22:54 Dose: 75 mg Folic Acid (Folic Acid -) 1 mg PO DAILY [facility] Last Admin: 10/13/18 10:38 Dose: 1 mg Gabapentin (Neurontin -) 600 mg PO HS [facility] Last Admin: 10/13/18 22:54 Dose: 600 mg Vancomycin HCl (Vancomycin (Pre-Docked)) 1,000 mg in 250 mls @ 166.667 mls/hr IVPB BID [facility]; Protocol Last Admin: 10/13/18 22:45 Dose: Not Given Amino Acids (Clinimix -) 1,000 mls @ 42 mls/hr IV Q24H [facility] Last Admin: 10/14/18 02:49 Dose: 42 mls/hr Mirtazapine (Remeron -) 7.5 mg PO [facility] Last Admin: 10/13/18 22:54 Dose: 7.5 mg Multi-Ingredient Ointment (Zinc Oxide) 1 applic TP BID [facility] Last Admin: 10/13/18 22:54 Dose: 1 applic Multivitamins/Minerals/Vitamin C (Tab-A-Vit -) 1 tab PO DAILY [facility] Last Admin: 10/13/18 10:38 Dose: 1 tab Nystatin (Mycostatin Ointment -) 1 applic TP DAILY [facility] Last Admin: 10/13/18 10:38 Dose: 1 applic Nystatin (Nystop Powder -) 1 applic TP BID [facility] Last Admin: 10/13/18 22:58 Dose: Not Given Primidone (Mysoline -) 100 mg PO BID [facility] Last Admin: 10/13/18 22:54 Dose: 100 mg Propranolol HCl (Inderal La -) 120 mg PO DAILY [facility] Last Admin: 10/13/18 10:43 Dose: 120 mg assment / plan # febrile CT abd / pelvis - + lymphadenopathy unchanged since previous CT fever origin -- CLL ?vs Infection reculture as needed discuss with ID -- will d/c all abx drug fever afebrile this morning -- only on vanco 120 bid per ID # dementia with alteration to baseline PT eval -- will need STR aspiration precautions for feeding swallow eval reviewed # ESBL in b/c and urine continue Abx per ID ID follow up appreciated # CLL untreated decreasing H/H / lymphadenopathy /fever Heme /onc consult appreciated remains stable per family request Do Not resuscitate and DO not intubate orders signed and placed on EMR continue supportive care Problem List - Problems (1) Altered mental status Code(s): R41.82 - ALTERED MENTAL STATUS, UNSPECIFIED (2) UTI (urinary tract infection) Code(s): N39.0 - URINARY TRACT INFECTION, SITE NOT SPECIFIED Qualifiers: Encounter type: initial encounter (3) Fever Code(s): R50.9 - FEVER, UNSPECIFIED (4) Dementia Code(s): F03.90 - UNSPECIFIED DEMENTIA WITHOUT BEHAVIORAL DISTURBANCE (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
[2018-10-14] MEDS: NYSTATIN 100000 UNIT/GM TOPICAL OINTMENT 15 GM TUBE TP SCH (10:06)
--- NOTE | 2018-10-14 11:31 | PN ---
Progress Note (short form) - Note Progress Note: no fevers apparently alert earlier this am ate some breakfast now fast asleep Vital Signs Period Temp Pulse Resp BP Sys/Chapman Pulse Ox Last 24 Hr 98.8 F-101.9 F 60-68 20-24 121-143/44-58 96 cor-rrr lungs decreased breath sounds at bases abd soft,nt ext no edema CBC, BMP 10/14/18 07:00 10/14/18 07:00 Microbiology 10/09/18 06:00 Blood Culture - Preliminary Blood - Peripheral Venous NO GROWTH OBTAINED AFTER 96 HOURS, INCUBATION TO CONTINUE FOR 1 DAYS. 10/09/18 06:15 Blood Culture - Preliminary Blood - Peripheral Venous NO GROWTH OBTAINED AFTER 96 HOURS, INCUBATION TO CONTINUE FOR 1 DAYS. 10/08/18 18:30 Blood Culture - Final Blood - Peripheral Venous NO GROWTH AFTER 5 DAYS INCUBATION 10/08/18 16:20 Blood Culture - Final Blood - Peripheral Venous NO GROWTH AFTER 5 DAYS INCUBATION a/p FUO- antibiotics d/baljeet yesterday now afebrile reculture for fever s/p treatment of ecoli esbl uti history of CLL
[2018-10-14 11:59] LABS: ACANTHOCYTES 1+; ANISOCYTOSIS 2+; MACROCYTOSIS 0; OVALOCYTE 1+; PLATELET ESTIMATE INCREASED
[2018-10-14] MEDS ORDERED: methylPREDNISolone NA SUCC 40 MG/1 ML VIAL IVPUSH ONE (18:00)
[2018-10-14] MEDS: diphenhydrAMINE HCL 25 MG CAPSULE (FP) PO ONE ×2 (18:15→18:33)
[2018-10-14] MEDS: GABAPENTIN 300 MG CAPSULE (FP) PO SCH (22:56)
[2018-10-14] MEDS: MIRTAZAPINE 15 MG TABLET (FP) PO SCH (22:56)
[2018-10-14] MEDS: ATORVASTATIN CA 40 MG TABLET (FP) PO SCH (22:56)
[2018-10-15] MEDS: AMINO ACIDS 4.25%/D5W 1,000 ML IV SCH (03:17)
[2018-10-15] MEDS ORDERED: PT OWN MED DRAWER 7, Y5N ONE (09:13)
[2018-10-15] MEDS: MULTIVITAMINS (DAILY MVI) TABLET (FP) PO SCH (10:36)
[2018-10-15] MEDS: FOLIC ACID 1 MG TABLET (FP) PO SCH (10:36)
[2018-10-15] MEDS: PRIMIDONE 50 MG TABLET PO SCH ×2 (10:37→22:06)
[2018-10-15] MEDS: NYSTATIN POWDER 100,000 UNITS/GM - 15 GM TOPICAL POWDER TP SCH ×2 (10:38→22:08)
[2018-10-15] MEDS: buPROPion HCL 75 MG TABLET PO SCH ×2 (10:38→22:06)
[2018-10-15] MEDS: NYSTATIN 100000 UNIT/GM TOPICAL OINTMENT 15 GM TUBE TP SCH (10:39)
[2018-10-15] MEDS: ZINC OXIDE 20% TOPICAL OINTMENT 30 GM TUBE TP SCH ×2 (10:39→22:09)
--- NOTE | 2018-10-15 12:02 | PN ---
Progress Note (short form) - Note Progress Note: more alert Has developed diffuse rash abd / back /thighs flat morbiliforme rash flat drug reaction ?? responds to verbal stimuli follow simple commands low grade temp Not in distress Vital Signs Period Temp Pulse Resp BP Sys/Chapman Pulse Ox Last 24 Hr 97.4 F-100.0 F 61-67 20-22 116-148/48-88 95 neck supple heart s1/s2 lungs clear bilat abd soft non tender excoriation gluteal area ext no edema skin rash to back / sacral to thighs abdomen CBC, BMP 10/14/18 07:00 10/14/18 07:00 CBC, BMP 10/07/18 06:00 10/07/18 06:00 Microbiology 10/14/18 07:00 Blood - Peripheral Venous Blood Culture - Preliminary NO GROWTH OBTAINED AFTER 24 HOURS, INCUBATION TO CONTINUE FOR 4 DAYS. 10/14/18 07:00 Blood - Peripheral Venous Blood Culture - Preliminary NO GROWTH OBTAINED AFTER 24 HOURS, INCUBATION TO CONTINUE FOR 4 DAYS. 10/09/18 06:00 Blood - Peripheral Venous Blood Culture - Final NO GROWTH AFTER 5 DAYS INCUBATION 10/09/18 06:15 Blood - Peripheral Venous Blood Culture - Final NO GROWTH AFTER 5 DAYS INCUBATION 10/08/18 18:30 Blood - Peripheral Venous Blood Culture - Final NO GROWTH AFTER 5 DAYS INCUBATION 10/08/18 16:20 Blood - Peripheral Venous Blood Culture - Final NO GROWTH AFTER 5 DAYS INCUBATION 10/03/18 06:30 Blood - Peripheral Venous Blood Culture - Final NO GROWTH AFTER 5 DAYS INCUBATION 10/03/18 06:15 Blood - Peripheral Venous Blood Culture - Final NO GROWTH AFTER 5 DAYS INCUBATION 09/28/18 10:20 Blood - Peripheral Venous Blood Culture - Final Lactose Fermenting Neg Bacilli 09/28/18 10:36 Blood - Peripheral Venous Blood Culture - Final Escherichia Coli Esbl [employer] 09/28/18 10:48 Urine - Urine - Catheterized Urine Culture - Final Escherichia Coli Esbl [employer] Active Medications Acetaminophen (Tylenol Suppository -) 650 mg NE Q4H PRN PRN Reason: TEMP. OVER 101.5 Last Admin: 10/13/18 18:00 Dose: 650 mg Atorvastatin Calcium (Lipitor -) 40 mg PO HS [facility] Last Admin: 10/14/18 22:56 Dose: 40 mg Bupropion HCl (Wellbutrin -) 75 mg PO BID [facility] Last Admin: 10/15/18 10:38 Dose: 75 mg Folic Acid (Folic Acid -) 1 mg PO DAILY [facility] Last Admin: 10/15/18 10:36 Dose: 1 mg Gabapentin (Neurontin -) 600 mg PO HS [facility] Last Admin: 10/14/18 22:56 Dose: 600 mg Amino Acids (Clinimix -) 1,000 mls @ 42 mls/hr IV Q24H [facility] Last Admin: 10/15/18 03:17 Dose: 42 mls/hr Mirtazapine (Remeron -) 7.5 mg PO HS [facility] Last Admin: 10/14/18 22:56 Dose: 7.5 mg Multi-Ingredient Ointment (Zinc Oxide) 1 applic TP BID [facility] Last Admin: 10/15/18 10:39 Dose: 1 applic Multivitamins/Minerals/Vitamin C (Tab-A-Vit -) 1 tab PO DAILY [facility] Last Admin: 10/15/18 10:36 Dose: 1 tab Nystatin (Mycostatin Ointment -) 1 applic TP DAILY [facility] Last Admin: 10/15/18 10:39 Dose: 1 applic Nystatin (Nystop Powder -) 1 applic TP BID [facility] Last Admin: 10/15/18 10:38 Dose: 1 applic Primidone (Mysoline -) 100 mg PO BID [facility] Last Admin: 10/15/18 10:37 Dose: 100 mg Propranolol HCl (Inderal La -) 120 mg PO DAILY [facility] Last Admin: 10/15/18 10:37 Dose: 120 mg assment / plan # rash morbiliforme ? drug reaction treat steroids / benadryl discuss with heme - will prophylax start NS and allopurinol d/c clinimix # dementia with alteration to baseline treat infection PT eval -- will need STR aspiration precautions for feeding swallow eval reviewed # ESBL in b/c and urine continue Abx per ID ID follow up appreciated # CLL untreated / in remission Problem List - Problems (1) Altered mental status Code(s): R41.82 - ALTERED MENTAL STATUS, UNSPECIFIED (2) UTI (urinary tract infection) Code(s): N39.0 - URINARY TRACT INFECTION, SITE NOT SPECIFIED Qualifiers: Encounter type: initial encounter (3) Fever Code(s): R50.9 - FEVER, UNSPECIFIED (4) Dementia Code(s): F03.90 - UNSPECIFIED DEMENTIA WITHOUT BEHAVIORAL DISTURBANCE (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
[2018-10-15] MEDS ORDERED: methylPREDNISolone NA SUCC 40 MG/1 ML VIAL IVPUSH ONE (14:00)
[2018-10-15] MEDS ORDERED: SODIUM CHLORIDE 1,000 ML IV SCH (14:15)
[2018-10-15] MEDS ORDERED: diphenhydrAMINE HCL 25 MG CAPSULE (FP) PO PRN (14:21)
[2018-10-15] MEDS: ALLOPURINOL 300 MG TABLET (FP) PO SCH (14:24)
[2018-10-15] MEDS: methylPREDNISolone NA SUCC 40 MG/1 ML VIAL IVPUSH SCH ×2 (14:43→21:05)
[2018-10-15 19:50] LABS: URINE APPEARANCE SLCLOUDY; URINE BILIRUBIN NEGATIVE (<2.0 mg/dL); URINE COLOR LTYELLOW; URINE GLUCOSE (UA) NEGATIVE (NEGATIVE); URINE KETONE NEGATIVE (NEGATIVE); URINE LEUK ESTERASE NEGATIVE (NEGATIVE); URINE NITRITE NEGATIVE (NEGATIVE); URINE PROTEIN NEGATIVE (NEGATIVE); URINE UROBILINOGEN NEGATIVE mg/dL (0.2-1.0)
--- NOTE | 2018-10-15 21:33 | PN ---
Teaching Attending Note Name of Resident: Kavon Fowler ATTENDING PHYSICIAN STATEMENT I saw and evaluated the patient. I reviewed the resident's note and discussed the case with the resident. I agree with the resident's findings and plan as documented. ASSESSMENT AND PLAN: 88 yr old woman noncommunicative woman bed bound with advanced dementia and untreated CLL admitted for AMS from baseline and fevers. Now with ESBL bacteremia ? aspiration pneumonia CLL --stable HAs morbiliform rash On steroids tumor lysis prophylaxis check quantitative immunoglobulins
[2018-10-15] MEDS: MIRTAZAPINE 15 MG TABLET (FP) PO SCH (22:06)
[2018-10-15] MEDS: ATORVASTATIN CA 40 MG TABLET (FP) PO SCH (22:06)
[2018-10-15] MEDS: GABAPENTIN 300 MG CAPSULE (FP) PO SCH (22:11)
[2018-10-16] MEDS: methylPREDNISolone NA SUCC 40 MG/1 ML VIAL IVPUSH SCH ×4 (03:04→21:11)
[2018-10-16 07:43] LABS: BASO % 0.4 % (0-2.0); EOS % 0.1 % (0-4.5); HEMATOCRIT 27.1 % (32.4-45.2); HEMOGLOBIN 8.6 GM/dL (10.7-15.3); LYMPH % 76.4 % (8-40); MCH 28.6 pg (25.7-33.7); MCHC 31.8 g/dl (32.0-36.0); MEAN CELL VOLUME 90.2 fl (80-96); MEAN PLT VOLUME 8.1 fl (7.5-11.1); MONO % 1.3 % (3.8-10.2); NEUT % 21.8 % (42.8-82.8); PLATELET COUNT 519 K/MM3 (134-434); RDW 15.1 % (11.6-15.6)
[2018-10-16 07:45] LABS: WHITE BLOOD COUNT 32.7 K/mm3 (4.0-10.0)
[2018-10-16 08:36] LABS: ANION GAP 8 MMOL/L (8-16); BLOOD UREA NITROGEN 35 mg/dL (7-18); CALCIUM 8.4 mg/dL (8.5-10.1); CHLORIDE 110 mmol/L (98-107); CO2 25 mmol/L (21-32); CREATININE 1.3 mg/dL (0.55-1.3); GLUCOSE,RANDOM 117 mg/dL (74-106); LDH 214 U/L (84-246); POTASSIUM 3.9 mmol/L (3.5-5.1); SODIUM 143 mmol/L (136-145); URIC ACID 3.6 mg/dL (2.6-7.2)
[2018-10-16] MEDS ORDERED: SODIUM CHLORIDE 1,000 ML IV SCH (09:52)
[2018-10-16] MEDS: FOLIC ACID 1 MG TABLET (FP) PO SCH (10:24)
[2018-10-16] MEDS: MULTIVITAMINS (DAILY MVI) TABLET (FP) PO SCH (10:24)
[2018-10-16] MEDS: PRIMIDONE 50 MG TABLET PO SCH ×2 (10:24→21:43)
[2018-10-16] MEDS: buPROPion HCL 75 MG TABLET PO SCH ×2 (10:24→21:44)
[2018-10-16] MEDS: ALLOPURINOL 300 MG TABLET (FP) PO SCH (10:24)
[2018-10-16] MEDS: ZINC OXIDE 20% TOPICAL OINTMENT 30 GM TUBE TP SCH ×2 (10:26→21:36)
[2018-10-16] MEDS: NYSTATIN POWDER 100,000 UNITS/GM - 15 GM TOPICAL POWDER TP SCH ×2 (10:26→21:44)
[2018-10-16] MEDS: NYSTATIN 100000 UNIT/GM TOPICAL OINTMENT 15 GM TUBE TP SCH (10:26)
[2018-10-16 10:55] LABS: ANISOCYTOSIS 1+; MACROCYTOSIS 1+; OVALOCYTE 1+; PLATELET ESTIMATE INCREASED
--- NOTE | 2018-10-16 16:40 | PN ---
Progress Note (short form) - Note Progress Note: 88 y/o female found lying in bed, a little combative with nurse. Vital Signs Period Temp Pulse Resp BP Sys/Chapman Pulse Ox Last 24 Hr 96 F-98.2 F 57-61 20-20 116-150/46-59 96-96 CBC, BMP 10/16/18 06:00 10/16/18 06:00 HEENT- NL Neck-supple Lungs-CTAB Heart-S1/S2 Abd- Soft, nt Ext- No LE edema Active Medications Acetaminophen (Tylenol Suppository -) 650 mg [place] Q4H PRN PRN Reason: TEMP. OVER 101.5 Last Admin: 10/13/18 18:00 Dose: 650 mg Allopurinol (Zyloprim -) 300 mg PO DAILY [facility] Last Admin: 10/16/18 10:24 Dose: 300 mg Atorvastatin Calcium (Lipitor -) 40 mg PO HS [facility] Last Admin: 10/15/18 22:06 Dose: 40 mg Bupropion HCl (Wellbutrin -) 75 mg PO BID [facility] Last Admin: 10/16/18 10:24 Dose: 75 mg Diphenhydramine HCl (Benadryl -) 25 mg PO HS [facility] Folic Acid (Folic Acid -) 1 mg PO DAILY [facility] Last Admin: 10/16/18 10:24 Dose: 1 mg Gabapentin (Neurontin -) 600 mg PO HS [facility] Last Admin: 10/15/18 22:11 Dose: 600 mg Sodium Chloride (Normal Saline -) 1,000 mls @ 43 mls/hr IV ASDIR [facility] Last Admin: 10/16/18 10:23 Dose: 43 mls/hr Methylprednisolone Sodium Succinate (Solu-Medrol -) 40 mg IVPUSH Q6H-IV [facility] Last Admin: 10/16/18 14:30 Dose: 40 mg Mirtazapine (Remeron -) 7.5 mg PO HS [facility] Last Admin: 10/15/18 22:06 Dose: 7.5 mg Multi-Ingredient Ointment (Zinc Oxide) 1 applic TP BID [facility] Last Admin: 10/16/18 10:26 Dose: 1 applic Multivitamins/Minerals/Vitamin C (Tab-A-Vit -) 1 tab PO DAILY [facility] Last Admin: 10/16/18 10:24 Dose: 1 tab Nystatin (Mycostatin Ointment -) 1 applic TP DAILY [facility] Last Admin: 10/16/18 10:26 Dose: 1 applic Nystatin (Nystop Powder -) 1 applic TP BID [facility] Last Admin: 10/16/18 10:26 Dose: 1 applic Primidone (Mysoline -) 100 mg PO BID [facility] Last Admin: 10/16/18 10:24 Dose: 100 mg Propranolol HCl (Inderal La -) 120 mg PO DAILY [facility] Last Admin: 10/16/18 10:25 Dose: 120 mg assment / plan # rash morbiliforme steroids / benadryl discuss with heme - will prophylax Cont NS and allopurinol # dementia with alteration to baseline treat infection PT eval -- will need STR aspiration precautions for feeding # ESBL in b/c and urine continue Abx per ID # CLL untreated / in remission Problem List - Problems (1) Altered mental status Code(s): R41.82 - ALTERED MENTAL STATUS, UNSPECIFIED (2) UTI (urinary tract infection) Code(s): N39.0 - URINARY TRACT INFECTION, SITE NOT SPECIFIED Qualifiers: Encounter type: initial encounter (3) Fever Code(s): R50.9 - FEVER, UNSPECIFIED (4) Dementia Code(s): F03.90 - UNSPECIFIED DEMENTIA WITHOUT BEHAVIORAL DISTURBANCE (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
[2018-10-16] MEDS: GABAPENTIN 300 MG CAPSULE (FP) PO SCH (21:11)
[2018-10-16] MEDS: diphenhydrAMINE HCL 25 MG CAPSULE (FP) PO SCH (21:12)
[2018-10-16] MEDS: ATORVASTATIN CA 40 MG TABLET (FP) PO SCH (21:12)
[2018-10-16] MEDS ORDERED: PT OWN MED DRAWER 7, Y5N ONE ×2 (21:27→21:51)
[2018-10-16] MEDS: MIRTAZAPINE 15 MG TABLET (FP) PO SCH (21:44)
[2018-10-17] MEDS ORDERED: PT OWN MED DRAWER 7, Y5N ONE (01:14)
[2018-10-17] MEDS: methylPREDNISolone NA SUCC 40 MG/1 ML VIAL IVPUSH SCH ×4 (02:12→22:52)
[2018-10-17 10:15] LABS: BASO % 0.1 % (0-2.0); EOS % 0.1 % (0-4.5); HEMATOCRIT 23.7 % (32.4-45.2); HEMOGLOBIN 7.9 GM/dL (10.7-15.3); LYMPH % 78.4 % (8-40); MCH 29.9 pg (25.7-33.7); MCHC 33.4 g/dl (32.0-36.0); MEAN CELL VOLUME 89.7 fl (80-96); MEAN PLT VOLUME 7.4 fl (7.5-11.1); MONO % 2.5 % (3.8-10.2); NEUT % 18.9 % (42.8-82.8); PLATELET COUNT 499 K/MM3 (134-434); RBC 2.64 M/mm3 (3.60-5.2); RDW 14.9 % (11.6-15.6); WHITE BLOOD COUNT 29.9 K/mm3 (4.0-10.0)
[2018-10-17] MEDS: FOLIC ACID 1 MG TABLET (FP) PO SCH (10:38)
[2018-10-17] MEDS: MULTIVITAMINS (DAILY MVI) TABLET (FP) PO SCH (10:38)
[2018-10-17] MEDS: PRIMIDONE 50 MG TABLET PO SCH ×2 (10:39→22:52)
[2018-10-17] MEDS: ALLOPURINOL 300 MG TABLET (FP) PO SCH (10:40)
[2018-10-17] MEDS: buPROPion HCL 75 MG TABLET PO SCH ×2 (10:40→22:53)
[2018-10-17] MEDS: NYSTATIN 100000 UNIT/GM TOPICAL OINTMENT 15 GM TUBE TP SCH (10:41)
[2018-10-17] MEDS: ZINC OXIDE 20% TOPICAL OINTMENT 30 GM TUBE TP SCH ×2 (10:41→22:53)
[2018-10-17] MEDS: NYSTATIN POWDER 100,000 UNITS/GM - 15 GM TOPICAL POWDER TP SCH ×2 (10:42→22:53)
[2018-10-17 11:02] LABS: ANION GAP 8 MMOL/L (8-16); BLOOD UREA NITROGEN 36 mg/dL (7-18); CALCIUM 8.5 mg/dL (8.5-10.1); CHLORIDE 114 mmol/L (98-107); CO2 28 mmol/L (21-32); CREATININE 1.3 mg/dL (0.55-1.3); GLUCOSE,RANDOM 91 mg/dL (74-106); POTASSIUM 3.5 mmol/L (3.5-5.1); SODIUM 149 mmol/L (136-145)
--- NOTE | 2018-10-17 11:38 | PN ---
Progress Note (short form) - Note Progress Note: 88 y/o female found sleeping comfortably. Nurse reports that pt slept well. Vital Signs Period Temp Pulse Resp BP Sys/Chapman Pulse Ox Last 24 Hr 97.4 F-98.3 F 50-59 18-20 116-167/46-67 96 CBC, BMP 10/17/18 09:50 10/17/18 09:26 HEENT- NL Neck-supple Lungs- CTAB Heart- S1/S2 Abd- Soft, nt Skin- Rash improving Ext- LE edema improving Active Medications Acetaminophen (Tylenol Suppository -) 650 mg NE Q4H PRN PRN Reason: TEMP. OVER 101.5 Last Admin: 10/13/18 18:00 Dose: 650 mg Allopurinol (Zyloprim -) 300 mg PO DAILY [facility] Last Admin: 10/17/18 10:40 Dose: 300 mg Atorvastatin Calcium (Lipitor -) 40 mg PO HS [facility] Last Admin: 10/16/18 21:12 Dose: 40 mg Bupropion HCl (Wellbutrin -) 75 mg PO BID [facility] Last Admin: 10/17/18 10:40 Dose: 75 mg Diphenhydramine HCl (Benadryl -) 25 mg PO HS [facility] Last Admin: 10/16/18 21:12 Dose: 25 mg Folic Acid (Folic Acid -) 1 mg PO DAILY [facility] Last Admin: 10/17/18 10:38 Dose: 1 mg Gabapentin (Neurontin -) 600 mg PO HS [facility] Last Admin: 10/16/18 21:11 Dose: 600 mg Methylprednisolone Sodium Succinate (Solu-Medrol -) 40 mg IVPUSH Q6H-IV [facility] Last Admin: 10/17/18 10:37 Dose: 40 mg Mirtazapine (Remeron -) 7.5 mg PO HS [facility] Last Admin: 10/16/18 21:44 Dose: 7.5 mg Multi-Ingredient Ointment (Zinc Oxide) 1 applic TP BID [facility] Last Admin: 10/17/18 10:41 Dose: 1 applic Multivitamins/Minerals/Vitamin C (Tab-A-Vit -) 1 tab PO DAILY [facility] Last Admin: 10/17/18 10:38 Dose: 1 tab Nystatin (Mycostatin Ointment -) 1 applic TP DAILY [facility] Last Admin: 10/17/18 10:41 Dose: 1 applic Nystatin (Nystop Powder -) 1 applic TP BID [facility] Last Admin: 10/17/18 10:42 Dose: 1 applic Primidone (Mysoline -) 100 mg PO BID [facility] Last Admin: 10/17/18 10:39 Dose: 100 mg Propranolol HCl (Inderal La -) 120 mg PO DAILY [facility] Last Admin: 10/17/18 10:39 Dose: 120 mg assment / plan # rash morbiliforme Cont steroids / benadryl NS dc'd due to elevated BP Quantitative immunoglobulins ordered # dementia with alteration to baseline treat infection aspiration precautions for feeding # ESBL in b/c and urine continue Abx per ID # CLL untreated / in remission Problem List - Problems (1) Altered mental status Code(s): R41.82 - ALTERED MENTAL STATUS, UNSPECIFIED (2) UTI (urinary tract infection) Code(s): N39.0 - URINARY TRACT INFECTION, SITE NOT SPECIFIED Qualifiers: Encounter type: initial encounter (3) Fever Code(s): R50.9 - FEVER, UNSPECIFIED (4) Dementia Code(s): F03.90 - UNSPECIFIED DEMENTIA WITHOUT BEHAVIORAL DISTURBANCE (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
[2018-10-17 12:06] LABS: ANISOCYTOSIS 2+; MACROCYTOSIS 2+; OVALOCYTE 1+; PLATELET ESTIMATE INCREASED
[2018-10-17] MEDS: diphenhydrAMINE HCL 25 MG CAPSULE (FP) PO SCH (22:52)
[2018-10-17] MEDS: GABAPENTIN 300 MG CAPSULE (FP) PO SCH (22:52)
[2018-10-17] MEDS: ATORVASTATIN CA 40 MG TABLET (FP) PO SCH (22:53)
[2018-10-17] MEDS: MIRTAZAPINE 15 MG TABLET (FP) PO SCH (22:53)
[2018-10-18] MEDS: methylPREDNISolone NA SUCC 40 MG/1 ML VIAL IVPUSH SCH ×4 (03:51→21:43)
[2018-10-18 07:17] LABS: BASO % 0.1 % (0-2.0); EOS % 0.4 % (0-4.5); HEMATOCRIT 27.2 % (32.4-45.2); HEMOGLOBIN 8.4 GM/dL (10.7-15.3); LYMPH % 73.6 % (8-40); MCH 28.8 pg (25.7-33.7); MEAN CELL VOLUME 93.1 fl (80-96); MEAN PLT VOLUME 7.4 fl (7.5-11.1); MONO % 3.5 % (3.8-10.2); NEUT % 22.4 % (42.8-82.8); PLATELET COUNT 593 K/MM3 (134-434); RBC 2.92 M/mm3 (3.60-5.2); RDW 15.4 % (11.6-15.6)
[2018-10-18 07:20] LABS: IGA IMMUNOGLOBULIN 54 mg/dL (64-422); IGG IMMUNOGLOBULIN 445 mg/dL (700-1600); IGM IMMUNOGLOBULIN 14 mg/dL (26-217)
[2018-10-18 07:42] LABS: ANION GAP 7 MMOL/L (8-16); BLOOD UREA NITROGEN 39 mg/dL (7-18); CALCIUM 8.4 mg/dL (8.5-10.1); CHLORIDE 115 mmol/L (98-107); CO2 29 mmol/L (21-32); CREATININE 1.5 mg/dL (0.55-1.3); GLUCOSE,RANDOM 97 mg/dL (74-106); POTASSIUM 3.3 mmol/L (3.5-5.1); SODIUM 150 mmol/L (136-145)
[2018-10-18] MEDS: MULTIVITAMINS (DAILY MVI) TABLET (FP) PO SCH (09:22)
[2018-10-18] MEDS: FOLIC ACID 1 MG TABLET (FP) PO SCH (09:22)
[2018-10-18] MEDS: ZINC OXIDE 20% TOPICAL OINTMENT 30 GM TUBE TP SCH ×2 (09:22→21:45)
[2018-10-18] MEDS: ALLOPURINOL 300 MG TABLET (FP) PO SCH (09:22)
[2018-10-18] MEDS: PRIMIDONE 50 MG TABLET PO SCH ×2 (09:23→21:44)
[2018-10-18] MEDS: NYSTATIN POWDER 100,000 UNITS/GM - 15 GM TOPICAL POWDER TP SCH ×2 (09:23→21:45)
[2018-10-18] MEDS: buPROPion HCL 75 MG TABLET PO SCH ×2 (09:23→21:44)
[2018-10-18] MEDS: NYSTATIN 100000 UNIT/GM TOPICAL OINTMENT 15 GM TUBE TP SCH (09:23)
[2018-10-18 10:43] LABS: ANISOCYTOSIS 1+; MACROCYTOSIS 0; PLATELET ESTIMATE INCREASED
[2018-10-18] MEDS ORDERED: SODIUM CHLORIDE 1,000 ML IV SCH ×2 (11:45→14:45)
--- NOTE | 2018-10-18 13:30 | PN ---
Progress Note (short form) - Note Progress Note: 88 y/o female found sleeping comfortably. Vital Signs Period Temp Pulse Resp BP Sys/Chapman Pulse Ox Last 24 Hr 97.8 F-99.5 F 61-80 20-20 117-153/42-66 95 CBC, BMP 10/18/18 06:15 10/18/18 06:15 HEENT- NL Neck- supple Lungs- CTAB Heart- S1/S2 Abd- Soft, nt Ext- No LE edema Active Medications Acetaminophen (Tylenol Suppository -) 650 mg [place] Q4H PRN PRN Reason: TEMP. OVER 101.5 Last Admin: 10/13/18 18:00 Dose: 650 mg Allopurinol (Zyloprim -) 300 mg PO DAILY [facility] Last Admin: 10/18/18 09:22 Dose: 300 mg Atorvastatin Calcium (Lipitor -) 40 mg PO HS [facility] Last Admin: 10/17/18 22:53 Dose: 40 mg Bupropion HCl (Wellbutrin -) 75 mg PO BID [facility] Last Admin: 10/18/18 09:23 Dose: 75 mg Diphenhydramine HCl (Benadryl -) 25 mg PO HS [facility] Last Admin: 10/17/18 22:52 Dose: 25 mg Folic Acid (Folic Acid -) 1 mg PO DAILY [facility] Last Admin: 10/18/18 09:22 Dose: 1 mg Gabapentin (Neurontin -) 600 mg PO HS [facility] Last Admin: 10/17/18 22:52 Dose: 600 mg Sodium Chloride (Normal Saline -) 1,000 mls @ 42 mls/hr IV ASDIR [facility] Last Admin: 10/18/18 11:52 Dose: 42 mls/hr Methylprednisolone Sodium Succinate (Solu-Medrol -) 40 mg IVPUSH Q6H-IV [facility] Last Admin: 10/18/18 08:44 Dose: 40 mg Mirtazapine (Remeron -) 7.5 mg PO HS [facility] Last Admin: 10/17/18 22:53 Dose: 7.5 mg Multi-Ingredient Ointment (Zinc Oxide) 1 applic TP BID [facility] Last Admin: 10/18/18 09:22 Dose: 1 applic Multivitamins/Minerals/Vitamin C (Tab-A-Vit -) 1 tab PO DAILY [facility] Last Admin: 10/18/18 09:22 Dose: 1 tab Nystatin (Mycostatin Ointment -) 1 applic TP DAILY [facility] Last Admin: 10/18/18 09:23 Dose: 1 applic Nystatin (Nystop Powder -) 1 applic TP BID [facility] Last Admin: 10/18/18 09:23 Dose: 1 applic Primidone (Mysoline -) 100 mg PO BID [facility] Last Admin: 10/18/18 09:23 Dose: 100 mg Propranolol HCl (Inderal La -) 120 mg PO DAILY [facility] Last Admin: 10/18/18 09:22 Dose: 120 mg assment / plan # rash morbiliforme resolving Cont steroids / benadryl IV fluids started secondary to hypernatremia Quantitative immunoglobulins low # dementia with alteration to baseline treat infection aspiration precautions for feeding # ESBL in b/c and urine treated # CLL untreated / in remission Problem List - Problems (1) Altered mental status Code(s): R41.82 - ALTERED MENTAL STATUS, UNSPECIFIED (2) UTI (urinary tract infection) Code(s): N39.0 - URINARY TRACT INFECTION, SITE NOT SPECIFIED Qualifiers: Encounter type: initial encounter (3) Fever Code(s): R50.9 - FEVER, UNSPECIFIED (4) Dementia Code(s): F03.90 - UNSPECIFIED DEMENTIA WITHOUT BEHAVIORAL DISTURBANCE (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
[2018-10-18] MEDS: SODIUM CHLORIDE 1,000 ML IV SCH (15:30)
[2018-10-18 17:48] LABS: BLOOD UREA NITROGEN 39 mg/dL (7-18); CALCIUM 8.4 mg/dL (8.5-10.1); CHLORIDE 117 mmol/L (98-107); CREATININE 1.7 mg/dL (0.55-1.3); GLUCOSE,RANDOM 151 mg/dL (74-106); POTASSIUM 4.2 mmol/L (3.5-5.1); SODIUM 150 mmol/L (136-145)
[2018-10-18 17:49] LABS: ANION GAP 6 MMOL/L (8-16); CO2 28 mmol/L (21-32)
[2018-10-18] MEDS ORDERED: PT OWN MED DRAWER 7, Y5N ONE (20:54)
[2018-10-18] MEDS: GABAPENTIN 300 MG CAPSULE (FP) PO SCH (21:43)
[2018-10-18] MEDS: ATORVASTATIN CA 40 MG TABLET (FP) PO SCH (21:43)
[2018-10-18] MEDS: diphenhydrAMINE HCL 25 MG CAPSULE (FP) PO SCH (21:43)
[2018-10-18] MEDS: MIRTAZAPINE 15 MG TABLET (FP) PO SCH (21:44)
[2018-10-19] MEDS: methylPREDNISolone NA SUCC 40 MG/1 ML VIAL IVPUSH SCH ×4 (02:10→23:15)
[2018-10-19] MEDS: SODIUM CHLORIDE 1,000 ML IV SCH ×2 (02:41→13:03)
[2018-10-19] MEDS ORDERED: PT OWN MED DRAWER 7, Y5N ONE (06:47)
[2018-10-19 07:20] LABS: BASO % 0.2 % (0-2.0); EOS % 0.1 % (0-4.5); HEMOGLOBIN 8.2 GM/dL (10.7-15.3); MCH 28.6 pg (25.7-33.7); MCHC 30.5 g/dl (32.0-36.0); MEAN CELL VOLUME 93.8 fl (80-96); MEAN PLT VOLUME 7.9 fl (7.5-11.1); MONO % 1.5 % (3.8-10.2); NEUT % 22.2 % (42.8-82.8); PLATELET COUNT 403 K/MM3 (134-434); RBC 2.87 M/mm3 (3.60-5.2); RDW 16.1 % (11.6-15.6)
[2018-10-19 07:42] LABS: WHITE BLOOD COUNT 37.3 K/mm3 (4.0-10.0)
[2018-10-19 08:00] LABS: ANION GAP 7 MMOL/L (8-16); BLOOD UREA NITROGEN 38 mg/dL (7-18); CALCIUM 8.1 mg/dL (8.5-10.1); CHLORIDE 117 mmol/L (98-107); CO2 27 mmol/L (21-32); CREATININE 1.6 mg/dL (0.55-1.3); GLUCOSE,RANDOM 137 mg/dL (74-106); POTASSIUM 4.4 mmol/L (3.5-5.1); SODIUM 151 mmol/L (136-145)
[2018-10-19] MEDS: ALLOPURINOL 300 MG TABLET (FP) PO SCH (09:07)
[2018-10-19] MEDS: buPROPion HCL 75 MG TABLET PO SCH ×2 (09:07→23:15)
[2018-10-19] MEDS: MULTIVITAMINS (DAILY MVI) TABLET (FP) PO SCH (09:07)
[2018-10-19] MEDS: FOLIC ACID 1 MG TABLET (FP) PO SCH (09:07)
[2018-10-19] MEDS: PRIMIDONE 50 MG TABLET PO SCH ×2 (09:07→23:14)
[2018-10-19] MEDS: NYSTATIN POWDER 100,000 UNITS/GM - 15 GM TOPICAL POWDER TP SCH ×2 (09:08→23:14)
[2018-10-19] MEDS: ZINC OXIDE 20% TOPICAL OINTMENT 30 GM TUBE TP SCH ×2 (09:08→23:15)
[2018-10-19] MEDS: NYSTATIN 100000 UNIT/GM TOPICAL OINTMENT 15 GM TUBE TP SCH (09:08)
[2018-10-19 12:05] LABS: SMUDGE CELLS FEW
[2018-10-19 12:06] LABS: PLATELET ESTIMATE SLT INCREASE
--- NOTE | 2018-10-19 14:28 | PN ---
Progress Note (short form) - Note Progress Note: In bed awake / responds to verbal stimuli Not in distress Vital Signs Period Temp Pulse Resp BP Sys/Chapman Pulse Ox Last 24 Hr 97.4 F-98.2 F 53-58 20-20 131-132/40-75 95-97 neck supple heart s1/s2 lungs clear bilat abd soft non tender excoriation gluteal area improved ext no edema skin rash to back / sacral to thighs resolved CBC, BMP 10/19/18 06:00 10/19/18 06:00 CBC, BMP 10/14/18 07:00 10/14/18 07:00 Microbiology 10/14/18 07:00 Blood - Peripheral Venous Blood Culture - Final NO GROWTH AFTER 5 DAYS INCUBATION 10/14/18 07:00 Blood - Peripheral Venous Blood Culture - Final NO GROWTH AFTER 5 DAYS INCUBATION 10/15/18 19:10 Urine - Urine Clean Catch Urine Culture - Final NO GROWTH OBTAINED 10/09/18 06:00 Blood - Peripheral Venous Blood Culture - Final NO GROWTH AFTER 5 DAYS INCUBATION 10/09/18 06:15 Blood - Peripheral Venous Blood Culture - Final NO GROWTH AFTER 5 DAYS INCUBATION 10/08/18 18:30 Blood - Peripheral Venous Blood Culture - Final NO GROWTH AFTER 5 DAYS INCUBATION 10/08/18 16:20 Blood - Peripheral Venous Blood Culture - Final NO GROWTH AFTER 5 DAYS INCUBATION 10/03/18 06:30 Blood - Peripheral Venous Blood Culture - Final NO GROWTH AFTER 5 DAYS INCUBATION 10/03/18 06:15 Blood - Peripheral Venous Blood Culture - Final NO GROWTH AFTER 5 DAYS INCUBATION 09/28/18 10:20 Blood - Peripheral Venous Blood Culture - Final Lactose Fermenting Neg Bacilli 09/28/18 10:36 Blood - Peripheral Venous Blood Culture - Final Escherichia Coli Esbl Production Support Consultant 09/28/18 10:48 Urine - Urine - Catheterized Urine Culture - Final Escherichia Coli Esbl Production Support Consultant Active Medications Acetaminophen (Tylenol Suppository -) 650 mg [place] Q4H PRN PRN Reason: TEMP. OVER 101.5 Last Admin: 10/13/18 18:00 Dose: 650 mg Allopurinol (Zyloprim -) 300 mg PO DAILY [facility] Last Admin: 10/19/18 09:07 Dose: 300 mg Atorvastatin Calcium (Lipitor -) 40 mg PO HS [facility] Last Admin: 10/18/18 21:43 Dose: 40 mg Bupropion HCl (Wellbutrin -) 75 mg PO BID [facility] Last Admin: 10/19/18 09:07 Dose: 75 mg Diphenhydramine HCl (Benadryl -) 25 mg PO HS [facility] Last Admin: 10/18/18 21:43 Dose: 25 mg Folic Acid (Folic Acid -) 1 mg PO DAILY [facility] Last Admin: 10/19/18 09:07 Dose: 1 mg Gabapentin (Neurontin -) 600 mg PO HS [facility] Last Admin: 10/18/18 21:43 Dose: 600 mg Methylprednisolone Sodium Succinate (Solu-Medrol -) 40 mg IVPUSH Q6H-IV [facility] Last Admin: 10/19/18 14:17 Dose: 40 mg Mirtazapine (Remeron -) 7.5 mg PO HS [facility] Last Admin: 10/18/18 21:44 Dose: 7.5 mg Multi-Ingredient Ointment (Zinc Oxide) 1 applic TP BID [facility] Last Admin: 10/19/18 09:08 Dose: 1 applic Multivitamins/Minerals/Vitamin C (Tab-A-Vit -) 1 tab PO DAILY [facility] Last Admin: 10/19/18 09:07 Dose: 1 tab Nystatin (Mycostatin Ointment -) 1 applic TP DAILY [facility] Last Admin: 10/19/18 09:08 Dose: 1 applic Nystatin (Nystop Powder -) 1 applic TP BID [facility] Last Admin: 10/19/18 09:08 Dose: 1 applic Primidone (Mysoline -) 100 mg PO BID [facility] Last Admin: 10/19/18 09:07 Dose: 100 mg Propranolol HCl (Inderal La -) 120 mg PO DAILY [facility] Last Admin: 10/19/18 09:07 Dose: 120 mg assment / plan # Hypernatremia dehydration IV fluids / inc PO free water follow labs in am # rash morbiliforme ? drug reaction --now resolved treated steroids / benadryl discussed with heme - on prophylax NS and allopurinol off clinimix # dementia with alteration to baseline treat infection PT eval -- will need STR - family requesting return to assisted living aspiration precautions for feeding swallow eval reviewed # ESBL in b/c and urine Abx per ID ID follow up appreciated # CLL untreated / in remission appreciate Onc follow up Problem List - Problems (1) Altered mental status Code(s): R41.82 - ALTERED MENTAL STATUS, UNSPECIFIED (2) UTI (urinary tract infection) Code(s): N39.0 - URINARY TRACT INFECTION, SITE NOT SPECIFIED Qualifiers: Encounter type: initial encounter (3) Fever Code(s): R50.9 - FEVER, UNSPECIFIED (4) Dementia Code(s): F03.90 - UNSPECIFIED DEMENTIA WITHOUT BEHAVIORAL DISTURBANCE (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
[2018-10-19] MEDS ORDERED: SODIUM CHLORIDE 1,000 ML IV SCH (16:00)
[2018-10-19] MEDS: GABAPENTIN 300 MG CAPSULE (FP) PO SCH (23:14)
[2018-10-19] MEDS: diphenhydrAMINE HCL 25 MG CAPSULE (FP) PO SCH (23:14)
[2018-10-19] MEDS: ATORVASTATIN CA 40 MG TABLET (FP) PO SCH (23:14)
[2018-10-19] MEDS: MIRTAZAPINE 15 MG TABLET (FP) PO SCH (23:15)
[2018-10-20] MEDS: methylPREDNISolone NA SUCC 40 MG/1 ML VIAL IVPUSH SCH ×2 (09:04→22:43)
[2018-10-20] MEDS: buPROPion HCL 75 MG TABLET PO SCH ×2 (09:04→22:43)
[2018-10-20] MEDS: MULTIVITAMINS (DAILY MVI) TABLET (FP) PO SCH (09:04)
[2018-10-20] MEDS: FOLIC ACID 1 MG TABLET (FP) PO SCH (09:04)
[2018-10-20] MEDS: ALLOPURINOL 300 MG TABLET (FP) PO SCH (09:05)
[2018-10-20] MEDS: PRIMIDONE 50 MG TABLET PO SCH ×2 (09:05→22:43)
[2018-10-20] MEDS: NYSTATIN 100000 UNIT/GM TOPICAL OINTMENT 15 GM TUBE TP SCH (09:05)
[2018-10-20] MEDS: NYSTATIN POWDER 100,000 UNITS/GM - 15 GM TOPICAL POWDER TP SCH ×2 (09:05→22:44)
[2018-10-20] MEDS: ZINC OXIDE 20% TOPICAL OINTMENT 30 GM TUBE TP SCH ×2 (09:05→22:44)
[2018-10-20] MEDS ORDERED: FUROSEMIDE 40 MG/4 ML INJECTABLE VIAL IVPUSH ONE (12:00)
[2018-10-20] MEDS ORDERED: FUROSEMIDE 20 MG TABLET (FP) PO ONE (12:00)
[2018-10-20 13:55] LABS: ANION GAP 6 MMOL/L (8-16); BLOOD UREA NITROGEN 36 mg/dL (7-18); CALCIUM 8.5 mg/dL (8.5-10.1); CHLORIDE 116 mmol/L (98-107); CO2 28 mmol/L (21-32); CREATININE 1.4 mg/dL (0.55-1.3); GLUCOSE,RANDOM 150 mg/dL (74-106); POTASSIUM 4.1 mmol/L (3.5-5.1); SODIUM 150 mmol/L (136-145)
[2018-10-20] MEDS ORDERED: INSULIN (NOVOLOG) ASPART 100 UNITS/ML 10ML VIAL ONE (17:33)
[2018-10-20] MEDS ORDERED: INSULIN (LEVEMIR) 100 UNITS/ML UNITS SQ ONE (17:33)
[2018-10-20] MEDS: MIRTAZAPINE 15 MG TABLET (FP) PO SCH (22:43)
[2018-10-20] MEDS: ATORVASTATIN CA 40 MG TABLET (FP) PO SCH (22:44)
[2018-10-20] MEDS: GABAPENTIN 300 MG CAPSULE (FP) PO SCH (22:44)
[2018-10-20] MEDS: diphenhydrAMINE HCL 25 MG CAPSULE (FP) PO SCH (22:44)
[2018-10-21 07:55] LABS: ANION GAP 4 MMOL/L (8-16); BLOOD UREA NITROGEN 34 mg/dL (7-18); CALCIUM 8.5 mg/dL (8.5-10.1); CHLORIDE 114 mmol/L (98-107); CO2 31 mmol/L (21-32); CREATININE 1.3 mg/dL (0.55-1.3); GLUCOSE,RANDOM 110 mg/dL (74-106); POTASSIUM 3.8 mmol/L (3.5-5.1); SODIUM 150 mmol/L (136-145)
--- NOTE | 2018-10-21 11:01 | PN ---
Progress Note (short form) - Note Progress Note: 88 y/o female found lying in bed. Responsive but not talkative. Vital Signs Period Temp Pulse Resp BP Sys/Chapman Pulse Ox Last 24 Hr 97.7 F-99.5 F 60-64 20-20 137-155/44-59 93 CBC, BMP 10/19/18 06:00 10/21/18 06:15 HEENT- Normocephalic Neck- Supple Lungs- scattered rhonchi Heart- S1/S2 Abd- Soft, nt Ext- 1 + pitting edema b/l Active Medications Acetaminophen (Tylenol Suppository -) 650 mg MS Q4H PRN PRN Reason: TEMP. OVER 101.5 Last Admin: 10/13/18 18:00 Dose: 650 mg Allopurinol (Zyloprim -) 300 mg PO DAILY [facility] Last Admin: 10/20/18 09:05 Dose: 300 mg Atorvastatin Calcium (Lipitor -) 40 mg PO HS [facility] Last Admin: 10/20/18 22:44 Dose: 40 mg Bupropion HCl (Wellbutrin -) 75 mg PO BID [facility] Last Admin: 10/20/18 22:43 Dose: 75 mg Diphenhydramine HCl (Benadryl -) 25 mg PO HS [facility] Last Admin: 10/20/18 22:44 Dose: 25 mg Folic Acid (Folic Acid -) 1 mg PO DAILY [facility] Last Admin: 10/20/18 09:04 Dose: 1 mg Gabapentin (Neurontin -) 600 mg PO HS [facility] Last Admin: 10/20/18 22:44 Dose: 600 mg Methylprednisolone Sodium Succinate (Solu-Medrol -) 40 mg IVPUSH Q12H [facility] Last Admin: 10/20/18 22:43 Dose: 40 mg Mirtazapine (Remeron -) 7.5 mg PO HS [facility] Last Admin: 10/20/18 22:43 Dose: 7.5 mg Multi-Ingredient Ointment (Zinc Oxide) 1 applic TP BID [facility] Last Admin: 10/20/18 22:44 Dose: 1 applic Multivitamins/Minerals/Vitamin C (Tab-A-Vit -) 1 tab PO DAILY [facility] Last Admin: 10/20/18 09:04 Dose: 1 tab Nystatin (Mycostatin Ointment -) 1 applic TP DAILY [facility] Last Admin: 10/20/18 09:05 Dose: 1 applic Nystatin (Nystop Powder -) 1 applic TP BID [facility] Last Admin: 10/20/18 22:44 Dose: 1 applic Primidone (Mysoline -) 100 mg PO BID [facility] Last Admin: 10/20/18 22:43 Dose: 100 mg Propranolol HCl (Inderal La -) 120 mg PO DAILY [facility] Last Admin: 10/20/18 09:05 Dose: 120 mg # Hypernatremia Na 150 dehydration inc PO free water follow labs- creatinine improved # rash morbiliforme resolved steroids tapered/ benadryl dc'd # dementia with alteration to baseline treat infection aspiration precautions for feeding # ESBL in b/c and urine Abx per ID ID follow up appreciated # CLL untreated / in remission Problem List - Problems (1) Altered mental status Code(s): R41.82 - ALTERED MENTAL STATUS, UNSPECIFIED (2) UTI (urinary tract infection) Code(s): N39.0 - URINARY TRACT INFECTION, SITE NOT SPECIFIED Qualifiers: Encounter type: initial encounter (3) Fever Code(s): R50.9 - FEVER, UNSPECIFIED (4) Dementia Code(s): F03.90 - UNSPECIFIED DEMENTIA WITHOUT BEHAVIORAL DISTURBANCE (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
[2018-10-21] MEDS: FOLIC ACID 1 MG TABLET (FP) PO SCH (13:25)
[2018-10-21] MEDS: buPROPion HCL 75 MG TABLET PO SCH (13:25)
[2018-10-21] MEDS: MULTIVITAMINS (DAILY MVI) TABLET (FP) PO SCH (13:25)
[2018-10-21] MEDS: ALLOPURINOL 300 MG TABLET (FP) PO SCH (13:25)
[2018-10-21] MEDS: NYSTATIN POWDER 100,000 UNITS/GM - 15 GM TOPICAL POWDER TP SCH (13:26)
[2018-10-21] MEDS: ZINC OXIDE 20% TOPICAL OINTMENT 30 GM TUBE TP SCH (13:26)
[2018-10-21] MEDS: NYSTATIN 100000 UNIT/GM TOPICAL OINTMENT 15 GM TUBE TP SCH (13:26)
[2018-10-21] MEDS: PRIMIDONE 50 MG TABLET PO SCH (13:26)
[2018-10-21] MEDS: methylPREDNISolone NA SUCC 40 MG/1 ML VIAL IVPUSH SCH (13:27)
[2018-10-21] MEDS ORDERED: methylPREDNISolone NA SUCC 125 MG/2 ML VIAL ONE (14:40)
[2018-10-21] MEDS ORDERED: PT OWN MED DRAWER 7, Y5N ONE ×2 (18:42→21:01)
[2018-10-22] MEDS: PRIMIDONE 50 MG TABLET PO SCH ×3 (00:02→23:17)
[2018-10-22] MEDS: ATORVASTATIN CA 40 MG TABLET (FP) PO SCH ×2 (00:02→23:16)
[2018-10-22] MEDS: buPROPion HCL 75 MG TABLET PO SCH ×3 (00:02→23:17)
[2018-10-22] MEDS: MIRTAZAPINE 15 MG TABLET (FP) PO SCH ×2 (00:02→23:17)
[2018-10-22] MEDS: GABAPENTIN 300 MG CAPSULE (FP) PO SCH ×2 (00:02→23:17)
[2018-10-22] MEDS: ZINC OXIDE 20% TOPICAL OINTMENT 30 GM TUBE TP SCH ×3 (00:03→23:17)
[2018-10-22] MEDS: NYSTATIN POWDER 100,000 UNITS/GM - 15 GM TOPICAL POWDER TP SCH ×3 (00:03→23:17)
[2018-10-22] MEDS ORDERED: methylPREDNISolone NA SUCC 40 MG/1 ML VIAL IVPUSH ONE (06:00)
[2018-10-22] MEDS: FOLIC ACID 1 MG TABLET (FP) PO SCH (09:31)
[2018-10-22] MEDS: ALLOPURINOL 300 MG TABLET (FP) PO SCH (09:31)
[2018-10-22] MEDS: MULTIVITAMINS (DAILY MVI) TABLET (FP) PO SCH (09:31)
[2018-10-22] MEDS: NYSTATIN 100000 UNIT/GM TOPICAL OINTMENT 15 GM TUBE TP SCH (09:33)
--- NOTE | 2018-10-22 22:58 | PN ---
Progress Note, Physician History of Present Illness: No new changes - Current Medication List Current Medications: Active Medications Acetaminophen (Tylenol Suppository -) 650 mg KS Q4H PRN PRN Reason: TEMP. OVER 101.5 Last Admin: 10/13/18 18:00 Dose: 650 mg Allopurinol (Zyloprim -) 300 mg PO DAILY [facility] Last Admin: 10/22/18 09:31 Dose: 300 mg Atorvastatin Calcium (Lipitor -) 40 mg PO [facility] Last Admin: 10/22/18 00:02 Dose: 40 mg Bupropion HCl (Wellbutrin -) 75 mg PO BID [facility] Last Admin: 10/22/18 09:33 Dose: 75 mg Folic Acid (Folic Acid -) 1 mg PO DAILY [facility] Last Admin: 10/22/18 09:31 Dose: 1 mg Gabapentin (Neurontin -) 600 mg PO [facility] Last Admin: 10/22/18 00:02 Dose: Not Given Mirtazapine (Remeron -) 7.5 mg PO [facility] Last Admin: 10/22/18 00:02 Dose: Not Given Multi-Ingredient Ointment (Zinc Oxide) 1 applic TP BID [facility] Last Admin: 10/22/18 09:33 Dose: 1 applic Multivitamins/Minerals/Vitamin C (Tab-A-Vit -) 1 tab PO DAILY [facility] Last Admin: 10/22/18 09:31 Dose: 1 tab Nystatin (Mycostatin Ointment -) 1 applic TP DAILY [facility] Last Admin: 10/22/18 09:33 Dose: 1 applic Nystatin (Nystop Powder -) 1 applic TP BID [facility] Last Admin: 10/22/18 09:33 Dose: 1 applic Primidone (Mysoline -) 100 mg PO BID [facility] Last Admin: 10/22/18 09:33 Dose: 100 mg Propranolol HCl (Inderal La -) 120 mg PO DAILY [facility] Last Admin: 10/22/18 09:33 Dose: 120 mg - Objective Vital Signs: Vital Signs Temperature 99.8 F H 10/22/18 18:53 Pulse Rate 71 10/22/18 18:53 Respiratory Rate 20 10/22/18 18:53 Blood Pressure 156/55 L 10/22/18 18:53 O2 Sat by Pulse Oximetry (%) 96 10/22/18 09:00 Neck: Yes: WNL, Supple Cardiovascular: Yes: WNL, Regular Rate and Rhythm Respiratory: Yes: WNL, Regular, CTA Bilaterally Gastrointestinal: Yes: WNL, Normal Bowel Sounds, Soft Labs: CBC, BMP 10/19/18 06:00 10/21/18 06:15 INR, PTT INR 1.15 (0.83-1.09) H 09/28/18 10:36 Problem List - Problems (1) Altered mental status Assessment/Plan: Due to dementia Code(s): R41.82 - ALTERED MENTAL STATUS, UNSPECIFIED (2) 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
[2018-10-23 06:54] LABS: BASO % 0.1 % (0-2.0); EOS % 1.7 % (0-4.5); HEMATOCRIT 27.8 % (32.4-45.2); HEMOGLOBIN 8.3 GM/dL (10.7-15.3); LYMPH % 78.5 % (8-40); MCH 27.6 pg (25.7-33.7); MEAN CELL VOLUME 92.2 fl (80-96); MEAN PLT VOLUME 7.2 fl (7.5-11.1); MONO % 1.9 % (3.8-10.2); NEUT % 17.8 % (42.8-82.8); PLATELET COUNT 420 K/MM3 (134-434); RBC 3.01 M/mm3 (3.60-5.2); RDW 16.3 % (11.6-15.6)
[2018-10-23 07:08] LABS: ANION GAP 6 MMOL/L (8-16); BLOOD UREA NITROGEN 34 mg/dL (7-18); CALCIUM 8.4 mg/dL (8.5-10.1); CHLORIDE 115 mmol/L (98-107); CO2 32 mmol/L (21-32); CREATININE 1.4 mg/dL (0.55-1.3); GLUCOSE,RANDOM 102 mg/dL (74-106); POTASSIUM 3.4 mmol/L (3.5-5.1); SODIUM 153 mmol/L (136-145)
[2018-10-23 07:25] LABS: WHITE BLOOD COUNT 54.2 K/mm3 (4.0-10.0)
[2018-10-23 10:25] LABS: ANISOCYTOSIS 1+; MACROCYTOSIS 1+; OVALOCYTE 1+; PLATELET ESTIMATE NORMAL
[2018-10-23] MEDS: PRIMIDONE 50 MG TABLET PO SCH ×2 (11:01→22:01)
[2018-10-23] MEDS: FOLIC ACID 1 MG TABLET (FP) PO SCH (11:01)
[2018-10-23] MEDS: ALLOPURINOL 300 MG TABLET (FP) PO SCH (11:02)
[2018-10-23] MEDS: buPROPion HCL 75 MG TABLET PO SCH ×2 (11:02→22:02)
[2018-10-23] MEDS: MULTIVITAMINS (DAILY MVI) TABLET (FP) PO SCH (11:02)
[2018-10-23] MEDS: ACETAMINOPHEN 650 MG SUPP.RECT PR PRN ×2 (12:13→17:35)
--- NOTE | 2018-10-23 12:51 | PN ---
Progress Note (short form) - Note Progress Note: In bed febrile to 102 now morbiliforme rash has reoccured responds to verbal stimuli but non verbal Not in distress Vital Signs Period Temp Pulse Resp BP Sys/Chapman Pulse Ox Last 24 Hr 98.2 F-102.4 F 68-77 18-20 129-170/53-60 96 Vital Signs Period Temp Pulse Resp BP Sys/Chapman Pulse Ox Last 24 Hr 97.4 F-98.2 F 53-58 20-20 131-132/40-75 95-97 neck supple heart s1/s2 lungs clear bilat / poor inspiratory effort abd soft non tender excoriation gluteal area improved ext no edema morbiliforme rash to back / flank / abdomen sacral area CBC, BMP 10/23/18 05:15 10/23/18 05:15 CBC, BMP 10/19/18 06:00 10/19/18 06:00 CBC, BMP 10/14/18 07:00 10/14/18 07:00 Microbiology 10/14/18 07:00 Blood - Peripheral Venous Blood Culture - Final NO GROWTH AFTER 5 DAYS INCUBATION 10/14/18 07:00 Blood - Peripheral Venous Blood Culture - Final NO GROWTH AFTER 5 DAYS INCUBATION 10/15/18 19:10 Urine - Urine Clean Catch Urine Culture - Final NO GROWTH OBTAINED 10/09/18 06:00 Blood - Peripheral Venous Blood Culture - Final NO GROWTH AFTER 5 DAYS INCUBATION 10/09/18 06:15 Blood - Peripheral Venous Blood Culture - Final NO GROWTH AFTER 5 DAYS INCUBATION 10/08/18 18:30 Blood - Peripheral Venous Blood Culture - Final NO GROWTH AFTER 5 DAYS INCUBATION 10/08/18 16:20 Blood - Peripheral Venous Blood Culture - Final NO GROWTH AFTER 5 DAYS INCUBATION 10/03/18 06:30 Blood - Peripheral Venous Blood Culture - Final NO GROWTH AFTER 5 DAYS INCUBATION 10/03/18 06:15 Blood - Peripheral Venous Blood Culture - Final NO GROWTH AFTER 5 DAYS INCUBATION 09/28/18 10:20 Blood - Peripheral Venous Blood Culture - Final Lactose Fermenting Neg Bacilli 09/28/18 10:36 Blood - Peripheral Venous Blood Culture - Final Escherichia Coli Esbl [employer] Consultant 09/28/18 10:48 Urine - Urine - Catheterized Urine Culture - Final Escherichia Coli Esbl [employer] Consultant Active Medications Acetaminophen (Tylenol Suppository -) 650 mg [place] Q4H PRN PRN Reason: TEMP. OVER 101.5 Last Admin: 10/23/18 12:13 Dose: 650 mg Allopurinol (Zyloprim -) 300 mg PO DAILY [facility] Last Admin: 10/23/18 11:02 Dose: Not Given Bupropion HCl (Wellbutrin -) 75 mg PO BID [facility] Last Admin: 10/23/18 11:02 Dose: Not Given Folic Acid (Folic Acid -) 1 mg PO DAILY [facility] Last Admin: 10/23/18 11:01 Dose: Not Given Methylprednisolone Sodium Succinate (Solu-Medrol -) 40 mg IVPUSH Q8H-IV [facility] Mirtazapine (Remeron -) 7.5 mg PO HS [facility] Last Admin: 10/22/18 23:17 Dose: Not Given Multi-Ingredient Ointment (Zinc Oxide) 1 applic TP BID [facility] Last Admin: 10/22/18 23:17 Dose: 1 applic Nystatin (Mycostatin Ointment -) 1 applic TP DAILY [facility] Last Admin: 10/22/18 09:33 Dose: 1 applic Nystatin (Nystop Powder -) 1 applic TP BID [facility] Last Admin: 10/22/18 23:17 Dose: 1 applic Primidone (Mysoline -) 100 mg PO BID [facility] Last Admin: 10/23/18 11:01 Dose: Not Given Propranolol HCl (Inderal La -) 120 mg PO DAILY [facility] Last Admin: 10/23/18 11:01 Dose: Not Given assment / plan # rash morbiliforme ? drug reaction --had resolved -- no new meds introduced treated steroids successfully --- will resume steroid tx / benadryl NS and allopurinol off clinimix / d/c lipitor, gabapentin, MVI, mirtazipine ( these had been home meds ??) # Hypernatremia / mild HF? dehydration / inc PO free water follow labs in am # dementia with alteration to baseline treat infection PT eval -- will need STR - family requesting return to assisted living aspiration precautions for feeding swallow eval reviewed # ESBL in b/c and urine off abx - tx completed febrile # CLL untreated / in remission appreciate Onc follow up Problem List - Problems (1) Altered mental status Code(s): R41.82 - ALTERED MENTAL STATUS, UNSPECIFIED (2) UTI (urinary tract infection) Code(s): N39.0 - URINARY TRACT INFECTION, SITE NOT SPECIFIED Qualifiers: Encounter type: initial encounter (3) Fever Code(s): R50.9 - FEVER, UNSPECIFIED (4) Dementia Code(s): F03.90 - UNSPECIFIED DEMENTIA WITHOUT BEHAVIORAL DISTURBANCE (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
[2018-10-23] MEDS ORDERED: PT OWN MED DRAWER 7, Y5N ONE ×2 (13:03→21:43)
[2018-10-23] MEDS: NYSTATIN 100000 UNIT/GM TOPICAL OINTMENT 15 GM TUBE TP SCH (15:46)
[2018-10-23] MEDS: NYSTATIN POWDER 100,000 UNITS/GM - 15 GM TOPICAL POWDER TP SCH ×2 (15:46→22:07)
[2018-10-23] MEDS: ZINC OXIDE 20% TOPICAL OINTMENT 30 GM TUBE TP SCH ×2 (15:48→22:06)
[2018-10-23] MEDS: methylPREDNISolone NA SUCC 40 MG/1 ML VIAL IVPUSH SCH ×2 (15:57→18:25)
--- NOTE | 2018-10-23 19:39 | PN ---
Progress Note (short form) - Note Progress Note: Patient seen and examined Lying in bed - non communicative Daughter and son-in -law at bedside Last Vital Signs Temp Pulse Resp BP Pulse Ox 101.9 F H 84 20 155/53 L 96 10/23/18 17:49 10/23/18 17:49 10/23/18 17:49 10/23/18 17:49 10/22/18 21:00 Secretions - oropharynx Lungs -poor inspiratory effort Cor-RSR Soft abdomen Contracted CBC, BMP 10/23/18 05:15 10/23/18 05:15 Current Medications Generic Name Dose Route Start Last Admin Trade Name Freq PRN Reason Stop Dose Admin Acetaminophen 650 mg 10/08/18 22:46 10/23/18 17:35 Tylenol Suppository - NE 650 mg Q4H PRN Administration TEMP. OVER 101.5 Allopurinol 300 mg 10/15/18 14:15 10/23/18 11:02 Zyloprim - PO Not Given DAILY [facility] Bupropion HCl 75 mg 09/28/18 14:00 10/23/18 11:02 Wellbutrin - PO Not Given BID [facility] Folic Acid 1 mg 09/28/18 14:00 10/23/18 11:01 Folic Acid - PO Not Given DAILY [facility] Methylprednisolone Sodium Succinate 40 mg 10/23/18 12:45 10/23/18 18:25 Solu-Medrol - IVPUSH 40 mg Q8H-IV [facility] Administration Multi-Ingredient Ointment 1 applic 10/08/18 12:15 10/23/18 15:48 Zinc Oxide TP 1 applic BID [facility] Administration Nystatin 1 applic 10/12/18 19:45 10/23/18 15:46 Mycostatin Ointment - TP 1 applic DAILY [facility] Administration Nystatin 1 applic 10/13/18 18:30 10/23/18 15:46 Nystop Powder - TP 1 applic BID [facility] Administration Primidone 100 mg 09/28/18 14:15 10/23/18 11:01 Mysoline - PO Not Given BID [facility] Propranolol HCl 120 mg 09/28/18 14:15 10/23/18 11:01 Inderal La - PO Not Given DAILY [facility] Impression Electrolyte imbalance - hypernatrmia, hyperchloremia Rash- no longer evident Non communicative Dementia CLL Fevers Plan: Antibiotics Correction of electrolyte . \Plan: Correction:
[2018-10-24] MEDS: methylPREDNISolone NA SUCC 40 MG/1 ML VIAL IVPUSH SCH ×3 (02:29→17:52)
[2018-10-24] MEDS ORDERED: INSULIN (NOVOLOG) ASPART 100 UNITS/ML 10ML VIAL ONE (06:52)
--- NOTE | 2018-10-24 09:14 | PN ---
Progress Note (short form) - Note Progress Note: 88 y/o female found awake in bed, appears comfortable. Vital Signs Period Temp Pulse Resp BP Sys/Chapman Pulse Ox Last 24 Hr 98.9 F-102.4 F 77-90 18-20 148-170/49-60 96 CBC, BMP 10/23/18 05:15 10/23/18 05:15 HEENT- Normocephalic Neck- Supple Lungs- CTAB Heart- S1/S2 Abd- soft, nondistended Skin- Rash resolving Ext- No LE edema Active Medications Acetaminophen (Tylenol Suppository -) 650 mg SD Q4H PRN PRN Reason: TEMP. OVER 101.5 Last Admin: 10/23/18 17:35 Dose: 650 mg Allopurinol (Zyloprim -) 300 mg PO DAILY [facility] Last Admin: 10/23/18 11:02 Dose: Not Given Bupropion HCl (Wellbutrin -) 75 mg PO BID [facility] Last Admin: 10/23/18 22:02 Dose: Not Given Folic Acid (Folic Acid -) 1 mg PO DAILY [facility] Last Admin: 10/23/18 11:01 Dose: Not Given Methylprednisolone Sodium Succinate (Solu-Medrol -) 40 mg IVPUSH Q8H-IV [facility] Last Admin: 10/24/18 02:29 Dose: 40 mg Multi-Ingredient Ointment (Zinc Oxide) 1 applic TP BID [facility] Last Admin: 10/23/18 22:06 Dose: 1 applic Nystatin (Mycostatin Ointment -) 1 applic TP DAILY [facility] Last Admin: 10/23/18 15:46 Dose: 1 applic Nystatin (Nystop Powder -) 1 applic TP BID [facility] Last Admin: 10/23/18 22:07 Dose: 1 applic Primidone (Mysoline -) 100 mg PO BID [facility] Last Admin: 10/23/18 22:01 Dose: Not Given Propranolol HCl (Inderal La -) 120 mg PO DAILY [facility] Last Admin: 10/23/18 11:01 Dose: Not Given assment / plan # rash morbiliforme resolving Continue Solu-medrol off clinimix / d/c lipitor, gabapentin, MVI, mirtazipine # Hypernatremia Na 153 dehydration inc PO free water trend labs # dementia with alteration to baseline treat infection aspiration precautions for feeding Diet changed to puree consistency # ESBL in b/c and urine off abx - tx completed febrile # CLL WBC ct 54.2 untreated / in remission appreciate Onc follow up Plan- Case discussed with sw/DC shutdown planner. Pt not ready for dc as rash returned and receiving IV steroids. Also, awaiting decision from [facility] re possible palliative care at facility. 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
[2018-10-24] MEDS: FOLIC ACID 1 MG TABLET (FP) PO SCH (10:44)
[2018-10-24] MEDS: NYSTATIN POWDER 100,000 UNITS/GM - 15 GM TOPICAL POWDER TP SCH ×2 (10:50→23:15)
[2018-10-24] MEDS: PRIMIDONE 50 MG TABLET PO SCH ×2 (10:51→23:15)
[2018-10-24] MEDS: ZINC OXIDE 20% TOPICAL OINTMENT 30 GM TUBE TP SCH ×2 (10:51→23:15)
[2018-10-24] MEDS: NYSTATIN 100000 UNIT/GM TOPICAL OINTMENT 15 GM TUBE TP SCH (10:51)
[2018-10-24] MEDS: ALLOPURINOL 300 MG TABLET (FP) PO SCH (10:52)
[2018-10-24] MEDS: buPROPion HCL 75 MG TABLET PO SCH ×2 (10:52→23:15)
[2018-10-24] MEDS: ACETAMINOPHEN 650 MG SUPP.RECT PR PRN ×2 (14:51→23:09)
[2018-10-24] MEDS ORDERED: PT OWN MED DRAWER 7, Y5N ONE ×2 (19:33→20:59)
[2018-10-25] MEDS: methylPREDNISolone NA SUCC 40 MG/1 ML VIAL IVPUSH SCH ×3 (02:55→17:38)
[2018-10-25 06:49] LABS: BASO % 0.2 % (0-2.0); EOS % 0.9 % (0-4.5); HEMATOCRIT 31.1 % (32.4-45.2); HEMOGLOBIN 9.2 GM/dL (10.7-15.3); LYMPH % 78.7 % (8-40); MCH 28.1 pg (25.7-33.7); MCHC 29.5 g/dl (32.0-36.0); MEAN CELL VOLUME 95.2 fl (80-96); MEAN PLT VOLUME 7.4 fl (7.5-11.1); MONO % 1.7 % (3.8-10.2); NEUT % 18.5 % (42.8-82.8); PLATELET COUNT 340 K/MM3 (134-434); RBC 3.26 M/mm3 (3.60-5.2); RDW 17.4 % (11.6-15.6)
[2018-10-25 07:21] LABS: ANION GAP 4 MMOL/L (8-16); BLOOD UREA NITROGEN 41 mg/dL (7-18); CALCIUM 8.3 mg/dL (8.5-10.1); CHLORIDE 119 mmol/L (98-107); CO2 35 mmol/L (21-32); CREATININE 1.5 mg/dL (0.55-1.3); GLUCOSE,RANDOM 110 mg/dL (74-106); POTASSIUM 3.6 mmol/L (3.5-5.1); SODIUM 158 mmol/L (136-145)
[2018-10-25 08:04] LABS: WHITE BLOOD COUNT 75.5 K/mm3 (4.0-10.0)
[2018-10-25] MEDS ORDERED: PT OWN MED DRAWER 7, Y5N ONE (09:35)
--- NOTE | 2018-10-25 10:21 | PN ---
Progress Note (short form) - Note Progress Note: 88 y/o female found lying in bed, appears comfortable. Vital Signs Period Temp Pulse Resp BP Sys/Chapman Pulse Ox Last 24 Hr 98.1 F-101.2 F 67-90 18-20 145-176/49-72 93 CBC, BMP 10/25/18 05:15 10/25/18 05:15 HEENT- Normocephalic Neck- Supple Lungs- CTAB Heart- S1/S2 Abd- soft, nt Ext- No LE edema Active Medications Acetaminophen (Tylenol Suppository -) 650 mg [place] Q4H PRN PRN Reason: TEMP. OVER 101.5 Last Admin: 10/24/18 23:09 Dose: 650 mg Allopurinol (Zyloprim -) 300 mg PO DAILY [facility] Last Admin: 10/24/18 10:52 Dose: Not Given Bupropion HCl (Wellbutrin -) 75 mg PO BID [facility] Last Admin: 10/24/18 23:15 Dose: Not Given Folic Acid (Folic Acid -) 1 mg PO DAILY [facility] Last Admin: 10/24/18 10:44 Dose: Not Given Furosemide (Lasix Injection -) 20 mg IVPUSH DAILY [facility] Dextrose (D5w -) 1,000 mls @ 100 mls/hr IV Q10H [facility] Methylprednisolone Sodium Succinate (Solu-Medrol -) 40 mg IVPUSH Q8H-IV [facility] Last Admin: 10/25/18 02:55 Dose: 40 mg Multi-Ingredient Ointment (Zinc Oxide) 1 applic TP BID [facility] Last Admin: 10/24/18 23:15 Dose: 1 applic Nystatin (Mycostatin Ointment -) 1 applic TP DAILY [facility] Last Admin: 10/24/18 10:51 Dose: Not Given Nystatin (Nystop Powder -) 1 applic TP BID [facility] Last Admin: 10/24/18 23:15 Dose: 1 applic Primidone (Mysoline -) 100 mg PO BID [facility] Last Admin: 10/24/18 23:15 Dose: Not Given Propranolol HCl (Inderal La -) 120 mg PO DAILY [facility] Last Admin: 10/24/18 16:30 Dose: 120 mg assessment / plan # rash morbiliforme resolved Continue Solu-medrol off clinimix / d/c lipitor, gabapentin, MVI, mirtazipine # Hypernatremia Na 158 dehydration BUN 41 cr 1.5 Start D5W 100 cc/hr trend labs #HTN- BP 170/56 Lasix 20 mg IV # dementia with alteration to baseline treat infection aspiration precautions for feeding Continue puree diet # ESBL in b/c and urine off abx - tx completed febrile # CLL WBC ct 75.5 untreated / in remission appreciate Onc follow up Problem List - Problems (1) Altered mental status Code(s): R41.82 - ALTERED MENTAL STATUS, UNSPECIFIED (2) UTI (urinary tract infection) Code(s): N39.0 - URINARY TRACT INFECTION, SITE NOT SPECIFIED Qualifiers: Encounter type: initial encounter (3) Fever Code(s): R50.9 - FEVER, UNSPECIFIED (4) Dementia Code(s): F03.90 - UNSPECIFIED DEMENTIA WITHOUT BEHAVIORAL DISTURBANCE (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
[2018-10-25] MEDS: ALLOPURINOL 300 MG TABLET (FP) PO SCH ×2 (10:29→11:03)
[2018-10-25] MEDS: ZINC OXIDE 20% TOPICAL OINTMENT 30 GM TUBE TP SCH ×2 (10:29→21:32)
[2018-10-25] MEDS: DEXTROSE 5%-WATER - 1,000 ML IV SCH ×2 (10:29→21:27)
[2018-10-25] MEDS: FUROSEMIDE 40 MG/4 ML INJECTABLE VIAL IVPUSH SCH (10:29)
[2018-10-25] MEDS: FOLIC ACID 1 MG TABLET (FP) PO SCH ×2 (10:29→11:03)
[2018-10-25] MEDS: PRIMIDONE 50 MG TABLET PO SCH ×3 (10:30→21:31)
[2018-10-25] MEDS: NYSTATIN POWDER 100,000 UNITS/GM - 15 GM TOPICAL POWDER TP SCH ×2 (10:30→21:32)
[2018-10-25] MEDS: buPROPion HCL 75 MG TABLET PO SCH ×3 (10:30→21:32)
[2018-10-25] MEDS: NYSTATIN 100000 UNIT/GM TOPICAL OINTMENT 15 GM TUBE TP SCH (10:31)
[2018-10-25 11:22] LABS: ACANTHOCYTES 1+; ANISOCYTOSIS 2+; MACROCYTOSIS 0; PLATELET ESTIMATE NORMAL; TEAR DROP CELLS 1+
[2018-10-26] MEDS: methylPREDNISolone NA SUCC 40 MG/1 ML VIAL IVPUSH SCH ×3 (01:12→23:14)
[2018-10-26] MEDS: DEXTROSE 5%-WATER - 1,000 ML IV SCH ×2 (05:58→16:26)
[2018-10-26 08:56] LABS: ANION GAP 7 MMOL/L (8-16); BLOOD UREA NITROGEN 43 mg/dL (7-18); CALCIUM 7.9 mg/dL (8.5-10.1); CHLORIDE 107 mmol/L (98-107); CO2 32 mmol/L (21-32); CREATININE 1.4 mg/dL (0.55-1.3); GLUCOSE,RANDOM 180 mg/dL (74-106); POTASSIUM 3.2 mmol/L (3.5-5.1); SODIUM 146 mmol/L (136-145)
[2018-10-26 09:05] LABS: EOS % 0.6 % (0-4.5); HEMATOCRIT 28.6 % (32.4-45.2); LYMPH % 80.7 % (8-40); MCH 29.3 pg (25.7-33.7); MCHC 31.5 g/dl (32.0-36.0); MEAN CELL VOLUME 93.1 fl (80-96); MEAN PLT VOLUME 7.7 fl (7.5-11.1); MONO % 1.7 % (3.8-10.2); PLATELET COUNT 290 K/MM3 (134-434); RBC 3.07 M/mm3 (3.60-5.2); RDW 17.5 % (11.6-15.6)
[2018-10-26 09:06] LABS: WHITE BLOOD COUNT 72.5 K/mm3 (4.0-10.0)
[2018-10-26] MEDS ORDERED: PT OWN MED DRAWER 7, Y5N ONE ×2 (09:18→21:17)
[2018-10-26] MEDS: FOLIC ACID 1 MG TABLET (FP) PO SCH (11:44)
[2018-10-26] MEDS: ALLOPURINOL 300 MG TABLET (FP) PO SCH (11:45)
[2018-10-26] MEDS: buPROPion HCL 75 MG TABLET PO SCH ×2 (11:45→22:41)
[2018-10-26] MEDS: PRIMIDONE 50 MG TABLET PO SCH ×2 (11:45→22:41)
[2018-10-26] MEDS: FUROSEMIDE 40 MG/4 ML INJECTABLE VIAL IVPUSH SCH (11:48)
[2018-10-26 12:23] LABS: ANISOCYTOSIS 2+; MACROCYTOSIS 2+; OVALOCYTE 1+; PLATELET ESTIMATE NORMAL
[2018-10-26] MEDS: NYSTATIN POWDER 100,000 UNITS/GM - 15 GM TOPICAL POWDER TP SCH ×2 (14:06→22:42)
[2018-10-26] MEDS: NYSTATIN 100000 UNIT/GM TOPICAL OINTMENT 15 GM TUBE TP SCH (14:06)
[2018-10-26] MEDS: ZINC OXIDE 20% TOPICAL OINTMENT 30 GM TUBE TP SCH ×2 (14:06→22:42)
[2018-10-26] MEDS ORDERED: POTASSIUM CHLORIDE 20 MEQ PREMIX IVPB 100 ML IVPB ONE (14:09)
[2018-10-26] MEDS: DRONABINOL 5 MG CAPSULE PO SCH (14:59)
--- NOTE | 2018-10-26 15:22 | PN ---
Progress Note (short form) - Note Progress Note: In bed afebrile for 2 days awake / alert daughter and son in law at bedside - interacting with patient Rash has resolved per nursing - she spits out "all" her meds discussed lab results / plan of care / over all prognosis and possible disposition with family Vital Signs Period Temp Pulse Resp BP Sys/Chapman Pulse Ox Last 24 Hr 98.2 F-99 F 63-77 18-20 135-162/67-86 95 neck supple heart s1/s2 lungs clear bilat / poor inspiratory effort abd soft non tender excoriation gluteal area improved ext no edema morbiliforme rash to back / flank / abdomen---all resolved CBC, BMP 10/26/18 07:00 10/26/18 07:00 CBC, BMP 10/23/18 05:15 10/23/18 05:15 Microbiology 10/23/18 13:24 Blood - Peripheral Venous Blood Culture - Preliminary NO GROWTH OBTAINED AFTER 72 HOURS, INCUBATION TO CONTINUE FOR 2 DAYS. 10/23/18 13:30 Blood - Peripheral Venous Blood Culture - Preliminary NO GROWTH OBTAINED AFTER 72 HOURS, INCUBATION TO CONTINUE FOR 2 DAYS. 10/14/18 07:00 Blood - Peripheral Venous Blood Culture - Final NO GROWTH AFTER 5 DAYS INCUBATION 10/14/18 07:00 Blood - Peripheral Venous Blood Culture - Final NO GROWTH AFTER 5 DAYS INCUBATION 10/15/18 19:10 Urine - Urine Clean Catch Urine Culture - Final NO GROWTH OBTAINED 10/09/18 06:00 Blood - Peripheral Venous Blood Culture - Final NO GROWTH AFTER 5 DAYS INCUBATION 10/09/18 06:15 Blood - Peripheral Venous Blood Culture - Final NO GROWTH AFTER 5 DAYS INCUBATION 10/08/18 18:30 Blood - Peripheral Venous Blood Culture - Final NO GROWTH AFTER 5 DAYS INCUBATION 10/08/18 16:20 Blood - Peripheral Venous Blood Culture - Final NO GROWTH AFTER 5 DAYS INCUBATION 10/03/18 06:30 Blood - Peripheral Venous Blood Culture - Final NO GROWTH AFTER 5 DAYS INCUBATION 10/03/18 06:15 Blood - Peripheral Venous Blood Culture - Final NO GROWTH AFTER 5 DAYS INCUBATION 09/28/18 10:20 Blood - Peripheral Venous Blood Culture - Final Lactose Fermenting Neg Bacilli 09/28/18 10:36 Blood - Peripheral Venous Blood Culture - Final Escherichia Coli Esbl Partnership Manager 09/28/18 10:48 Urine - Urine - Catheterized Urine Culture - Final Escherichia Coli Esbl Partnership Manager Active Medications Acetaminophen (Tylenol Suppository -) 650 mg [place] Q4H PRN PRN Reason: TEMP. OVER 101.5 Last Admin: 10/24/18 23:09 Dose: 650 mg Allopurinol (Zyloprim -) 300 mg PO DAILY [facility] Last Admin: 10/26/18 11:45 Dose: Not Given Bupropion HCl (Wellbutrin -) 75 mg PO BID [facility] Last Admin: 10/26/18 11:45 Dose: Not Given Dronabinol (Marinol -) 5 mg PO DAILY [facility] Last Admin: 10/26/18 14:59 Dose: 5 mg Folic Acid (Folic Acid -) 1 mg PO DAILY [facility] Last Admin: 10/26/18 11:44 Dose: Not Given Furosemide (Lasix Injection -) 20 mg IVPUSH DAILY [facility] Last Admin: 10/26/18 11:48 Dose: 20 mg Dextrose (D5w -) 1,000 mls @ 100 mls/hr IV Q10H [facility] Last Admin: 10/26/18 05:58 Dose: 100 mls/hr Methylprednisolone Sodium Succinate (Solu-Medrol -) 40 mg IVPUSH BID [facility] Multi-Ingredient Ointment (Zinc Oxide) 1 applic TP BID [facility] Last Admin: 10/26/18 14:06 Dose: 1 applic Nystatin (Mycostatin Ointment -) 1 applic TP DAILY [facility] Last Admin: 10/26/18 14:06 Dose: 1 applic Nystatin (Nystop Powder -) 1 applic TP BID [facility] Last Admin: 10/26/18 14:06 Dose: 1 applic Potassium Chloride (Potassium Chloride 10 Meq Premix Ivpb -) 10 meq IVPB Q1H [facility] Stop: 10/26/18 16:16 Primidone (Mysoline -) 100 mg PO BID [facility] Last Admin: 10/26/18 11:45 Dose: Not Given Propranolol HCl (Inderal La -) 120 mg PO DAILY [facility] Last Admin: 10/26/18 11:44 Dose: Not Given assment / plan # Hypernatremia / mild HF? dehydration --corrected / inc PO free water if able to take PO follow labs in am # dementia with alteration to baseline infection treated aspiration precautions for feeding appetite stimulant -- marinol # ESBL in b/c and urine off abx - tx completed # CLL untreated / in remission appreciate Onc follow up # rash morbiliforme ? drug reaction --had resolved -- no new meds introduced treated steroids successfully --- now resolved -will taper steroids NS and allopurinol off clinimix / d/c lipitor, gabapentin, MVI, mirtazipine ( these had been home meds ??) per nursing has not taken any of her meds -- disposition family considering [place] vs [facility] also considering feeding tube Problem List - Problems (1) Altered mental status Code(s): R41.82 - ALTERED MENTAL STATUS, UNSPECIFIED (2) UTI (urinary tract infection) Code(s): N39.0 - URINARY TRACT INFECTION, SITE NOT SPECIFIED Qualifiers: Encounter type: initial encounter (3) Fever Code(s): R50.9 - FEVER, UNSPECIFIED (4) Dementia Code(s): F03.90 - UNSPECIFIED DEMENTIA WITHOUT BEHAVIORAL DISTURBANCE (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
[2018-10-26] MEDS: POTASSIUM CHLORIDE 10 MEQ PREMIX IVPB (POTASSIUM RIDER) IVPB SCH ×2 (17:18→17:19)
[2018-10-27] MEDS: DEXTROSE 5%-WATER - 1,000 ML IV SCH ×4 (01:45→18:23)
[2018-10-27] MEDS: methylPREDNISolone NA SUCC 40 MG/1 ML VIAL IVPUSH SCH ×2 (11:39→21:05)
[2018-10-27] MEDS: FUROSEMIDE 40 MG/4 ML INJECTABLE VIAL IVPUSH SCH (11:40)
[2018-10-27] MEDS: ALLOPURINOL 300 MG TABLET (FP) PO SCH (11:40)
[2018-10-27] MEDS: FOLIC ACID 1 MG TABLET (FP) PO SCH (11:40)
[2018-10-27] MEDS: DRONABINOL 5 MG CAPSULE PO SCH (11:40)
[2018-10-27] MEDS: NYSTATIN 100000 UNIT/GM TOPICAL OINTMENT 15 GM TUBE TP SCH (11:40)
[2018-10-27] MEDS: buPROPion HCL 75 MG TABLET PO SCH ×2 (11:41→21:06)
[2018-10-27] MEDS: NYSTATIN POWDER 100,000 UNITS/GM - 15 GM TOPICAL POWDER TP SCH ×2 (11:41→21:05)
[2018-10-27] MEDS: PRIMIDONE 50 MG TABLET PO SCH ×2 (11:41→21:05)
[2018-10-27] MEDS: ZINC OXIDE 20% TOPICAL OINTMENT 30 GM TUBE TP SCH ×2 (11:42→21:05)
[2018-10-27 12:32] LABS: ANION GAP 8 MMOL/L (8-16); BLOOD UREA NITROGEN 35 mg/dL (7-18); CALCIUM 7.5 mg/dL (8.5-10.1); CHLORIDE 100 mmol/L (98-107); CO2 33 mmol/L (21-32); CREATININE 1.3 mg/dL (0.55-1.3); GLUCOSE,RANDOM 167 mg/dL (74-106); MAGNESIUM 2.1 mg/dL (1.8-2.4); POTASSIUM 3.3 mmol/L (3.5-5.1); SODIUM 140 mmol/L (136-145)
--- NOTE | 2018-10-27 17:30 | PN ---
Progress Note (short form) - Note Progress Note: In bed afebrile awake / alert nonverbal Rash has resolved per nursing - she spits out "all" her meds Vital Signs Period Temp Pulse Resp BP Sys/Chapman Pulse Ox Last 24 Hr 97.3 F-98.3 F 71-74 16-20 122-144/61-68 97-97 neck supple heart s1/s2 lungs clear bilat / poor inspiratory effort abd soft non tender excoriation gluteal area improved ext no edema CBC, BMP 10/26/18 07:00 10/27/18 05:25 CBC, BMP 10/23/18 05:15 10/23/18 05:15 Microbiology 10/23/18 13:24 Blood - Peripheral Venous Blood Culture - Preliminary NO GROWTH OBTAINED AFTER 96 HOURS, INCUBATION TO CONTINUE FOR 1 DAYS. 10/23/18 13:30 Blood - Peripheral Venous Blood Culture - Preliminary NO GROWTH OBTAINED AFTER 96 HOURS, INCUBATION TO CONTINUE FOR 1 DAYS. 10/14/18 07:00 Blood - Peripheral Venous Blood Culture - Final NO GROWTH AFTER 5 DAYS INCUBATION 10/14/18 07:00 Blood - Peripheral Venous Blood Culture - Final NO GROWTH AFTER 5 DAYS INCUBATION 10/15/18 19:10 Urine - Urine Clean Catch Urine Culture - Final NO GROWTH OBTAINED 10/09/18 06:00 Blood - Peripheral Venous Blood Culture - Final NO GROWTH AFTER 5 DAYS INCUBATION 10/09/18 06:15 Blood - Peripheral Venous Blood Culture - Final NO GROWTH AFTER 5 DAYS INCUBATION 10/08/18 18:30 Blood - Peripheral Venous Blood Culture - Final NO GROWTH AFTER 5 DAYS INCUBATION 10/08/18 16:20 Blood - Peripheral Venous Blood Culture - Final NO GROWTH AFTER 5 DAYS INCUBATION 10/03/18 06:30 Blood - Peripheral Venous Blood Culture - Final NO GROWTH AFTER 5 DAYS INCUBATION 10/03/18 06:15 Blood - Peripheral Venous Blood Culture - Final NO GROWTH AFTER 5 DAYS INCUBATION 09/28/18 10:20 Blood - Peripheral Venous Blood Culture - Final Lactose Fermenting Neg Bacilli 09/28/18 10:36 Blood - Peripheral Venous Blood Culture - Final Escherichia Coli Esbl Barrel Lathe Operator 09/28/18 10:48 Urine - Urine - Catheterized Urine Culture - Final Escherichia Coli Esbl Barrel Lathe Operator Active Medications Acetaminophen (Tylenol Suppository -) 650 mg [place] Q4H PRN PRN Reason: TEMP. OVER 101.5 Last Admin: 10/24/18 23:09 Dose: 650 mg Allopurinol (Zyloprim -) 300 mg PO DAILY [facility] Last Admin: 10/27/18 11:40 Dose: 300 mg Bupropion HCl (Wellbutrin -) 75 mg PO BID [facility] Last Admin: 10/27/18 11:41 Dose: 75 mg Dronabinol (Marinol -) 5 mg PO DAILY [facility] Last Admin: 10/27/18 11:40 Dose: 5 mg Folic Acid (Folic Acid -) 1 mg PO DAILY [facility] Last Admin: 10/27/18 11:40 Dose: 1 mg Furosemide (Lasix Injection -) 20 mg IVPUSH DAILY [facility] Last Admin: 10/27/18 11:40 Dose: 20 mg Dextrose (D5w -) 1,000 mls @ 50 mls/hr IV ASDIR [facility] Methylprednisolone Sodium Succinate (Solu-Medrol -) 40 mg IVPUSH BID [facility] Last Admin: 10/27/18 11:39 Dose: 40 mg Multi-Ingredient Ointment (Zinc Oxide) 1 applic TP BID [facility] Last Admin: 10/27/18 11:42 Dose: 1 applic Nystatin (Mycostatin Ointment -) 1 applic TP DAILY [facility] Last Admin: 10/27/18 11:40 Dose: 1 applic Nystatin (Nystop Powder -) 1 applic TP BID [facility] Last Admin: 10/27/18 11:41 Dose: 1 applic Primidone (Mysoline -) 100 mg PO BID [facility] Last Admin: 10/27/18 11:41 Dose: 100 mg Propranolol HCl (Inderal La -) 120 mg PO DAILY [facility] Last Admin: 10/27/18 11:47 Dose: 120 mg assment / plan # Hypernatremia -corrected dehydration --corrected encourage PO intake appetite stimulant needs asstance for feeding # dementia with alteration to baseline infection treated aspiration precautions for feeding appetite stimulant -- marinol # ESBL in b/c and urine off abx - tx completed # CLL untreated / in remission appreciate Onc follow up # rash morbiliforme ? drug reaction --had resolved -- no new meds introduced treated steroids successfully --- now resolved -will taper steroids NS and allopurinol off clinimix / d/c lipitor, gabapentin, MVI, mirtazipine ( these had been home meds ??) per nursing has not taken any of her meds -- disposition family considering [place] vs hosp[facility] care [facility] also considering feeding tube family not at bedside today - will need to discuss further with palliative care Problem List - Problems (1) Altered mental status Code(s): R41.82 - ALTERED MENTAL STATUS, UNSPECIFIED (2) UTI (urinary tract infection) Code(s): N39.0 - URINARY TRACT INFECTION, SITE NOT SPECIFIED Qualifiers: Encounter type: initial encounter (3) Fever Code(s): R50.9 - FEVER, UNSPECIFIED (4) Dementia Code(s): F03.90 - UNSPECIFIED DEMENTIA WITHOUT BEHAVIORAL DISTURBANCE (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
[2018-10-27] MEDS ORDERED: POTASSIUM CHLORIDE TABS 20 MEQ TABLET.ER (FP) PO ONE (17:31)
[2018-10-27] MEDS ORDERED: PT OWN MED DRAWER 7, Y5N ONE (20:37)
[2018-10-28 08:06] LABS: ANION GAP 7 MMOL/L (8-16); BLOOD UREA NITROGEN 34 mg/dL (7-18); CALCIUM 7.7 mg/dL (8.5-10.1); CHLORIDE 100 mmol/L (98-107); CO2 33 mmol/L (21-32); CREATININE 1.2 mg/dL (0.55-1.3); GLUCOSE,RANDOM 137 mg/dL (74-106); MAGNESIUM 2.2 mg/dL (1.8-2.4); POTASSIUM 3.6 mmol/L (3.5-5.1); SODIUM 139 mmol/L (136-145)
[2018-10-28 08:11] LABS: BASO % 0.1 % (0-2.0); EOS % 0.5 % (0-4.5); HEMATOCRIT 27.2 % (32.4-45.2); HEMOGLOBIN 8.8 GM/dL (10.7-15.3); LYMPH % 80.7 % (8-40); MCH 29.5 pg (25.7-33.7); MCHC 32.3 g/dl (32.0-36.0); MEAN CELL VOLUME 91.2 fl (80-96); MEAN PLT VOLUME 8.6 fl (7.5-11.1); NEUT % 15.7 % (42.8-82.8); PLATELET COUNT 247 K/MM3 (134-434); RBC 2.98 M/mm3 (3.60-5.2)
[2018-10-28 08:22] LABS: WHITE BLOOD COUNT 81.7 K/mm3 (4.0-10.0)
[2018-10-28] MEDS: buPROPion HCL 75 MG TABLET PO SCH ×2 (11:04→21:54)
[2018-10-28] MEDS: FUROSEMIDE 40 MG/4 ML INJECTABLE VIAL IVPUSH SCH (11:04)
[2018-10-28] MEDS: PRIMIDONE 50 MG TABLET PO SCH ×2 (11:04→21:52)
[2018-10-28] MEDS: FOLIC ACID 1 MG TABLET (FP) PO SCH (11:04)
[2018-10-28] MEDS: NYSTATIN 100000 UNIT/GM TOPICAL OINTMENT 15 GM TUBE TP SCH (11:05)
[2018-10-28] MEDS: DRONABINOL 5 MG CAPSULE PO SCH (11:05)
[2018-10-28] MEDS: NYSTATIN POWDER 100,000 UNITS/GM - 15 GM TOPICAL POWDER TP SCH ×2 (11:05→21:53)
[2018-10-28] MEDS: ZINC OXIDE 20% TOPICAL OINTMENT 30 GM TUBE TP SCH ×2 (11:06→21:54)
[2018-10-28] MEDS: ALLOPURINOL 300 MG TABLET (FP) PO SCH (11:07)
[2018-10-28] MEDS: methylPREDNISolone NA SUCC 40 MG/1 ML VIAL IVPUSH SCH ×2 (11:10→21:54)
--- NOTE | 2018-10-28 12:11 | PN ---
Progress Note (short form) - Note Progress Note: In bed afebrile awake / alert / interactive per nursing - good appetite -eating "everything" nonverbal Rash has resolved Vital Signs Period Temp Pulse Resp BP Sys/Chapman Pulse Ox Last 24 Hr 97.4 F-98 F 62-70 18-18 116-145/48-65 94 neck supple heart s1/s2 lungs clear bilat / poor inspiratory effort abd soft non tender excoriation gluteal area improved ext no edema CBC, BMP 10/28/18 06:30 10/28/18 06:30 CBC, BMP 10/26/18 07:00 10/27/18 05:25 CBC, BMP 10/23/18 05:15 10/23/18 05:15 Microbiology 10/23/18 13:24 Blood - Peripheral Venous Blood Culture - Preliminary NO GROWTH OBTAINED AFTER 96 HOURS, INCUBATION TO CONTINUE FOR 1 DAYS. 10/23/18 13:30 Blood - Peripheral Venous Blood Culture - Preliminary NO GROWTH OBTAINED AFTER 96 HOURS, INCUBATION TO CONTINUE FOR 1 DAYS. 10/14/18 07:00 Blood - Peripheral Venous Blood Culture - Final NO GROWTH AFTER 5 DAYS INCUBATION 10/14/18 07:00 Blood - Peripheral Venous Blood Culture - Final NO GROWTH AFTER 5 DAYS INCUBATION 10/15/18 19:10 Urine - Urine Clean Catch Urine Culture - Final NO GROWTH OBTAINED 10/09/18 06:00 Blood - Peripheral Venous Blood Culture - Final NO GROWTH AFTER 5 DAYS INCUBATION 10/09/18 06:15 Blood - Peripheral Venous Blood Culture - Final NO GROWTH AFTER 5 DAYS INCUBATION 10/08/18 18:30 Blood - Peripheral Venous Blood Culture - Final NO GROWTH AFTER 5 DAYS INCUBATION 10/08/18 16:20 Blood - Peripheral Venous Blood Culture - Final NO GROWTH AFTER 5 DAYS INCUBATION 10/03/18 06:30 Blood - Peripheral Venous Blood Culture - Final NO GROWTH AFTER 5 DAYS INCUBATION 10/03/18 06:15 Blood - Peripheral Venous Blood Culture - Final NO GROWTH AFTER 5 DAYS INCUBATION 09/28/18 10:20 Blood - Peripheral Venous Blood Culture - Final Lactose Fermenting Neg Bacilli 09/28/18 10:36 Blood - Peripheral Venous Blood Culture - Final Escherichia Coli Esbl Dining Room Host 09/28/18 10:48 Urine - Urine - Catheterized Urine Culture - Final Escherichia Coli Esbl Dining Room Host Active Medications Acetaminophen (Tylenol Suppository -) 650 mg IN Q4H PRN PRN Reason: TEMP. OVER 101.5 Last Admin: 10/24/18 23:09 Dose: 650 mg Allopurinol (Zyloprim -) 300 mg PO DAILY [facility] Last Admin: 10/28/18 11:07 Dose: 300 mg Bupropion HCl (Wellbutrin -) 75 mg PO BID [facility] Last Admin: 10/28/18 11:04 Dose: 75 mg Dronabinol (Marinol -) 5 mg PO DAILY [facility] Last Admin: 10/28/18 11:05 Dose: 5 mg Folic Acid (Folic Acid -) 1 mg PO DAILY [facility] Last Admin: 10/28/18 11:04 Dose: 1 mg Furosemide (Lasix Injection -) 20 mg IVPUSH DAILY [facility] Last Admin: 10/28/18 11:04 Dose: 20 mg Dextrose (D5w -) 1,000 mls @ 50 mls/hr IV ASDIR [facility] Last Admin: 10/27/18 13:45 Dose: 50 mls/hr Methylprednisolone Sodium Succinate (Solu-Medrol -) 40 mg IVPUSH BID [facility] Last Admin: 10/28/18 11:10 Dose: Not Given Multi-Ingredient Ointment (Zinc Oxide) 1 applic TP BID [facility] Last Admin: 10/28/18 11:06 Dose: 1 applic Nystatin (Mycostatin Ointment -) 1 applic TP DAILY [facility] Last Admin: 10/28/18 11:05 Dose: 1 applic Nystatin (Nystop Powder -) 1 applic TP BID [facility] Last Admin: 10/28/18 11:05 Dose: 1 applic Primidone (Mysoline -) 100 mg PO BID [facility] Last Admin: 10/28/18 11:04 Dose: 100 mg Propranolol HCl (Inderal La -) 120 mg PO DAILY [facility] Last Admin: 10/28/18 11:04 Dose: 120 mg assment / plan # Hypernatremia -corrected dehydration --corrected encourage PO intake appetite stimulant working - appetite improved needs asstance for feeding # dementia with alteration to baseline infection treated aspiration precautions for feeding appetite stimulant -- marinol # ESBL in b/c and urine off abx - tx completed # CLL untreated / in remission appreciate Onc follow up # rash morbiliforme ? drug reaction --had resolved -- no new meds introduced treated steroids successfully --- now resolved -will d/c steroids NS and allopurinol off clinimix / d/c lipitor, gabapentin, MVI, mirtazipine ( these had been home meds ??) disposition family considering [place] vs [facility] family not at bedside today - will need to discuss further with palliative care - clinically improved - should consider STR as patient has not been mobile during hospital stay -- will need to discuss further with family Problem List - Problems (1) Altered mental status Code(s): R41.82 - ALTERED MENTAL STATUS, UNSPECIFIED (2) UTI (urinary tract infection) Code(s): N39.0 - URINARY TRACT INFECTION, SITE NOT SPECIFIED Qualifiers: Encounter type: initial encounter (3) Fever Code(s): R50.9 - FEVER, UNSPECIFIED (4) Dementia Code(s): F03.90 - UNSPECIFIED DEMENTIA WITHOUT BEHAVIORAL DISTURBANCE (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
[2018-10-28 13:25] LABS: ANISOCYTOSIS 2+; MACROCYTOSIS 0; PLATELET ESTIMATE NORMAL; TARGET CELLS 1+
[2018-10-28] MEDS ORDERED: PT OWN MED DRAWER 7, Y5N ONE (23:13)
[2018-10-29] MEDS ORDERED: PT OWN MED DRAWER 7, Y5N ONE (10:20)
[2018-10-29] MEDS: methylPREDNISolone NA SUCC 40 MG/1 ML VIAL IVPUSH SCH ×2 (10:30→22:15)
[2018-10-29] MEDS: FUROSEMIDE 40 MG/4 ML INJECTABLE VIAL IVPUSH SCH (10:30)
[2018-10-29] MEDS: FOLIC ACID 1 MG TABLET (FP) PO SCH (10:30)
[2018-10-29] MEDS: DRONABINOL 5 MG CAPSULE PO SCH (10:30)
[2018-10-29] MEDS: ALLOPURINOL 300 MG TABLET (FP) PO SCH (10:30)
[2018-10-29] MEDS: PRIMIDONE 50 MG TABLET PO SCH ×2 (10:31→22:15)
[2018-10-29] MEDS: buPROPion HCL 75 MG TABLET PO SCH ×2 (10:33→22:15)
[2018-10-29] MEDS: NYSTATIN 100000 UNIT/GM TOPICAL OINTMENT 15 GM TUBE TP SCH (10:33)
[2018-10-29] MEDS: NYSTATIN POWDER 100,000 UNITS/GM - 15 GM TOPICAL POWDER TP SCH ×2 (10:33→22:23)
[2018-10-29] MEDS: ZINC OXIDE 20% TOPICAL OINTMENT 30 GM TUBE TP SCH ×2 (10:34→22:21)
--- NOTE | 2018-10-29 22:36 | PN ---
Progress Note (short form) - Note Progress Note: In bed afebrile awake / alert / interactive Vital Signs Period Temp Pulse Resp BP Sys/Chapman Pulse Ox Last 24 Hr 97.3 F-98.3 F 64-75 18-20 114-135/52-59 96 neck supple heart s1/s2 lungs clear bilat / poor inspiratory effort abd soft non tender excoriation gluteal area improved ext no edema CBC, BMP 10/28/18 06:30 10/28/18 06:30 CBC, BMP 10/26/18 07:00 10/27/18 05:25 CBC, BMP 10/23/18 05:15 10/23/18 05:15 Microbiology 10/23/18 13:24 Blood - Peripheral Venous Blood Culture - Final NO GROWTH AFTER 5 DAYS INCUBATION 10/23/18 13:30 Blood - Peripheral Venous Blood Culture - Final NO GROWTH AFTER 5 DAYS INCUBATION 10/14/18 07:00 Blood - Peripheral Venous Blood Culture - Final NO GROWTH AFTER 5 DAYS INCUBATION 10/14/18 07:00 Blood - Peripheral Venous Blood Culture - Final NO GROWTH AFTER 5 DAYS INCUBATION 10/15/18 19:10 Urine - Urine Clean Catch Urine Culture - Final NO GROWTH OBTAINED 10/09/18 06:00 Blood - Peripheral Venous Blood Culture - Final NO GROWTH AFTER 5 DAYS INCUBATION 10/09/18 06:15 Blood - Peripheral Venous Blood Culture - Final NO GROWTH AFTER 5 DAYS INCUBATION 10/08/18 18:30 Blood - Peripheral Venous Blood Culture - Final NO GROWTH AFTER 5 DAYS INCUBATION 10/08/18 16:20 Blood - Peripheral Venous Blood Culture - Final NO GROWTH AFTER 5 DAYS INCUBATION 10/03/18 06:30 Blood - Peripheral Venous Blood Culture - Final NO GROWTH AFTER 5 DAYS INCUBATION 10/03/18 06:15 Blood - Peripheral Venous Blood Culture - Final NO GROWTH AFTER 5 DAYS INCUBATION 09/28/18 10:20 Blood - Peripheral Venous Blood Culture - Final Lactose Fermenting Neg Bacilli 09/28/18 10:36 Blood - Peripheral Venous Blood Culture - Final Escherichia Coli Esbl [employer] Refinish Technician 09/28/18 10:48 Urine - Urine - Catheterized Urine Culture - Final Escherichia Coli Esbl [employer] Refinish Technician Active Medications Acetaminophen (Tylenol Suppository -) 650 mg SD Q4H PRN PRN Reason: TEMP. OVER 101.5 Last Admin: 10/24/18 23:09 Dose: 650 mg Allopurinol (Zyloprim -) 300 mg PO DAILY [facility] Last Admin: 10/29/18 10:30 Dose: 300 mg Bupropion HCl (Wellbutrin -) 75 mg PO BID [facility] Last Admin: 10/29/18 22:15 Dose: 75 mg Dronabinol (Marinol -) 5 mg PO DAILY [facility] Last Admin: 10/29/18 10:30 Dose: Not Given Folic Acid (Folic Acid -) 1 mg PO DAILY [facility] Last Admin: 10/29/18 10:30 Dose: 1 mg Furosemide (Lasix Injection -) 20 mg IVPUSH DAILY [facility] Last Admin: 10/29/18 10:30 Dose: 20 mg Dextrose (D5w -) 1,000 mls @ 50 mls/hr IV ASDIR [facility] Last Admin: 10/27/18 13:45 Dose: 50 mls/hr Methylprednisolone Sodium Succinate (Solu-Medrol -) 40 mg IVPUSH BID [facility] Last Admin: 10/29/18 22:15 Dose: 40 mg Multi-Ingredient Ointment (Zinc Oxide) 1 applic TP BID [facility] Last Admin: 10/29/18 22:21 Dose: 1 applic Nystatin (Mycostatin Ointment -) 1 applic TP DAILY [facility] Last Admin: 10/29/18 10:33 Dose: 1 applic Nystatin (Nystop Powder -) 1 applic TP BID [facility] Last Admin: 10/29/18 22:23 Dose: 1 applic Primidone (Mysoline -) 100 mg PO BID [facility] Last Admin: 10/29/18 22:15 Dose: 100 mg Propranolol HCl (Inderal La -) 120 mg PO DAILY [facility] Last Admin: 10/29/18 10:31 Dose: Not Gi assment / plan # Hypernatremia -corrected dehydration --corrected encourage PO intake appetite stimulant working - appetite improved needs asstance for feeding # dementia with alteration to baseline infection treated aspiration precautions for feeding appetite stimulant -- marinol # ESBL in b/c and urine off abx - tx completed # CLL untreated / in remission appreciate Onc follow up # rash morbiliforme ? drug reaction --had resolved -- no new meds introduced treated steroids successfully --- now resolved -will d/c steroids NS and allopurinol off clinimix / d/c lipitor, gabapentin, MVI, mirtazipine ( these had been home meds ??) disposition family considering [place] vs hospice care at [facility] Problem List - Problems (1) Altered mental status Code(s): R41.82 - ALTERED MENTAL STATUS, UNSPECIFIED (2) UTI (urinary tract infection) Code(s): N39.0 - URINARY TRACT INFECTION, SITE NOT SPECIFIED Qualifiers: Encounter type: initial encounter (3) Fever Code(s): R50.9 - FEVER, UNSPECIFIED (4) Dementia Code(s): F03.90 - UNSPECIFIED DEMENTIA WITHOUT BEHAVIORAL DISTURBANCE (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
[2018-10-30 07:28] LABS: BASO % 0.1 % (0-2.0); EOS % 0.4 % (0-4.5); HEMATOCRIT 29.5 % (32.4-45.2); HEMOGLOBIN 8.8 GM/dL (10.7-15.3); LYMPH % 81.8 % (8-40); MCH 28.1 pg (25.7-33.7); MCHC 29.9 g/dl (32.0-36.0); MEAN CELL VOLUME 93.8 fl (80-96); MEAN PLT VOLUME 8.6 fl (7.5-11.1); MONO % 1.9 % (3.8-10.2); NEUT % 15.8 % (42.8-82.8); PLATELET COUNT 240 K/MM3 (134-434); RBC 3.14 M/mm3 (3.60-5.2); RDW 17.2 % (11.6-15.6)
[2018-10-30 07:39] LABS: ANION GAP 4 MMOL/L (8-16); BLOOD UREA NITROGEN 45 mg/dL (7-18); CALCIUM 8.7 mg/dL (8.5-10.1); CHLORIDE 100 mmol/L (98-107); CO2 36 mmol/L (21-32); CREATININE 1.1 mg/dL (0.55-1.3); GLUCOSE,RANDOM 120 mg/dL (74-106); POTASSIUM 4.2 mmol/L (3.5-5.1); SODIUM 140 mmol/L (136-145)
[2018-10-30 08:09] LABS: WHITE BLOOD COUNT 90.8 K/mm3 (4.0-10.0)
[2018-10-30] MEDS: DRONABINOL 5 MG CAPSULE PO SCH (10:42)
[2018-10-30] MEDS: PRIMIDONE 50 MG TABLET PO SCH ×2 (10:42→21:58)
[2018-10-30] MEDS: buPROPion HCL 75 MG TABLET PO SCH ×2 (10:42→21:58)
[2018-10-30] MEDS: FUROSEMIDE 40 MG/4 ML INJECTABLE VIAL IVPUSH SCH (10:42)
[2018-10-30] MEDS: ALLOPURINOL 300 MG TABLET (FP) PO SCH (10:42)
[2018-10-30] MEDS: FOLIC ACID 1 MG TABLET (FP) PO SCH (10:43)
[2018-10-30] MEDS: ZINC OXIDE 20% TOPICAL OINTMENT 30 GM TUBE TP SCH ×2 (10:44→21:58)
[2018-10-30] MEDS: NYSTATIN POWDER 100,000 UNITS/GM - 15 GM TOPICAL POWDER TP SCH ×2 (10:45→21:58)
[2018-10-30] MEDS: NYSTATIN 100000 UNIT/GM TOPICAL OINTMENT 15 GM TUBE TP SCH (10:45)
--- NOTE | 2018-10-30 12:12 | PN ---
Progress Note (short form) - Note Progress Note: In bed afebrile awake / alert / interactive Vital Signs Period Temp Pulse Resp BP Sys/Chapman Pulse Ox Last 24 Hr 97.3 F-98.3 F 64-75 18-20 114-135/52-59 96 neck supple heart s1/s2 lungs clear bilat / poor inspiratory effort abd soft non tender excoriation gluteal area improved ext no edema CBC, BMP 10/28/18 06:30 10/28/18 06:30 CBC, BMP 10/26/18 07:00 10/27/18 05:25 CBC, BMP 10/23/18 05:15 10/23/18 05:15 Microbiology 10/23/18 13:24 Blood - Peripheral Venous Blood Culture - Final NO GROWTH AFTER 5 DAYS INCUBATION 10/23/18 13:30 Blood - Peripheral Venous Blood Culture - Final NO GROWTH AFTER 5 DAYS INCUBATION 10/14/18 07:00 Blood - Peripheral Venous Blood Culture - Final NO GROWTH AFTER 5 DAYS INCUBATION 10/14/18 07:00 Blood - Peripheral Venous Blood Culture - Final NO GROWTH AFTER 5 DAYS INCUBATION 10/15/18 19:10 Urine - Urine Clean Catch Urine Culture - Final NO GROWTH OBTAINED 10/09/18 06:00 Blood - Peripheral Venous Blood Culture - Final NO GROWTH AFTER 5 DAYS INCUBATION 10/09/18 06:15 Blood - Peripheral Venous Blood Culture - Final NO GROWTH AFTER 5 DAYS INCUBATION 10/08/18 18:30 Blood - Peripheral Venous Blood Culture - Final NO GROWTH AFTER 5 DAYS INCUBATION 10/08/18 16:20 Blood - Peripheral Venous Blood Culture - Final NO GROWTH AFTER 5 DAYS INCUBATION 10/03/18 06:30 Blood - Peripheral Venous Blood Culture - Final NO GROWTH AFTER 5 DAYS INCUBATION 10/03/18 06:15 Blood - Peripheral Venous Blood Culture - Final NO GROWTH AFTER 5 DAYS INCUBATION 09/28/18 10:20 Blood - Peripheral Venous Blood Culture - Final Lactose Fermenting Neg Bacilli 09/28/18 10:36 Blood - Peripheral Venous Blood Culture - Final Escherichia Coli Esbl Dice Table Person 09/28/18 10:48 Urine - Urine - Catheterized Urine Culture - Final Escherichia Coli Esbl Dice Table Person Active Medications Acetaminophen (Tylenol Suppository -) 650 mg [place] Q4H PRN PRN Reason: TEMP. OVER 101.5 Last Admin: 10/24/18 23:09 Dose: 650 mg Allopurinol (Zyloprim -) 300 mg PO DAILY [facility] Last Admin: 10/29/18 10:30 Dose: 300 mg Bupropion HCl (Wellbutrin -) 75 mg PO BID [facility] Last Admin: 10/29/18 22:15 Dose: 75 mg Dronabinol (Marinol -) 5 mg PO DAILY [facility] Last Admin: 10/29/18 10:30 Dose: Not Given Folic Acid (Folic Acid -) 1 mg PO DAILY [facility] Last Admin: 10/29/18 10:30 Dose: 1 mg Furosemide (Lasix Injection -) 20 mg IVPUSH DAILY [facility] Last Admin: 10/29/18 10:30 Dose: 20 mg Dextrose (D5w -) 1,000 mls @ 50 mls/hr IV ASDIR [facility] Last Admin: 10/27/18 13:45 Dose: 50 mls/hr Methylprednisolone Sodium Succinate (Solu-Medrol -) 40 mg IVPUSH BID [facility] Last Admin: 10/29/18 22:15 Dose: 40 mg Multi-Ingredient Ointment (Zinc Oxide) 1 applic TP BID [facility] Last Admin: 10/29/18 22:21 Dose: 1 applic Nystatin (Mycostatin Ointment -) 1 applic TP DAILY [facility] Last Admin: 10/29/18 10:33 Dose: 1 applic Nystatin (Nystop Powder -) 1 applic TP BID [facility] Last Admin: 10/29/18 22:23 Dose: 1 applic Primidone (Mysoline -) 100 mg PO BID [facility] Last Admin: 10/29/18 22:15 Dose: 100 mg Propranolol HCl (Inderal La -) 120 mg PO DAILY [facility] Last Admin: 10/29/18 10:31 Dose: Not Gi assment / plan # Hypernatremia -corrected dehydration --corrected encourage PO intake appetite stimulant working - appetite improved needs asstance for feeding # dementia with alteration to baseline infection treated aspiration precautions for feeding appetite stimulant -- marinol # ESBL in b/c and urine off abx - tx completed # CLL untreated / in remission appreciate Onc follow up # rash morbiliforme ? drug reaction --had resolved -- no new meds introduced treated steroids successfully --- now resolved -will d/c steroids NS and allopurinol off clinimix / d/c lipitor, gabapentin, MVI, mirtazipine ( these had been home meds ??) disposition family considering [place] vs hospice care at [facility] Problem List - Problems (1) Altered mental status Code(s): R41.82 - ALTERED MENTAL STATUS, UNSPECIFIED (2) UTI (urinary tract infection) Code(s): N39.0 - URINARY TRACT INFECTION, SITE NOT SPECIFIED Qualifiers: Encounter type: initial encounter (3) Fever Code(s): R50.9 - FEVER, UNSPECIFIED (4) Dementia Code(s): F03.90 - UNSPECIFIED DEMENTIA WITHOUT BEHAVIORAL DISTURBANCE (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
--- NOTE | 2018-10-30 13:11 | DS ---
Physical Examination Vital Signs: Vital Signs Temperature 97.7 F 10/30/18 10:00 Pulse Rate 81 10/30/18 10:00 Respiratory Rate 18 10/30/18 10:00 Blood Pressure 136/61 10/30/18 10:00 O2 Sat by Pulse Oximetry (%) 98 10/29/18 21:00 Findings/Remarks: 88 y/o female with hx of dementia / CLL/ seizure disorder s/p deep brain stimulation, HLD / untreated CLL/ left pelvic fracture 07/2017 Pt has been increasingly lethargic per [facility] staff, no longer answering yes or no to questions. Pt also febrile to 102. History limited due to patients clinical condition. Patient admitted and workup showed patient to have ESBL in blood and urine cultures. She was treated with IV antibiotics - however towards end of treatment became febrile. She was pancultured several times -- all cultures negative . Oncology was also consulted for evaluation of fever possibly due to CLL. Oncology evaluation discarded CLL as cause of fever. Drug fever was working dx - all abx completed and discontinued - however fever persisted - additional cultures done also continued to be negative. during last week of hospital stay she developed moriliforme rash which was treated with IV steroids - thought to be allergic reaction to medicatin --All meds at that time had need medications she had been on as out patient. Medications discontinued during hospital stay may be able to resume as out patient with close monitoring for allergic reaction . However if patient can stay off medication would continue with limited meds. POC to return to [facility] with assistance was discussed with brianna Daly at time of discharge. Constitutional: Yes: Well Nourished, No Distress, Calm Eyes: Yes: Conjunctiva Clear, EOM Intact HENT: Yes: Atraumatic, Normocephalic Neck: Yes: Supple, Trachea Midline Cardiovascular: Yes: Regular Rate and Rhythm Respiratory: Yes: CTA Bilaterally Gastrointestinal: Yes: Normal Bowel Sounds, Soft ...Rectal Exam: Yes: Deferred Renal/: Yes: WNL Musculoskeletal: Yes: Muscle Weakness Extremities: No: Deformity Edema: No Peripheral Pulses WNL: Yes Integumentary: Yes: Erythema Neurological: Yes: Pre-Existing Deficit Psychiatric: Yes: Alert Labs: CBC, BMP 10/30/18 06:30 10/30/18 06:30 Discharge Summary Reason For Visit: SEPSIS Current Active Problems Sepsis (Acute) Condition: Guarded - Instructions Referrals: Gutterman,Shyanne [Primary Care Provider] - Disposition: HOME - Home Medications Comprehensive Discharge Medication List: Ambulatory Orders Acetaminophen 500 mg PO TID 09/28/18 Bupropion HCl [Wellbutrin -] 75 mg PO BID 09/28/18 Cholecalciferol (Vitamin D3) [Vitamin D3] 2,000 unit PO DAILY 09/28/18 Cyanocobalamin [Vitamin B12 -] 1,000 mcg PO DAILY 09/28/18 Folic Acid 1 mg PO DAILY 09/28/18 Folic Acid/Mv,Iron,Min/Lutein [Certa Plus Tablet] 1 each PO DAILY 09/28/18 Primidone [Mysoline -] 100 mg PO BID 09/28/18 propRANOLol HCL [Inderal LA -] 120 mg PO DAILY 09/28/18 Acetaminophen Suppository [Tylenol .Suppository -] 650 mg [place] Q4H PRN supp.rect 10/30/18 Dronabinol [Marinol -] 5 mg PO DAILY 7 Days #7 capsule MDD 5 mg 10/30/18 Nystatin Ointment [Mycostatin Ointment -] 1 applic TP DAILY 30 Days #100 applic 10/30/18 Nystatin Powder [Nystop Powder -] 1 applic TP BID 30 Days #1 bottle 10/30/18
--- NOTE | 2018-10-30 16:41 | PN ---
Progress Note (short form) - Note Progress Note: Patient seen and examined For discharge. Remains non communicative Has had intermittent fevers and rash during hospital course CLL with lymphocytosis , anemia Typically CLL associated with fever of infection rather than neoplastic fevers. Question of drug reaction also considered . Can be monitored in outpatient setting.
[2018-10-30] MEDS: DEXTROSE 5%-WATER - 1,000 ML IV SCH (19:25)
[2018-10-30] MEDS ORDERED: PT OWN MED DRAWER 7, Y5N ONE ×2 (20:20→20:25)
[2018-10-31] MEDS: FUROSEMIDE 40 MG/4 ML INJECTABLE VIAL IVPUSH SCH (09:47)
[2018-10-31] MEDS: FOLIC ACID 1 MG TABLET (FP) PO SCH (09:48)
[2018-10-31] MEDS: ALLOPURINOL 300 MG TABLET (FP) PO SCH (09:48)
[2018-10-31] MEDS: buPROPion HCL 75 MG TABLET PO SCH (09:48)
[2018-10-31] MEDS: DRONABINOL 5 MG CAPSULE PO SCH (09:48)
[2018-10-31] MEDS: PRIMIDONE 50 MG TABLET PO SCH (09:49)
[2018-10-31] MEDS: ZINC OXIDE 20% TOPICAL OINTMENT 30 GM TUBE TP SCH (09:50)
[2018-10-31] MEDS: NYSTATIN POWDER 100,000 UNITS/GM - 15 GM TOPICAL POWDER TP SCH (09:51)
[2018-10-31] MEDS: NYSTATIN 100000 UNIT/GM TOPICAL OINTMENT 15 GM TUBE TP SCH (09:51)
[2018-10-31] MEDS ORDERED: GABAPENTIN 300 MG CAPSULE (FP) PO SCH (10:00)
--- NOTE | 2018-10-31 10:49 | PN ---
Progress Note (short form) - Note Progress Note: 88 y/o female found lying in bed. Alert but did not speak. Vital Signs Period Temp Pulse Resp BP Sys/Chapman Pulse Ox Last 24 Hr 97.7 F-98.3 F 65-73 18-20 104-147/53-77 99 CBC, BMP 10/30/18 06:30 10/30/18 06:30 HEENT- Normocephalic Neck- supple Lungs- CTAB Heart- S1/S2 Abd- soft, nt Ext- No LE edema Active Medications Acetaminophen (Tylenol Suppository -) 650 mg [place] Q4H PRN PRN Reason: TEMP. OVER 101.5 Last Admin: 10/24/18 23:09 Dose: 650 mg Allopurinol (Zyloprim -) 300 mg PO DAILY [facility] Last Admin: 10/31/18 09:48 Dose: 300 mg Bupropion HCl (Wellbutrin -) 75 mg PO BID [facility] Last Admin: 10/31/18 09:48 Dose: 75 mg Dronabinol (Marinol -) 5 mg PO DAILY [facility] Last Admin: 10/31/18 09:48 Dose: 5 mg Folic Acid (Folic Acid -) 1 mg PO DAILY [facility] Last Admin: 10/31/18 09:48 Dose: 1 mg Furosemide (Lasix Injection -) 20 mg IVPUSH DAILY [facility] Last Admin: 10/31/18 09:47 Dose: 20 mg Gabapentin (Neurontin -) 600 mg PO DAILY [facility] Last Admin: 10/31/18 09:48 Dose: 600 mg Dextrose (D5w -) 1,000 mls @ 50 mls/hr IV ASDIR [facility] Last Admin: 10/30/18 19:25 Dose: Not Given Multi-Ingredient Ointment (Zinc Oxide) 1 applic TP BID [facility] Last Admin: 10/31/18 09:50 Dose: 1 applic Nystatin (Mycostatin Ointment -) 1 applic TP DAILY [facility] Last Admin: 10/31/18 09:51 Dose: 1 applic Nystatin (Nystop Powder -) 1 applic TP BID [facility] Last Admin: 10/31/18 09:51 Dose: 1 applic Primidone (Mysoline -) 100 mg PO BID [facility] Last Admin: 10/31/18 09:49 Dose: 100 mg Propranolol HCl (Inderal La -) 120 mg PO DAILY [facility] Last Admin: 10/31/18 09:49 Dose: 120 mg Plan- [facility]. 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
[2018-10-31 15:13] VITALS: BP 114/53; PULSE 73; TEMP 98.2
== END 2018-10-31 15:24 | disposition home or self-care (01) | DRG 871 ==
LOC: JER 09:47 → INTOOBSV 10:31 → UNDOADMOB 10:31 → JERBED 10:31 → J5S 14:30 → OBSVTOIN 09-30 11:37 → J7W 09-30 15:45
PROVIDERS: ADMIT Family Medicine; ATTEND Family Medicine
DX: A41.50 Gram-negative sepsis, unspecified (principal); G93.41 Metabolic encephalopathy; J69.0 Pneumonitis due to inhalation of food and vomit; N39.0 Urinary tract infection, site not specified; C91.11 Chronic lymphocytic leukemia of B-cell type in remission; E87.2 Acidosis; E87.0 Hyperosmolality and hypernatremia; J98.11 Atelectasis; F03.90 Unspecified dementia, unspecified severity, without behavioral disturbance, psychotic disturbance, mood disturbance, and anxiety; L27.0 Generalized skin eruption due to drugs and medicaments taken internally; R41.82 Altered mental status, unspecified; R56.9 Unspecified convulsions; Z16.12 Extended spectrum beta lactamase (ESBL) resistance; E86.0 Dehydration; E78.5 Hyperlipidemia, unspecified
CPT/HCPCS: 36415; 36600; 70450-TC; 71045-TC-FY; 71250-TC; 74018-TC-FY; 74176-TC; 76775-TC; 76856-TC; 80048; 80053; 81003; 81015; 82040; 82784; 82785; 82803; 82962; 83605; 83615; 83735; 84484; 84550; 85025; 85610; 85651; 85730; 86140; 87040; 87086; 87186; 87804; 93005; 93010; 94640; 97116-GP; 97161-GP; 99285-25; G0378; J0131; J7030